=== PATIENT | male | born 1980 | race Caucasian/White ===

== ENCOUNTER 2018-08-29 16:49 | Emergency (ER) | payer MEDICAID, SELFPAY ==
[2018-08-29 16:57] VITALS: BP 154/87; PULSE 94; RESP 16; TEMP 37.3; O2SAT 94
--- NOTE | 2018-08-29 17:08 | ED.GENADUL_ITS ---
Discharge Plan Disposition Patient Disposition: HOME Condition: Fair Discharge Details Chief Complaint: RespSymp Clinical Impression: Sinusitis, Incidental pulmonary nodule Primary Care Provider: Adrien Gayle ED Provider: Tereza Prieto Home Meds and New Rx's Prescriptions: New amoxicillin-pot clavulanate [Augmentin] 875-125 mg tablet 1 tab PO BID Qty: 14 RF: 0 Continued ibuprofen 600 MG tablet 600 mg PO DIRECTED RF: 0 methadone 10 mg/5 mL Solution 130 mg PO DAILY RF: 0 Discharge Instructions Instructions: Amoxicillin/Clavulanate Potassium (By mouth), Sinusitis (ED) Additional Instructions: Continue to encourage hydration. Tylenol and ibuprofen as needed for dis comfort. Please take Augmentin as prescribed for your infection. Even if symptoms improve, please take entire course. You will need follow-up with your primary care within the next week for reevaluation. At that point, please discuss the CT scan findings of the pulmonary nodules as discussed. If you develop fevers/chills, increased pain, shortness of breath, difficulty breathing or other new/worsening symptoms please seek care urgently once again. Stand Alone Forms: Work Release Referrals: Adrien Gayle [Primary Care Provider] - Medical Decision Making Patient is a 37 year old male presenting today with c/c of sinusitis, fever, left sided chest pain and cough. States that sinus pain began 3 weeks ago and have progressively been worsening. States that over the past few days he has noted productive cough. Yesterday he began having severe chest pain with cough. Also began with fevers at that time. Patient is on methadone but was unable to get his dosing for a few days secondary to transportation restrictions. States that he used IV heroin 3 days ago. Has had his methadone for the past 2 days. Initially thought the CP was secondary to the withdrawal he was experiencing. However, he is now concerned that hehas received 2 doses and symptoms have persisted. On exam, he is obese, diaphoretic. He has recent injection sites with no signs of infection. Cardiac exam reveals no murmurs, rubs, gallops. He has 1+ pitting edema bilaterally. Respiratory exam concerning for crackles in the LLL. Exam is otherwise benign. Patient tachycardic at 94, mildly hypoxic at 94%RA. With patients history of CP, tachycardia, fevers and IVDU, I am concerned with possible endocarditis. Patient has no murmur, does not appear septic. Differential also consists of sinusitis, pneumonia, pericarditis, PE, other pulmonary or cardiac source. EKG was reviewed by Dr. Lay. Patient does have T wave inversions noted on lead III and aVF but this is consistent with previous EKG obtained in 2013. Otherwise patient's normal sinus rhythm with a rate of 78. She advised no acute ischemic changes Labs signficant for normal WBC, d-dimer elevated at 1138, ALT slightly elevated at 81. CXR reviewed by radiologist: IMPRESSION: Predominantly linear opacities in the left lung base. Most suggestive of subsegmental atelectasis or scarring. Discussed the findings with the patient. At this point, with a normal lactate, no leukocytosis, the patient appearing nontoxic, I do not feel that endocarditis or pericarditis is unlikely. However, your main concern for possible pulmonary embolism. Discussed CT with the patient, he is in agreement with moving forward with this imaing. BNP WNL. FINDINGS: Pulmonary arteries: No pulmonary emboli. Aorta: No aortic aneurysm. No aortic dissection. Lungs: Multiple new, small pulmonary nodules, predominantly subcentimeter in size, some of which are groundglass in attenuation. Follow-up as per institutional protocol. New mild subsegmental atelectasis in the lower lobes. Small focus of airspace disease in the right middle lobe. Pleural space: No pneumothorax. No pleural effusion. Heart: No cardiomegaly. No pericardial effusion. Lymph nodes: No enlarged lymph nodes. Bones/joints: Old healed rib fractures. No acute fracture or subluxation. Soft tissues: No suspicious lesions. IMPRESSION: 1. Multiple new, small pulmonary nodules, predominantly subcentimeter in size, some of which are groundglass in attenuation. Suggests a new endobronchial disease. 2. New mild subsegmental atelectasis in the lower lobes. 3. Small focus of airspace disease in the right middle lobe. Probably relates to finding #1 above. 4. No pulmonary emboli are seen. Discussed these findings with the patient. No evidence of pneumonia. CP is likely associated with cough, likely from muscular pain or pleuritis. He is feeling improved, hungry and requesting discharge. He will f/u with PCP regarding nodules. He is an active smoker, counseled on cessation. Encouraged hydration. As his sinus pain has been 3 weeks, will treat with Augmentin. He was given strict return precautions. Advised PCP f/u in one week. All quesitons and concerns were addressed. He is in agreement with this plan. HPI General Mode of arrival: ambulatory . Date/Time Provider Initiated Documentation: 08/29/18 17:08 . Limitations to Documentation: no limitations . Information obtained by: patient, family (accompanied by friend) and RN notes reviewed . History of Present Illness 37 year old M presents to the emergency department with the chief complaint of Sinus pain, fevers, cough, described as moderate, with intensity rated at 7. Quality is described as aching, and is localized to the face and chest (pain with cough). Patient reports no radiation. Patient started experiencing this day(s) and it has been constant. No relieving factors improve symptom(s), No exacerbating factors reported . Patient notes chest pain, cough, diaphoresis and fever/chills; denies headaches, loss of appetite, nausea/vomiting, rash, shortness of breath, syncope and weakness. Patient did receive the following treatments prior to arrival, none Related Data Home Medications Medication Instructions Recorded Confirmed ibuprofen 600 mg PO DIRECTED 05/06/12 05/06/12 amoxicillin-pot clavulanate 1 tab PO BID #14 tab 08/29/18 [Augmentin] methadone 130 mg PO DAILY 08/29/18 08/29/18 Previous Rx's Medication Instructions Recorded amoxicillin-pot clavulanate 1 tab PO BID #14 tab 08/29/18 [Augmentin] Allergies Allergy/AdvReac Type Severity Reaction Status Date / Time No Known Allergies Allergy Unverified 08/29/18 17:02 General Stated Complaint: RespSymp ALEJANDRO: 3 Review of Systems Constitutional Reports as per HPI, Reports chills, Reports fatigue, Reports fever(s), Denies headache(s), Denies lethargy, Denies malaise and Denies poor appetite Eyes Reports as per HPI, Denies eye discharge and Denies irritation ENT Reports as per HPI, Denies vertigo, Denies dizziness, Denies otalgia, Denies facial pain, Denies headache(s), Reports nasal congestion, Denies nasal discharge, Reports sinus pain, Reports sinus pressure, Reports sore throat and Denies throat swelling Cardiovascular Reports as per HPI, Reports chest pain (pleuritic), Denies chest pain at rest, Denies chest pain with activity (pain only with cough), Reports diaphoresis, Denies syncope, Denies rapid heart rate, Reports pedal edema (reports chronic BLE edema), Denies lightheadedness, Denies palpitations, Denies dyspnea and Denies dyspnea on exertion Respiratory Reports as per HPI, Reports cough, Denies hemoptysis, Denies dyspnea, Denies dyspnea on exertion, Denies stridor and Denies wheezing Gastrointestinal Reports as per HPI, Denies abdominal pain, Denies change in bowel habits, Denies nausea and Denies vomiting Integumentary/Breasts Reports as per HPI and Denies rash Neurologic Reports as per HPI, Denies vertigo, Denies dizziness, Denies syncope and Denies headache(s) Endocrine Reports fatigue and Denies palpitations Allergic/Immunologic Denies throat swelling and Denies wheezing [facility] Social History Smoking/Tobacco Use Status: Current every day Tobacco Type: cigarettes Drug use: Occasionally Substance use type: marijuana Details: cocaine Exam Const General: cooperative, healthy appearing, comfortable, no acute distress, well developed and well groomed Nutritional Appearance: well nourished and overweight Orientation: alert and awake [facility] Head: normal to inspection, normocephalic and atraumatic Ears: hearing grossly normal bilaterally, external ears normal and TM's normal bilaterally General nose exam: external nose normal and nares normal Face and sinus: face symmetric, no crepitus, no ecchymosis, no erythema, no fluctuance and sinus tenderness frontal and maxillary Mouth: oral mucosae normal, lip normal, tongue normal, oropharynx normal, mucous membranes dry (patient appears dry on exam), no trismus and No restricted motion Teeth and gingiva: poor dentition Throat: posterior oropharynx normal, tonsils normal and uvula midline Eyes General: appearance normal, both eyes and all related structures Neck Neck: normal visual inspection, full ROM, no lymphadenopathy and no meningeal signs Resp Effort & Inspection: normal respiratory effort, able to speak in complete sentences and no respiratory distress Auscultation: clear to auscultation bilaterally, no rales, no rhonchi and no wheezes Cardio Rate: regular rate Rhythm: regular rhythm Heart Sounds: S1 normal and S2 normal GI Inspection: normal to inspection, no edema, non-distended and obesity Palpation: soft, no hepatosplenomegaly, no guarding, not rigid and nontender Percussion: normal to percussion Auscultation: normal bowel sounds Skin General skin exam: no rashes or lesions noted Neuro General: alert and awake Cognition: normal cognition Speech: speech normal Gait: normal gait Extrem General: full ROM, normal capillary refill, no calf tenderness, normal gait and pedal edema bilaterally (has 1+ bilateral pitting edema, patient reports this is typical and unchanged) Psych Appearance: grossly normal and well kempt Mental Status: mental status grossly normal Speech and Movement: speech and movement normal Course Vital Signs Temperature 37.3 C 08/29/18 16:57 Pulse 94 H 08/29/18 16:57 Respiratory Rate 16 08/29/18 16:57 Blood Pressure 154/87 H 08/29/18 16:57 Pulse Oximetry 94 L 08/29/18 16:57 Temperature 37.3 C 08/29/18 16:57 Temperature Source Skin 08/29/18 16:57 Pulse 94 H 08/29/18 16:57 Respiratory Rate 16 08/29/18 16:57 Respiratory Effort Non-Labored 08/29/18 17:03 Respiratory Depth Normal 08/29/18 17:03 Blood Pressure 154/87 H 08/29/18 16:57 Blood Pressure Position Sitting 08/29/18 16:57 Pulse Oximetry 94 L 08/29/18 16:57 Oxygen Delivery Method Room Air 08/29/18 16:57 Oxygen Flow Rate 0 08/29/18 16:57 Pain Level 7 08/29/18 16:57
[2018-08-29] MEDS: Normal Saline 1,000 ML 1000 ML IV (18:30)
[2018-08-29 18:34] LABS: Abs Immature Grans 0.03 k/cumm (0.0-0.09); Absolute Basophil Count 0.01 k/cumm (0.0-0.2); Absolute Eosinophil Count 0.03 k/cumm (0.0-0.7); Absolute Lymphocyte Count 1.98 k/cumm (1.2-3.4); Absolute Monocyte Count 0.62 k/cumm (0.11-0.7); Absolute Neutrophil Count 5.68 k/cumm (1.2-6.7); Basophils % 0.1; Eosinophils % 0.4; HCT 40.9 % (40.0-50.0); HGB 13.3 g/dL (13.5-17.5); Immature Grans % 0.4; Lactate-non-spesis 0.7 mmol/l (0.6-1.4); Lymphocytes % 23.7; Mean Corp. HGB Concentration 32.5 g/dL (32.0-36.0); Mean Corpuscular Hemoglobin 29.3 pg (27.0-33.0); Mean Corpuscular Volume 90.1 fL (80-95); Mean Platelet Volume 9.6 fL (8.0-11.0); Monocytes % 7.4; Platelet Count 129 x1000/uL (130-400); RBC 4.54 m/cumm (4.50-6.00); RBC Distribution Width 15.5 % (11.8-14.1); White Blood Cell Count 8.35 k/cumm (4.4-10.8)
[2018-08-29] MEDS: Albuterol HFA 8 GM 60 PUFF INH IH (18:42)
[2018-08-29] MEDS: predniSONE 20 MG TAB 60 MG PO (18:42)
[2018-08-29 18:54] VITALS: BP 122/53; PULSE 93; RESP 18; TEMP 36.5; O2SAT 93
[2018-08-29 18:56] LABS: ALT 81 U/L (12-78); AST 28 U/L (15-37); Albumin 3.2 g/dL (3.4-5.0); Alkaline Phosphatase 61 U/L (46-116); Anion Gap 9.5 mmol/L (3-11); BUN 12 mg/dL (7-18); Bilirubin, Total 0.4 mg/dL (0.2-1.0); CO2 26.5 mmol/L (21.0-32.0); CREATININE 0.86 mg/dL (0.70-1.30); Calcium 8.9 mg/dL (8.5-10.1); Chloride 99 mmol/L (98-107); Glucose 109 mg/dL (70-100); Magnesium 1.9 mg/dL (1.8-2.4); Potassium 4.1 mmol/L (3.5-5.1); Sodium 135 mmol/L (136-145); Troponin I < 0.05 ng/mL (0.00-0.06)
--- NOTE | 2018-08-29 19:03 | DI.RAD_ITS ---
SYMPTOM/DIAGNOSIS: CP, FEVER, COUGH PA AND LATERAL CHEST: There is some question regarding increased interstitial markings in the left lung base. There is no evidence of air space disease. There is no pleural effusion. The cardiovascular structures are intact. SUMMARY: Small opacities in the left lung base likely representing atelectasis or scarring. No acute abnormality is seen.
[2018-08-29 19:14] LABS: D-Dimer 1138 ng/mlFEU (<500)
--- NOTE | 2018-08-29 19:27 | DI.VRAD_ITS ---
EXAM: XR Chest, 2 Views EXAM DATE/TIME: 08/29/2018 17:56 CLINICAL HISTORY: 37 years old, male; Fever; Chest pain; Type not specified; Additional info: Cough, cp, fever TECHNIQUE: Imaging protocol: XR of the chest, 2 views. COMPARISON: CR CHEST 2 VIEWS PA,LAT 05/06/2012 08:33 FINDINGS: Lungs: Predominantly linear opacities in the left lung base. No airspace consolidation. Pleural space: No pleural effusion. No pneumothorax. Heart/Mediastinum: No cardiomegaly. Bones/joints: No acute fracture. IMPRESSION: Predominantly linear opacities in the left lung base. Most suggestive of subsegmental atelectasis or scarring. Dictated and Authenticated by: Dahlia Falcon MD. Ordering:RONEN Starks MD
--- NOTE | 2018-08-29 19:55 | DI.CT_ITS ---
SYMPTOM/DIAGNOSIS: TACHYCARDIC, HYPOXIC, ELEVATED D-DIMER CHEST CTA: CT angiography was performed with multi slice acquisition and multi planar and 3D reconstruction. The examination was carried out according to the usual protocol with intravenous administration of 150 cc Omnipaque 350. There is no evidence of pulmonary embolic disease. There is no evidence of an aortic aneurysm or aortic dissection. Note is made of multiple small pulmonary nodules which are predominantly subcentimeter in size. Some demonstrating ground glass attenuation. Note is also made of sub-segmental atelectasis in the lower lobes. There is a small region of air space disease in the right middle lobe. There is no evidence of a pneumothorax or pleural effusion. The heart is of normal size. No pericardial effusion is seen. There is no evidence of lymphadenopathy. Note is made of old healed rib fractures. No acute bony abnormality is seen. The soft tissues are unremarkable. SUMMARY: Predominantly subcentimeter in size. Some of these are of ground glass attenuation. These findings suggest new endobronchial disease. There is mild subcentimeter atelectasis in the lower lobes. Note is also made of a small air space density in the right middle lobe.
[2018-08-29 19:56] LABS: NT-proBNP 121 pg/mL
--- NOTE | 2018-08-29 20:28 | DI.VRAD_ITS ---
EXAM: CT Angiography Chest With Contrast EXAM DATE/TIME: 08/29/2018 19:24 CLINICAL HISTORY: 37 years old, male; Type not specified; Patient HX: Chest pain, elevated d-dimer; Additional info: Cough, cp, fever TECHNIQUE: Imaging protocol: Axial computed tomographic angiography images of the chest with intravenous contrast using CT angiography protocol. Coronal and sagittal reformatted images were created and reviewed. 3D rendering: MIP reconstructed images were created and reviewed. Radiation optimization: All CT scans at this facility use at least one of these dose optimization techniques: automated exposure control; mA and/or kV adjustment per patient size (includes targeted exams where dose is matched to clinical indication); or iterative reconstruction. Contrast material: OMNIPAQUE 350; Contrast volume: 150 ml; Contrast route: IV; COMPARISON: CT CHEST WITH CONTRAST 05/05/2012 22:58 FINDINGS: Pulmonary arteries: No pulmonary emboli. Aorta: No aortic aneurysm. No aortic dissection. Lungs: Multiple new, small pulmonary nodules, predominantly subcentimeter in size, some of which are groundglass in attenuation. Follow-up as per institutional protocol. New mild subsegmental atelectasis in the lower lobes. Small focus of airspace disease in the right middle lobe. Pleural space: No pneumothorax. No pleural effusion. Heart: No cardiomegaly. No pericardial effusion. Lymph nodes: No enlarged lymph nodes. Bones/joints: Old healed rib fractures. No acute fracture or subluxation. Soft tissues: No suspicious lesions. IMPRESSION: 1. Multiple new, small pulmonary nodules, predominantly subcentimeter in size, some of which are groundglass in attenuation. Suggests a new endobronchial disease. 2. New mild subsegmental atelectasis in the lower lobes. 3. Small focus of airspace disease in the right middle lobe. Probably relates to finding #1 above. 4. No pulmonary emboli are seen. Dictated and Authenticated by: Dahlia Falcon MD. Ordering:RONEN Starks MD
[2018-08-29 20:56] VITALS: BP 114/56; PULSE 71; RESP 16; TEMP 37.1; O2SAT 94
[2018-08-29] MEDS: Amoxicillin 875/Clav. 125 TAB PO (20:56)
--- NOTE | 2018-08-30 08:55 | PDOC.ERCMPRO ---
Care Management Progress Note CM consult requested by FILOMENA Starks due to Venkatesh demographic information. Tereza attempted to contact Venkatesh to request he return to the Emergency room due to positive blood cultures and re-evaluation. DAVIDE called NOK: Venkatesh's Mom, Ale who provided number: [phone]. DAVIDE called Venkatesh and left a voicemail at [phone] requesting he return to the Emergency Room for re-evaluation. CM provided accurate contact information to [employer].
== END 2018-08-29 21:05 | disposition home or self-care (01) ==
PROVIDERS: Emergency Provider Physician Assistant
DX: J01.90 Acute sinusitis, unspecified (principal); R91.1 Solitary pulmonary nodule; J98.11 Atelectasis
CPT/HCPCS: 36415; 71275; 80053; 87040; 87077; 93005; 96360; 99285; 71046; 83605; 83735; 83880; 84484; 85025; 85379; 93010; J7512

== ENCOUNTER 2018-08-30 13:46 | Inpatient (IN) | payer MEDICAID, SELFPAY ==
[2018-08-30] VITALS (28 sets, daily range): BP systolic 96–172; BP diastolic 49–103; PULSE 57–78; RESP 9–18; TEMP 35.9–36.7; O2SAT 90–99
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
[2018-08-30] MEDS: Normal Saline 1,000 ML 1000 ML IV (14:17)
[2018-08-30 14:20] LABS: Lactate 1.9 mmol/L (0.6-1.4)
[2018-08-30] MEDS: cefTRIAXone 2 GM/50 ML BAG IVPB (14:21)
[2018-08-30 14:24] LABS: Abs Immature Grans 0.04 k/cumm (0.0-0.09); Absolute Basophil Count 0.01 k/cumm (0.0-0.2); Absolute Eosinophil Count 0.06 k/cumm (0.0-0.7); Absolute Lymphocyte Count 2.48 k/cumm (1.2-3.4); Absolute Monocyte Count 0.86 k/cumm (0.11-0.7); Absolute Neutrophil Count 4.77 k/cumm (1.2-6.7); Basophils % 0.1; Eosinophils % 0.7; HCT 38.7 % (40.0-50.0); HGB 12.7 g/dL (13.5-17.5); Immature Grans % 0.5; Lymphocytes % 30.2; Mean Corp. HGB Concentration 32.8 g/dL (32.0-36.0); Mean Corpuscular Hemoglobin 29.5 pg (27.0-33.0); Mean Corpuscular Volume 89.8 fL (80-95); Mean Platelet Volume 9.6 fL (8.0-11.0); Monocytes % 10.5; Platelet Count 137 x1000/uL (130-400); RBC 4.31 m/cumm (4.50-6.00); RBC Distribution Width 15.2 % (11.8-14.1); White Blood Cell Count 8.22 k/cumm (4.4-10.8)
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
[2018-08-30] MEDS: VANCOMYCIN 2,000 MG in Normal Saline 500 ML 250 MG IVPB (14:45)
[2018-08-30 14:47] LABS: ALT 65 U/L (12-78); AST 22 U/L (15-37); Albumin 2.8 g/dL (3.4-5.0); Alkaline Phosphatase 52 U/L (46-116); Anion Gap 7.4 mmol/L (3-11); BUN 15 mg/dL (7-18); Bilirubin, Total 0.2 mg/dL (0.2-1.0); CO2 28.6 mmol/L (21.0-32.0); CREATININE 0.87 mg/dL (0.70-1.30); Calcium 8.4 mg/dL (8.5-10.1); Chloride 101 mmol/L (98-107); Glucose 167 mg/dL (70-100); Potassium 3.3 mmol/L (3.5-5.1); Sodium 137 mmol/L (136-145); Total Protein 7.4 g/dL (6.4-8.2)
[2018-08-30 15:04] LABS: Procalcitonin 0.6 ng/mL
--- NOTE | 2018-08-30 15:19 | MERGE_ITS ---
*[facility]* *[facility]* [address] [place] [address] Date of study: 08/30/2018 Transthoracic Echocardiography M-mode, complete 2D, complete spectral Doppler, and color Doppler *STUDY CONCLUSIONS* Impressions: There are no typical features of vegetative endocarditis. However, this diagnosis cannot be excluded on the basis of this transthoracic study. Consider transesophageal echocardiography, if clinically indicated, for superior assessment of valve anatomy. Summary: 1. Left ventricle: The cavity size was normal. The estimated ejection fraction was 65%. Diastolic parameters were normal. There was no evidence of elevated ventricular filling pressure by Doppler parameters. 2. Atrial septum: No defect or patent foramen ovale was identified. 3. Pulmonary arteries: Systolic pressure could not be accurately estimated. 4. Inferior vena cava: The vessel was normal in size. The respirophasic diameter changes were in the normal range (greater than or equal to 50%), consistent with normal central venous pressure. *PATIENT PRESENTATION* Height: 182.9cm (72in ) S/D Pressure: 116 / 63 Weight: 133.8kg (294.4lb ) BSA: 2.66m^2 Test start time: 03:20 PM. Test stop time: 04:00 PM. PERFORMING Unknown PERFORMING [facility] ELECTRICAL [employer]SEMBLY TECHNICIAN Naa Al[facility] CONSULTING Elle Olmos Yelena A REFERRING Kogan, Yelena A *PROCEDURE DATA* Procedure information: This study was interpreted by [facility]. Pertinent images and digital data are archived for permanent storage and are available for subsequent review. No prior study was available for comparison. Study status: Routine. Transthoracic echocardiography. M-mode, complete 2D, complete spectral Doppler, and color Doppler. A Transthoracic Echocardiogram was performed. Scanning was performed from the parasternal, apical, subcostal, and suprasternal notch acoustic windows. Images were obtained using an [employer] SC 2000 cardiac ultrasound machine. Image quality was good. Study completion: The patient tolerated the procedure well. History: PMH: Bacteremia, Edema. *CARDIAC ANATOMY* Left ventricle: The cavity size was normal. The estimated ejection fraction was 65%. The tissue Doppler parameters were normal. Diastolic parameters were normal. There was no evidence of elevated ventricular filling pressure by Doppler parameters. Aortic valve: Doppler: There was no stenosis. There was no regurgitation. VTI ratio of LVOT to aortic valve: 0.77. Valve area (VTI): 2.5cm^2. Indexed valve area (VTI): 1cm^2/m^2. Peak velocity ratio of LVOT to aortic valve: 0.66. Valve area (Vmax): 2.2cm^2. Indexed valve area (Vmax): 0.8cm^2/m^2. Mean velocity ratio of LVOT to aortic valve: 0.6. Valve area (Vmean): 2cm^2. Indexed valve area (Vmean): 0.7cm^2/m^2. Mean gradient (S): 5.6mm Hg. Peak gradient (S): 8.2mm Hg. Aorta: Aortic root: The aortic root was normal in size. Ascending aorta: The ascending aorta was normal in size. Mitral valve: Doppler: There was no evidence for stenosis. There was no significant regurgitation. Valve area by pressure half-time: 3.7cm^2. Indexed valve area by pressure half-time: 1.4cm^2/m^2. Peak gradient (D): 2.4mm Hg. Left atrium: The atrium was normal in size. Atrial septum: No defect or patent foramen ovale was identified. Right ventricle: Poorly visualized. Pulmonic valve: Doppler: There was no evidence for stenosis. There was no significant regurgitation. Peak gradient (S): 3.8mm Hg. Tricuspid valve: Doppler: There was mild regurgitation. Pulmonary artery: Poorly visualized. Systolic pressure could not be accurately estimated. Right atrium: The atrium was normal in size. Pericardium: There was no pericardial effusion. Systemic veins: Inferior vena cava: The vessel was normal in size. The respirophasic diameter changes were in the normal range (greater than or equal to 50%), consistent with normal central venous pressure. Measurements Left ventricle Value Reference LV ID, ED, PLAX 5.1 cm 3.5 - 6.0 LV ID, ES, PLAX 3.2 cm 2.1 - 4.0 LV PW thickness, ED, PLAX 1.2 cm LV end-diastolic volume, 1-p A2C 180 ml LV ejection fraction, 1-p A2C 53 % LV end-diastolic volume, 1-p A4C 175 ml LV ejection fraction, 1-p A4C 56 % LV e', lateral 0.144 m/sec LV E/e', lateral 5 LV e', medial 0.172 m/sec LV E/e', medial 5 LV e', average 0.158 m/sec LV E/e', average 5 Ventricular septum Value Reference IVS thickness, ED, PLAX 1.2 cm LVOT Value Reference LVOT ID, A-P 2.0 cm LVOT area 3.3 cm^2 LVOT peak velocity, S 0.95 m/sec LVOT mean velocity, S 0.69 m/sec LVOT VTI, S 22.3 cm LVOT peak gradient, S 3.6 mm Hg LVOT mean gradient, S 2.1 mm Hg Stroke volume (SV), LVOT DP 74 ml Stroke index (SV/bsa), LVOT DP 28 ml/m^2 Aortic valve Value Reference Aortic valve peak velocity, S 1.4 m/sec Aortic valve mean velocity, S 1.2 m/sec Aortic valve VTI, S 29.0 cm Aortic mean gradient, S 5.6 mm Hg Aortic peak gradient, S 8.2 mm Hg VTI ratio, LVOT/AV 0.77 Aortic valve area, VTI 2.5 cm^2 Velocity ratio, peak, LVOT/AV 0.66 Aortic valve area, peak velocity 2.2 cm^2 Velocity ratio, mean, LVOT/AV 0.6 Aortic valve area, mean velocity 2 cm^2 Aortic valve area/bsa, mean velocity 0.7 cm^2/m^2 Aorta Value Reference Aortic root ID, ED 3.3 cm Ascending aorta ID, A-P, S 3.0 cm Left atrium Value Reference LA ID, A-P, ES 4.1 cm LA ID/bsa, A-P 1.5 cm/m^2 <=2.2 LA volume, ES, 2-p 70 ml LA volume/bsa, ES, 2-p 26 ml/m^2 LA/aortic root ratio 1.24 Mitral valve Value Reference Mitral E-wave peak velocity 0.78 m/sec Mitral A-wave peak velocity 0.51 m/sec Mitral deceleration time 203 ms 150 - 230 Mitral pressure half-time 59 ms Mitral peak gradient, D 2.4 mm Hg Mitral E/A ratio, peak 1.52 Mitral valve area, PHT, DP 3.7 cm^2 Right atrium Value Reference RA area, ES, A4C 14.2 cm^2 8.3 - 19.5 Pulmonic valve Value Reference Pulmonic peak gradient, S 3.8 mm Hg Legend: (L) and (H) jaylon values outside specified reference range. I have personally reviewed the images and have reviewed and edited the reported findings. Electronically signed by Guanakito Kearney MD 08/30/2018 17:05
[2018-08-30 19:40] LABS: Bilirubin Negative (Negative); Blood Negative (Negative); Clarity Clear (Clear); Glucose Negative (Negative); Ketones Negative (Negative); Leukocyte Esterase Negative (Negative); Nitrite Negative (Negative); Specific Gravity >= 1.030 (1.005-1.025); Urobilinogen 0.2 EU/dL (Up TO 0.2); pH 5.5 (5-8)
[2018-08-30 19:43] LABS: *AMPHETAMINES SCREEN URINE Negative (Negative); *BARBITURATES SCREEN URINE Negative (Negative); *BENZODIAZEPINES SCREEN URINE Negative (Negative); Cannabinoids THC POSITIVE (Negative); Cocaine Screen,Urine POSITIVE (Negative); METHADONE URINE SCREEN POSITIVE (Negative); OPIATES URINE SCREEN Negative (Negative)
[2018-08-30 19:44] LABS: Tricyclic Antidepressants Negative (Negative)
[2018-08-30 20:06] LABS: Bacteria Negative HPF (Negative); C & S Indicated? No; Casts Negative LPF (Negative); Crystals Few Amorphous HPF (Negative); Epithelial Cells Negative HPF (Negative); Mucus Negative (Negative); RBC 0-2 (0-2)
[2018-08-30] MEDS: Clotrimazole 1% 15 GM TUBE TP (20:25)
[2018-08-30] MEDS: Normal Saline Flush 10 ML SYR IVP (22:03)
[2018-08-31] VITALS (9 sets, daily range): BP systolic 124–158; BP diastolic 67–104; PULSE 49–71; RESP 17–20; TEMP 36.6–37.1; O2SAT 96–99
[2018-08-31] MEDS: Ibuprofen 400 MG TAB PO ×2 (03:38→20:54)
[2018-08-31] MEDS: Normal Saline Flush 10 ML SYR IVP (05:56)
[2018-08-31 06:57] LABS: Abs Immature Grans 0.02 k/cumm (0.0-0.09); Absolute Basophil Count 0.01 k/cumm (0.0-0.2); Absolute Eosinophil Count 0.16 k/cumm (0.0-0.7); Absolute Monocyte Count 0.75 k/cumm (0.11-0.7); Absolute Neutrophil Count 3.06 k/cumm (1.2-6.7); Basophils % 0.1; Eosinophils % 2.4; HCT 39.1 % (40.0-50.0); HGB 12.7 g/dL (13.5-17.5); Immature Grans % 0.3; Lactate-non-spesis 0.7 mmol/l (0.6-1.4); Lymphocytes % 41.2; Mean Corp. HGB Concentration 32.5 g/dL (32.0-36.0); Mean Corpuscular Hemoglobin 29.4 pg (27.0-33.0); Mean Corpuscular Volume 90.5 fL (80-95); Mean Platelet Volume 9.5 fL (8.0-11.0); Platelet Count 149 x1000/uL (130-400); RBC 4.32 m/cumm (4.50-6.00); RBC Distribution Width 15.7 % (11.8-14.1)
[2018-08-31 07:39] LABS: Anion Gap 6.2 mmol/L (3-11); BUN 11 mg/dL (7-18); CO2 27.8 mmol/L (21.0-32.0); CREATININE 0.73 mg/dL (0.70-1.30); Calcium 7.9 mg/dL (8.5-10.1); Chloride 105 mmol/L (98-107); Glucose 94 mg/dL (70-100); Magnesium 1.8 mg/dL (1.8-2.4); Potassium 4.4 mmol/L (3.5-5.1); Procalcitonin 0.4 ng/mL; Sodium 139 mmol/L (136-145); TSH (W/Ref FT4) 3.24 uIU/mL (0.358-3.74)
[2018-08-31 07:54] LABS: C-Reactive Protein 5.32 mg/dL (0.0-0.3)
[2018-08-31] MEDS: Methadone Liquid 10 MG/ML 130 MG PO (08:19)
[2018-08-31] MEDS: Clotrimazole 1% 15 GM TUBE TP ×2 (08:22→20:17)
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
[2018-08-31 10:30] LABS: HIV-1/2 Ag & Ab Screen Negative (NEGAT)
--- NOTE | 2018-08-31 11:08 | PHARADMIT ---
Admission Pharmacy Clinical Review GPC, BACTEREMIA, CAP, EDEMA Code Status Full Code Current Weight Wgt-145 kg Renally Cleared and Narrow Therapeutic Index Meds CrCl~ 140 mL/min Meds-OK QTc Value / Action Taken QTc-444 na BP Control, Fever BP- 148/92 Tmax- 36.9C Electrolytes reviewed Na- 139 K+4.4 Mag-1.8 DVT Prophylaxis Lovenox Opiate Usage / Scheduled Bowel Regimen Ordered Yes Yes Plt/SCr for Heparin / Enoxaparin Plts-149 SCr-0.73 INR for Warfarin na H/H stable, WBC/Bands H&H- 12.7/39.1 WBC- 6.80 Antibiotic appropriateness Rocephin, DC'd Vancomycin Cultures and Sensitivities Blood-pending, Sputum-neg Surgical ABX d/c within 24 hr NA DM control / Insulin Dosing BG- 94 Heart Failure (Check EF%) (EDGAR's, B-Block, Diuretics) na IV to PO Switch No Home Meds Reviewed Yes Home Meds Not Ordered Augmentin, Comments On Methadone, Urine screen Cocaine, THC, Methadone) R-CRP- 5.32
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
[2018-08-31] MEDS: cefTRIAXone 2 GM/50 ML BAG IVPB (14:07)
[2018-08-31 15:47] LABS: NT-proBNP 153 pg/mL
[2018-09-01] VITALS (9 sets, daily range): BP systolic 115–146; BP diastolic 75–91; PULSE 52–80; RESP 16–21; TEMP 36.2–36.6; O2SAT 97–98
[2018-09-01] MEDS: Ibuprofen 400 MG TAB PO ×2 (00:58→04:54)
[2018-09-01 08:27] LABS: HCT 41.7 % (40.0-50.0); HGB 13.3 g/dL (13.5-17.5); Mean Corp. HGB Concentration 31.9 g/dL (32.0-36.0); Mean Corpuscular Hemoglobin 28.9 pg (27.0-33.0); Mean Corpuscular Volume 90.7 fL (80-95); Mean Platelet Volume 9.7 fL (8.0-11.0); Platelet Count 169 x1000/uL (130-400); RBC Distribution Width 15.5 % (11.8-14.1); White Blood Cell Count 5.19 k/cumm (4.4-10.8)
[2018-09-01 08:37] LABS: Anion Gap 6.2 mmol/L (3-11); BUN 11 mg/dL (7-18); C-Reactive Protein 3.35 mg/dL (0.0-0.3); CO2 28.8 mmol/L (21.0-32.0); CREATININE 0.76 mg/dL (0.70-1.30); Calcium 8.7 mg/dL (8.5-10.1); Chloride 105 mmol/L (98-107); Glucose 89 mg/dL (70-100); Potassium 4.6 mmol/L (3.5-5.1); Sodium 140 mmol/L (136-145)
[2018-09-01] MEDS: Methadone Liquid 10 MG/ML 130 MG PO (08:54)
[2018-09-01] MEDS: Clotrimazole 1% 15 GM TUBE TP ×2 (08:54→20:55)
[2018-09-01 09:17] LABS: ESR 34 mm/hr (0-15)
[2018-09-01] MEDS: cefTRIAXone 2 GM/50 ML BAG IVPB (13:50)
[2018-09-01] MEDS: Normal Saline Flush 10 ML SYR IVP (13:55)
--- NOTE | 2018-09-01 14:46 | W.PM.PROGNOT ---
Date of Service Date of service: 09/01/18 Time of Service: 14:46 Assessment and Plan (1) Gram-positive bacteremia: Start date: 09/01/18 Start time: 14:50 Current visit: Yes Status: Acute 4/4 bottles positive from 08/29/18 growing Group B Streptococcus repeat blood cultures drawn 08/30/2018 show no growth to date. He had a transthoracic echocardiogram yesterday which showed his LVEF was 65%, there were no typical features of vegetative endocarditis, will hold off on MEME at this time, given no murmur, fever, and improving sx. His CRP improved from 5.32- 3.35 today, his procalcitonin improved from 0.6 to 0.4. He was on vancomycin and high-dose Rocephin, the vancomycin was discontinued with culture results. Continue ceftriaxone. Monitor repeat blood cultures. (2) Edema: Start date: 09/01/18 Start time: 14:56 Current visit: Yes Status: Acute Mild lower extremity edema. BNP 153, likely dependent edema. He believes he has FROY, although he has never had a sleep study, and is not currently interested in having one. Echo did not show evidence of heart failure, his systolic pressure could not be accurately estimated. Continue TEDs. (3) Opioid dependence: Start date: 09/01/18 Start time: 14:57 Current visit: Yes Status: Acute Continue methadone. (4) IV drug abuse: Start date: 09/01/18 Start time: 14:57 Current visit: Yes Status: Acute Continue methadone. Urine drug screen positive for cocaine, THC and methadone. His father recently of drug overdose and is having a hard time coping. Has used IV heroin within the last week. HIV negative, hepatitis studies are pending. Continue to monitor for signs of withdrawal. (5) Obesity: Start date: 09/01/18 Start time: 14:57 Current visit: Yes Status: Acute High risk for FROY. He believes he has sleep apnea. Echo could not accurately measure for pulmonary hypertension. Would benefit from outpatient sleep study, however, he declines further investigation at this time. (6) Hypertension: Start date: 09/01/18 Start time: 14:57 Current visit: Yes Status: Chronic Blood pressure acceptable at present. Continue to monitor. (7) DVT prophylaxis: Start date: 09/01/18 Start time: 14:57 Current visit: Yes Status: Acute Subcutaneous Lovenox. (8) Discharge planning issues: Start date: 09/01/18 Start time: 14:57 Current visit: Yes Status: Acute Full code. Care management will continue to work with him on a safe discharge plan. Subjective Patient reports: feels better Interval history since last seen: Looking well, feeling better. Smiling, and joking today. Afebrile, normal white count, CRP is trending down at 3.35. Second set blood cultures no growth to date at this time. Hold off on MEME as patient does not have a murmur, vegitation was not evident by echo and there is no wbc or fever. Denies CP, SOB and n/v/d. Exam Narrative Exam Narrative: General: Very pleasant obese male, sitting up in a chair, appears comfortable, in no acute distress. Neurological: A&Ox3, speech is clear, no focal neurological deficits. Skin: No evidence of abscess/cellulitis L hand or left AC; erythematous toes on bilateral feet, appears fungal HEENT: Atraumatic, normocephalic, pupils equal and round, EOMI, moist mucous membranes, very poor dentition. Cardiovascular: Heart has regular rate and rhythm, no murmur appreciated. Lungs: Respirations even and unlabored, lung sounds clear to auscultation bilaterally. Gastrointestinal: Normoactive bowel sounds, abdomen is round and soft, nontender on palpation, nondistended Extremities: 1+ edema to bilateral feet, erythematous toes BLEs, no obvious infected wounds Objective Objective Clinical Data: Abnormal lab results 09/01/18 09/01/18 Range/Units 08:05 08:05 Hgb 13.3 L (13.5-17.5) g/dL MCHC 31.9 L (32.0-36.0) g/dL RDW 15.5 H (11.8-14.1) % ESR 34 H (0-15) mm/hr C-Reactive Protein 3.35 H (0.0-0.3) mg/dL Vital Signs Temperature 36.5 C 09/01/18 12:25 Temperature Source Skin 09/01/18 12:25 Pulse 73 09/01/18 12:25 Pulse Rhythm Regular 09/01/18 08:45 Pulse 59 L 08/30/18 15:50 Respiratory Rate 20 09/01/18 12:25 Respiratory Effort Non-Labored 09/01/18 08:45 Respiratory Depth Normal 09/01/18 08:45 Respiratory Pattern Normal 09/01/18 08:45 Blood Pressure 142/91 H 09/01/18 12:25 Blood Pressure Mean 67 08/30/18 15:46 Blood Pressure Position Sitting 08/30/18 13:47 Pulse Oximetry 98 09/01/18 12:25 Oxygen Delivery Method Room Air 09/01/18 12:25 Oxygen Flow Rate 0 09/01/18 12:25 Pain Level 4 09/01/18 12:25 Comment 09/01/18 12:25 Intake & Output 08/31/18 09/01/18 09/01/18 23:59 11:59 23:59 Intake Total 660 / 1230 1000 / 1300 300 / 1300 Balance 660 / 430 1000 / 1300 300 / 1300 Weight 144.8 kg Intake: IV 60 / 330 Oral 600 / 900 1000 / 1300 300 / 1300 Other: Comment Patient voiding independantly Voiding Methods Toilet Laboratory Results WBC 5.19 k/cumm (4.4-10.8) 09/01/18 08:05 RBC 4.60 m/cumm (4.50-6.00) 09/01/18 08:05 Hgb 13.3 g/dL (13.5-17.5) L 09/01/18 08:05 Hct 41.7 % (40.0-50.0) 09/01/18 08:05 MCV 90.7 fL (80-95) 09/01/18 08:05 MCH 28.9 pg (27.0-33.0) 09/01/18 08:05 MCHC 31.9 g/dL (32.0-36.0) L 09/01/18 08:05 RDW 15.5 % (11.8-14.1) H 09/01/18 08:05 Plt Count 169 x1000/uL (130-400) 09/01/18 08:05 MPV 9.7 fL (8.0-11.0) 09/01/18 08:05 Immature Gran % 0.3 08/31/18 06:38 45.0 08/31/18 06:38 41.2 08/31/18 06:38 11.0 08/31/18 06:38 2.4 08/31/18 06:38 0.1 08/31/18 06:38 Absolute Neutrophils 3.06 k/cumm (1.2-6.7) 08/31/18 06:38 Absolute Lymphocytes 2.80 k/cumm (1.2-3.4) 08/31/18 06:38 Absolute Monocytes 0.75 k/cumm (0.11-0.7) H 08/31/18 06:38 Absolute Eosinophils 0.16 k/cumm (0.0-0.7) 08/31/18 06:38 Absolute Basophils 0.01 k/cumm (0.0-0.2) 08/31/18 06:38 ESR 34 mm/hr (0-15) H 09/01/18 08:05 Sodium 140 mmol/L (136-145) 09/01/18 08:05 Potassium 4.6 mmol/L (3.5-5.1) 09/01/18 08:05 Chloride 105 mmol/L (98-107) 09/01/18 08:05 Carbon Dioxide 28.8 mmol/L (21.0-32.0) 09/01/18 08:05 6.2 mmol/L (3-11) 09/01/18 08:05 BUN 11 mg/dL (7-18) 09/01/18 08:05 0.76 mg/dL (0.70-1.30) 09/01/18 08:05 >= 60.00 (mL/min/1.73m2) 09/01/18 08:05 Glucose 89 mg/dL (70-100) 09/01/18 08:05 0.7 mmol/l (0.6-1.4) 08/31/18 06:38 Calcium 8.7 mg/dL (8.5-10.1) 09/01/18 08:05 Magnesium 1.8 mg/dL (1.8-2.4) 08/31/18 06:38 0.2 mg/dL (0.2-1.0) 08/30/18 14:15 AST 22 U/L (15-37) 08/30/18 14:15 ALT 65 U/L (12-78) 08/30/18 14:15 52 U/L (46-116) 08/30/18 14:15 3.35 mg/dL (0.0-0.3) H 09/01/18 08:05 NT-Pro-B Natriuret Pep 153 pg/mL (-299) 08/31/18 06:38 7.4 g/dL (6.4-8.2) 08/30/18 14:15 2.8 g/dL (3.4-5.0) L 08/30/18 14:15 0.4 ng/mL 08/31/18 06:38 TSH 3.24 uIU/mL (0.358-3.74) 08/31/18 06:38 Evelyn (Yellow) 08/30/18 19:10 Clear (Clear) 08/30/18 19:10 5.5 (5-8) 08/30/18 19:10 Ur Specific [place] >= 1.030 (1.005-1.025) H 08/30/18 19:10 30 mg/dL (Negative) H 08/30/18 19:10 Negative mg/dL (Negative) 08/30/18 19:10 Negative (Negative) 08/30/18 19:10 Negative (Negative) 08/30/18 19:10 Negative (Negative) 08/30/18 19:10 0.2 EU/dL (Up TO 0.2) 08/30/18 19:10 Ur Leukocyte Esterase Negative (Negative) 08/30/18 19:10 0-2 (0-2) 08/30/18 19:10 3-5 HPF (0-5) 08/30/18 19:10 Ur Epithelial Cells Negative HPF (Negative) 08/30/18 19:10 Few amorphous HPF (Negative) 08/30/18 19:10 Negative HPF (Negative) 08/30/18 19:10 Negative LPF (Negative) 08/30/18 19:10 Negative (Negative) 08/30/18 19:10 Ur Culture Indicated? No 08/30/18 19:10 Negative mg/dL (Negative) 08/30/18 19:10 Negative (Negative) 08/30/18 19:10 Positive (Negative) 08/30/18 19:10 Ur Barbiturates Screen Negative (Negative) 08/30/18 19:10 Ur Tricyclics Screen Negative (Negative) 08/30/18 19:10 Ur Amphetamines Screen Negative (Negative) 08/30/18 19:10 U Benzodiazepines Scrn Negative (Negative) 08/30/18 19:10 Positive (Negative) 08/30/18 19:10 Ur THC Screen Positive (Negative) 08/30/18 19:10 HIV 1&2 Ag/Ab, 4th Gen Negative (NEGAT) 08/30/18 14:15
--- NOTE | 2018-09-01 17:51 | CMPROGNOTE_ITS ---
Care Management Progress Note S/O: Sittin up on edge of bed visiting with his engineering manager, Annette Menon, and his daughter. Insists he will be going home tomorrow. Currently receiving IV antibiotics. A: 37 y.o. male admitted forGram Positive Bacteremia P: Return home on oral antibiotics and follow up with PCP. Annette will transport.
[2018-09-01] MEDS: Ibuprofen 400 MG TAB 600 MG PO (18:46)
--- NOTE | 2018-09-02 00:07 | NUR.NOTE ---
Nursing Note: Around 0000, patient accidentally rang call [place], rushed out of room and stated it was a mistake. Patient appears slightly nervous and returned to room. Patients eyes appeared red and his room smelled heavily of cologne. About 30 minutes prior patient was asking about the frequency of being checked on and how long it would be before somebody comes in his room again.
[2018-09-02 03:43] VITALS: BP 125/75; PULSE 61; RESP 16; TEMP 36.9; O2SAT 98
[2018-09-02 07:22] VITALS: BP 144/89; PULSE 56; RESP 19; TEMP 36.8; O2SAT 99
[2018-09-02 08:19] LABS: Abs Immature Grans 0.05 k/cumm (0.0-0.09); Absolute Basophil Count 0.02 k/cumm (0.0-0.2); Absolute Eosinophil Count 0.16 k/cumm (0.0-0.7); Absolute Lymphocyte Count 2.54 k/cumm (1.2-3.4); Absolute Neutrophil Count 2.29 k/cumm (1.2-6.7); Basophils % 0.4; Eosinophils % 2.9; HCT 41.7 % (40.0-50.0); HGB 13.5 g/dL (13.5-17.5); Immature Grans % 0.9; Lymphocytes % 45.7; Mean Corp. HGB Concentration 32.4 g/dL (32.0-36.0); Mean Corpuscular Hemoglobin 28.8 pg (27.0-33.0); Mean Corpuscular Volume 88.9 fL (80-95); Mean Platelet Volume 9.3 fL (8.0-11.0); Neutrophils % 41.1; Platelet Count 200 x1000/uL (130-400); RBC 4.69 m/cumm (4.50-6.00); RBC Distribution Width 14.9 % (11.8-14.1); White Blood Cell Count 5.56 k/cumm (4.4-10.8)
[2018-09-02 08:35] LABS: ALT 43 U/L (12-78); AST 17 U/L (15-37); Albumin 2.6 g/dL (3.4-5.0); Alkaline Phosphatase 47 U/L (46-116); Anion Gap 6.1 mmol/L (3-11); BUN 9 mg/dL (7-18); Bilirubin, Total 0.1 mg/dL (0.2-1.0); CO2 29.9 mmol/L (21.0-32.0); CREATININE 0.79 mg/dL (0.70-1.30); Calcium 8.9 mg/dL (8.5-10.1); Chloride 104 mmol/L (98-107); Glucose 96 mg/dL (70-100); Potassium 4.5 mmol/L (3.5-5.1); Sodium 140 mmol/L (136-145); Total Protein 7.1 g/dL (6.4-8.2)
[2018-09-02] MEDS: Methadone Liquid 10 MG/ML 130 MG PO (09:24)
[2018-09-02] MEDS: Omeprazole 20 MG CAPCR PO (09:24)
[2018-09-02 12:30] VITALS: BP 142/84; PULSE 73; RESP 16; TEMP 36.7; O2SAT 97
--- NOTE | 2018-09-02 13:28 | W.PM.PROGNOT ---
Date of Service Date of service: 09/02/18 Time of Service: 13:45 Assessment and Plan (1) Gram-positive bacteremia: Start date: 09/02/18 Start time: 13:37 Current visit: Yes Status: Acute 4/4 bottles positive from 08/29/18 growing Group B Streptococcus repeat blood cultures drawn 08/30/2018 show no growth to date. Spoke with [facility] ID and found to have 5 mm new nodules on lungs by CT. Recommend MEME with carotid u/s and 4-6 weeks of antibiotic therapy. MEME placed for tomorrow, follow up with ID possibly tomorrow for duration and regimen of treatment. Feeling better. Afebrile. CRP down from 3.35 to 2.10 Continue ceftriaxone. (2) Edema: Start date: 09/02/18 Start time: 13:40 Current visit: Yes Status: Acute Mild lower extremity edema improving. BNP 153, likely dependent edema. Continues to wear TEDS (3) Opioid dependence: Start date: 09/02/18 Start time: 13:41 Current visit: Yes Status: Acute Continue methadone. (4) IV drug abuse: Start date: 09/02/18 Start time: 13:41 Current visit: Yes Status: Acute Continue methadone. Urine drug screen positive for cocaine, THC and methadone. His father recently of drug overdose and is having a hard time coping. Has used IV heroin within the last week. HIV negative, hepatitis studies are pending. Continue to monitor for signs of withdrawal. (5) Hypertension: Start date: 09/02/18 Start time: 13:42 Current visit: Yes Status: Chronic Blood pressure acceptable at present. Continue to monitor. (6) DVT prophylaxis: Start date: 09/02/18 Start time: 13:42 Current visit: Yes Status: Acute Subcutaneous Lovenox. (7) Discharge planning issues: Start date: 09/02/18 Start time: 13:42 Current visit: Yes Status: Acute Full code. He may require 4-6 weeks IV antibiotics, he will need to either go on swing bed status or go to a transfusion center. Subjective Patient reports: feels better Interval history since last seen: Feeling better. Review of CT scan revealed multiple new small pulmonary nodules, some of which are groundglass in attenuation. Suspicion for embolic disease. Echo did not reveal vegetation, however MEME and carotid u/s ordered after speaking with [facility] ID. Recommended since previously used IV heroin prior to admission he will require 4-6 weeks antibiotics. I spoke at length with the patient regarding plan of care and well being. He is agreeable to plan at this time. We will call ID with recommendations duration and treatment of choice. He is feeling better, denies CP, SOB, n/v/d. Exam Narrative Exam Narrative: General: Very pleasant obese male, sitting up in a chair, appears comfortable, in no acute distress. Neurological: A&Ox3, speech is clear, no focal neurological deficits. Skin: No evidence of abscess/cellulitis L hand or left AC; erythematous toes on bilateral feet, appears fungal HEENT: Atraumatic, normocephalic, pupils equal and round, EOMI, moist mucous membranes, very poor dentition. Cardiovascular: Heart has regular rate and rhythm, no murmur appreciated. Lungs: Respirations even and unlabored, lung sounds clear to auscultation bilaterally. Gastrointestinal: Normoactive bowel sounds, abdomen is round and soft, nontender on palpation, nondistended Extremities: 1+ edema to bilateral feet, erythematous toes BLEs, no obvious infected wounds Objective Objective Clinical Data: Abnormal lab results 09/02/18 09/02/18 Range/Units 08:00 08:00 RDW 14.9 H (11.8-14.1) % Total Bilirubin 0.1 L (0.2-1.0) mg/dL C-Reactive Protein 2.10 H (0.0-0.3) mg/dL Albumin 2.6 L (3.4-5.0) g/dL Vital Signs Temperature 36.7 C 09/02/18 12:30 Temperature Source Tympanic 09/02/18 12:30 Pulse 73 09/02/18 12:30 Pulse Rhythm Regular 09/01/18 23:40 Pulse 59 L 08/30/18 15:50 Respiratory Rate 16 09/02/18 12:30 Respiratory Effort 09/01/18 23:40 Respiratory Depth Normal 09/01/18 23:40 Respiratory Pattern Normal 09/01/18 23:40 Blood Pressure 142/84 H 09/02/18 12:30 Blood Pressure Mean 67 08/30/18 15:46 Blood Pressure Position Sitting 08/30/18 13:47 Pulse Oximetry 97 09/02/18 12:30 Oxygen Delivery Method Room Air 09/02/18 12:30 Oxygen Flow Rate 0 09/02/18 12:30 Pain Level 2 09/02/18 03:43 Comment 09/01/18 12:25 Intake & Output 09/01/18 09/02/18 09/02/18 23:59 11:59 23:59 Intake Total 1210 / 2210 120 / 120 Balance 1210 / 2210 120 / 120 Intake: IV 70 / 70 Oral 1140 / 2140 120 / 120 Other: Comment Patient voids independantly Voiding Methods Toilet Urinal Laboratory Results WBC 5.56 k/cumm (4.4-10.8) 09/02/18 08:00 RBC 4.69 m/cumm (4.50-6.00) 09/02/18 08:00 Hgb 13.5 g/dL (13.5-17.5) 09/02/18 08:00 Hct 41.7 % (40.0-50.0) 09/02/18 08:00 MCV 88.9 fL (80-95) 09/02/18 08:00 MCH 28.8 pg (27.0-33.0) 09/02/18 08:00 MCHC 32.4 g/dL (32.0-36.0) 09/02/18 08:00 RDW 14.9 % (11.8-14.1) H 09/02/18 08:00 Plt Count 200 x1000/uL (130-400) 09/02/18 08:00 MPV 9.3 fL (8.0-11.0) 09/02/18 08:00 Immature Gran % 0.9 09/02/18 08:00 41.1 09/02/18 08:00 45.7 09/02/18 08:00 9.0 09/02/18 08:00 2.9 09/02/18 08:00 0.4 09/02/18 08:00 Absolute Neutrophils 2.29 k/cumm (1.2-6.7) 09/02/18 08:00 Absolute Lymphocytes 2.54 k/cumm (1.2-3.4) 09/02/18 08:00 Absolute Monocytes 0.50 k/cumm (0.11-0.7) 09/02/18 08:00 Absolute Eosinophils 0.16 k/cumm (0.0-0.7) 09/02/18 08:00 Absolute Basophils 0.02 k/cumm (0.0-0.2) 09/02/18 08:00 ESR 34 mm/hr (0-15) H 09/01/18 08:05 Sodium 140 mmol/L (136-145) 09/02/18 08:00 Potassium 4.5 mmol/L (3.5-5.1) 09/02/18 08:00 Chloride 104 mmol/L (98-107) 09/02/18 08:00 Carbon Dioxide 29.9 mmol/L (21.0-32.0) 09/02/18 08:00 6.1 mmol/L (3-11) 09/02/18 08:00 BUN 9 mg/dL (7-18) 09/02/18 08:00 0.79 mg/dL (0.70-1.30) 09/02/18 08:00 >= 60.00 (mL/min/1.73m2) 09/02/18 08:00 Glucose 96 mg/dL (70-100) 09/02/18 08:00 0.7 mmol/l (0.6-1.4) 08/31/18 06:38 Calcium 8.9 mg/dL (8.5-10.1) 09/02/18 08:00 Magnesium 2.0 mg/dL (1.8-2.4) 09/02/18 08:00 0.1 mg/dL (0.2-1.0) L 09/02/18 08:00 AST 17 U/L (15-37) 09/02/18 08:00 ALT 43 U/L (12-78) 09/02/18 08:00 47 U/L (46-116) 09/02/18 08:00 2.10 mg/dL (0.0-0.3) H 09/02/18 08:00 NT-Pro-B Natriuret Pep 153 pg/mL (-299) 08/31/18 06:38 7.1 g/dL (6.4-8.2) 09/02/18 08:00 2.6 g/dL (3.4-5.0) L 09/02/18 08:00 0.4 ng/mL 08/31/18 06:38 TSH 3.24 uIU/mL (0.358-3.74) 08/31/18 06:38 Evelyn (Yellow) 08/30/18 19:10 Clear (Clear) 08/30/18 19:10 5.5 (5-8) 08/30/18 19:10 Ur Specific [place] >= 1.030 (1.005-1.025) H 08/30/18 19:10 30 mg/dL (Negative) H 08/30/18 19:10 Negative mg/dL (Negative) 08/30/18 19:10 Negative (Negative) 08/30/18 19:10 Negative (Negative) 08/30/18 19:10 Negative (Negative) 08/30/18 19:10 0.2 EU/dL (Up TO 0.2) 08/30/18 19:10 Ur Leukocyte Esterase Negative (Negative) 08/30/18 19:10 0-2 (0-2) 08/30/18 19:10 3-5 HPF (0-5) 08/30/18 19:10 Ur Epithelial Cells Negative HPF (Negative) 08/30/18 19:10 Few amorphous HPF (Negative) 08/30/18 19:10 Negative HPF (Negative) 08/30/18 19:10 Negative LPF (Negative) 08/30/18 19:10 Negative (Negative) 08/30/18 19:10 Ur Culture Indicated? No 08/30/18 19:10 Negative mg/dL (Negative) 08/30/18 19:10 Negative (Negative) 08/30/18 19:10 Positive (Negative) 08/30/18 19:10 Ur Barbiturates Screen Negative (Negative) 08/30/18 19:10 Ur Tricyclics Screen Negative (Negative) 08/30/18 19:10 Ur Amphetamines Screen Negative (Negative) 08/30/18 19:10 U Benzodiazepines Scrn Negative (Negative) 08/30/18 19:10 Positive (Negative) 08/30/18 19:10 Ur THC Screen Positive (Negative) 08/30/18 19:10 HIV 1&2 Ag/Ab, 4th Gen Negative (NEGAT) 08/30/18 14:15
[2018-09-02] MEDS: cefTRIAXone 2 GM/50 ML BAG IVPB (13:54)
[2018-09-02] MEDS: Normal Saline Flush 10 ML SYR IVP (13:54)
[2018-09-02 16:17] VITALS: BP 128/83; PULSE 87; RESP 20; TEMP 36.7; O2SAT 94
--- NOTE | 2018-09-02 17:44 | PDOC.CMPRO ---
Care Management Progress Note S/O: Resting in bed watching TV. No visitors present in the room at this time. Understands that he will need to continue receiving IV antibiotics possibly for an extended period of time. A: 37 y.o. male admitted for Gram Positive Bacteremia P: May require 6-8 weeks of IV antibiotics in Swing bed status or as daily OP Infusion. Annette will transport home when medically cleared for discharge.
[2018-09-02 20:00] VITALS: BP 154/97; PULSE 77; RESP 20; TEMP 36.7; O2SAT 95
[2018-09-02] MEDS: Clotrimazole 1% 15 GM TUBE TP (21:17)
[2018-09-02] MEDS: Ibuprofen 600 MG TAB PO (21:28)
[2018-09-02 23:05] VITALS: BP 128/85; PULSE 78; RESP 16; TEMP 36.7; O2SAT 95
[2018-09-03 03:52] VITALS: BP 128/81; PULSE 81; RESP 18; TEMP 36.2; O2SAT 93
[2018-09-03 07:27] VITALS: BP 119/78; PULSE 67; RESP 19; TEMP 36.1; O2SAT 97
[2018-09-03 07:59] LABS: Abs Immature Grans 0.09 k/cumm (0.0-0.09); Absolute Basophil Count 0.01 k/cumm (0.0-0.2); Absolute Eosinophil Count 0.18 k/cumm (0.0-0.7); Absolute Lymphocyte Count 2.58 k/cumm (1.2-3.4); Absolute Monocyte Count 0.56 k/cumm (0.11-0.7); Absolute Neutrophil Count 2.58 k/cumm (1.2-6.7); Basophils % 0.2; HCT 40.5 % (40.0-50.0); HGB 13.2 g/dL (13.5-17.5); Immature Grans % 1.5; Mean Corp. HGB Concentration 32.6 g/dL (32.0-36.0); Mean Corpuscular Hemoglobin 29.1 pg (27.0-33.0); Mean Corpuscular Volume 89.4 fL (80-95); Mean Platelet Volume 9.3 fL (8.0-11.0); Monocytes % 9.3; Platelet Count 237 x1000/uL (130-400); RBC 4.53 m/cumm (4.50-6.00); RBC Distribution Width 14.7 % (11.8-14.1)
[2018-09-03 08:17] LABS: ALT 39 U/L (12-78); AST 15 U/L (15-37); Albumin 2.7 g/dL (3.4-5.0); Alkaline Phosphatase 51 U/L (46-116); Anion Gap 6.5 mmol/L (3-11); BUN 9 mg/dL (7-18); Bilirubin, Total 0.1 mg/dL (0.2-1.0); CO2 28.5 mmol/L (21.0-32.0); CREATININE 0.78 mg/dL (0.70-1.30); Calcium 9.1 mg/dL (8.5-10.1); Chloride 103 mmol/L (98-107); Glucose 130 mg/dL (70-100); Potassium 4.1 mmol/L (3.5-5.1); Sodium 138 mmol/L (136-145); Total Protein 7.4 g/dL (6.4-8.2)
[2018-09-03] MEDS: Methadone Liquid 10 MG/ML 130 MG PO (08:30)
[2018-09-03] MEDS: Clotrimazole 1% 15 GM TUBE TP ×2 (08:30→20:53)
--- NOTE | 2018-09-03 09:00 | DI.US_ITS ---
SYMPTOM/DIAGNOSIS: R/O SEPTIC THROMBUS CAROTID ULTRASOUND: Routine examination was performed. No calcific plaque is seen on the right. There are no hemodynamically significant velocity elevations seen on the right The right vertebral artery is antegrade. No plaque disease seen on the left. There is no hemodynamically significant velocity elevations seen on the left. The left vertebral artery is antegrade. IMPRESSION: Normal carotid ultrasound.
[2018-09-03 11:15] VITALS: BP 137/86; PULSE 75; RESP 19; TEMP 36.5; O2SAT 96
[2018-09-03 13:38] LABS: HBs Antibody, Qual Positive; HBs Antibody, Quant 331.7 mIU/mL; Hepatitis B Core Antibody Negative (NEGAT); Hepatitis B surface Ag Negative (NEGAT); Hepatitis C Ab w Rflx HCV PCR Reactive (NEGAT)
[2018-09-03] MEDS: cefTRIAXone 2 GM/50 ML BAG IVPB (13:40)
--- NOTE | 2018-09-03 14:00 | ROE_ITS ---
Date: September 03, 2018 Procedure Note: Transesophageal echo. Indication for procedure: Rule out endocarditis. Risks and benefits of procedure explained to patient. Sedation provided by anesthesia. The esophagus was intubated without difficulty. Findings: Please see transesophageal echo report September 03, 2018. No evidence endocarditis. Complications: None. Thank you for allowing me to participate in this patient's care. cc:
--- NOTE | 2018-09-03 15:07 | MERGE_ITS ---
*[facility]* *[facility]* [address] [place] [address] Date of study: 09/03/2018 Transesophageal Echocardiography 2D, spectral Doppler, and color Doppler *STUDY CONCLUSIONS* Impressions: There are no typical features of vegetative endocarditis. Summary: 1. Left ventricle: Systolic function was normal. The estimated ejection fraction was 60-65%. 2. Left atrium: No evidence of thrombus in the atrial cavity or appendage. 3. Right ventricle: The cavity size was normal. Wall thickness was normal. Systolic function was normal. 4. Atrial septum: No defect or patent foramen ovale was identified. Echo contrast study showed no lyfmk-mx-fdde atrial level shunt, following an increase in RA pressure induced by provocative maneuvers. *PATIENT PRESENTATION* Height: 182.9cm (72in ) S/D Pressure: 137 / 86 Weight: 144.7kg (318.3lb ) BSA: 2.78m^2 REFERRING Guanakito Kearney MD PERFORMING Unknown CONSULTING Thomas Feliz ORDERING Thomas Feliz REFERRING Thomas Feliz PERFORMING [facility] [employer] Naa Almonte *PROCEDURE DATA* Procedure information: The patient was identified by two identifiers. This study was interpreted by [facility]. Pertinent images and digital data are archived for permanent storage and are available for subsequent review. Study status: Routine. Diagnostic transesophageal echocardiography. 2D, spectral Doppler, and color Doppler. Consent: The risks, benefits, and alternatives to the procedure were explained to the patient and consent was verbally obtained. Barriers to education: No barriers to education identified. Initial setup. The patient was brought to the laboratory in the fasting state. Surface ECG leads, blood pressure measurements, and pulse oximetric signals were monitored. Sedation. Moderate sedation was administered . A Transesophageal echocardiogram was performed. Topical anesthesia was obtained using viscous lidocaine. Image quality was good. The transesophageal probe was removed. Study completion: The patient tolerated the procedure well. There was no blood loss or specimens removed during the procedure. There were no complications. History: PMH: GBS Bacteremia? *CARDIAC ANATOMY* Left ventricle: Systolic function was normal. The estimated ejection fraction was 60-65%. Aortic valve: Trileaflet. No evidence of vegetation. Doppler: There was no regurgitation. Aorta: Aortic root: The aortic root was normal in size. Ascending aorta: The ascending aorta was normal in size. Mitral valve: No evidence of vegetation. Doppler: There was no significant regurgitation. Left atrium: No evidence of thrombus in the atrial cavity or appendage. Atrial septum: No defect or patent foramen ovale was identified. Echo contrast study showed no vtnas-fo-ualr atrial level shunt, following an increase in RA pressure induced by provocative maneuvers. Right ventricle: The cavity size was normal. Wall thickness was normal. Systolic function was normal. Pulmonic valve: No evidence of vegetation. Doppler: There was no significant regurgitation. Tricuspid valve: No evidence of vegetation. Doppler: There was no significant regurgitation. Pericardium: There was no pericardial effusion. I have personally reviewed the images and have reviewed and edited the reported findings. Electronically signed by Guanakito Kearney MD 09/10/2018 13:12
--- NOTE | 2018-09-03 15:31 | PDOC.CMPRO ---
- If Service Date Differs Date of service: 09/03/18 Time of Service: 15:31 Care Management Progress Note S/O: Venkatesh had just returned from having a MEME when CM came to visit. His mother and daughter were in the room at the time. The DIRECTOR TALENT ACQUISITION who was with Venkatesh during the procedure was explaining to him that his blood pressure had gotten quite high at one point during the procedure but had returned to normal pretty quickly. DAVIDE raised the issue of a discharge plan for the 4-6 week course of IV antibiotics Venkatesh needs. He stated he wants to go home and stay with his mother and receive treatment at the [facility] infusion center. He was told by DAVIDE that he would need a new IV start every day and he expressed displeasure with that plan. He also stated that he would not stay at [facility] in swing bed status for that length of time. Venkatesh' mother followed CM into [facility] and expressed concern about Venkatesh coming to her home . She has plans to go on a mission to [place] for 2 weeks in early September and does not trust him alone for that length of time. Venkatesh is still under the effects of the medication he received during the MEME and is not capable of making a sound decision at this time. Provider updated by DAVIDE. A: 37 y.o. male admitted for Gram Positive Bacteremia P: May require 6-8 weeks of IV antibiotics in Swing bed status or as daily OP Infusion. Annette will transport home when medically cleared for discharge.
[2018-09-03 15:45] VITALS: BP 144/98; PULSE 73; RESP 16; TEMP 36.7; O2SAT 93
--- NOTE | 2018-09-03 16:02 | W.PM.PROGNOT ---
Date of Service Date of service: 09/03/18 Time of Service: 16:02 Assessment and Plan (1) Gram-positive bacteremia: Start date: 09/03/18 Start time: 16:05 Current visit: Yes Status: Acute MEME obtained today, results pending. Will need 4-6 weeks of IV antibiotics in IVDU with very likely septic emboli seen by CT. PICC will need to be placed and he will need to be placed on swing bed (2) Edema: Start date: 09/03/18 Start time: 16:07 Current visit: Yes Status: Acute Improving, continue TEDS (3) Opioid dependence: Start date: 09/03/18 Start time: 16:08 Current visit: Yes Status: Acute Continue methadone. (4) IV drug abuse: Start date: 09/03/18 Start time: 16:08 Current visit: Yes Status: Acute Continue methadone. Urine drug screen positive for cocaine, THC and methadone. No signs of withdrawal, likely septic emboli from IVDU, see above (5) DVT prophylaxis: Start date: 09/03/18 Start time: 16:09 Current visit: Yes Status: Acute Subcutaneous Lovenox. (6) Discharge planning issues: Start date: 09/03/18 Start time: 16:09 Current visit: Yes Status: Acute Full code. Subjective Patient reports: no new complaints Interval history since last seen: Feeling better lung sounds clear. MEME obtained today, awaiting results. Carotid u/s revealing normal arteries. Patient will need 4-6 weeks IV antibiotics from septic emboli seen by CT. Likely will be on swing bed in setting of IVDU requiring PICC and IV antibiotics. Status change for tomorrow. Denies Cp, N/V/D, SOB. Exam Narrative Exam Narrative: General: Very pleasant obese male, sleeping in be arouses easily, appears comfortable, in no acute distress. Neurological: A&Ox3, speech is clear, no focal neurological deficits. Skin: No evidence of abscess/cellulitis L hand or left AC HEENT: Atraumatic, normocephalic, pupils equal and round, EOMI, moist mucous membranes, very poor dentition. Cardiovascular: Heart has regular rate and rhythm, no murmur appreciated. Lungs: Respirations even and unlabored, lung sounds clear to auscultation bilaterally. Gastrointestinal: Normoactive bowel sounds, abdomen is round and soft, nontender on palpation, nondistended Extremities: 1+ edema to bilateral feet, erythematous toes BLEs, no obvious infected wounds Objective Objective Clinical Data: Abnormal lab results 08/31/18 09/03/18 09/03/18 Range/Units 06:38 06:52 06:52 Hgb 13.2 L (13.5-17.5) g/dL RDW 14.7 H (11.8-14.1) % Glucose 130 H (70-100) mg/dL Total Bilirubin 0.1 L (0.2-1.0) mg/dL Albumin 2.7 L (3.4-5.0) g/dL Hepatitis C Antibody Reactive A (NEGAT) Vital Signs Temperature 36.5 C 09/03/18 11:15 Temperature Source Tympanic 09/03/18 11:15 Pulse 75 09/03/18 11:15 Pulse Rhythm Regular 09/03/18 08:45 Pulse 59 L 08/30/18 15:50 Respiratory Rate 19 09/03/18 11:15 Respiratory Effort Non-Labored 09/03/18 08:45 Respiratory Depth Normal 09/03/18 08:45 Respiratory Pattern Normal 09/03/18 08:45 Blood Pressure 137/86 09/03/18 11:15 Blood Pressure Mean 67 08/30/18 15:46 Blood Pressure Position Sitting 08/30/18 13:47 Pulse Oximetry 96 09/03/18 11:15 Oxygen Delivery Method Room Air 09/03/18 11:15 Oxygen Flow Rate 0 09/03/18 11:15 Pain Level 0 09/03/18 11:15 Comment 09/02/18 16:17 Intake & Output 09/02/18 09/03/18 09/03/18 23:59 11:59 23:59 Intake Total 470 / 1010 760 / 760 Balance 470 / 1010 760 / 760 Weight 144.7 kg Intake: IV 50 / 50 10 / 10 Oral 420 / 960 750 / 750 Other: Comment patient uses toilet independently and says hen has been using it frequently Patient voids independently in toilet. Urine not assessed at this time. Voiding Methods Toilet Laboratory Results WBC 6.00 k/cumm (4.4-10.8) 09/03/18 06:52 RBC 4.53 m/cumm (4.50-6.00) 09/03/18 06:52 Hgb 13.2 g/dL (13.5-17.5) L 09/03/18 06:52 Hct 40.5 % (40.0-50.0) 09/03/18 06:52 MCV 89.4 fL (80-95) 09/03/18 06:52 MCH 29.1 pg (27.0-33.0) 09/03/18 06:52 MCHC 32.6 g/dL (32.0-36.0) 09/03/18 06:52 RDW 14.7 % (11.8-14.1) H 09/03/18 06:52 Plt Count 237 x1000/uL (130-400) 09/03/18 06:52 MPV 9.3 fL (8.0-11.0) 09/03/18 06:52 Immature Gran % 1.5 09/03/18 06:52 43.0 09/03/18 06:52 43.0 09/03/18 06:52 9.3 09/03/18 06:52 3.0 09/03/18 06:52 0.2 09/03/18 06:52 Absolute Neutrophils 2.58 k/cumm (1.2-6.7) 09/03/18 06:52 Absolute Lymphocytes 2.58 k/cumm (1.2-3.4) 09/03/18 06:52 Absolute Monocytes 0.56 k/cumm (0.11-0.7) 09/03/18 06:52 Absolute Eosinophils 0.18 k/cumm (0.0-0.7) 09/03/18 06:52 Absolute Basophils 0.01 k/cumm (0.0-0.2) 09/03/18 06:52 ESR 34 mm/hr (0-15) H 09/01/18 08:05 Sodium 138 mmol/L (136-145) 09/03/18 06:52 Potassium 4.1 mmol/L (3.5-5.1) 09/03/18 06:52 Chloride 103 mmol/L (98-107) 09/03/18 06:52 Carbon Dioxide 28.5 mmol/L (21.0-32.0) 09/03/18 06:52 6.5 mmol/L (3-11) 09/03/18 06:52 BUN 9 mg/dL (7-18) 09/03/18 06:52 0.78 mg/dL (0.70-1.30) 09/03/18 06:52 >= 60.00 (mL/min/1.73m2) 09/03/18 06:52 Glucose 130 mg/dL (70-100) H 09/03/18 06:52 0.7 mmol/l (0.6-1.4) 08/31/18 06:38 Calcium 9.1 mg/dL (8.5-10.1) 09/03/18 06:52 Magnesium 2.0 mg/dL (1.8-2.4) 09/03/18 06:52 0.1 mg/dL (0.2-1.0) L 09/03/18 06:52 AST 15 U/L (15-37) 09/03/18 06:52 ALT 39 U/L (12-78) 09/03/18 06:52 51 U/L (46-116) 09/03/18 06:52 2.10 mg/dL (0.0-0.3) H 09/02/18 08:00 NT-Pro-B Natriuret Pep 153 pg/mL (-299) 08/31/18 06:38 7.4 g/dL (6.4-8.2) 09/03/18 06:52 2.7 g/dL (3.4-5.0) L 09/03/18 06:52 0.4 ng/mL 08/31/18 06:38 TSH 3.24 uIU/mL (0.358-3.74) 08/31/18 06:38 Evelyn (Yellow) 08/30/18 19:10 Clear (Clear) 08/30/18 19:10 5.5 (5-8) 08/30/18 19:10 Ur Specific [place] >= 1.030 (1.005-1.025) H 08/30/18 19:10 30 mg/dL (Negative) H 08/30/18 19:10 Negative mg/dL (Negative) 08/30/18 19:10 Negative (Negative) 08/30/18 19:10 Negative (Negative) 08/30/18 19:10 Negative (Negative) 08/30/18 19:10 0.2 EU/dL (Up TO 0.2) 08/30/18 19:10 Ur Leukocyte Esterase Negative (Negative) 08/30/18 19:10 0-2 (0-2) 08/30/18 19:10 3-5 HPF (0-5) 08/30/18 19:10 Ur Epithelial Cells Negative HPF (Negative) 08/30/18 19:10 Few amorphous HPF (Negative) 08/30/18 19:10 Negative HPF (Negative) 08/30/18 19:10 Negative LPF (Negative) 08/30/18 19:10 Negative (Negative) 08/30/18 19:10 Ur Culture Indicated? No 08/30/18 19:10 Negative mg/dL (Negative) 08/30/18 19:10 Negative (Negative) 08/30/18 19:10 Positive (Negative) 08/30/18 19:10 Ur Barbiturates Screen Negative (Negative) 08/30/18 19:10 Ur Tricyclics Screen Negative (Negative) 08/30/18 19:10 Ur Amphetamines Screen Negative (Negative) 08/30/18 19:10 U Benzodiazepines Scrn Negative (Negative) 08/30/18 19:10 Positive (Negative) 08/30/18 19:10 Ur THC Screen Positive (Negative) 08/30/18 19:10 Hep Bs Antigen Negative (NEGAT) 08/31/18 06:38 Hep Bs Antibody Positive 08/31/18 06:38 Hep Bs Antibody, Quant 331.7 mIU/mL 08/31/18 06:38 Hep B Core Total Ab Negative (NEGAT) 08/31/18 06:38 Reactive (NEGAT) A 08/31/18 06:38 HIV 1&2 Ag/Ab, 4th Gen Negative (NEGAT) 08/30/18 14:15
[2018-09-03 22:41] VITALS: BP 131/82; PULSE 84; RESP 18; TEMP 36.7; O2SAT 97
[2018-09-04 02:14] VITALS: BP 117/66; PULSE 76; RESP 12; TEMP 36.4; O2SAT 93
[2018-09-04 07:24] LABS: HCT 43.1 % (40.0-50.0); HGB 13.9 g/dL (13.5-17.5); Mean Corp. HGB Concentration 32.3 g/dL (32.0-36.0); Mean Corpuscular Hemoglobin 28.7 pg (27.0-33.0); Mean Corpuscular Volume 88.9 fL (80-95); Mean Platelet Volume 9.1 fL (8.0-11.0); Platelet Count 266 x1000/uL (130-400); RBC 4.85 m/cumm (4.50-6.00); RBC Distribution Width 14.9 % (11.8-14.1); White Blood Cell Count 6.82 k/cumm (4.4-10.8)
[2018-09-04 07:49] LABS: Absolute Eosinophil Count 0.14 k/cumm (0.0-0.7); Absolute Lymphocyte Count 3.07 k/cumm (1.2-3.4); Absolute Monocyte Count 0.55 k/cumm (0.11-0.7); Absolute Neutrophil Count 3.07 k/cumm (1.2-6.7); Basophilic Stippling Present; Diff Comment Manual Differential
[2018-09-04 07:51] LABS: ALT 43 U/L (12-78); AST 20 U/L (15-37); Albumin 2.9 g/dL (3.4-5.0); Alkaline Phosphatase 51 U/L (46-116); BUN 11 mg/dL (7-18); Bilirubin, Total 0.1 mg/dL (0.2-1.0); CREATININE 0.86 mg/dL (0.70-1.30); Calcium 8.8 mg/dL (8.5-10.1); Chloride 101 mmol/L (98-107); Glucose 102 mg/dL (70-100); Magnesium 1.9 mg/dL (1.8-2.4); Potassium 4.6 mmol/L (3.5-5.1); Sodium 138 mmol/L (136-145); Total Protein 7.8 g/dL (6.4-8.2)
[2018-09-04 09:15] VITALS: BP 121/91; PULSE 74; RESP 16; TEMP 36; O2SAT 96
[2018-09-04] MEDS: Clotrimazole 1% 15 GM TUBE TP (09:26)
[2018-09-04] MEDS: Methadone Liquid 10 MG/ML 130 MG PO (09:27)
[2018-09-04 11:34] VITALS: BP 106/68; PULSE 73; RESP 19; TEMP 36.1; O2SAT 92
[2018-09-04 13:52] LABS: HCV RNA Detection Quantitative Detected (UNDECT)
[2018-09-04] MEDS: Amoxicillin 500 MG CAP PO (14:04)
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
--- NOTE | 2018-09-04 15:57 | PDOC.CMDIS ---
- If Service Date Differs Date of service: 09/04/18 Time of Service: 15:58 LACE Index Scoring Tool - Questions: Length of Stay (in days): 4 - 6 Acuity (Admit via E.D.?): Yes E.D. Visits: 2 - Answers: Total Score: 9 Risk of Readmission: Low Risk Care Management Discharge Reason for Hospitalization: Gram positive bacteremia Discharge Plan: Venkatesh will be discharged home with no additional services. He will receive 4 weeks of oral antibiotics and follow up with his physician and discharge plan of care. Venkatesh will be transported by his mother via private vehicle. Patient/Family Education Needs: Discharge plan, limitations, follow up plan, Ask Me Three
== END 2018-09-04 14:49 | disposition home or self-care (01) | DRG 872 ==
LOC: ER 15:00 → MS 16:19
PROVIDERS: Internal Medicine Interventional Cardiology; Nurse Practitioner; Admitting Provider Internal Medicine; Emergency Provider Physician Assistant; Visit Provider Internal Medicine
PROC: B246ZZ4 Ultrasonography of Right and Left Heart, Transesophageal (ICD-10-PCS; CPT 93312; principal; 2018-09-03 14:00)
DX: R78.81 Bacteremia (principal); F11.20 Opioid dependence, uncomplicated; Z68.41 Body mass index [BMI] 40.0-44.9, adult; R60.0 Localized edema; I10 Essential (primary) hypertension; R91.8 Other nonspecific abnormal finding of lung field; B95.1 Streptococcus, group B, as the cause of diseases classified elsewhere; E66.9 Obesity, unspecified
CPT/HCPCS: 36415; 80048; 80053; 80307; 84145; 85027; 85652; 86704; 86706; 86803; 87040; 87340; 87389; 93005; 93312; 96361; 96365; 96367; 99223; 99232; 99233; 99239; 99285; 81003; 81015; 83605; 83735; 83880; 84443; 85025; 86140; 87070; 87205; 87522; 93010; 93306; 93320; 93325; 93880; J3370

== ENCOUNTER 2018-12-18 11:36 | Emergency (ER) | payer MEDICAID, SELFPAY ==
[2018-12-18] VITALS (15 sets, daily range): BP systolic 134–202; BP diastolic 61–118; PULSE 75–102; RESP 14–20; TEMP 38.5–39; O2SAT 88–99
--- NOTE | 2018-12-18 11:58 | DI.RAD_ITS ---
EXAM: XR CHEST 2V PA LATERAL INDICATION: cough fever, R base rhonchi. COMPARISON: XR CHEST 2V PA LATERAL from 08/29/2018 TECHNIQUE: 2D digital imaging was performed. FINDINGS: The heart size is normal. There is an area of infiltration in the right middle lobe as additional a ghassan infiltration seen on the lateral view near the diaphragm which may be in the right lower lobe. N o effusions are seen. IMPRESSION: Right middle and lower lobe pneumonia.
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
[2018-12-18] MEDS: Normal Saline 1,000 ML 1000 ML IV ×2 (12:00→13:36)
[2018-12-18] MEDS: Acetaminophen 500 MG TAB 1000 MG PO (12:21)
[2018-12-18] MEDS: Ketorolac 30 MG/ML VIAL IVP (12:22)
[2018-12-18 12:40] LABS: HCT 41.7 % (40.0-50.0); HGB 13.4 g/dL (13.5-17.5); Mean Corp. HGB Concentration 32.1 g/dL (32.0-36.0); Mean Corpuscular Hemoglobin 29.5 pg (27.0-33.0); Mean Corpuscular Volume 91.6 fL (80-95); Mean Platelet Volume 8.8 fL (8.0-11.0); Platelet Count 214 x1000/uL (130-400); RBC 4.55 m/cumm (4.50-6.00); RBC Distribution Width 14.3 % (11.8-14.1); White Blood Cell Count 14.27 k/cumm (4.4-10.8)
[2018-12-18 12:51] LABS: ALT 29 U/L (16-63); AST 22 U/L (15-37); Albumin 3.5 g/dL (3.4-5.0); Alkaline Phosphatase 48 U/L (46-116); Anion Gap 10.9 mmol/L (3-11); BUN 13 mg/dL (7-18); Bilirubin, Total 0.8 mg/dL (0.2-1.0); CO2 26.1 mmol/L (21.0-32.0); CREATININE 0.98 mg/dL (0.70-1.30); Calcium 8.6 mg/dL (8.5-10.1); Chloride 99 mmol/L (98-107); Glucose 116 mg/dL (70-100); Potassium 3.8 mmol/L (3.5-5.1); Sodium 136 mmol/L (136-145); Total Protein 8.3 g/dL (6.4-8.2)
[2018-12-18 13:03] LABS: Absolute Lymphocyte Count 1.28 k/cumm (1.2-3.4); Absolute Monocyte Count 1.43 k/cumm (0.11-0.7); Absolute Neutrophil Count 11.56 k/cumm (1.2-6.7); Atypical Lymphocytes % 2
[2018-12-18 13:04] LABS: Diff Comment Manual Differential; Polychromasia Present
[2018-12-18] MEDS: cefTRIAXone 1 GM/50 ML BAG IVPB (13:24)
== END 2018-12-18 14:55 | disposition home or self-care (01) ==
PROVIDERS: Emergency Provider Emergency Medicine
DX: J18.9 Pneumonia, unspecified organism (principal); F17.210 Nicotine dependence, cigarettes, uncomplicated; I10 Essential (primary) hypertension; Z91.14 Patient's other noncompliance with medication regimen
CPT/HCPCS: 36415; 80053; 87449; 96361; 96365; 96375; 99284; 71046; 85025; J0696; J1885

== ENCOUNTER 2021-05-04 01:31 | Emergency (ER) | payer MEDICAID, SELFPAY ==
[2021-05-04 01:14] VITALS: BP 157/99; PULSE 95; RESP 14; TEMP 36.9; O2SAT 86
[2021-05-04 01:23] VITALS: RESP 14
[2021-05-04 01:27] VITALS: O2SAT 93
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
== END 2021-05-04 02:07 | disposition left against medical advice (07) ==
LOC: ER 02:03
PROVIDERS: Emergency Provider Physician Assistant
DX: T40.411A Poisoning by fentanyl or fentanyl analogs, accidental (unintentional), initial encounter (principal); Z53.29 Procedure and treatment not carried out because of patient's decision for other reasons
CPT/HCPCS: 99283

== ENCOUNTER 2021-09-03 20:13 | Inpatient (IN) | payer MEDICAID, SELFPAY ==
[2021-09-03 20:18] VITALS: BP 106/50; PULSE 80; RESP 18; TEMP 36.9; O2SAT 97
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
[2021-09-03] MEDS: Normal Saline 1,000 ML 1000 ML IV ×2 (20:34→22:26)
[2021-09-03 20:42] LABS: Lactate 1.3 mmol/L (0.6-1.4)
[2021-09-03 20:45] LABS: Abs Immature Grans 0.03 10^3/uL (0.0-0.06); Absolute Basophil Count 0.02 10^3/uL (0.0-0.2); Absolute Monocyte Count 0.86 10^3/uL (0.1-0.8); Absolute Neutrophil Count 7.94 10^3/uL (1.2-6.7); Basophils % 0.2; Eosinophils % 0.5; HCT 41.6 % (40.0-50.0); HGB 13.6 g/dL (13.5-17.5); Immature Grans % 0.3; Lymphocytes % 18.9; MCH 27.3 pg (27.0-33.0); MCHC 32.7 % (32.0-36.0); MCV 84 fL (80-95); MPV 9.6 fL (8.0-11.0); Monocytes % 7.8; Neutrophils % 72.3; Platelet Count 244 10^3/uL (130-400); RBC 4.98 10^6/uL (4.36-5.78); RDW 13.2 % (11.8-14.1); RDW-SD 40.6 fL; WBC 10.98 10^3/uL (4.4-10.8)
--- NOTE | 2021-09-03 20:45 | DI.RAD_ITS ---
Exam(s) XR PORTABLE CHEST AP EXAM: XR PORTABLE CHEST AP CLINICAL HISTORY: cough TECHNIQUE: 2D digital imaging was performed of the chest. One image was obtained. An AP view was ob tained. COMPARISON: CR XR CHEST 2V PA LATERAL from 12/18/2018 FINDINGS: MEDIASTINUM: Normal. HEART: Normal. PULMONARY VASCULATURE: Normal. LUNGS: There is a pulmonary nodule in the right lung base overlying the right 8th rib. There are no focal consolidating infiltrates. Linear opacities are seen in the perihilar region. This may be due to hypoinflation. PLEURAL SPACE: No pleural effusion or pneumothorax. BONE:Within normal limits for the patient's age. OTHER FINDINGS:Normal. IMPRESSION: 1. Right lower lobe pulmonary nodule. Please see the CT scan of the abdomen and pelvis for further d etails. 2. Mild linear opacities in the perihilar region. This may be due to hypoinflation. Atelectasis or pneumonitis cannot be excluded. Please correlate clinically. DATA REPOSITORY: RADIATION DOSE DELIVERED:
[2021-09-03 20:47] LABS: Absolute Eosinophil Count 0.05 10^3/uL (0.0-0.7); Absolute Lymphocyte Count 2.08 10^3/uL (1.2-3.4)
[2021-09-03 21:01] LABS: Source Nasal/Nares
[2021-09-03 21:01] LABS: ALT 49 U/L (16-63); AST 37 U/L (15-37); Albumin 3.4 g/dL (3.4-5.0); Alkaline Phosphatase 72 U/L (46-116); Anion Gap 11.7 mmol/L (3-11); BUN 19 mg/dL (7-18); Bilirubin, Total 0.4 mg/dL (0.2-1.0); CO2 23.3 mmol/L (21.0-32.0); CREATININE 1.1 mg/dL (0.70-1.30); Calcium 9.3 mg/dL (8.5-10.1); Chloride 101 mmol/L (98-107); Glucose 109 mg/dL (74-106); Lipase 333 U/L (73-393); Potassium 3.4 mmol/L (3.5-5.1); Sodium 136 mmol/L (136-145); Total Protein 8.3 g/dL (6.4-8.2)
[2021-09-03] MEDS: Ketorolac 30 MG/ML VIAL IVP (21:10)
--- NOTE | 2021-09-03 21:27 | DI.VRAD_ITS ---
PROCEDURE INFORMATION: Exam: XR Chest Exam date and time: 09/03/2021 8:49 PM Age: 40 years old Clinical indication: Cough TECHNIQUE: Imaging protocol: Radiologic exam of the chest. Views: 1 view. COMPARISON: CR XR CHEST 2V PA LATERAL 12/18/2018 1:07 PM FINDINGS: Airway: Patent Lungs: Bilateral perihilar haziness and streaky-like opacities. Mild segmental bronchial wall thickening. Bilateral perihilar and basal predominant patchy airspace opacities. Pleural spaces: Unremarkable. No pleural effusion. No pneumothorax. Heart/Mediastinum: Unremarkable. No cardiomegaly. Bones/joints: No acute skeletal abnormality or aggressive osseous lesion. IMPRESSION: Findings are most concerning for a mild to moderate atypical viral pneumonia. Dictated and Authenticated by: Silvestre Anthony MD. Ordering:MELISSA Hawkins MD
--- NOTE | 2021-09-03 21:30 | DI.CT_ITS ---
Exam(s) CT ABDOMEN PELVIS WO EXAM: CT ABDOMEN PELVIS WO CLINICAL HISTORY: Flank pain, hematuria. TECHNIQUE: Imaging Protocol: Axial computed tomography images with coronal and sagittal reformatted images were created and reviewed. COMPARISON: CT CERVICAL SPINE WITHOUT CONTRA from 05/05/2012 CT CHEST WITH CONTRAST from 05/05/2012 CT ABD PELVIS WITH CONTRAST from 05/05/[address] CHEST PE CTA from 08/29/2018 FINDINGS: The examination is limited due to patient motion artifact. ABDOMEN: Lung Bases: There is a 9.8 mm pleural based pulmonary nodule in the right lower lobe. There is a 6.7 mm noncalcified pleural-based pulmonary nodule in the left lower lobe. Liver: Normal density. No measurable mass. The liver is enlarged measuring 19 cm long. Gallbladder and biliary tract: The gallbladder is mildly contracted. No radiopaque stones are seen. The common duct is at the upper limits of normal at 7 mm. Pancreas: Normal density, no abnormal calcifications or inflammatory process. Spleen: Normal. Note is made of an accessory spleen. Kidneys: Normal size, contour and axis.There is a 2 mm nonobstructing stone in the right kidney. No hydronephrosis. No masses seen. Adrenal glands: No mass is seen. Lymph nodes: Within normal limits. Abdominal Aorta: Abdominal portion non-dilated. PELVIS: Bladder:Symmetric distention, no gross wall thickening. Bowel: No obstruction or bowel wall thickening. Appendix is unremarkable. Peritoneal cavity: No ascites, collection or mesenteric inflammatory response. No free air. Reproductive organs: Unremarkable as visualized. Bones: There is irregularity of the cortices at the inferior endplate of L5 in the superior endplate of S1. The appearance suggests erosions. No acute fractures or subluxations. There is a suggestion of similar but far less impressive findings at the L4-L5 level. Degenerative changes are seen in th e lumbar spine. Soft Tissues: Within normal limits. IMPRESSION: 1. Findings of sclerosis and erosions at the inferior endplate of L5 and superior endplate of S1. Th e findings are suspicious for discitis/osteomyelitis. Please correlate clinically. In noninfectious inflammatory process may also be considered. There are similar but less severe findings seen at L4- L5. 2. Peripheral pulmonary nodules. An infectious or inflammatory process may be considered. For low r isk patients, follow-up CT scan of the chest in 3-6 months, then consider CT scan of the chest at 18- 24 months. Patient is at high risk (history of smoking or other known risk factors), CT scan at 3-6 months is recommended followed by a CT scan of the chest at 18-24 months. (Monty et al, 2017). 3. Nephrolithiasis. No hydronephrosis. 4. Mild hepatomegaly. RADIATION DOSE DELIVERED: 1,302.55mGy.cm Total DLP DATA REPOSITORY: All CT scans at this facility are submitted to the National Radiology Data Registry (NRDR) Dose Index Registry (DIR) with the [employer] (A[employer]). RADIATION OPTIMIZATION: All CT scans at this facility use at least one of these dose optimization te chniques: automated exposure control; mA and/or kV adjustment per patient size (includes targeted exa ms where dose is matched to clinical indication); or iterative reconstruction.
[2021-09-03 22:15] LABS: COVID-19 PCR Negative (Negative)
--- NOTE | 2021-09-03 22:25 | DI.VRAD_ITS ---
Addendum created by Guanakito Joseph MD on 09/03/2021 10:28:24 PM EDT: Findings were discussed with Dr. Lay at 09/03/2021 10:28 PM EDT. Initial report created on 09/03/2021 10:24:58 PM EDT: PROCEDURE INFORMATION: Exam: CT Abdomen And Pelvis Without Contrast Exam date and time: 09/03/2021 9:46 PM Age: 40 years old Clinical indication: Abdominal pain; Flank; Right; Additional info: Right flank pain, hematuria TECHNIQUE: Imaging protocol: Computed tomography of the abdomen and pelvis without contrast. Radiation optimization: All CT scans at this facility use at least one of these dose optimization techniques: automated exposure control; mA and/or kV adjustment per patient size (includes targeted exams where dose is matched to clinical indication); or iterative reconstruction. COMPARISON: CT CHEST PE CTA 08/29/2018 7:42 PM FINDINGS: Lungs: Scattered peripheral pulmonary nodules and ground-glass opacity are new from previous, largest 10 mm diameter right lower lobe. Please see axial image 1. Liver: Unremarkable noncontrast liver imaging. Liver is mildly enlarged at 20 mm. Gallbladder and bile ducts: Collapsed gallbladder. No ductal dilatation. No calcified stones. Pancreas: Normal. No ductal dilation. Spleen: Normal. No splenomegaly. Adrenal glands: Normal. No mass. Kidneys and ureters: Negative for hydronephrosis. Ureters are not dilated. No stones are observed. Stomach and bowel: Unremarkable stomach. Nondilated small bowel. Fat planes around loops of small bowel are indistinct. There are no inflammatory changes observed around the colon. Appendix: Normal retrocecal appendix. Intraperitoneal space: Mild mesenteric fat stranding. No significant free fluid. Negative for free air. Negative for abscess. Vasculature: Unremarkable. No abdominal aortic aneurysm. Lymph nodes: Mesenteric lymph nodes are mildly prominent. Negative for pathologic lymphadenopathy. Urinary bladder: Unremarkable as visualized. Reproductive: Unremarkable as visualized. Bones/joints: Irregular erosions sclerosis are noted at the L5-S1 endplates, greatest on the left. 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 Moderate endplate lucency and sclerosis are noted L4-L5 on the right. Moderate disc space narrowing with well corticated erosions noted at L3-L4, with additional osteophyte formation. Negative for compression fracture. Negative for anterolisthesis or retrolisthesis. Normal sacroiliac joints. Unremarkable hips. Soft tissues: No significant abdominal wall hernia. IMPRESSION: 1. Findings concerning for discitis-osteomyelitis at L5-S1. Similar, less-severe, findings also noted L4-L5. Noninfectious erosive inflammatory process also considered. Follow-up MR lumbar spine with without contrast recommended. 2. Peripheral pulmonary nodules. Infectious or post-infectious etiology favored. Follow-up is advised. For patients at low risk (minimal or absent history of smoking and of other known risk factors), recommend CT Chest at 3-6 months, then consider CT Chest at 18-24 months. For patients at high risk (history of smoking or of other known risk factors), recommend CT Chest at 3-6 months, then CT Chest at 18-24 months. (Reference: Peter) 3. Findings of enteritis with reactive mesenteric inflammation. REFERENCES: Peter Mckoy, et al. Guidelines for Management of Incidental Pulmonary Nodules Detected on CT Images: From the Fleischner Society 2017. Radiology. 2017;284(1):228-243. Dictated and Authenticated by: Guanakito Joseph MD. Ordering:MELISSA Hawkins MD
[2021-09-03 22:32] LABS: Bilirubin Negative (Negative); Blood Trace-intact (Negative); Clarity Clear (Clear); Glucose Negative (Negative); Ketones Negative (Negative); Leukocyte Esterase Negative (Negative); Nitrite Negative (Negative); Specific Gravity >= 1.030 (1.005-1.025); Urobilinogen 0.2 EU/dL (Up TO 0.2); pH 5.5 (5-8)
[2021-09-03 22:40] LABS: Bacteria Few HPF (Negative); C & S Indicated? No; Casts Negative LPF (Negative); Crystals Negative HPF (Negative); Epithelial Cells Negative HPF (Negative); Mucus Trace (Negative); WBC Negative HPF (0-5)
[2021-09-03] MEDS: CEFEPIME 2 GM in Normal Saline 100 ML IVPB (22:43)
[2021-09-03 22:47] LABS: *AMPHETAMINES SCREEN URINE Negative (Negative); *BARBITURATES SCREEN URINE Negative (Negative); *BENZODIAZEPINES SCREEN URINE Negative (Negative); Cannabinoids THC Negative (Negative); Cocaine Screen,Urine Positive (Negative); METHADONE URINE SCREEN Negative (Negative); OPIATES URINE SCREEN Negative (Negative)
[2021-09-03 22:48] LABS: Tricyclic Antidepressants Negative (Negative)
[2021-09-03 22:50] LABS: ESR 78 mm/hr (0-15)
[2021-09-03] MEDS: Nicotine 21 MG/24 HR PATCH TD (22:50)
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
--- NOTE | 2021-09-03 23:45 | RT.EKG_ITS ---
APPROVED REPORT Exam: Resting ECG Reason for Exam: dizzy Patient Location: E HR:69 bpm ECG Measurements Heart Rate 69 AXIS KS 162 P -13 QRSd 112 QRS 80 QT 408 T 1 QTc 436 Conclusion Sinus rhythm...normal P axis, V-rate 60- 99 I have reviewed and interpreted ECG and agree with software generated interpretation. No STEMI
[2021-09-04] VITALS (11 sets, daily range): BP systolic 128–157; BP diastolic 62–97; PULSE 64–87; RESP 16–18; TEMP 36–37.7; O2SAT 98–100
[2021-09-04] MEDS: Acetaminophen 325 MG TAB 650 MG PO ×3 (01:21→20:24)
[2021-09-04] MEDS: Ketorolac 15 MG/ML VIAL IVP ×4 (02:42→22:34)
[2021-09-04] MEDS: Heparin 5,000 UNITS/ML VIAL 5000 UNITS SC ×3 (06:17→21:33)
[2021-09-04] MEDS: Lidocaine 5% Patch 2 PATCH TP (06:27)
[2021-09-04 06:53] LABS: Abs Immature Grans 0.03 10^3/uL (0.0-0.06); Absolute Basophil Count 0.03 10^3/uL (0.0-0.2); Absolute Eosinophil Count 0.08 10^3/uL (0.0-0.7); Absolute Lymphocyte Count 1.01 10^3/uL (1.2-3.4); Absolute Monocyte Count 0.83 10^3/uL (0.1-0.8); Basophils % 0.3; Eosinophils % 0.9; HCT 41.2 % (40.0-50.0); HGB 13.3 g/dL (13.5-17.5); Immature Grans % 0.3; Lymphocytes % 11.5; MCH 27.4 pg (27.0-33.0); MCHC 32.3 % (32.0-36.0); MCV 85 fL (80-95); MPV 9.2 fL (8.0-11.0); Monocytes % 9.5; Neutrophils % 77.5; Platelet Count 203 10^3/uL (130-400); RBC 4.86 10^6/uL (4.36-5.78); RDW 13.2 % (11.8-14.1); RDW-SD 40.7 fL; WBC 8.78 10^3/uL (4.4-10.8)
[2021-09-04 07:22] LABS: ALT 51 U/L (16-63); AST 40 U/L (15-37); Alkaline Phosphatase 70 U/L (46-116); Anion Gap 7.6 mmol/L (3-11); BUN 17 mg/dL (7-18); Bilirubin, Total 0.5 mg/dL (0.2-1.0); CO2 26.4 mmol/L (21.0-32.0); Calcium 8.9 mg/dL (8.5-10.1); Chloride 105 mmol/L (98-107); Glucose 127 mg/dL (74-106); Potassium 3.9 mmol/L (3.5-5.1); Sodium 139 mmol/L (136-145); Total Protein 7.6 g/dL (6.4-8.2)
[2021-09-04] MEDS: Clotrimazole 1% 15 GM TUBE TP ×2 (08:30→19:32)
[2021-09-04] MEDS: Normal Saline Flush 10 ML SYR ×2 (08:40→09:06)
[2021-09-04] MEDS: CEFEPIME 2 GM in Normal Saline 100 ML IVPB ×2 (10:04→15:26)
[2021-09-04] MEDS: Normal Saline 500 ML 10 ML IVPB (10:04)
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
[2021-09-04] MEDS: VANCOMYCIN/WATER (PEG) 1.5 GM/300 ML BAG IV ×2 (11:22→18:20)
[2021-09-04] MEDS: Normal Saline Flush 10 ML SYR IVP ×3 (15:25→22:35)
--- NOTE | 2021-09-04 16:22 | PGE_ITS ---
Date of Service Date of service: 09/04/21 Time of Service: 16: Assessment and Plan Assessment and plan (1) Lumbar discitis: Start date: 09/03/21 Status: Acute Assessment and plan: continue IV vancomycin and cefepime day 2 while blood cultures pending. Consultation with ID if necessary. Patient may require long course of IV antibiotic therapy which could be arranged with his incarceration and at that facility though a central line would be high risk with the patient's drug use even in residential. (2) Pneumonia: Start date: 09/03/21 Status: Acute Assessment and plan: Positive findings CT scan with patient having pleuritic chest pain. No oxygen requirements. This should be covered with IV therapy for discitis. Follow-up imaging if indicated. (3) Opioid dependence: Status: Chronic Assessment and plan: has not been on methadone while incarcerated, no indication to restart at this time. (4) IV drug abuse: Status: Chronic Assessment and plan: Patient has ongoing IV drug use up to admission with high risk for bacteremia as discussed above. Pain management may be an issue with his behavior. no signs of withdrawal at this time. will treat symptoms if needed. continue to monitor discussed with DR العراقي Subjective Subjective Patient reports: no new complaints, tolerating liquids well, tolerating a regular diet and afebrile Exam Const General: cooperative and no acute distress Orientation: alert, awake and oriented x3 HENMT Head: normal to inspection, normocephalic and atraumatic Face and sinus: normal facial exam Mouth: moist mucous membranes Eyes General: appearance normal, both eyes and all related structures Conjunctivae: conjunctivae normal Neck Neck: normal visual inspection, full ROM and nontender Resp Effort & Inspection: normal respiratory effort and able to speak in complete sentences Auscultation: diminished lung sounds bilaterally in the lower lung adan Cardio Rate: regular rate Rhythm: regular rhythm GI Inspection: obesity Palpation: soft and tender (Diffuse, mild) Auscultation: normal bowel sounds Back/Spine/Pelvis Back: no CVA tenderness and back tenderness (Diffuse, mild lumbar. Slightly worse on the left, paravertebral) Skin Rashes: no rashes Other: Bilateral upper extremity track diaz noted Neuro General: patient alert, patient awake, patient oriented x3, moves all extremities and no focal motor deficits Cognition: normal cognition Speech: speech normal Gait: normal gait Motor: muscle tone normal throughout Sensory Exam: no sensory deficits noted Extrem General: normal to inspection, full ROM, capillary refill normal, no pedal edema and no calf tenderness Psych Appearance: grossly normal Mental Status: mental status grossly normal Objective Last Vital Signs Temp 36.0 C L 09/04/21 11:37 Pulse 74 09/04/21 11:59 Resp 16 09/04/21 11:37 BP 136/80 09/04/21 11:37 Pulse Ox 98 09/04/21 11:37 Laboratory Results - last 24 hr 09/03/21 09/03/21 09/03/21 20:32 20:32 20:32 WBC 10.98 H RBC 4.98 Hgb 13.6 Hct 41.6 MCV 84 MCH 27.3 MCHC 32.7 RDW 13.2 Plt Count 244 MPV 9.6 Immature Gran % 0.3 Neutrophils % 72.3 Lymphocytes % 18.9 Monocytes % 7.8 Eosinophils % 0.5 Basophils % 0.2 Nucleated RBC % 0.0 Absolute Neutrophils 7.94 H Absolute Lymphocytes 2.08 Absolute Monocytes 0.86 H Absolute Eosinophils 0.05 Absolute Basophils 0.02 ESR VBG Lactate 1.3 Sodium 136 Potassium 3.4 L Chloride 101 Carbon Dioxide 23.3 Anion Gap 11.7 H BUN 19 H Creatinine 1.1 Estimated GFR/1.73 m2 >= 60.00 Glucose 109 H Calcium 9.3 Total Bilirubin 0.4 AST 37 ALT 49 Alkaline Phosphatase 72 C-Reactive Protein Total Protein 8.3 H Albumin 3.4 Lipase 333 Urine Color Urine Clarity Urine pH Ur Specific [place] Urine Protein Urine Ketones Urine Blood Urine Nitrite Urine Bilirubin Urine Urobilinogen Ur Leukocyte Esterase Urine RBC Urine WBC Ur Epithelial Cells Urine Crystals Urine Bacteria Urine Casts Urine Mucus Ur Culture Indicated? Urine Glucose Urine Opiates Screen Urine Methadone Screen Ur Barbiturates Screen Ur Tricyclics Screen Ur Amphetamines Screen U Benzodiazepines Scrn Urine Cocaine Screen Ur THC Screen COVID-19 Source SARS-CoV-2 (PCR) 09/03/21 09/03/21 09/03/21 20:32 20:32 20:45 WBC RBC Hgb Hct MCV MCH MCHC RDW Plt Count MPV Immature Gran % Neutrophils % Lymphocytes % Monocytes % Eosinophils % Basophils % Nucleated RBC % Absolute Neutrophils Absolute Lymphocytes Absolute Monocytes Absolute Eosinophils Absolute Basophils ESR 78 H VBG Lactate Sodium Potassium Chloride Carbon Dioxide Anion Gap BUN Creatinine Estimated GFR/1.73 m2 Glucose Calcium Total Bilirubin AST ALT Alkaline Phosphatase C-Reactive Protein 11.40 H Total Protein Albumin Lipase Urine Color Urine Clarity Urine pH Ur Specific [place] Urine Protein Urine Ketones Urine Blood Urine Nitrite Urine Bilirubin Urine Urobilinogen Ur Leukocyte Esterase Urine RBC Urine WBC Ur Epithelial Cells Urine Crystals Urine Bacteria Urine Casts Urine Mucus Ur Culture Indicated? Urine Glucose Urine Opiates Screen Urine Methadone Screen Ur Barbiturates Screen Ur Tricyclics Screen Ur Amphetamines Screen U Benzodiazepines Scrn Urine Cocaine Screen Ur THC Screen COVID-19 Source Nasal/Nares SARS-CoV-2 (PCR) Negative 09/03/21 09/03/21 09/04/21 22:25 22:25 06:40 WBC RBC Hgb Hct MCV MCH MCHC RDW Plt Count MPV Immature Gran % Neutrophils % Lymphocytes % Monocytes % Eosinophils % Basophils % Nucleated RBC % Absolute Neutrophils Absolute Lymphocytes Absolute Monocytes Absolute Eosinophils Absolute Basophils ESR VBG Lactate Sodium 139 Potassium 3.9 Chloride 105 Carbon Dioxide 26.4 Anion Gap 7.6 BUN 17 Creatinine 1.0 Estimated GFR/1.73 m2 >= 60.00 Glucose 127 H Calcium 8.9 Total Bilirubin 0.5 AST 40 H ALT 51 Alkaline Phosphatase 70 C-Reactive Protein Total Protein 7.6 Albumin 3.0 L Lipase Urine Color Yellow Urine Clarity Clear Urine pH 5.5 Ur Specific [place] >= 1.030 H Urine Protein 30 H Urine Ketones Negative Urine Blood Trace-intact H Urine Nitrite Negative Urine Bilirubin Negative Urine Urobilinogen 0.2 Ur Leukocyte Esterase Negative Urine RBC 3-5 H Urine WBC Negative Ur Epithelial Cells Negative Urine Crystals Negative Urine Bacteria Few Urine Casts Negative Urine Mucus Trace Ur Culture Indicated? No Urine Glucose Negative Urine Opiates Screen Negative Urine Methadone Screen Negative Ur Barbiturates Screen Negative Ur Tricyclics Screen Negative Ur Amphetamines Screen Negative U Benzodiazepines Scrn Negative Urine Cocaine Screen Positive A Ur THC Screen Negative COVID-19 Source SARS-CoV-2 (PCR) 09/04/21 06:40 WBC 8.78 RBC 4.86 Hgb 13.3 L Hct 41.2 MCV 85 MCH 27.4 MCHC 32.3 RDW 13.2 Plt Count 203 MPV 9.2 Immature Gran % 0.3 Neutrophils % 77.5 Lymphocytes % 11.5 Monocytes % 9.5 Eosinophils % 0.9 Basophils % 0.3 Nucleated RBC % 0.0 Absolute Neutrophils 6.80 H Absolute Lymphocytes 1.01 L Absolute Monocytes 0.83 H Absolute Eosinophils 0.08 Absolute Basophils 0.03 ESR VBG Lactate Sodium Potassium Chloride Carbon Dioxide Anion Gap BUN Creatinine Estimated GFR/1.73 m2 Glucose Calcium Total Bilirubin AST ALT Alkaline Phosphatase C-Reactive Protein Total Protein Albumin Lipase Urine Color Urine Clarity Urine pH Ur Specific [place] Urine Protein Urine Ketones Urine Blood Urine Nitrite Urine Bilirubin Urine Urobilinogen Ur Leukocyte Esterase Urine RBC Urine WBC Ur Epithelial Cells Urine Crystals Urine Bacteria Urine Casts Urine Mucus Ur Culture Indicated? Urine Glucose Urine Opiates Screen Urine Methadone Screen Ur Barbiturates Screen Ur Tricyclics Screen Ur Amphetamines Screen U Benzodiazepines Scrn Urine Cocaine Screen Ur THC Screen COVID-19 Source SARS-CoV-2 (PCR)
[2021-09-04] MEDS: Melatonin 3 MG TAB 9 MG PO (21:33)
[2021-09-05] VITALS (7 sets, daily range): BP systolic 139–178; BP diastolic 87–109; PULSE 63–74; RESP 18–28; TEMP 36.3–37.3; O2SAT 97–100
[2021-09-05] MEDS: CEFEPIME 2 GM in Normal Saline 100 ML IVPB ×2 (00:28→08:16)
--- NOTE | 2021-09-05 00:51 | NUR.NOTE ---
called into a pt room and was informed pt took a dive to the floor from the chair. The CO informed that patient did not get to the ground and he did not hit his head. pt denies any new pain. pt uncomfortable at this time and restless. He seems to be more restless with the R arm shackles. Spoke with the CO if the shackles on the arm can be removed, but he declined.
[2021-09-05] MEDS: VANCOMYCIN/WATER (PEG) 1.5 GM/300 ML BAG IV ×3 (01:17→18:22)
[2021-09-05] MEDS: Celecoxib 200 MG CAP PO ×3 (01:49→19:48)
[2021-09-05] MEDS: HYDROmorphone 2 MG TAB PO ×5 (01:49→21:34)
[2021-09-05] MEDS: Lidocaine 5% Patch 2 PATCH TP (01:50)
[2021-09-05] MEDS: Heparin 5,000 UNITS/ML VIAL 5000 UNITS SC ×2 (06:05→21:34)
[2021-09-05 07:18] LABS: Platelet Count 209 10^3/uL (130-400)
[2021-09-05] MEDS: Ketorolac 15 MG/ML VIAL IVP ×3 (08:16→23:42)
[2021-09-05] MEDS: Normal Saline Flush 10 ML SYR IVP ×4 (08:16→19:49)
[2021-09-05] MEDS: hydrOXYzine HCL 50 MG TAB PO (17:07)
[2021-09-05] MEDS: Patch Removal 2 EACH TP (17:07)
--- NOTE | 2021-09-05 18:54 | PGE_ITS ---
Date of Service Date of service: 09/05/21 Time of Service: 18:54 Assessment and Plan Assessment and plan (1) Lumbar discitis: Start date: 09/03/21 Status: Acute Assessment and plan: Cx growing Staph Aureus. Continue IV vancomycin, day #3. Cefepime day 2 discontinued. Consultation with ID if necessary. Patient may require long course of IV antibiotic therapy which could be arranged with his incarceration. Guards state he will need to transfer to [place] for IV abx. Echo ordered for Monday. (2) Pneumonia: Start date: 09/03/21 Status: Acute Assessment and plan: Positive findings CT scan with patient having pleuritic chest pain. No oxygen requirements. This should be covered with IV therapy for discitis. Follow-up imaging if indicated. (3) Opioid dependence: Status: Chronic Assessment and plan: has not been on methadone while incarcerated, no indication to restart at this time. (4) IV drug abuse: Status: Chronic Assessment and plan: Patient has ongoing IV drug use up to admission, now with blood cultures growing staph aureus. No signs of withdrawal at this time. will treat symptoms if needed. continue to monitor discussed with DR العراقي Subjective Subjective Interval history since last seen: Denies pain, SOB, cough, wheezing, CP/pressure, peripheral edema. . Tolerating diet. Exam Narrative Exam Narrative: General: young man, sitting up in the recliner in his hospital room, he is awake and alert, 2 correctional guards present. HEENT: normocephalic, atraumatic, EOMI, mmm. Neck: supple. Cardiovascular: heart sounds regular, nontachycardic, no murmur appreciated. Respiratory: respirations appear even and unlabored, lung sounds are clear throughout. GI: +BS, abd soft, nontender on palpation, nondistended. Extremities: moves all 4 extremities freely, no edema. Objective Last Vital Signs Temp 37.3 C 09/05/21 15:25 Pulse 67 09/05/21 15:25 Resp 28 H 09/05/21 15:25 BP 166/107 H 09/05/21 16:52 Pulse Ox 100 09/05/21 15:25 Laboratory Results - last 24 hr 09/05/21 09/05/21 06:30 17:10 Plt Count 209 Vancomycin Trough 17.0
[2021-09-05] MEDS: Clotrimazole 1% 15 GM TUBE TP (19:48)
[2021-09-05] MEDS: Melatonin 3 MG TAB 9 MG PO (21:34)
[2021-09-06] MEDS: HYDROmorphone 2 MG TAB PO ×2 (03:01→10:48)
[2021-09-06] MEDS: VANCOMYCIN/WATER (PEG) 1.5 GM/300 ML BAG IV ×2 (03:01→10:48)
[2021-09-06 03:05] VITALS: BP 148/76; PULSE 72; RESP 20; TEMP 36.3; O2SAT 98
[2021-09-06] MEDS: Lidocaine 5% Patch 2 PATCH TP (05:59)
[2021-09-06 07:33] VITALS: BP 153/95; PULSE 64; RESP 18; TEMP 36.8; O2SAT 98
[2021-09-06] MEDS: Normal Saline Flush 10 ML SYR IVP (07:33)
[2021-09-06] MEDS: Celecoxib 200 MG CAP PO (07:33)
[2021-09-06] MEDS: Ketorolac 15 MG/ML VIAL IVP (07:33)
[2021-09-06] MEDS: Clotrimazole 1% 15 GM TUBE TP (07:34)
[2021-09-06 07:35] LABS: HCT 38.4 % (40.0-50.0); HGB 12.8 g/dL (13.5-17.5); MCH 27.3 pg (27.0-33.0); MCHC 33.3 % (32.0-36.0); MCV 82 fL (80-95); MPV 10.1 fL (8.0-11.0); Platelet Count 233 10^3/uL (130-400); RBC 4.69 10^6/uL (4.36-5.78); RDW 13.2 % (11.8-14.1); RDW-SD 39.2 fL; WBC 6.34 10^3/uL (4.4-10.8)
[2021-09-06 07:46] LABS: Anion Gap 11.6 mmol/L (3-11); BUN 12 mg/dL (7-18); CO2 21.4 mmol/L (21.0-32.0); CREATININE 0.8 mg/dL (0.70-1.30); Chloride 107 mmol/L (98-107); Glucose 105 mg/dL (74-106); Sodium 140 mmol/L (136-145)
--- NOTE | 2021-09-06 11:20 | CMPROGNOTE_ITS ---
- If Service Date Differs Date of service: 09/06/21 Time of Service: 11:20 Care Management Progress Note S/O: Venkatesh remains inpatient at this time. FILOMENA Gallagher is coordinating transfer for L/T IV ABX, CM will support as needed. A: 40 year old male admitted to [facility] with lumbar discitis P: Due to need for L/T IV ABX, anticipate Venkatesh will transfer to medical facility inside [facility] via secure transport, provided by the corrections.
--- NOTE | 2021-09-06 12:45 | DI.US_ITS ---
APPROVED REPORT EXAM: Comprehensive 2D, Doppler, and color-flow Echocardiogram Patient Location: In-Patient Room/Bed: [facility] [place] Music Engraver: Naa Almonte RDCS (AE) Indications: Positive blood culture, Staph Aureus, r/o endocarditis Other Information Study Quality: Adequate. Technically limited study due to body habitus, inability to position patient . Conclusion Left ventricular wall thickness and chamber size. Estimated ejection fraction is 60%. Wall motion a ppears normal Right ventricle was not well visualized Both atria are normal in size There is no structural or hemodynamically significant valvular disease Wall motion Left Ventricle The left ventricle is normal size. The left ventricular systolic function is normal. The left ventric ular ejection fraction is within the normal range. There is normal left ventricular wall thickness. T here is normal LV segmental wall motion. There is no ventricular septal defect visualized. LVEF is 60 %. Right Ventricle Right ventricle is not well visualized. Right ventricular systolic function could not be assessed. Atria The left atrium size is normal. The right atrium size is normal. Aortic Valve The aortic valve is normal in structure. Aortic valve is probably trileaflet. There is no aortic arnold vular stenosis. No aortic regurgitation is present. Mitral Valve The mitral valve is normal in structure. No evidence of mitral valve stenosis. Trace mitral regurgita tion. Tricuspid Valve The tricuspid valve is normal in structure. There is no tricuspid valve stenosis. Trace tricuspid reg urgitation. Pulmonic Valve The pulmonary valve is normal in structure. There is no pulmonic valvular stenosis. There is no pulmo nam valvular regurgitation. Great Vessels The aortic root is normal in size. The ascending aorta is normal in size. Aortic arch is normal in ca liber. IVC is normal in size and collapses >50% with inspiration. Pericardium There is no pericardial effusion. 2D Dimensions IVSD d PLAX 0.86 cm M: 0.6-1.2 LV Vol A2C d MOD 152.2 mL LVPW d PLAX 0.86 cm M: 0.6 - 1.2 LV Vol A4C d MOD 183.0 mL LVID d PLAX 5.60 cm M: 4.2 - 5.8 LA vol/ BSA A2C s A-L 13.0 mL/m2 LVDs 3.85 cm M: 2.5 - 4.0 LA vol/ BSA A4C s A-L 21.5 mL/m2 Ao Root d 3.03 cm M: 3.1 - 3.7 LA Vol/ BSA Biplane s A-L 19.6 mL/m2 RA Area A4C 15.35 cm2 LA Area A4C s MOD 19.55 cm2 RA Vol/ BSA A4C s A-L 15.9 mL/m2 LA Area A2C s MOD 12.96 cm2 Ao Asc Diam d 3.12 cm M: 2.6 - 3.4 LV EF A4C MOD 58.9 % LV EF Teichholz 57.5 % LV EF A2C MOD 60.3 % LVEF (Coronel's) 59.00 % M: 52 - 72 LV EF Biplane MOD 59.0 % LV Volume 122.37 mL M: 62 - 150 SV 103.03 mL LV Volume Index 49.14 mL/m2 M: 34 - 74 SV Index 41.37 mL/m2 LV Vol Biplane MOD 174.6 mL FS 30.65 % M-Mode TAPSE 2.40 cm (M/F) >1.7 LV Diastology MV E' medial 0.124 (>0.07 m/s) E/A Ratio 1.3 LV E/e MED 6.30 (<14) MV E Vmax 0.78 (0.4-1.3 m/s) MV E' lateral 0.169 (>0.1 m/s) MV A Vmax 0.60 (0.4-1.3 m/s) LV E/e LAT 4.60 (<14) MV E/A Ratio 1.21 MV E/E' medial 6.32 MV E/E' lateral 4.62 Aortic Valve LVOT Area 3.06 cm2 AoV Area Vmax 2.80 cm2 LVOT Vmax 1.45 m/s AoV Area/ BSA (Vmax) 1.12 cm2/m2 LVOT Mean Ivan. 1.08 m/s ADAN Mean Ivan. 2.86 cm2 LVOT Peak Grad 8.4 mmHg ADAN Mean Ivan. Index 1.15 cm2/m2 LVOT Mean Grad 5.3 mmHg LVOT VTI 0.256 m LVOT Diam s 1.95 cm AoV Vmax 1.59 m/s Velocity Ratio 0.91 AoV Mean Ivan. 1.16 m/s AoV Peak Grad 10.1 mmHg LVOT SV 78.35 mL AoV Mean Grad 5.9 mmHg AoV VTI 0.302 m AoV Area VTI 2.59 cm2 AoV Area/ BSA (VTI) 1.04 cm/m2 Mitral Valve MV DT 196 (160-240 msec) MV PHT 57 msec MV Area PHT 3.87 cm2 MV VTI 0.224 m MV Area VTI 3.49 (4.0-6.0 cm2) Pulmonary Valve PV Vmax 1.53 (0.5-1.5 m/s) RVOT Peak Gr. 4.27 mmHg PV Peak Grad 9.3 mmHg RVOT Mean Gr. 2.65 mmHg PV Mean Grad 5.4 mmHg RVOT VTI 0.185 m PV VTI 0.326 m RVOT Vmax 1.03 m/s
[2021-09-06 12:46] VITALS: BP 146/95; PULSE 84; RESP 18; TEMP 36.8; O2SAT 98
--- NOTE | 2021-09-06 14:59 | W.PM.PROGNOT ---
Date of Service Date of service: 09/06/21 Time of Service: 14:59 Assessment and Plan Assessment and plan (1) Lumbar discitis: Start date: 09/03/21 Status: Acute Assessment and plan: Cx growing Staph Aureus. Continue IV vancomycin, day #4. Consultation with ID if necessary. Patient may require long course of IV antibiotic therapy which could be arranged with his incarceration. Guards state he will need to transfer to [place] for IV abx. Echo ordered for Monday. (2) Pneumonia: Start date: 09/03/21 Status: Acute Assessment and plan: Positive findings CT scan with patient having pleuritic chest pain. No oxygen requirements. This should be covered with IV therapy for discitis. Follow-up imaging if indicated. (3) Opioid dependence: Status: Chronic Assessment and plan: has not been on methadone while incarcerated, no indication to restart at this time. (4) IV drug abuse: Status: Chronic Assessment and plan: Patient has ongoing IV drug use up to admission, now with blood cultures growing staph aureus. No signs of withdrawal at this time. will treat symptoms if needed. continue to monitor discussed with DR Colin Subjective Subjective Patient reports: no new complaints, feels better, tolerating liquids well, tolerating a regular diet and afebrile Exam Const General: cooperative and no acute distress Orientation: alert, awake and oriented x3 HENMT Head: normal to inspection, normocephalic and atraumatic Face and sinus: normal facial exam Mouth: moist mucous membranes Eyes General: appearance normal, both eyes and all related structures Conjunctivae: conjunctivae normal Neck Neck: normal visual inspection, full ROM and nontender Resp Effort & Inspection: normal respiratory effort and able to speak in complete sentences Auscultation: diminished lung sounds bilaterally in the lower lung adan Cardio Rate: regular rate Rhythm: regular rhythm GI Inspection: obesity Palpation: soft and tender (Diffuse, mild) Auscultation: normal bowel sounds Back/Spine/Pelvis Back: no CVA tenderness and back tenderness (Diffuse, mild lumbar. Slightly worse on the left, paravertebral) Skin Rashes: no rashes Other: Bilateral upper extremity track diaz noted Neuro General: patient alert, patient awake, patient oriented x3, moves all extremities and no focal motor deficits Cognition: normal cognition Speech: speech normal Gait: normal gait Motor: muscle tone normal throughout Sensory Exam: no sensory deficits noted Extrem General: normal to inspection, full ROM, capillary refill normal, no pedal edema and no calf tenderness Psych Appearance: grossly normal Mental Status: mental status grossly normal Objective Last Vital Signs Temp 36.8 C 09/06/21 12:46 Pulse 84 09/06/21 12:46 Resp 18 09/06/21 12:46 BP 146/95 H 09/06/21 12:46 Pulse Ox 98 09/06/21 12:46 Laboratory Results - last 24 hr 09/05/21 09/06/21 09/06/21 17:10 06:11 06:11 WBC 6.34 RBC 4.69 Hgb 12.8 L Hct 38.4 L MCV 82 MCH 27.3 MCHC 33.3 RDW 13.2 Plt Count 233 MPV 10.1 Sodium 140 Potassium 4.0 Chloride 107 Carbon Dioxide 21.4 Anion Gap 11.6 H BUN 12 Creatinine 0.8 Estimated GFR/1.73 m2 >= 60.00 Glucose 105 Calcium 9.0 Vancomycin Trough 17.0
[2021-09-06 15:08] VITALS: BP 161/89; PULSE 75; RESP 20; TEMP 36.8; O2SAT 96
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
== END 2021-09-06 16:31 | disposition left against medical advice (07) | DRG 551 ==
LOC: ER 23:24 → MS 09-04 00:40
PROVIDERS: Internal Medicine; Nurse Practitioner; Admitting Provider Family Medicine; Emergency Provider Physician Assistant; Visit Provider Family Medicine
DX: M46.46 Discitis, unspecified, lumbar region (principal); J18.9 Pneumonia, unspecified organism; F11.20 Opioid dependence, uncomplicated; F19.10 Other psychoactive substance abuse, uncomplicated; I10 Essential (primary) hypertension; E66.9 Obesity, unspecified; Z68.37 Body mass index [BMI] 37.0-37.9, adult; F17.210 Nicotine dependence, cigarettes, uncomplicated; B95.61 Methicillin susceptible Staphylococcus aureus infection as the cause of diseases classified elsewhere
CPT/HCPCS: 36415; 80048; 80053; 80307; 83690; 85027; 85652; 87040; 87077; 87635; 93005; 96361; 96365; 96367; 96375; 99285; 71045; 74176; 80202; 81003; 81015; 83605; 85025; 85049; 86140; 87186; 93010; 93306; 99223; 99232; 99233; 99238; J1644; J1885; J3490

== ENCOUNTER 2021-09-06 21:34 | Inpatient (IN) | payer MEDICAID, SELFPAY ==
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
[2021-09-06 21:50] VITALS: BP 140/64; PULSE 71; RESP 25; O2SAT 98
[2021-09-06 22:34] LABS: Lactate 0.9 mmol/L (0.6-1.4)
[2021-09-06 22:35] LABS: Abs Immature Grans 0.02 10^3/uL (0.0-0.06); Absolute Basophil Count 0.02 10^3/uL (0.0-0.2); Absolute Eosinophil Count 0.19 10^3/uL (0.0-0.7); Absolute Lymphocyte Count 2.31 10^3/uL (1.2-3.4); Absolute Monocyte Count 0.66 10^3/uL (0.1-0.8); Absolute Neutrophil Count 4.92 10^3/uL (1.2-6.7); Basophils % 0.2; Eosinophils % 2.3; HCT 40.3 % (40.0-50.0); HGB 13.3 g/dL (13.5-17.5); Immature Grans % 0.2; Lymphocytes % 28.4; MCV 82 fL (80-95); MPV 9.9 fL (8.0-11.0); Monocytes % 8.1; Neutrophils % 60.8; Platelet Count 267 10^3/uL (130-400); RBC 4.93 10^6/uL (4.36-5.78); RDW 13.3 % (11.8-14.1); RDW-SD 39.7 fL; WBC 8.12 10^3/uL (4.4-10.8)
[2021-09-06] MEDS: HYDROmorphone 2 MG/ML VIAL 0.5 MG IVP (22:45)
[2021-09-06 22:55] LABS: Source Nasal/Nares
--- NOTE | 2021-09-06 23:00 | DI.RAD_ITS ---
Exam(s) XR PORTABLE CHEST AP EXAM: XR PORTABLE CHEST AP CLINICAL HISTORY: Productive cough, hx of Pneumonia TECHNIQUE: 2D digital imaging was performed of the chest. One image was obtained. An AP view was ob tained. COMPARISON: CR XR CHEST 2V PA LATERAL from 12/18/2018 CR,XR XR PORTABLE CHEST AP from 09/03/[address] ABDOMEN PELVIS WO from 09/03/2021 FINDINGS: MEDIASTINUM: Normal. HEART: Normal. PULMONARY VASCULATURE: Normal. LUNGS: No focal consolidating infiltrates. There has been no change in appearance of the nodule in t he right lung base. There now appears to be a 1 cm nodule in the lateral aspect of the right upper l obe. PLEURAL SPACE: No pleural effusion or pneumothorax. BONE:Within normal limits for the patient's age. OTHER FINDINGS:Normal. IMPRESSION: 1. No acute pulmonary findings. 2. Stable right lower lobe pulmonary nodule. 3. 1 cm right upper lobe pulmonary nodule. 4. CT scan of the chest is recommended for further evaluation of these pulmonary nodules. DATA REPOSITORY: RADIATION DOSE DELIVERED:
[2021-09-06 23:08] LABS: ALT 103 U/L (16-63); AST 37 U/L (15-37); Albumin 3.1 g/dL (3.4-5.0); Alkaline Phosphatase 82 U/L (46-116); Anion Gap 11.8 mmol/L (3-11); BUN 17 mg/dL (7-18); Bilirubin, Total 0.2 mg/dL (0.2-1.0); CO2 22.2 mmol/L (21.0-32.0); CREATININE 0.8 mg/dL (0.70-1.30); Chloride 107 mmol/L (98-107); Glucose 120 mg/dL (74-106); Magnesium 2.1 mg/dL (1.8-2.4); Sodium 141 mmol/L (136-145); Total Protein 8.1 g/dL (6.4-8.2)
[2021-09-06 23:43] LABS: COVID-19 PCR Negative (Negative)
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
--- NOTE | 2021-09-07 00:54 | DI.VRAD_ITS ---
PROCEDURE INFORMATION: Exam: XR Chest Exam date and time: 09/06/2021 11:41 PM Age: 40 years old Clinical indication: Cough; Additional info: Productive cough, HX pneumonia TECHNIQUE: Imaging protocol: Radiologic exam of the chest. Views: 1 view. COMPARISON: XR PORTABLE CHEST AP 09/03/2021 8:49 PM FINDINGS: Lungs: Grossly stable right-sided pulmonary nodule. No consolidation. Chronic interstitial prominence is grossly stable Pleural spaces: Unremarkable. No pleural effusion. No pneumothorax. Heart/Mediastinum: Unremarkable. No cardiomegaly. Bones/joints: Unremarkable. IMPRESSION: No focal consolidation Grossly stable right lower lobe pulmonary nodule Dictated and Authenticated by: Rodo Ferraro MD. Ordering:ROB Patrick MD
[2021-09-07 01:45] VITALS: BP 162/90; PULSE 70; RESP 18; TEMP 36.6; O2SAT 98
[2021-09-07 02:20] VITALS: BP 147/85
[2021-09-07] MEDS: HYDROmorphone 2 MG/ML SYR 1 MG IVP (04:09)
[2021-09-07] MEDS: Nicotine 21 MG/24 HR PATCH TD ×2 (04:10→21:40)
[2021-09-07] MEDS: Normal Saline 500 ML 100 ML IV (04:11)
[2021-09-07 07:25] VITALS: BP 144/84; PULSE 70; RESP 20; TEMP 36.5; O2SAT 99
[2021-09-07 07:42] LABS: ESR 91 mm/hr (0-15)
[2021-09-07 08:04] LABS: C-Reactive Protein 5.74 mg/dL (0.0-0.3)
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
[2021-09-07] MEDS: Ketorolac 30 MG/ML VIAL IVP (09:25)
[2021-09-07] MEDS: Normal Saline Flush 10 ML SYR IVP ×4 (09:25→16:57)
[2021-09-07] MEDS: Lidocaine 5% Patch 2 PATCH TP (09:26)
--- NOTE | 2021-09-07 10:33 | PGE_ITS ---
Date of Service Date of service: 09/07/21 Time of Service: 10:33 Assessment and Plan Assessment and plan (1) Lumbar discitis: Start date: 09/03/21 Status: Acute Assessment and plan: Cx growing Staph Aureus. was downstepped to cefazolin 2 gm q8h and then discharged on linezolid bid on an AMA plan. Consultation with ID in agreement with cefazolin for 6 weeks and linezolid as oral option if needed. Patient to continue with IV antibiotic therapy as previously planned and changed back to cefazolin. repeat blood cultures from 09/06 negative so far Echo ordered following inflammatory markers which CRP has improved from 11.4 to 5.74 patient is afebrile with normal white count. No narcotic pain medication indicated will treat with apap and nsaids, apply lidocaine patch. 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 (2) Pneumonia: Start date: 09/03/21 Status: Ruled-out Assessment and plan: No oxygen requirements. no evidence of acute pulmonary infection on imaging Follow-up imaging indicated to evaluate pulmonary nodules. (3) Opioid dependence: Status: Chronic Assessment and plan: has not been on methadone while incarcerated, no indication to restart at this time. (4) Hypertension: Status: Chronic Assessment and plan: will schedule clonidine q8h and monitor, adjust as needed. (5) IV drug abuse: Status: Chronic Assessment and plan: Patient has ongoing IV drug use up to admission, now with blood cultures growing staph aureus. No signs of withdrawal at this time. will treat symptoms if needed. continue to monitor discussed with DR Colin Subjective Subjective Patient reports: afebrile Exam Const General: no acute distress Orientation: alert, awake and oriented x3 HENMT Head: normal to inspection, normocephalic and atraumatic Face and sinus: normal facial exam Mouth: moist mucous membranes Eyes General: appearance normal, both eyes and all related structures Conjunctivae: conjunctivae normal Neck Neck: normal visual inspection and full ROM Resp Effort & Inspection: normal respiratory effort and able to speak in complete sentences Auscultation: diminished lung sounds bilaterally in the lower lung adan Cardio Rate: regular rate Rhythm: regular rhythm GI Inspection: obesity Palpation: soft Auscultation: normal bowel sounds Back/Spine/Pelvis Back: back tenderness (Diffuse, mild lumbar. Slightly worse on the left, paravertebral) Skin Rashes: no rashes Other: Bilateral upper extremity track diaz noted Neuro General: patient alert, patient awake, patient oriented x3, moves all ext remities and no focal motor deficits Cognition: normal cognition Speech: speech normal Motor: muscle tone normal throughout Extrem General: normal to inspection, full ROM, no pedal edema and no calf tenderness Psych Mental Status: mental status grossly normal Objective Last Vital Signs Temp 36.5 C 09/07/21 07:25 Pulse 70 09/07/21 07:25 Resp 20 09/07/21 07:25 BP 144/84 H 09/07/21 07:25 Pulse Ox 99 09/07/21 07:25 Laboratory Results - last 24 hr 09/06/21 09/06/21 09/06/21 22:16 22:16 22:16 WBC 8.12 RBC 4.93 Hgb 13.3 L Hct 40.3 MCV 82 MCH 27.0 MCHC 33.0 RDW 13.3 Plt Count 267 MPV 9.9 Immature Gran % 0.2 Neutrophils % 60.8 Lymphocytes % 28.4 Monocytes % 8.1 Eosinophils % 2.3 Basophils % 0.2 Nucleated RBC % 0.0 Absolute Neutrophils 4.92 Absolute Lymphocytes 2.31 Absolute Monocytes 0.66 Absolute Eosinophils 0.19 Absolute Basophils 0.02 ESR VBG Lactate 0.9 Sodium 141 Potassium 4.0 Chloride 107 Carbon Dioxide 22.2 Anion Gap 11.8 H BUN 17 Creatinine 0.8 Estimated GFR/1.73 m2 >= 60.00 Glucose 120 H Calcium 9.0 Magnesium 2.1 Total Bilirubin 0.2 AST 37 ALT 103 H Alkaline Phosphatase 82 C-Reactive Protein Total Protein 8.1 Albumin 3.1 L COVID-19 Source SARS-CoV-2 (PCR) 09/06/21 09/07/21 09/07/21 22:50 07:42 07:42 WBC RBC Hgb Hct MCV MCH MCHC RDW Plt Count MPV Immature Gran % Neutrophils % Lymphocytes % Monocytes % Eosinophils % Basophils % Nucleated RBC % Absolute Neutrophils Absolute Lymphocytes Absolute Monocytes Absolute Eosinophils Absolute Basophils ESR 91 H VBG Lactate Sodium Potassium Chloride Carbon Dioxide Anion Gap BUN Creatinine Estimated GFR/1.73 m2 Glucose Calcium Magnesium Total Bilirubin AST ALT Alkaline Phosphatase C-Reactive Protein 5.74 H Total Protein Albumin COVID-19 Source Nasal/Nares SARS-CoV-2 (PCR) Negative PAWSS Have you Been Recently Intoxicated or Drunk Within the Last 30 days?: Yes Result: 1
[2021-09-07] MEDS: Acetaminophen 325 MG TAB 650 MG PO ×3 (11:05→21:41)
[2021-09-07] MEDS: cloNIDine 0.1 MG TAB PO ×3 (11:05→21:41)
[2021-09-07] MEDS: ceFAZolin 2,000 MG in Normal Saline 100 ML 200 MG IVPB ×2 (14:39→21:41)
[2021-09-07] MEDS: Lidocaine Patch Removal 2 EACH TP ×2 (14:55→21:54)
[2021-09-07 15:21] VITALS: BP 150/98; PULSE 57; RESP 16; TEMP 36.8; O2SAT 100
[2021-09-07] MEDS: Ketorolac 30 MG/ML VIAL 15 MG IVP ×2 (16:56→23:00)
[2021-09-07 23:30] VITALS: BP 149/90; PULSE 69; RESP 22; TEMP 36.6; O2SAT 96
[2021-09-08] MEDS: Ketorolac 30 MG/ML VIAL 15 MG IVP (06:19)
[2021-09-08] MEDS: ceFAZolin 2,000 MG in Normal Saline 100 ML 200 MG IVPB ×2 (06:19→13:08)
[2021-09-08 06:25] VITALS: BP 147/91; PULSE 65; RESP 22; TEMP 36.3; O2SAT 97
[2021-09-08 07:35] VITALS: BP 150/92; PULSE 66; RESP 18; TEMP 36.8; O2SAT 100
[2021-09-08] MEDS: Lidocaine 5% Patch 2 PATCH TP (07:36)
[2021-09-08] MEDS: Acetaminophen 325 MG TAB 650 MG PO ×2 (07:36→12:17)
[2021-09-08] MEDS: cloNIDine 0.1 MG TAB PO ×2 (07:36→13:08)
--- NOTE | 2021-09-08 10:35 | CMPROGNOTE_ITS ---
- If Service Date Differs Date of service: 09/08/21 Time of Service: 10:35 Care Management Progress Note S/O: Venkatesh is continuously accompanied by correctional officers. Per report, he is being treated with IV antibiotic therapy for lumbar discitis. The recommendation from ID is six weeks of IV antibiotics. Once his blood cultures are negative, a PICC line will be placed. The provider has discussed this case with the department of corrections, and has arranged for his transfer to a medical correctional facility once he is medically stable. CM will continue to follow. A: Venkatesh is a 40 year old male admitted to [facility] on 09/07/21 with discitis. P: Venkatesh discharged back to [facility] 09/06/21 after leaving [facility] AMA. Following AMA discharge, Venkatesh presented to the ER later that evening feeling worse and having 10/10 pain. [facility]. Following discharge anticipate, [facility] will transport Venkatesh to a correctional facility of their designation which provides a higher level medical care. Venkatesh will transport via secure transport, provided by the correctional facility.
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
[2021-09-08] MEDS: Normal Saline Flush 10 ML SYR IVP (12:13)
== END 2021-09-08 14:01 | disposition home or self-care (01) | DRG 552 ==
LOC: ER 09-07 01:10 → MS 09-07 01:39
PROVIDERS: Family Medicine; Admitting Provider General Practice; Emergency Provider Registered Nurse Emergency; Visit Provider General Practice
DX: M46.46 Discitis, unspecified, lumbar region (principal); F11.20 Opioid dependence, uncomplicated; I10 Essential (primary) hypertension; E66.9 Obesity, unspecified; Z68.38 Body mass index [BMI] 38.0-38.9, adult; R60.0 Localized edema; M10.9 Gout, unspecified; F17.210 Nicotine dependence, cigarettes, uncomplicated; F19.10 Other psychoactive substance abuse, uncomplicated; B95.61 Methicillin susceptible Staphylococcus aureus infection as the cause of diseases classified elsewhere; R91.8 Other nonspecific abnormal finding of lung field
CPT/HCPCS: 36410; 36415; 80053; 85652; 87040; 87635; 96374; 99284; 99285; 71045; 83605; 83735; 85025; 86140; 99222; 99239; J0690; J1170; J1885; J2700; J3490

== ENCOUNTER 2022-01-25 13:37 | Outpatient (REF) | payer MEDICAID, SELFPAY ==
[2022-01-25 20:53] LABS: HCT 41.5 % (40.0-50.0); HGB 12.8 g/dL (13.5-17.5); MCH 26.7 pg (27.0-33.0); MCHC 30.8 % (32.0-36.0); MCV 87 fL (80-95); MPV 10.2 fL (8.0-11.0); Platelet Count 225 10^3/uL (130-400); RBC 4.79 10^6/uL (4.36-5.78); RDW 15.6 % (11.8-14.1); RDW-SD 48.7 fL; WBC 7.95 10^3/uL (4.4-10.8)
[2022-01-25 21:43] LABS: BUN 13 mg/dL (7-18); CREATININE 1.2 mg/dL (0.70-1.30); Cholesterol 165 mg/dL (<200); Glucose 95 mg/dL (74-106); HDL Cholesterol 39 mg/dL (40-60); Triglyceride 179 mg/dL (<150)
[2022-01-25 21:44] LABS: ALT 28 U/L (16-63); AST 23 U/L (15-37); Albumin 3.8 g/dL (3.4-5.0); Alkaline Phosphatase 59 U/L (46-116); Anion Gap 7.1 mmol/L (3-11); Bilirubin, Total 0.3 mg/dL (0.2-1.0); CO2 29.9 mmol/L (21.0-32.0); Calculated LDL 91 mg/dL (<100); Chloride 102 mmol/L (98-107); Potassium 4.1 mmol/L (3.5-5.1); Sodium 139 mmol/L (136-145); Total Protein 8.5 g/dL (6.4-8.2)
[2022-01-25 21:55] LABS: Hemoglobin A1C 5.8 % (<5.7)
== END 2022-01-25 13:38 | disposition home or self-care (01) ==
LOC: NCHCN 13:37
PROVIDERS: Visit Provider Nurse Practitioner Family
DX: E66.01 Morbid (severe) obesity due to excess calories (principal); M10.9 Gout, unspecified; F19.21 Other psychoactive substance dependence, in remission; Z00.00 Encounter for general adult medical examination without abnormal findings
CPT/HCPCS: 80053; 80061; 85027; 83036

== ENCOUNTER 2022-02-25 12:41 | Inpatient (IN) | payer MEDICAID, SELFPAY ==
[2022-02-25] VITALS (8 sets, daily range): BP systolic 120–159; BP diastolic 69–107; PULSE 76–111; RESP 16–18; TEMP 35.8–36.9; O2SAT 95–97
--- NOTE | 2022-02-25 | DI.RAD_ITS ---
Exam(s) XR PORTABLE CHEST AP EXAM: XR PORTABLE CHEST AP CLINICAL HISTORY: wheezing TECHNIQUE: 2D digital imaging was performed of the chest. Two images were obtained. AP views were obtained. COMPARISON: CR,XR XR PORTABLE CHEST AP from 09/06/2021 FINDINGS: MEDIASTINUM: Normal. HEART: Normal. PULMONARY VASCULATURE: Normal. LUNGS: Clear. PLEURAL SPACE: No pleural effusion or pneumothorax. BONE:Within normal limits for the patient's age. Old healed left rib fracture deformities. OTHER FINDINGS:Normal. IMPRESSION: No acute pulmonary findings. DATA REPOSITORY: RADIATION DOSE DELIVERED:
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
[2022-02-25 13:38] LABS: Abs Immature Grans 0.05 10^3/uL (0.0-0.06); Absolute Basophil Count 0.02 10^3/uL (0.0-0.2); Absolute Lymphocyte Count 2.24 10^3/uL (1.2-3.4); Absolute Monocyte Count 0.68 10^3/uL (0.1-0.8); Absolute Neutrophil Count 8.22 10^3/uL (1.2-6.7); Basophils % 0.2; Eosinophils % 0.9; HGB 14.9 g/dL (13.5-17.5); Immature Grans % 0.4; Lactate 0.8 mmol/L (0.6-1.4); Lymphocytes % 19.8; MCH 25.8 pg (27.0-33.0); MCHC 31.7 % (32.0-36.0); MCV 81 fL (80-95); MPV 9.5 fL (8.0-11.0); Neutrophils % 72.7; Platelet Count 296 10^3/uL (130-400); RBC 5.78 10^6/uL (4.36-5.78); RDW 14.4 % (11.8-14.1); RDW-SD 42.6 fL; WBC 11.31 10^3/uL (4.4-10.8)
[2022-02-25 13:49] LABS: Bilirubin Negative (Negative); Blood Negative (Negative); Clarity Clear (Clear); Glucose Negative (Negative); Ketones Negative (Negative); Leukocyte Esterase Negative (Negative); Nitrite Negative (Negative); Specific Gravity >= 1.030 (1.005-1.025); Urobilinogen 0.2 EU/dL (Up TO 0.2)
[2022-02-25 13:55] LABS: Epithelial Cells Rare HPF (Negative); RBC Negative HPF (0-2); WBC Negative HPF (0-5)
[2022-02-25 13:56] LABS: ALT 28 U/L (16-63); AST 20 U/L (15-37); Albumin 3.8 g/dL (3.4-5.0); Alkaline Phosphatase 67 U/L (46-116); BUN 14 mg/dL (7-18); Bacteria Negative HPF (Negative); Bilirubin, Total 0.3 mg/dL (0.2-1.0); C & S Indicated? No; Calcium 9.8 mg/dL (8.5-10.1); Casts Negative LPF (Negative); Chloride 101 mmol/L (98-107); Crystals Negative HPF (Negative); ETHANOL BLOOD < 3.0 mg/dL (<10); Estimated GFR 97.58 (mL/min/1.73m2); Glucose 116 mg/dL (74-106); Magnesium 2.1 mg/dL (1.8-2.4); Mucus Moderate (Negative); Potassium 3.9 mmol/L (3.5-5.1); Sodium 137 mmol/L (136-145); Total Protein 9.5 g/dL (6.4-8.2)
[2022-02-25 14:09] LABS: *AMPHETAMINES SCREEN URINE Negative (Negative); *BARBITURATES SCREEN URINE Negative (Negative); *BENZODIAZEPINES SCREEN URINE Negative (Negative); Cannabinoids THC Positive (Negative); Cocaine Screen,Urine Positive (Negative); METHADONE URINE SCREEN Negative (Negative); OPIATES URINE SCREEN Negative (Negative)
[2022-02-25 14:16] LABS: Tricyclic Antidepressants Negative (Negative)
--- NOTE | 2022-02-25 14:30 | RT.EKG_ITS ---
APPROVED REPORT Exam: Resting ECG Reason for Exam: Infection, R/O Carditis Patient Location: E HR:80 bpm ECG Measurements Heart Rate 80 AXIS NE 164 P 4 QRSd 100 QRS 75 QT 363 T 12 QTc 420 Conclusion Sinus rhythm...normal P axis, V-rate 60- 99 sinus rhythm, normal axis, normal intervals, non ischemic
[2022-02-25 14:52] LABS: ESR 94 mm/hr (0-15)
[2022-02-25 14:58] LABS: C-Reactive Protein 3.22 mg/dL (0.0-0.3)
[2022-02-25] MEDS: diazePAM 10 MG/2 ML SYR 5 MG IVP (15:28)
[2022-02-25] MEDS: Gadoterate meglumine 20 ML VIAL IVP (15:51)
--- NOTE | 2022-02-25 16:00 | DI.MRI_ITS ---
Exam(s) MR LUMBAR SPINE WO/W EXAM: MR LUMBAR SPINE WO/W CLINICAL HISTORY: R/O Abscess, Hx of Discitis. TECHNIQUE: Multiplanar multisequence MRI of the Lumbar Spine was performed. CONTRAST MATERIAL: IV Contrast: 20 mL of Dotarem contrast administered. COMPARISON: DOC,MR MR LS SPINE WWO CONTRAST from 02/22/2022 FINDINGS: The examination is limited due to patient motion artifact. Bones: The last intervertebral disc space is designated the L5/S1 level for the numbering purpose of this examination. There is loss of the cortex of the inferior endplate of L5 and the superior endpla te of S1. Alignment is satisfactory. Cord: The conus tip ends at the T12 level. It is of normal size and signal intensity. T12-L1: No disc herniations or bulges are present. No central spinal canal or neural foraminal stenos is. L1-2: No disc herniations or bulges are present. No central spinal canal or neural foraminal stenosis . L2-3: No disc herniations or bulges are present. No central spinal canal or neural foraminal stenosis . L3-4: There again seen changes at the endplates which are hyperintense on T2 and hypointense on T1 we ighted images. This is unchanged compared to the prior examination. There is again seen mild enhanc ement following contrast administration. No focal fluid collection is seen. This may still risk lat e to degenerative change. No central spinal canal or neural foraminal stenosis. L4-5: There again seen endplate degenerative signal changes. These are similar to the prior examinat ion. There is mild bilateral neural foraminal narrowing. L5-S1: No disc herniations or bulges are present. There is fluid signal in the disc at L5-S1 with as sociated enhancement. The findings are consistent with discitis. Endplate signal changes of both L5 and S1 are also noted. There is irregularity of the cortex at of the endplates at this level most s uggestive of osteomyelitis. No soft tissue fluid collection is seen to suggest abscess. There is en hancement seen in the epidural soft tissues posterior to the L5-S1 disc space which is unchanged. Th ere is no significant central spinal canal stenosis. There is mild bilateral neural foraminal narrow ing. Soft tissues: The visualized SI joints and sacrum are well maintained. The paraspinal soft tissues ar e unremarkable. IMPRESSION: 1. No significant change in the MRI of the lumbar spine since 02/22/2022. 2. Findings remain consistent with L5-S1 spondylo discitis. No definite abscess is identified at thi s time. 3. Findings were discussed with Juhi Ruiz in the emergency department at 4:44 p.m. on 02/25/2022. DATA REPOSITORY:
[2022-02-25] MEDS: CEFEPIME 2 GM in Normal Saline 100 ML IVPB (16:36)
[2022-02-25] MEDS: VANCOMYCIN/WATER (PEG) 2 GM/400 ML BAG IVPB (17:22)
[2022-02-25 18:01] LABS: Source Nasal/Nares
[2022-02-25 18:32] LABS: COVID-19 PCR Negative (Negative)
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
--- NOTE | 2022-02-25 22:38 | DI.VRAD_ITS ---
PROCEDURE INFORMATION: Exam: XR Chest Exam date and time: 02/25/2022 20:30 Age: 41 years old Clinical indication: Wheezing TECHNIQUE: Imaging protocol: Radiologic exam of the chest. Views: 1 view. COMPARISON: XR PORTABLE CHEST AP 09/06/2021 23:41 FINDINGS: Lungs: No consolidation. Pleural spaces: No pleural effusion. No pneumothorax. Heart/Mediastinum: No cardiomegaly. Bones/joints: Chronic healed left rib deformities. No displaced fracture. IMPRESSION: Negative portable chest. Dictated and Authenticated by: Dahlia Falcon MD. Ordering:VIV Almeida MD
[2022-02-26] MEDS: Methocarbamol 750 MG TAB PO ×3 (00:05→15:46)
[2022-02-26] MEDS: CEFEPIME 2 GM in Normal Saline 100 ML IVPB ×3 (00:05→15:31)
[2022-02-26] MEDS: Acetaminophen 325 MG TAB PO (00:05)
[2022-02-26] MEDS: VANCOMYCIN/WATER (PEG) 1.5 GM/300 ML BAG IV ×3 (01:46→17:57)
[2022-02-26 03:35] VITALS: BP 125/80; PULSE 63; RESP 16; TEMP 36.5; O2SAT 98
[2022-02-26 06:36] LABS: Abs Immature Grans 0.02 10^3/uL (0.0-0.06); Absolute Basophil Count 0.02 10^3/uL (0.0-0.2); Absolute Eosinophil Count 0.18 10^3/uL (0.0-0.7); Absolute Lymphocyte Count 3.45 10^3/uL (1.2-3.4); Absolute Monocyte Count 0.66 10^3/uL (0.1-0.8); Absolute Neutrophil Count 2.87 10^3/uL (1.2-6.7); Basophils % 0.3; Eosinophils % 2.5; HCT 42.7 % (40.0-50.0); HGB 13.6 g/dL (13.5-17.5); Immature Grans % 0.3; Lymphocytes % 47.9; MCHC 31.9 % (32.0-36.0); MCV 82 fL (80-95); MPV 10.1 fL (8.0-11.0); Monocytes % 9.2; Neutrophils % 39.8; Platelet Count 282 10^3/uL (130-400); RBC 5.23 10^6/uL (4.36-5.78); RDW 14.4 % (11.8-14.1); RDW-SD 42.4 fL
[2022-02-26 06:52] LABS: Anion Gap 9.7 mmol/L (3-11); BUN 13 mg/dL (7-18); C-Reactive Protein 2.65 mg/dL (0.0-0.3); CO2 26.3 mmol/L (21.0-32.0); CREATININE 0.9 mg/dL (0.70-1.30); Calcium 8.9 mg/dL (8.5-10.1); Chloride 102 mmol/L (98-107); Estimated GFR 110.73 (mL/min/1.73m2); Glucose 102 mg/dL (74-106); Potassium 4.1 mmol/L (3.5-5.1); Sodium 138 mmol/L (136-145)
[2022-02-26 07:52] VITALS: BP 176/80; PULSE 71; RESP 18; TEMP 36.5; O2SAT 96
[2022-02-26] MEDS: Buprenorphine/Naloxone 8 mg/2 mg FILM 2 EACH SL (08:09)
[2022-02-26] MEDS: Normal Saline Flush 10 ML SYR IVP ×3 (08:12→15:45)
[2022-02-26] MEDS: Ketorolac 15 MG/ML VIAL IVP ×2 (08:28→15:46)
[2022-02-26] MEDS: Normal Saline 500 ML 30 ML IV (09:35)
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
[2022-02-26 10:52] VITALS: BP 118/69; PULSE 64; RESP 20; TEMP 36.3; O2SAT 95
--- NOTE | 2022-02-26 13:58 | PGE_ITS ---
Date of Service Date of service: 02/26/22 Time of Service: 13:58 Assessment and Plan Assessment and plan (1) Septic discitis of lumbosacral region: Status: Acute Assessment and plan: We will continue empiric vancomycin/cefepime initiated in the ED. Per [facility], we will have to call on Monday to discuss w/ the spine team regarding doing IR bx of the disciitis Trend ESR/CRP/procalcitonin. We will follow up on blood culture results from [facility]. (2) Osteomyelitis of vertebra of lumbosacral region: Status: Acute Assessment and plan: As above. (3) Tobacco abuse: Status: Acute Assessment and plan: Provide nicotine replacement. Advised to quit. (4) Hepatitis C antibody positive in blood: Assessment and plan: Check a chronic hepatitis panel. Check HIV. (5) Muscle spasm of back: Status: Acute Assessment and plan: Treat with prn methocarbamol. (6) DVT prophylaxis: Status: Acute Assessment and plan: Sc heparin (7) Discharge planning issues: Status: Acute Assessment and plan: Full code (8) IV drug abuse: Assessment and plan: patient denies current drug use other than marijiuana. His urine drug screen however was positive for cocaine as well as THC. I discussed this with him. He denies use of cocaine but admits to use of marijuana Subjective Subjective Interval history since last seen: Patient reports that he has been dealing w/ this disciitis since last summer and was being treated under the care of [place] [facility] and completed 6 weeks of antibiotics and was told that he was cured. no follow up images were done of his spine, just repeat blood cultures. I explained to him that he will need at least 6 weeks of antibiotics but that we can not get the spine/disc biopsy done until next week. I called [facility] transfer center and they spoke w/ the I.R. fellow and n o procedures will be done on the weekend and they would not even set one up for Monday but rather I have to call them back on Monday to discuss the case w/ the entire spine team. Patient has been asking to go outside to walk. I explained to him that it is against hospital policy to allow patient's to leave the building and furthermore w/ his disciitis he runs the risk of a fall and possible spinal fracture. He mumbled that he should have stayed at [facility] and that he will just leave. When I asked him again to repeat to me what he said, he said never mind, he was just talking to himself. Exam Narrative Exam Narrative: Venkatesh is lying in bed. He has been able to get out of bed on his own. He denies any difficulty w/ ambulating or voiding Back is nontender to palpation, normal ROM. Objective Last Vital Signs Temp 36.3 C L 02/26/22 10:52 Pulse 64 02/26/22 10:52 Resp 20 02/26/22 10:52 BP 118/69 02/26/22 10:52 Pulse Ox 95 02/26/22 10:52 Laboratory Results - last 24 hr 02/25/22 02/25/22 02/25/22 13:30 13:30 13:30 WBC RBC Hgb Hct MCV MCH MCHC RDW Plt Count MPV Immature Gran % Neutrophils % Lymphocytes % Monocytes % Eosinophils % Basophils % Nucleated RBC % Absolute Neutrophils Absolute Lymphocytes Absolute Monocytes Absolute Eosinophils Absolute Basophils ESR 94 H Sodium Potassium Chloride Carbon Dioxide Anion Gap BUN Creatinine Est GFR (CKD-EPI 2020) Glucose Calcium Magnesium C-Reactive Protein 3.22 H Urine Opiates Screen Negative Urine Methadone Screen Negative Ur Barbiturates Screen Negative Ur Tricyclics Screen Negative Ur Amphetamines Screen Negative U Benzodiazepines Scrn Negative Urine Cocaine Screen Positive A Ur THC Screen Positive A COVID-19 Source SARS-CoV-2 (PCR) 02/25/22 02/26/22 02/26/22 17:55 05:37 05:37 WBC 7.20 RBC 5.23 Hgb 13.6 Hct 42.7 MCV 82 MCH 26.0 L MCHC 31.9 L RDW 14.4 H Plt Count 282 MPV 10.1 Immature Gran % 0.3 Neutrophils % 39.8 Lymphocytes % 47.9 Monocytes % 9.2 Eosinophils % 2.5 Basophils % 0.3 Nucleated RBC % 0.0 Absolute Neutrophils 2.87 Absolute Lymphocytes 3.45 H Absolute Monocytes 0.66 Absolute Eosinophils 0.18 Absolute Basophils 0.02 ESR Sodium 138 Potassium 4.1 Chloride 102 Carbon Dioxide 26.3 Anion Gap 9.7 BUN 13 Creatinine 0.9 Est GFR (CKD-EPI 2020) 110.73 Glucose 102 Calcium 8.9 Magnesium 2.0 C-Reactive Protein 2.65 H Urine Opiates Screen Urine Methadone Screen Ur Barbiturates Screen Ur Tricyclics Screen Ur Amphetamines Screen U Benzodiazepines Scrn Urine Cocaine Screen Ur THC Screen COVID-19 Source Nasal/Nares SARS-CoV-2 (PCR) Negative Time Spent with Patient Time Spent with Patient: 25-34 minutes Time was spent: preparing to see the patient(eg.review tests), obtaining and/or reviewing separately otained hiistory, referring, communicating with other health skin care technician, indepentently interpreting results and care coordination
[2022-02-26 14:48] VITALS: BP 174/90; PULSE 65; RESP 18; TEMP 36.5; O2SAT 97
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
[2022-02-26 19:30] VITALS: BP 147/94; PULSE 67; RESP 18; TEMP 36.8; O2SAT 96
[2022-02-26 23:25] VITALS: BP 147/84; PULSE 64; RESP 18; TEMP 36.7; O2SAT 97
[2022-02-27] MEDS: Normal Saline Flush 10 ML SYR IVP ×4 (00:33→16:06)
[2022-02-27] MEDS: CEFEPIME 2 GM in Normal Saline 100 ML IVPB ×3 (00:33→16:07)
[2022-02-27] MEDS: Normal Saline 500 ML 30 ML IV (00:34)
[2022-02-27] MEDS: Mylanta Suspension 30 ML CUP PO (01:15)
[2022-02-27] MEDS: VANCOMYCIN/WATER (PEG) 1.5 GM/300 ML BAG IV ×3 (02:20→18:21)
[2022-02-27 03:15] VITALS: BP 145/85; PULSE 65; RESP 18; TEMP 36.9; O2SAT 96
[2022-02-27] MEDS: Ketorolac 15 MG/ML VIAL IVP ×3 (04:52→16:13)
[2022-02-27 07:37] VITALS: BP 148/86; PULSE 63; RESP 17; TEMP 36; O2SAT 97
[2022-02-27] MEDS: Docusate Sodium 100 MG CAP PO (08:08)
[2022-02-27] MEDS: Buprenorphine/Naloxone 8 mg/2 mg FILM 2 EACH SL (08:08)
[2022-02-27] MEDS: Methocarbamol 750 MG TAB PO (08:21)
[2022-02-27 09:45] LABS: Vancomycin, Trough 17.6 ug/mL (10.0-20.0)
[2022-02-27 11:16] VITALS: BP 126/73; PULSE 70; RESP 17; TEMP 36.1; O2SAT 96
[2022-02-27] MEDS: Nicotine 4 MG GUM CH (14:12)
--- NOTE | 2022-02-27 14:25 | PGE_ITS ---
Date of Service Date of service: 02/27/22 Time of Service: 14:25 Assessment and Plan Assessment and plan (1) Septic discitis of lumbosacral region: Status: Acute Assessment and plan: continue empiric antibiotic treatment w/ cefepime and vancomycin pending lumbar/sacral disc bx. consult anesthesia for midline placement. once bx is back will consult I.D. to discuss optimum treatment but I anticipate the he needs 6 weeks of antibiotics. Professional time spent interviewing and examining patient, discussion of goals of care with hospital team (care management, nursing and consulting professionals) was 15 minutes. (2) Osteomyelitis of vertebra of lumbosacral region: Status: Acute Assessment and plan: As above. Subjective Subjective Interval history since last seen: No new concerns. He and his mom asked about timing of his spine biopsy, and his discharge from the hospital. I explained to her again that I can not set up the spine bx until I talk to [facility] [place] as they would not set this up over the weekend even for a Monday bx. As for dc from the hospital this depends upon getting the bx back, deciding on appropriate antibiotic coverage and placement of a midline/PICC for antibiotic use. I will consult w/ anesthesia to see him tomorrow for midline placement as his blood cultures from 02/25 have had no growth. Once we have the lumbar disc bx back, I will call I.D. and discuss optimum antibiotic treatment. Objective Last Vital Signs Temp 36.1 C L 02/27/22 11:16 Pulse 70 02/27/22 11:16 Resp 17 02/27/22 11:16 BP 126/73 02/27/22 11:16 Pulse Ox 96 02/27/22 11:16 Laboratory Results - last 24 hr 02/27/22 09:25 Vancomycin Trough 17.6 Time Spent with Patient Time Spent with Patient: <25 minutes Time was spent: ordering medications,tests, procedures, counseling the patient and care coordination
[2022-02-27 15:42] VITALS: BP 133/83; PULSE 89; RESP 16; TEMP 36.6; O2SAT 98
[2022-02-27 19:16] VITALS: BP 122/72; PULSE 66; RESP 18; TEMP 36.4; O2SAT 99
[2022-02-27 22:49] VITALS: BP 132/67; PULSE 70; RESP 20; TEMP 35.8; O2SAT 97
[2022-02-28] MEDS: CEFEPIME 2 GM in Normal Saline 100 ML IVPB ×3 (00:15→15:55)
[2022-02-28] MEDS: Normal Saline Flush 10 ML SYR IVP ×2 (01:52→10:50)
[2022-02-28 02:27] VITALS: BP 137/81; PULSE 60; RESP 18; TEMP 35.9; O2SAT 97
[2022-02-28] MEDS: VANCOMYCIN/WATER (PEG) 1.5 GM/300 ML BAG IV ×3 (03:00→17:39)
[2022-02-28 08:17] VITALS: BP 144/97; PULSE 62; RESP 18; TEMP 36.7; O2SAT 99
[2022-02-28] MEDS: Buprenorphine/Naloxone 8 mg/2 mg FILM 2 EACH SL (08:28)
[2022-02-28] MEDS: Methocarbamol 750 MG TAB PO ×2 (10:47→15:35)
[2022-02-28] MEDS: Ketorolac 15 MG/ML VIAL IVP (10:50)
--- NOTE | 2022-02-28 10:55 | W.PM.PROGNOT ---
Date of Service Date of service: 02/28/22 Time of Service: 10:55 Assessment and Plan Assessment and plan (1) Septic discitis of lumbosacral region: Status: Acute Assessment and plan: continue empiric antibiotic treatment w/ cefepime and vancomycin pending lumbar/sacral disc bx. consult anesthesia for midline placement. once bx is back will consult I.D. to discuss optimum treatment but I anticipate the he needs 6 weeks of antibiotics. Professional time spent interviewing and examining patient, discussion of goals of care with hospital team (care management, nursing and consulting professionals) was 15 minutes. (2) Osteomyelitis of vertebra of lumbosacral region: Status: Acute Assessment and plan: As above. Subjective Subjective Interval history since last seen: Venkatesh has no new concerns. I updated him on my conversation with [facility]. I spoke with the interventional radiologist who reviewed the patient's MRI scan and stated that the area of concern is amenable to IR guided biopsy and culture. Transfer center will call us back with a date and time hopefully this will get done in the next 24 to 48 hours. Exam Narrative Exam Narrative: Exam is unchanged he has normal mobility and range of motion with no focal paresis Objective Last Vital Signs Temp 36.7 C 02/28/22 08:17 Pulse 62 02/28/22 08:17 Resp 18 02/28/22 08:17 BP 144/97 H 02/28/22 08:17 Pulse Ox 99 02/28/22 08:17 Time Spent with Patient Time Spent with Patient: <25 minutes Time was spent: referring, communicating with other health inpatient care manager rn, counseling the patient and care coordination
--- NOTE | 2022-02-28 11:26 | PDOC.CMPRO ---
- If Service Date Differs Date of service: 02/28/22 Time of Service: 11:26 Care Management Progress Note S/O: Venkatesh was lying in bed when CM met with him. His mother was in the room visiting. Venkatesh stated that he is having a bad day today, and he really wants to leave. CM reviewed his plan, and he reported that per MD, he will go to [facility] tomorrow for a down and back biopsy procedure with IR. CM emphasized the importance of this procedure, while also discussing his right to leave, if he chooses. CM asked about his frustration, and he reported that he was woken up very early when someone was cleaning his room this morning, and that he didn't get to order his lunch, so he was brought something that he didn't like. CM offered to provide a different meal, which he declined. He stated that he is not sleeping well either. CM discussed this with his RN, who stated that she would discuss his concerns with him as well. CM will continue to follow. A: Venkatesh is a 41 year old male admitted to [facility] on 02/25/22 with septic discitis and osteomyelitis of L5-S1. P: Venkatesh will remain at [facility] awaiting a procedure at [facility], which is scheduled for Monday, leaving at 2pm. Once his IV abx course is determined, he will likely go to outpatient infusion daily, if possible. He will stay locally with his mother, who will help him with transport for the duration of his antibiotic course. He will follow up with his PCP and discharge plan of care. CM will continue to follow.
[2022-02-28 11:45] VITALS: BP 110/88; PULSE 64; RESP 18; TEMP 36.3; O2SAT 97
--- NOTE | 2022-02-28 13:36 | PHA.REVIEW2 ---
Pharmacy Admission Review - Admission Clinical Review (Last Updated 02/25/22 @ 21:02 by Elle Olmos MD) Discharge planning issues (Acute) DVT prophylaxis (Acute) Muscle spasm of back (Acute) Sepsis (Acute) Tobacco abuse (Acute) Osteomyelitis of vertebra of lumbosacral region (Acute) Septic discitis of lumbosacral region (Acute) Discitis of lumbosacral region (Acute) Obesity (Acute) nicotine patch Allergy (Mild, Uncoded 02/25/22 20:52) Skin Rash Resuscitation Status Full Code Height 6 ft Weight 141.2 kg - Renal Dosing Renal Dosing: BUN 13 mg/dL (7-18) 02/26/22 05:37 Creatinine 0.9 mg/dL (0.70-1.30) 02/26/22 05:37 Medications needing adjustments: Reviewed List of meds needing interventions: eCrCl >100 ml/min - Anticoagulation Anticoagulation: Hgb 13.6 g/dL (13.5-17.5) 02/26/22 05:37 Hct 42.7 % (40.0-50.0) 02/26/22 05:37 Plt Count 282 10^3/uL (130-400) 02/26/22 05:37 Creatinine 0.9 mg/dL (0.70-1.30) 02/26/22 05:37 DVT Prophylaxis: Reviewed Medications: Heparin (heparin currently on hold as pt is due to have a spine bx) - Opiate Usage Evaluate Pain Scale/Pains Meds: N/A - Relevant Labs ESR 94 mm/hr (0-15) H 02/25/22 13:30 Sodium 138 mmol/L (136-145) 02/26/22 05:37 Potassium 4.1 mmol/L (3.5-5.1) 02/26/22 05:37 Chloride 102 mmol/L (98-107) 02/26/22 05:37 Magnesium 2.0 mg/dL (1.8-2.4) 02/26/22 05:37 C-Reactive Protein 2.65 mg/dL (0.0-0.3) H 02/26/22 05:37 Electrolytes, C-Reactive P, ESR: Reviewed - DM Control DM Control: Glucose 102 mg/dL (74-106) 02/26/22 05:37 Hemoglobin A1c Cancelled 02/26/22 05:37 DM Control: N/A - Cardiac Review BP, HR, EF%: Reviewed - Qtc Review QTc: Reviewed If Elevated, List meds needing intervention: QTc 420 on admission - IV to PO Switch IV Medications: Reviewed - Home Meds Home Med List reviewed: Reviewed Relevent Home Meds Not ordered & why?: all ordered - Current meds Current Medication Order Review: Reviewed (empiric abx coverage with cefepime + vanco day 4)
--- NOTE | 2022-02-28 15:01 | W.ANESVAS ---
Midline Placement Date Performed: 02/28/22 Procedure Time: 14:52 Requesting Provider: Ross العراقي Procedure Location: Med/Surg Sedation Given (Indicate Dose Given): No Sedation given Patient Mental Status: Awake Sterility: Hand Hygiene, Surgical Cap, Surgical Mask, Sterile Gloves, Sterile Drape/Sheet and Chlorhexidine Laterality: Left Insertion Site: Brachial Midline Device: PowerGlide Pro 18G Catheter Length: 10 cm Midline Procedure Procedure: 1% Lidocaine to skin and subcutaneous tissue with 25g needle and Catheter placed without resistance Dressing: Tegaderm Applied and Statlock Applied Blood Return: Present Flushes: Easily Ultrasound: Sterile probe cover and gel used Ultrasound Image Saved?: Yes Number of Attempts (See previous attempts in note section): 1 Procedure Tolerated: Other Procedure Outcome: Successful Procedure Comment:: median nerve visualized prior to attempt, but approach yielded a transient parasthesia that resolved with needle reposition. Performed By: Adams Timmons
[2022-02-28] MEDS: hydrOXYzine HCL 50 MG TAB PO (15:55)
[2022-02-28] MEDS: Nicotine 4 MG GUM CH (16:03)
[2022-02-28 16:14] VITALS: BP 142/96; PULSE 61; RESP 18; TEMP 36.3; O2SAT 97
[2022-02-28 19:40] VITALS: BP 139/90; PULSE 64; RESP 18; TEMP 36.7; O2SAT 97
[2022-02-28 23:30] VITALS: BP 139/90; PULSE 64; RESP 20; TEMP 36.7; O2SAT 96
[2022-03-01] MEDS: Lactated Ringers 1,000 ML 100 ML IV
[2022-03-01] MEDS: CEFEPIME 2 GM in Normal Saline 100 ML IVPB ×3 (00:13→20:58)
[2022-03-01] MEDS: VANCOMYCIN/WATER (PEG) 1.5 GM/300 ML BAG IV ×3 (01:00→18:56)
[2022-03-01 02:38] VITALS: BP 140/90; PULSE 64; RESP 18; TEMP 36.9; O2SAT 97
[2022-03-01 08:09] VITALS: BP 148/89; PULSE 56; RESP 18; TEMP 36.2; O2SAT 100
[2022-03-01] MEDS: Buprenorphine/Naloxone 8 mg/2 mg FILM 2 EACH SL (08:35)
[2022-03-01] MEDS: Methocarbamol 750 MG TAB PO ×2 (08:41→19:00)
--- NOTE | 2022-03-01 08:52 | CMPROGNOTE_ITS ---
- If Service Date Differs Date of service: 03/01/22 Time of Service: 08:52 Care Management Progress Note S/O: Venkatesh will go [place] [facility] [place] down and back biopsy procedure with IR. Mid- line placed, Dr. العراقي reports goal to reduce IV ABX with outpatient follow up to [facility] Infusion room. CM will continue to follow. A: Venkatesh is a 41 year old male admitted to [facility] on 02/25/22 with septic discitis and osteomyelitis of L5-S1. P: Venkatseh will remain at [facility] awaiting a procedure at [facility], which is scheduled for Monday, leaving at 2pm. Once his IV abx course is determined, he will likely go to outpatient infusion daily, if possible. He will stay locally with his mother, who will help him with transport for the duration of his antibiotic course. He will follow up with his PCP and discharge plan of care. CM will continue to follow.
--- NOTE | 2022-03-01 08:52 | PDOC.CMPRO ---
- If Service Date Differs Date of service: 03/01/22 Time of Service: 08:52 Care Management Progress Note S/O: Venkatesh will go to [facility] for a down and back biopsy procedure with IR. Mid-line placed, Dr. العراقي reports goal to reduce IV ABX with outpatient follow up to [facility] Infusion room. CM will continue to follow. A: Venkatesh is a 41 year old male admitted to [facility] on 02/25/22 with septic discitis and osteomyelitis of L5-S1. P: Venkatesh will remain at [facility] awaiting a procedure at [facility], which is scheduled for Monday, leaving at 2pm. Once his IV abx course is determined, he will likely go to outpatient infusion daily, if possible. He will stay locally with his mother, who will help him with transport for the duration of his antibiotic course. He will follow up with his PCP and discharge plan of care. CM will continue to follow.
[2022-03-01 09:36] LABS: Vancomycin, Trough 18.2 ug/mL (10.0-20.0)
[2022-03-01 10:19] LABS: HIV-1/2 Ag & Ab Screen Negative (Negative)
--- NOTE | 2022-03-01 10:21 | W.PM.PROGNOT ---
Date of Service Date of service: 03/01/22 Time of Service: 10:21 Assessment and Plan Assessment and plan (1) Septic discitis of lumbosacral region: Status: Acute Assessment and plan: continue empiric antibiotic treatment w/ cefepime and vancomycin pending lumbar/sacral disc bx. consult anesthesia for midline placement. once bx is back will consult I.D. to discuss optimum treatment but I anticipate the he needs 6 weeks of antibiotics. Professional time spent interviewing and examining patient, discussion of goals of care with hospital team (care management, nursing and consulting professionals) was 10 minutes. (2) Osteomyelitis of vertebra of lumbosacral region: Status: Acute Assessment and plan: As above. Subjective Subjective Interval history since last seen: Venkatesh states that he is hungry and thirsty. He is NPO for L5/S1 lumbar bx w/ cultures under I.R. guidance later today at [facility]. He is scheduled for 3:20 pm but has to be there by 2 pm. He got his left upper extremity midline placed by anesthesia yesterday. He reports that they hit a nerve but has had no sequelae from this. Exam Narrative Exam Narrative: Venkatesh is lying in bed watching TV. No disdcomfort. Left medial upper arm w/ midline. no induration or redness Objective Last Vital Signs Temp 36.2 C L 03/01/22 08:09 Pulse 56 L 03/01/22 08:09 Resp 18 03/01/22 08:09 BP 148/89 H 03/01/22 08:09 Pulse Ox 100 03/01/22 08:09 Laboratory Results - last 24 hr 02/26/22 03/01/22 05:37 09:10 Hemoglobin A1c Cancelled Vancomycin Trough 18.2 Time Spent with Patient Time Spent with Patient: <25 minutes Time was spent: counseling the patient and care coordination
[2022-03-01 11:09] VITALS: BP 133/74; PULSE 71; RESP 18; TEMP 36.5; O2SAT 96
[2022-03-01 12:28] LABS: Estimated Average Glucose 128 mg/dL; Hemoglobin A1C 6.1 % (<5.7)
--- NOTE | 2022-03-01 12:43 | NUR.NOTE ---
Nursing Note:Patient went to [facility] for biopsy w/ EMS.
[2022-03-01 14:26] LABS: HBs Antibody, Qual Positive (See Note); Hepatitis B Core Antibody Negative (Negative); Hepatitis B surface Ag Negative (Negative); Hepatitis C Ab w Rflx HCV PCR Reactive (Negative)
--- NOTE | 2022-03-01 18:03 | NUR.NOTE ---
Nursing Note: 1745: Per [facility] report: Unable to complete procedure d/t patient's pain. Versed was given with no effect. Patient is coming back to [facility] soon.
[2022-03-01 18:52] VITALS: BP 144/83; PULSE 68; RESP 18; TEMP 36.8; O2SAT 97
[2022-03-01] MEDS: hydrOXYzine HCL 50 MG TAB PO (19:00)
--- NOTE | 2022-03-01 19:02 | NUR.NOTE ---
Nursing Note: Patient is back from [facility]. VSS (see chart). Patient reports back pain and HESTER. Patient thinks HESTER is caffeine related and said it started on the ride down to [facility]. Dressing on back c/d/i. Patient denies chest pain, sob, etc. No s/s of cardiac or respiratory distress. Patient in stable condition.
[2022-03-01] MEDS: Ketorolac 15 MG/ML VIAL IVP (20:58)
[2022-03-01 22:38] VITALS: BP 147/54; PULSE 74; RESP 19; TEMP 36.3; O2SAT 94
[2022-03-02] MEDS: Lactated Ringers 1,000 ML 100 ML IV ×2 (01:17→15:45)
[2022-03-02] MEDS: VANCOMYCIN/WATER (PEG) 1.5 GM/300 ML BAG IV ×3 (01:17→17:18)
[2022-03-02 03:15] VITALS: BP 167/92; PULSE 63; RESP 18; TEMP 36.7; O2SAT 97
[2022-03-02] MEDS: Ketorolac 15 MG/ML VIAL IVP ×2 (03:40→09:53)
[2022-03-02] MEDS: CEFEPIME 2 GM in Normal Saline 100 ML IVPB ×3 (03:40→19:15)
[2022-03-02 08:05] VITALS: BP 130/71; PULSE 69; RESP 18; TEMP 36.2; O2SAT 97
[2022-03-02] MEDS: Buprenorphine/Naloxone 8 mg/2 mg FILM 2 EACH SL (09:07)
[2022-03-02] MEDS: Normal Saline Flush 10 ML SYR IVP ×2 (09:54→13:25)
[2022-03-02] MEDS: Methocarbamol 750 MG TAB PO ×3 (09:54→19:15)
--- NOTE | 2022-03-02 10:24 | PGE_ITS ---
Date of Service Date of service: 03/02/22 Time of Service: 10:24 Assessment and Plan Assessment and plan (1) Septic discitis of lumbosacral region: Status: Acute Assessment and plan: cont. cefepime and vancomycin for now. I will discuss w/ [facility] interventional radiology (I.R.) and w/ infectious disease regarding appropriate treatment and obtaining appropriate cultures. He understands that he needs total 6 weeks of appropriate antibiotics. I am hoping to put him on a once a day antibiotic possibly daptomycin which he could get through outpatient infusion center. He had his midline placed in his left arm Addendum: I spoke w/ Dr. Gal Menon, neuroradiology at [facility]. He reviewed the images and I discussed the patient's clinical course and patient's trip to [facility] for vertebral bx yesterday. Dr. Menon indicated that they could get tissue sample and will arrange for tomorrow. Transfer center will call w/ time he needs to be there tomorrow. I am awaiting I.D. to return my call. Professional time spent interviewing and examining patient, discussion of goals of care with hospital team (care management, nursing and consulting professionals) was 30 minutes. (2) Osteomyelitis of vertebra of lumbosacral region: Status: Acute Assessment and plan: As above. Subjective Subjective Interval history since last seen: Patient states that they did not get the LS bx yesterday at [facility] IR d/t he was in too much pain for the procedure. He indicated that they wanted to drill into the bone and he says that they never discussed this with him and he refused that. He was under the understanding that they were just going to insert a needle into the bone and draw a sample. I apologized that he experienced this but also explained to him that we still need to get bone cultures so we can put him on appropriate antibiotics for outpatient treatment. I told him that I would call [facility] in [place] and discuss his case w/ I.R. at [facility] and also w/ infectious disease. He was agreeable to this. I have asked our radiology to send his MRI images and I have called the transfer center at [facility] and they will have IR contact me. He rates his lower back pain at a 7 right now. Exam Narrative Exam Narrative: Back has bandage over the left lower lumbo-sacral area, there is some redness around the bandage but induration, he has slight tanderness w/ palpation. Normal ROM of his back, normal ROM of his legs, no weakness Objective Last Vital Signs Temp 36.2 C L 03/02/22 08:05 Pulse 69 03/02/22 08:05 Resp 18 03/02/22 08:05 BP 130/71 03/02/22 08:05 Pulse Ox 97 03/02/22 08:05 Laboratory Results - last 24 hr 02/26/22 02/26/22 02/26/22 05:37 05:37 05:[address] Glu mg/dL 128 Hemoglobin A1c 6.1 H Hep Bs Antigen Negative Hep Bs Antibody Positive Hep Bs Antibody, Quant 133.0 Hep B Core Total Ab Negative Hepatitis C Antibody Reactive A HIV 1&2 Ag/Ab, 4th Gen Negative Time Spent with Patient Time Spent with Patient: 25-34 minutes Time was spent: referring, communicating with other health post acute care registered nurse, counseling the patient and care coordination
[2022-03-02 12:06] VITALS: BP 122/67; PULSE 65; RESP 19; TEMP 35.6; O2SAT 96
[2022-03-02 13:21] LABS: HCV RNA Qualitative Undetected (Undetected)
[2022-03-02] MEDS: fentaNYL 100 MCG/2 ML VIAL 50 MCG IVP (13:25)
--- NOTE | 2022-03-02 14:01 | NUR.NOTE ---
Nursing Note: At approximately 1350 on 03/02/22, this RN answered a call from Meche, a nurse at Interventional Radiology at [facility]. RN provided Meche with a brief nurse to nurse report on the pt. and provided answers to questions that she was asking about the patient in preparation for the L5 biopsy to be performed tomorrow (03/03/22). Per [facility] nurse, pt.'s procedure will be happening at 0830 tomorrow (03/03/22). Per [facility] nurse, ketorolac (Toradol) and ibuprofen (Motrin) to be held from this point forward, and pt. must be NPO of food from 0000 on 03/03/22 forward and must be NPO of fluids (clear liquids only) from 0500 on 03/03/22 forward. [facility] nurse also requesting that the pt. have an INR drawn, that it be resulted prior to transfer, and that the result be in the transfer packet, as well as an updated medication list with the last given dates and times, and the history and physical. [facility] nurse also requesting that a nurse to nurse report be called to the following number once pt. has left [facility]: # . [facility] nurse also requesting that if anything changes with the pt. that someone call Interventional Radiology at the following number: # .
[2022-03-02 15:20] VITALS: BP 167/82; PULSE 73; RESP 16; TEMP 36.8; O2SAT 96
[2022-03-02 15:31] LABS: INR 0.9 (0.9-1.1); Prothrombin Time 9.1 sec (9.3-11.0)
[2022-03-02 15:53] LABS: Procalcitonin < 0.1 ng/mL
--- NOTE | 2022-03-02 17:21 | CMPROGNOTE_ITS ---
- If Service Date Differs Date of service: 03/02/22 Time of Service: 17:21 Care Management Progress Note S/O: Venkatesh was sleeping when CM attempted to meet with him today. His mother was in the room visiting, and asked that he not be disturbed. He reported previously that he is not sleeping well while here. Per report, the biopsy was not completed [place] [facility] [place]. MD will be reaching out to [facility] today to inquire about scheduling a biopsy at their facility, as Venkatesh is not willing to return t o [facility]. CM will continue to follow. A: Venkatesh is a 41 year old male admitted to [facility] on 02/25/22 with septic discitis and osteomyelitis of L5-S1. P: Venkatesh will remain at [facility] awaiting a procedure at [facility], which is scheduled for Monday, leaving at 2pm. Once his IV abx course is determined, he will likely go to outpatient infusion daily, if possible. He will stay locally with his mother, who will help him with transport for the duration of his antibiotic course. He will follow up with his PCP and discharge plan of care. CM will continue to follow.
--- NOTE | 2022-03-02 17:21 | PDOC.CMPRO ---
- If Service Date Differs Date of service: 03/02/22 Time of Service: 17:21 Care Management Progress Note S/O: Venkatesh was sleeping when CM attempted to meet with him today. His mother was in the room visiting, and asked that he not be disturbed. He reported previously that he is not sleeping well while here. Per report, the biopsy was not completed at [facility] [place]. MD will be reaching out to [facility] today to inquire about scheduling a biopsy at their facility, as Venkatesh is not willing to return to [facility]. CM will continue to follow. A: Venkatesh is a 41 year old male admitted to [facility] on 02/25/22 with septic discitis and osteomyelitis of L5-S1. P: Venkatesh will remain at [facility] awaiting a procedure at [facility], which is scheduled for Monday, leaving at 2pm. Once his IV abx course is determined, he will likely go to outpatient infusion daily, if possible. He will stay locally with his mother, who will help him with transport for the duration of his antibiotic course. He will follow up with his PCP and discharge plan of care. CM will continue to follow.
[2022-03-02] MEDS: Nicotine 4 MG GUM CH (17:50)
[2022-03-02 19:00] VITALS: BP 137/99; PULSE 89; RESP 16; TEMP 36.8; O2SAT 97
[2022-03-02] MEDS: hydrOXYzine HCL 50 MG TAB PO (19:14)
[2022-03-03 00:27] VITALS: BP 110/68; PULSE 89; RESP 19; TEMP 36.2; O2SAT 96
[2022-03-03] MEDS: VANCOMYCIN/WATER (PEG) 1.5 GM/300 ML BAG IV ×3 (01:42→22:01)
[2022-03-03 03:01] VITALS: BP 144/90; PULSE 70; RESP 18; TEMP 36.7; O2SAT 97
[2022-03-03] MEDS: CEFEPIME 2 GM in Normal Saline 100 ML IVPB ×2 (04:09→15:27)
[2022-03-03] MEDS: Lactated Ringers 1,000 ML 100 ML IV (04:09)
[2022-03-03 07:27] VITALS: BP 164/100; PULSE 66; RESP 16; TEMP 36.5; O2SAT 97
[2022-03-03] MEDS: Buprenorphine/Naloxone 8 mg/2 mg FILM 2 EACH SL (07:28)
[2022-03-03] MEDS: fentaNYL 100 MCG/2 ML VIAL 50 MCG IVP (07:29)
[2022-03-03] MEDS: Normal Saline Flush 10 ML SYR IVP ×2 (07:29→22:02)
--- NOTE | 2022-03-03 07:43 | NUR.NOTE ---
Nursing Note: Pt left @ 0740 vis EMS to go to [facility] for procedure. Pt given 50 mcg of fentanyl and ordered suboxone prior to leaving.
--- NOTE | 2022-03-03 12:50 | CMPROGNOTE_ITS ---
- If Service Date Differs Date of service: 03/03/22 Time of Service: 12:50 Care Management Progress Note S/O: Venkatesh went to [facility] today for a procedure with IR. Once MD has the results, an antibiotic course will be determined. CM reviewed the options for IV antibiotics, and Venkatesh would prefer to return to his mother's home, which is in [facility], and go to the infusion room daily for the duration of his antibiotic course. CM will continue to follow. A: Venkatesh is a 41 year old male admitted to [facility] on 02/25/22 with septic discitis and osteomyelitis of L5-S1. P: Venkatesh is being closely monitored while awaiting a biopsy with IR. Once his IV abx course is determined, he will likely go to outpatient infusion daily, if possible. He will stay locally with his mother, who will help him with transport for the duration of his antibiotic course. He will follow up with his PCP and discharge plan of care. CM will continue to follow.
[2022-03-03 13:38] VITALS: BP 138/86; PULSE 67; RESP 16; TEMP 35.9; O2SAT 97
[2022-03-03] MEDS: Methocarbamol 750 MG TAB PO ×3 (13:39→20:02)
--- NOTE | 2022-03-03 14:51 | NUR.NOTE ---
Nursing Note:Pt returned from [facility] @ 4010. Awake and alert. reporty from [facility] RN stated he got 50mg of benedryl, 10mg of versed and 500mcg of fentanyl for procedure. they were able to get bone biopsy completed. Instructed to assess biopsy site and replace gauze and tegaderm PRN for stike through. If bleeding profusely call [facility] IR team.
--- NOTE | 2022-03-03 14:56 | W.PM.PROGNOT ---
Date of Service Date of service: 03/03/22 Time of Service: 14:56 Assessment and Plan Assessment and plan (1) Septic discitis of lumbosacral region: Status: Acute Assessment and plan: Status post biopsy and culture of L5-S1 discitis and L5 vertebral osteomyelitis. Await culture results however I think we can plan for outpatient infusion therapy with combination of daptomycin and Rocephin. I will plan for daptomycin 10 mg/kg IV every 24 hours along with Rocephin 2 g IV every 24 hours. When I get the culture results I will try to narrow down his antibiotic focus. Given his previous bloodstream infection last year which was MSSA he should be fairly responsive to once daily dosing of Rocephin. However if it turns out that he has an MRSA infection then he will remain on daptomycin. Professional time spent interviewing and examining patient, discussion of goals of care with hospital team (care management, nursing and consulting professionals) was 15 minutes. Case discussed with nursing, case management, patient and the patient's mother who is at the room when I examined him. (2) Osteomyelitis of vertebra of lumbosacral region: Status: Acute Assessment and plan: As above. Subjective Subjective Interval history since last seen: Venkatesh returns from [facility] where he underwent lumbosacral biopsy and culture of an L5-S1 discitis and L5 vertebral osteomyelitis. He tolerated the procedure well. He remains on broad-spectrum antibiotics including vancomycin and cefepime. I told him that tomorrow we will change him over to once daily dosing of ceftriaxone and daptomycin and we will set him up for outpatient infusion. I talked with the infusion nurse, Meceh, and made her aware of Mr. He's needs. I explained to her that he has a midline in his left arm and as the patient will be on antibiotics for 6 weeks the midline will have to be changed sometime during that treatment course. Hopefully by the time the midline needs to be replaced we will have PICC line certified nurses available. Exam Narrative Exam Narrative: Venkatesh is awake and oriented although he seems somewhat groggy probably combination of the analgesia he was given for his procedure. Examination of his spine reveals no induration or erythema around the site of the lumbar biopsy. Objective Last Vital Signs Temp 35.9 C L 03/03/22 13:38 Pulse 67 03/03/22 13:38 Resp 16 03/03/22 13:38 BP 138/86 03/03/22 13:38 Pulse Ox 97 03/03/22 13:38 Laboratory Results - last 24 hr 03/02/22 03/02/22 03/02/22 15:14 15:14 Unknown PT 9.1 L INR 0.9 Procalcitonin < 0.1 Add-On Test Request Cancelled Time Spent with Patient Time Spent with Patient: <25 minutes Time was spent: preparing to see the patient(eg.review tests), ordering medications,tests, procedures, referring, communicating with other health adult live in caregiver, counseling the patient and care coordination
[2022-03-03] MEDS: hydrOXYzine HCL 50 MG TAB PO (16:26)
[2022-03-03] MEDS: Nicotine 4 MG GUM CH (16:26)
[2022-03-03 20:21] VITALS: BP 129/74; PULSE 81; RESP 16; TEMP 37; O2SAT 96
[2022-03-03 23:00] VITALS: BP 142/82; PULSE 80; RESP 19; TEMP 36.6; O2SAT 96
[2022-03-04] MEDS: CEFEPIME 2 GM in Normal Saline 100 ML IVPB (00:01)
[2022-03-04] MEDS: hydrOXYzine HCL 50 MG TAB PO (01:42)
[2022-03-04] MEDS: Ibuprofen 600 MG TAB PO ×3 (02:17→13:39)
[2022-03-04] MEDS: Normal Saline Flush 10 ML SYR IVP ×2 (05:44→09:03)
[2022-03-04 07:28] VITALS: BP 138/89; PULSE 67; RESP 18; TEMP 36.5; O2SAT 97
[2022-03-04 07:34] LABS: Absolute Basophil Count 0.03 10^3/uL (0.0-0.2); Absolute Eosinophil Count 0.22 10^3/uL (0.0-0.7); Absolute Lymphocyte Count 2.89 10^3/uL (1.2-3.4); Absolute Monocyte Count 0.48 10^3/uL (0.1-0.8); Absolute Neutrophil Count 2.29 10^3/uL (1.2-6.7); Basophils % 0.5; Eosinophils % 3.7; HCT 41.2 % (40.0-50.0); HGB 13.4 g/dL (13.5-17.5); Lymphocytes % 48.9; MCH 26.2 pg (27.0-33.0); MCHC 32.5 % (32.0-36.0); MCV 81 fL (80-95); MPV 9.4 fL (8.0-11.0); Monocytes % 8.1; Neutrophils % 38.8; Platelet Count 225 10^3/uL (130-400); RBC 5.12 10^6/uL (4.36-5.78); RDW 14.1 % (11.8-14.1); RDW-SD 41.4 fL; WBC 5.91 10^3/uL (4.4-10.8)
[2022-03-04 08:10] LABS: ALT 50 U/L (16-63); AST 24 U/L (15-37); Albumin 3.3 g/dL (3.4-5.0); Alkaline Phosphatase 57 U/L (46-116); Anion Gap 8.5 mmol/L (3-11); BUN 12 mg/dL (7-18); Bilirubin, Total 0.2 mg/dL (0.2-1.0); C-Reactive Protein 1.43 mg/dL (0.0-0.3); CO2 26.5 mmol/L (21.0-32.0); CREATININE 0.9 mg/dL (0.70-1.30); Calcium 9.2 mg/dL (8.5-10.1); Chloride 104 mmol/L (98-107); Creatine Kinase 58 U/L (39-308); Estimated GFR 110.73 (mL/min/1.73m2); Glucose 118 mg/dL (74-106); Potassium 4.3 mmol/L (3.5-5.1); Sodium 139 mmol/L (136-145); Total Protein 7.9 g/dL (6.4-8.2)
[2022-03-04] MEDS: Methocarbamol 750 MG TAB PO ×2 (09:01→12:40)
[2022-03-04] MEDS: cefTRIAXone 2 GM/50 ML BAG IVPB (09:02)
[2022-03-04] MEDS: Buprenorphine/Naloxone 8 mg/2 mg FILM 2 EACH SL (09:03)
[2022-03-04] MEDS: DAPTOmycin 1,000 MG in Normal Saline 50 ML 100 MG IVPB (09:55)
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
--- NOTE | 2022-03-04 15:20 | PDOC.CMDIS ---
- If Service Date Differs Date of service: 03/04/22 Time of Service: 15:20 LACE Index Scoring Tool - Questions: Length of Stay (in days): 7 - 13 Acuity (Admit via E.D.?): Yes E.D. Visits: 4 - Answers: Total Score: 12 Risk of Readmission: High Risk Care Management Discharge Reason for Hospitalization: Septic discitis and osteomyelitis of L5-S1 Discharge Plan: Venkatesh returned home today with a plan to go to the [facility] infusion room daily for his two IV antibiotics. He will be staying at his mother's house in [facility] for the duration of his abx course. His mother will drive him home via private vehicle. He will follow up with his PCP and discharge plan of care. He is happy to be going home. Patient/Family Education Needs: Review discharge instructions and limitations, discussion of self care needs including ask me three. Services Needed at Discharge: Infusion Therapy (O/P infusion daily)
== END 2022-03-04 14:29 | disposition home or self-care (01) | DRG 540 ==
LOC: ER 17:23 → MS 18:14
PROVIDERS: Internal Medicine; Registered Nurse Emergency; Admitting Provider Internal Medicine; Emergency Provider Physician Assistant; PCP Internal Medicine; Visit Provider Internal Medicine
DX: M46.37 Infection of intervertebral disc (pyogenic), lumbosacral region (principal); F11.20 Opioid dependence, uncomplicated; Z68.42 Body mass index [BMI] 45.0-49.9, adult; M46.27 Osteomyelitis of vertebra, lumbosacral region; F17.210 Nicotine dependence, cigarettes, uncomplicated; M62.830 Muscle spasm of back; E66.9 Obesity, unspecified; M10.9 Gout, unspecified; I10 Essential (primary) hypertension; R73.03 Prediabetes; B19.20 Unspecified viral hepatitis C without hepatic coma; F12.90 Cannabis use, unspecified, uncomplicated
CPT/HCPCS: 36415; 62267; 72158; 76942; 80048; 80053; 80307; 82550; 84145; 85652; 86704; 86706; 86803; 87040; 87340; 87389; 87522; 87635; 93005; 96365; 96367; 96375; 97161; 99285; 71045; 80202; 80320; 81003; 81015; 83036; 83605; 83735; 85025; 85610; 86140; 93010; 99223; 99231; 99232; 99238; A0425; A0428; J0878; J1644; J1885; J3010; J3360; J3490

== ENCOUNTER 2022-03-15 02:34 | Outpatient (RCR) | payer MEDICAID, SELFPAY ==
--- OUTSIDE RECORDS SUMMARY | 2022-03-05 00:08 | XMS_ITS | CCD ---
:1980 Author Care Team Providers Name Role Phone CLARIBEL MCGEE Attending Physician Unavailable JAYCOB RAMSAY Er Physician 1 Unavailable JASON Flowers Registered Nurse Unavailable JAGUAR Noyola Registered Nurse Unavailable Vital Signs Vital Sign Value Unit Date/Time Recent/Initial? BMI (Body Mass Index) 40.69 kg/m^2 02/22/2022 11:34 In itial VS Weight Measured 300 lbs 02/22/2022 11:34 Initial VS Height 72 in 02/22/2022 11:34 Initial VS BSA (Body Surface Area) 2.63 m^2 02/22/2022 11:34 Initial VS BP Systolic 136 mmHg 02/22/2022 11:34 Initial VS BP Diastolic 94 mmHg 02/22/2022 11:34 Initial VS Respiratory Rate 22 bpm 02/22/2022 11:34 Initial VS Heart Rate 93 bpm 02/22/2022 11:34 Initial VS O2 % BldC Oximetry 94 % 02/22/2022 11:34 Initi al VS Body Temperature 35.4 degrees 02/22/2022 11:53 Initial VS BP Systolic 138 mmHg 02/22/2022 14:29 Most Recent VS BP Diastolic 80 mmHg 02/22/2022 14:29 Most Recent VS Respiratory Rate 81 bpm 02/22/2022 14:29 Most Re cent VS Heart Rate 79 bpm 02/22/2022 14:29 Most Recent VS O2 % BldC Oximetry 94 % 02/22/2022 14:29 Most Recent VS Body Temperature 35.9 degrees 02/22/2022 14:29 Most Re cent VS Allergies Allergy Code Allergy Type Reaction Status No Known Allergies {Clinical monitoring 0 Drug allergy Active unavailable} Procedures Unknown or Not Available. History of Immunizations Unknown or Not Available. Problems Problem Code Start Date Resolved Date Status Discitis, unspecified, 0355455 Activ e lumbosacral region Bacteremia caused by 710925267448 Active Gram-positive bacteria HTN 38248429 Active History of IV (intravenous) [id number] Active drug abuse Gout 79884425 Active Results C REACTIVE PROTEIN HIGH SENSITIVITY* - C ollect Date/Time: 02/22/2022 14:35 Test Name Code Test Result Test Units Test Ref Range CRP-HIGH SENS. 21012-2 39.28 mg/L L=0.00 H=3.00 CRP-HIGH SENS 44141-3 3.93 mg/dL L=0.00 H=0.30 COMPREHENSIVE METABOLIC PANEL (CMP) - Co llect Date/Time: 02/22/2022 14:35 Test Name Code Test Result Test Units Test Ref Range GLUCOSE 2345-7 97 mg/dL L=70 H=116 BUN 3094-0 13 mg/dL L=6 H=25 CREATININE 2160-0 0.90 mg/dL L=0.67 H=1.17 SODIUM SERUM 2951-2 136 mmol/L L=136 H=145 POTASSIUM SERUM 2823-3 4.3 mmol/L L=3.4 H=5.2 CHLORIDE SERUM 2075-0 101 mmol/L L=96 H=110 CARBON DIOXIDE (CO2) 2028-9 25 mmol/L L=22 H= 34 ANION GAP 21205-0 9.9 mmol/L CALCIUM SERUM 02516-3 9.3 mg/dL L=8.2 H=10.2 BILIRUBIN TOTAL 1975-2 0.3 mg/dL L=0.0 H=1.3 ALK. PHOS. 6768-6 58 U/L L=46 H=116 SGOT (AST) 1920-8 17 U/L L=15 H=37 SGPT (ALT) 1742-6 21 U/L L=12 H=78 TOTAL PROTEIN 2885-2 9.4 gm/dL L=6.0 H=8.0 ALBUMIN 1751-7 3.7 gm/dL L=3.4 H=5.0 AGE 41 years eGFR (non-Afr.Amer.) 24838-8 93 mL/min eGFR (Afr-Surinamese) 16688-6 113 mL/min LIPASE* NEW - Collect Date/Time: 023 14:35 Test Name Code Test Result Test Units Test Ref Range LIPASE. 37 U/L L=16 H=77 CBC W/ DIFFERENTIAL* - Collect Date/Time : 02/22/2022 11:21 Test Name Code Test Result Test Units Test Ref Range WBC 6690-2 7.62 th/cmm L=5.00 H=10.00 NEUT % 60.4 % L=40.0 H=80.0 LYMPH % 32.8 % L=10.0 H=50.0 MONO % 23084-4 5.6 % L=2.0 H=12.0 EOS % 0.8 % L=0.0 H=8.0 BASO % 0.3 % L=0.0 H=3.0 IG % 2514-8 0.1 % L=0.0 H=1.1 NRBC % 17089-4 0.0 % L=0.0 H=0.0 NEUT abs count 751-8 4.6 th/cmm L=1.6 H=8.4 LYMPH abs count 731-0 2.5 th/cmm L=1.5 H=4.0 MONO abs count 742-7 0.4 th/cmm L=0.2 H=1.0 EOS abs count 711-2 0.1 th/cmm L=0.0 H=0.5 BASO abs count 704-7 0.0 th/cmm L=0.0 H=0.2 IG abs count 52218-6 0.0 th/cmm L=0.0 H=0.1 NRBC abs count 37667-8 0.0 mil/cmm L=0.0 H=0.0 RBC 789-8 5.74 mil/cmm L=4.30 H=6.20 HEMOGLOBIN 718-7 14.7 gm/dL L=13.0 H=17.0 HEMATOCRIT 4544-3 47 % L=45 H=52 MCV 787-2 82 fL L=82 H=92 MCH 785-6 25.6 pg L=27.0 H=31.0 MCHC 786-4 31.4 % L=32.0 H=36.0 RDW-SD 788-0 43.8 fL L=39.0 H=49.0 PLATELET COUNT 777-3 251 th/cmm L=150 H=450 SED RATE* - Collect Date/Time: 3 11:21 Test Name Code Test Result Test Units Test Ref Range SED. RATE 4537-7 109 mm/hr L=0 H=15 Active Medications Unknown or Not Available. Medications Administered During Visit Medication Dose Units Frequency Route Date/Time of L ast Dose ACETAMINOPHEN INJ IVPB: 1000 MG X1 IVPB 0 02/22/2022 14:43 1000MG/100ML Encounters Encounter Diagnosis Diagnosis Code Start Date Low back pain, unspecified [id number] 02/22/2022 Social History Smoking Status Code Start Date End Date Current every day smoker [id number] Patient Decision Aids Unknown or Not Available. Discharge Instructions You were admitted to [facility] on 02/22/2022 11:31 with a principal diagnosis of Low back pain, unspecified You had the following tests done: C EDDIE CTIVE PROTEIN HIGH SENSITIVITY* COMPREHENSIVE METABOLIC PANEL (CMP) LIPASE* NEW CBC W/ DIFFERENTIAL* SED RATE* You were discharged from [facility] on 02/22/2022 16:10 Should you have any questions prior to d ischarge, please contact a member of your healthcare team. If you have left the ho spital and have any questions, please contact your primary care physician. Chief Complaint and Reason For Visit Chief Complaint Date of Onset SEVERE BACK PAIN 02/22/2022 Function Status Unknown or Not Available. Plan of Care Unknown or Not Available. Referral/Transition of Care Unknown or Not Available.
[2022-03-05] MEDS: DAPTOmycin 1,000 MG in Normal Saline 50 ML 100 MG IVPB (12:59)
[2022-03-05] MEDS: Normal Saline Flush 10 ML SYR IVP (13:02)
[2022-03-05] MEDS: cefTRIAXone 2 GM/50 ML BAG IVPB (13:36)
[2022-03-06] MEDS: DAPTOmycin 1,000 MG in Normal Saline 50 ML 100 MG IVPB (12:58)
[2022-03-06] MEDS: Normal Saline Flush 10 ML SYR IVP (12:58)
[2022-03-06] MEDS: cefTRIAXone 2 GM/50 ML BAG IVPB (13:30)
[2022-03-07] MEDS: Normal Saline Flush 10 ML SYR IVP (12:26)
[2022-03-07] MEDS: cefTRIAXone 2 GM/50 ML BAG IVPB (12:26)
[2022-03-07] MEDS: DAPTOmycin 1,000 MG in Normal Saline 50 ML 100 MG IVPB (13:22)
[2022-03-08] MEDS: Normal Saline Flush 10 ML SYR IVP (12:36)
[2022-03-08] MEDS: cefTRIAXone 2 GM/50 ML BAG IVPB (12:36)
[2022-03-08] MEDS: DAPTOmycin 1,000 MG in Normal Saline 50 ML 100 MG IVPB (13:12)
[2022-03-09] MEDS: Normal Saline Flush 10 ML SYR IVP (12:36)
[2022-03-09] MEDS: cefTRIAXone 2 GM/50 ML BAG IVPB (12:36)
[2022-03-09] MEDS: DAPTOmycin 1,000 MG in Normal Saline 50 ML 100 MG IVPB (13:10)
[2022-03-10] MEDS: Normal Saline Flush 10 ML SYR IVP (13:04)
[2022-03-10] MEDS: DAPTOmycin 1,000 MG in Normal Saline 50 ML 100 MG IVPB (13:40)
--- NOTE | 2022-03-10 14:57 | W.ANESVAS ---
Midline Placement Date Performed: 03/10/22 Procedure Time: 13:56 Requesting Provider: Ross العراقي Procedure Location: Other (Infusion) Sedation Given (Indicate Dose Given): No Sedation given Patient Mental Status: Awake Sterility: Hand Hygiene, Surgical Cap, Surgical Mask, Sterile Gloves, Sterile Drape/Sheet and Chlorhexidine Laterality: Left Insertion Site: Brachial Midline Device: PowerGlide Pro 20G Catheter Length: 10 cm Midline Procedure Procedure: 1% Lidocaine to skin and subcutaneous tissue with 25g needle, Vessel accessed with catheter over needle, Guidewire placed with ease, Catheter placed without resistance and Guidewire removed Dressing: Tegaderm Applied and Statlock Applied Blood Return: Present Flushes: Easily Ultrasound: Sterile probe cover and gel used Ultrasound Image Saved?: Yes Number of Attempts (See previous attempts in note section): 2 Procedure Tolerated: No Complications and Patient tolerated well Procedure Outcome: Successful Performed By: Gal Ortiz
[2022-03-10] MEDS: cefTRIAXone 2 GM/50 ML BAG IVPB (15:07)
[2022-03-11] MEDS: cefTRIAXone 2 GM/50 ML BAG IVPB (12:41)
[2022-03-11] MEDS: Normal Saline Flush 10 ML SYR IVP (12:42)
[2022-03-11 13:03] LABS: HCT 42.5 % (40.0-50.0); HGB 13.4 g/dL (13.5-17.5); MCH 25.9 pg (27.0-33.0); MCHC 31.5 % (32.0-36.0); MCV 82 fL (80-95); MPV 9.2 fL (8.0-11.0); Platelet Count 238 10^3/uL (130-400); RBC 5.17 10^6/uL (4.36-5.78); RDW 14.8 % (11.8-14.1); RDW-SD 43.8 fL; WBC 5.78 10^3/uL (4.4-10.8)
[2022-03-11] MEDS: DAPTOmycin 1,000 MG in Normal Saline 50 ML 100 MG IVPB (13:11)
[2022-03-11 13:31] LABS: ALT 51 U/L (16-63); AST 24 U/L (15-37); Albumin 3.8 g/dL (3.4-5.0); Alkaline Phosphatase 62 U/L (46-116); Anion Gap 8.3 mmol/L (3-11); BUN 12 mg/dL (7-18); Bilirubin, Total 0.4 mg/dL (0.2-1.0); C-Reactive Protein 2.46 mg/dL (0.0-0.3); CO2 29.7 mmol/L (21.0-32.0); CREATININE 0.9 mg/dL (0.70-1.30); Calcium 9.3 mg/dL (8.5-10.1); Chloride 103 mmol/L (98-107); Creatine Kinase 107 U/L (39-308); Estimated GFR 110.73 (mL/min/1.73m2); Glucose 88 mg/dL (74-106); Potassium 3.8 mmol/L (3.5-5.1); Sodium 141 mmol/L (136-145); Total Protein 8.5 g/dL (6.4-8.2)
[2022-03-13] MEDS: cefTRIAXone 2 GM/50 ML BAG IVPB (12:45)
[2022-03-13] MEDS: DAPTOmycin 1,000 MG in Normal Saline 50 ML 100 MG IVPB (13:18)
[2022-03-13] MEDS: Normal Saline Flush 10 ML SYR IVP (13:19)
[2022-03-14] MEDS: cefTRIAXone 2 GM/50 ML BAG IVPB (12:24)
[2022-03-14] MEDS: Normal Saline Flush 10 ML SYR IVP (12:27)
[2022-03-14] MEDS: DAPTOmycin 1,000 MG in Normal Saline 50 ML 100 MG IVPB (12:58)
== END 2022-03-15 23:59 | disposition home or self-care (01) ==
LOC: INF 02:34
PROVIDERS: PCP Internal Medicine; Visit Provider Internal Medicine
DX: M46.27 Osteomyelitis of vertebra, lumbosacral region
CPT/HCPCS: 36415; 36592; 76942; 80053; 82550; 85027; 96365; 86140; J0878

== ENCOUNTER 2023-02-17 10:57 | Emergency (ER) | payer MEDICAID, SELFPAY ==
[2023-02-17 11:03] VITALS: BP 177/107; PULSE 94; RESP 16; TEMP 37.1; O2SAT 96
--- OUTSIDE RECORDS SUMMARY | 2023-02-17 11:09 | XMS_ITS | CCD ---
Author Name Unknown Address [address] [place] [address] [phone] Organization Unknown Address [address] [place] [address] [phone] Care Team Providers Care Eligibility Supervisor Name Role Phone MAADO STAHL Attending Physician [phone] CLARIBEL MCGEE Er Physician 4 [phone] CLARIBEL MCGEE Rounding (Secondary) Physician 8 [phone] JAGUAR Reyes Registered Nurse [phone] Vital Signs Vital Sign Value Unit Date/Time Recent/Initial ? BMI (Body Mass Index) 37.97 kg/m^2 11/19/2022 10: 47 Initial VS Weight Measured 280 lbs 11/19/2022 10:47 Ini tial VS Height 72 in 11/19/2022 10:47 Initial VS BSA (Body Surface Area) 2.54 m^2 11/19/2022 1 0:47 Initial VS BP Systolic 145 mmHg 11/19/2022 10:47 Initial VS BP Diastolic 85 mmHg 11/19/2022 10:47 Initia l VS Respiratory Rate 18 bpm 11/19/2022 10:47 In itial VS Heart Rate 105 bpm 11/19/2022 10:47 Initial VS O2 % BldC Oximetry 97 % 11/19/2022 10:47 Initial VS Body Temperature 36.2 degrees 11/19/2022 10:47 In itial VS BP Systolic 138 mmHg 11/23/2022 08:35 Most Re cent VS BP Diastolic 78 mmHg 11/23/2022 08:35 Most R ecent VS Respiratory Rate 18 bpm 11/23/2022 08:[address] Recent VS Heart Rate 77 bpm 11/23/2022 08:35 Most Rec ent VS O2 % BldC Oximetry 99 % 11/23/2022 08:35 Most Recent VS Body Temperature 36.2 degrees 11/23/2022 08:[address] Recent VS Allergies Allergy Code Allergy Type Reaction Status No Known Drug Allergies 0 No known drug allergies Active Procedures Unknown or Not Available. History of Immunizations Unknown or Not Available. Problems Problem Code Start Date Resolved Date Status HTN 76649575 Active History of IV (intravenous) drug abuse 63508023254299874 Active Opioid use disorder, severe 29222667 Active Multiple subsegmental pulmon fredy emboli without acute cor pulmonale 19551847 Active Saddle embolus 160171200 Active DVT of left lower extremity 757341203 Active MSSA sepsis 36946788504710 Active Chronic anemia 181816098 Active MRSA colonization 215528267 Active Results BASIC METABOLIC PANEL (BMP) - Collect Date/Time: 11/19/2022 16:10 Test Name Code Test Result Test Units Test Ref Rang e GLUCOSE 2345-7 110 mg/dL L=70 H=116 BUN 3094-0 15 mg/dL L=6 H=25 CREATININE 2160-0 0.97 mg/dL L=0.67 H=1.17 SODIUM SERUM 2951-2 134 mmol/L L=136 H=145 POTASSIUM SERUM 2823-3 3.7 mmol/L L=3.4 H=5 .2 CHLORIDE SERUM 2075-0 99 mmol/L L=96 H=110 CARBON DIOXIDE (CO2) 2028-9 31 mmol/L L=22 H=34 ANION GAP 31782-8 4.1 mmol/L CALCIUM SERUM 15079-4 8.7 mg/dL L=8.2 H=10. 2 AGE 42 years eGFR (non-Afr.Amer.) 91713-6 85 mL/min eGFR (Afr-British) 41767-8 103 mL/min C REACTIVE PROTEIN HIGH SENS ITIVITY* - Collect Date/Time: 11/23/2022 06:50 Test Name Code Test Result Test Units Test Ref Rang e CRP-HIGH SENS. 61783-8 32.95 mg/L L=0.00 H=3 .00 CRP-HIGH SENS 11036-1 3.30 mg/dL L=0.00 H=0. 30 LACTIC ACID - Collect Date/T esteban: 11/19/2022 16:10 Test Name Code Test Result Test Units Test Ref Rang e LACTIC ACID 90747-5 1.4 mmol/L L=0.7 H=2.1 CBC W/ DIFFERENTIAL* - Colle ct Date/Time: 11/19/2022 16:10 Test Name Code Test Result Test Units Test Ref Rang e WBC 6690-2 6.87 th/cmm L=5.00 H=10.00 NEUT % 43.3 % L=40.0 H=80.0 LYMPH % 45.1 % L=10.0 H=50.0 MONO % 51262-2 8.6 % L=2.0 H=12.0 EOS % 2.3 % L=0.0 H=8.0 BASO % 0.4 % L=0.0 H=3.0 IG % 2514-8 0.3 % L=0.0 H=1.1 NRBC % 31802-7 0.0 % L=0.0 H=0.0 NEUT abs count 751-8 3.0 th/cmm L=1.6 H=8. 4 LYMPH abs count 731-0 3.1 th/cmm L=1.5 H=4 .0 MONO abs count 742-7 0.6 th/cmm L=0.2 H=1. 0 EOS abs count 711-2 0.2 th/cmm L=0.0 H=0.5 BASO abs count 704-7 0.0 th/cmm L=0.0 H=0. 2 IG abs count 38081-5 0.0 th/cmm L=0.0 H=0.1 NRBC abs count 22788-2 0.0 mil/cmm L=0.0 H=0. 0 RBC 789-8 3.95 mil/cmm L=4.30 H=6.20 HEMOGLOBIN 718-7 9.0 gm/dL L=13.0 H=17.0 HEMATOCRIT 4544-3 31 % L=45 H=52 MCV 787-2 78 fL L=82 H=92 MCH 785-6 22.8 pg L=27.0 H=31.0 MCHC 786-4 29.3 % L=32.0 H=36.0 RDW-SD 788-0 47.8 fL L=39.0 H=49.0 PLATELET COUNT 777-3 303 th/cmm L=150 H=45 0 Active Medications Medication Code Dose Units Frequency Route Modificatio n Start Date/Time Losartan Potassium 50MG Oral Tablet 815641 1 TABLET DAILY ORAL 11/24/19 10:35 Prescription Detail TAKE 1 TABLET ORAL DAILY Cefuroxime Axetil 500MG Oral Tablet 498852 1 TABLET DAILY ORAL 11/24/19 10:30 Prescription Detail TAKE 1 TABLET ORAL DAILY AFTER YOU FINIS H THE FULL COURSE OF ANTIBIOTIC. TO BE CONTINUED FOR 3 MONTHS Ibuprofen 200MG Oral Tablet 853860 3 TABLET NEEDED THREE TIMES A DAY ORAL 11/23/2022 10:13 Prescription Detail TAKE 3 TABLET ORAL NEEDED THREE TIMES A DAY FOR GOUT, TAKE WITH FOOD Cefuroxime Axetil 500MG Oral Tablet 247526 2 TABLET EVERY 8 HOURS ORAL 11/23/2022 10:12 Prescription Detail TAKE 2 TABLET ORAL EVERY 8 HOURS Colchicine 0.6MG Oral Tablet 856279 0.6 MILLIGRAMS DAILY ORAL 10:11 Prescription Detail TAKE 0.6 MILLIGRAMS ORAL DAILY Eliquis 5MG Oral Tablet 1447354 1 TABLET TWICE A DAY ORAL 11/18/2022 17:29 Prescription Detail TAKE 1 TABLET ORAL TWICE A DAY Suboxone 8MG-2MG Sublingual Film 6655313 3 EACH DAILY SUBLINGUAL 15:04 Prescription Detail DISSOLVE 3 EACH SUBLINGUAL DAILY Acetaminophen 500MG Oral Tablet 365573 2 TABLET NEEDED THREE TIMES A DAY ORAL 07/23/2022 10:05 Prescription Detail TAKE 2 TABLET ORAL NEEDED THREE TIMES A DAY FOR PAIN Medications Administered During Visit Medication Dose Units Frequency Route Date/Time of Last Dose SODIUM CHLORIDE 0.9% 500ML 500 ML X1 IV 11/19/2022 16:33 CeFAZolin IVPB FROZEN PREMIX: 2GM/100ML 2 GM X1 IVPB 11/19/2022 16:32 BUPRENORPHINE/NALOXONE SL TAB: 2MG/0.5MG 12 TAB X1 SL 11/19/2022 12 :53 SODIUM CHLORIDE 0.9% FLUSH 10ML SYRINGE 2 ML Q8H IVP 11/23/2022 06:2 9 ACETAMINOPHEN TABLET: 325MG 650 MG PRN Q4H PO 11/22/2022 09:23 CeFAZolin IVPB FROZEN PREMIX: 2GM/100ML 2 GM Q8H IVPB 11/23/2022 06:30 APIXABAN TAB: 5MG 1 TAB BID PO 09:27 LOSARTAN TABLET: 25MG 25 MG DAILY PO 11/23/2022 09:26 NICOTINE TRANSDERM PATCH: 21MG 21 MG DAILY TRANSDERMAL 11/22/2022 09:2 3 NICOTINE PATCH REMOVAL REMINDER 1 EA BEDTIME TRANSDERMAL 11/22/2022 21:3 2 LACTOBACILLUS TABLET: 1BU 1 TABLET BID PO 11/23/2022 09:26 BUPRENORPHINE/NALOXONE SL TAB: 2MG/0.5MG 12 TAB DAILY SL 11/23/2022 09 :26 APIXABAN TAB: 5MG 5 MG BID PO 09:26 COLCHICINE TABLET: 0.6MG 0.6 MG DAILY PO 11/23/2022 09:26 INDOMETHACIN CAPSULE: 25MG 25 MG TID PO 11/23/2022 09:26 COLCHICINE TABLET: 0.6MG 0.6 MG X1 PO 11/21/2022 18:43 Encounters Encounter Diagnosis Diagnosis Code Start Date Sepsis due to Methicillin susceptible Staphyloco ccus aureus A4101 11/19/2022 Social History Smoking Status Code Start Date End Date Current every day smoker 344490341 Patient Decision Aids Unknown or Not Available. Discharge Instructions You were admitted to [facility] on 11/19/2022 15:00 with a principal diagnosis of Septicemia, Sepsis, Systemic Inflammatory Response Syndrome/Shock You had the following tests done:C REACTIVE PROTEIN HIGH SENSITIVITY*BASIC METABOLIC PANEL (BMP)CBC W/ DIFFERENTIAL*LACTIC ACID You were discharged from [facility] on 11/23/2022 11:15 Should you have any questions prior to discharge, please contact a member of your healthcare team. If you have left the hospital and have any questions, please contact your primary care physician. Chief Complaint and Reason For Visit Chief Complaint Date of Onset SEPTIC PULMONARY EMBOLI 11/19/2022 Function Status Unknown or Not Available. Plan of Care Unknown or Not Available. Referral/Transition of Care Unknown or Not Available.
--- OUTSIDE RECORDS SUMMARY | 2023-02-17 11:09 | XMS_ITS | CCD ---
Author Name Unknown Address [address] [place] [address] [phone] Organization Unknown Address [address] [place] [address] [phone] Care Team Providers Care Pickling Drum Operator Name Role Phone CHEMO PARRA Attending Physician [phone] Vital Signs Unknown or Not Available. Allergies Allergy Code Allergy Type Reaction Status No Known Drug Allergies 0 No known drug allergies Active Procedures Unknown or Not Available. History of Immunizations Unknown or Not Available. Problems Problem Code Start Date Resolved Date Status HTN 26092233 Active History of IV (intravenous) drug abuse 24422094527917620 Active Opioid use disorder, severe 25362438 Active Multiple subsegmental pulmon fredy emboli without acute cor pulmonale 59342753 Active Saddle embolus 377830972 Active DVT of left lower extremity 039416788 Active MSSA sepsis 98011135398475 Active Chronic anemia 280686423 Active MRSA colonization 612446994 Active Septic pulmonary embolism 934137841 2022 Resolved Bacteremia caused by Gram-positive bacteria 687734673157 2022 Resolved MRSA infection 533155989 2022 Resolved Fever 005315346 11/15/2022 Resolved Congestive heart failure 62501893 11/16/2022 Resolved Discitis, unspecified, lumbosacral region 4423245 2022 Resolved Hyponatremia 21769386 11/15/2022 Resolved Hypokalemia 35206645 11/15/2022 Resolved Results Unknown or Not Available. Active Medications Medication Code Dose Units Frequency Route Modificatio n Start Date/Time Losartan Potassium 50MG Oral Tablet 797193 1 TABLET DAILY ORAL 11/24/19 23 10:35 Prescription Detail TAKE 1 TABLET ORAL DAILY Cefuroxime Axetil 500MG Oral Tablet 422626 1 TABLET DAILY ORAL 11/24/19 10:30 Prescription Detail TAKE 1 TABLET ORAL DAILY AFTER YOU FINIS H THE FULL COURSE OF ANTIBIOTIC. TO BE CONTINUED FOR 3 MONTHS Ibuprofen 200MG Oral Tablet 305279 3 TABLET NEEDED THREE TIMES A DAY ORAL 11/23/2022 10:13 Prescription Detail TAKE 3 TABLET ORAL NEEDED THREE TIMES A DAY FOR GOUT, TAKE WITH FOOD Cefuroxime Axetil 500MG Oral Tablet 255484 2 TABLET EVERY 8 HOURS ORAL 11/23/2022 10:12 Prescription Detail TAKE 2 TABLET ORAL EVERY 8 HOURS Colchicine 0.6MG Oral Tablet 123161 0.6 MILLIGRAMS DAILY ORAL 10:11 Prescription Detail TAKE 0.6 MILLIGRAMS ORAL DAILY Eliquis 5MG Oral Tablet 0933334 1 TABLET TWICE A DAY ORAL 11/18/2022 17:29 Prescription Detail TAKE 1 TABLET ORAL TWICE A DAY Suboxone 8MG-2MG Sublingual Film 6347033 3 EACH DAILY SUBLINGUAL 15:04 Prescription Detail DISSOLVE 3 EACH SUBLINGUAL DAILY Acetaminophen 500MG Oral Tablet 022237 2 TABLET NEEDED THREE TIMES A DAY ORAL 07/23/2022 10:05 Prescription Detail TAKE 2 TABLET ORAL NEEDED THREE TIMES A DAY FOR PAIN Medications Administered During Visit Unknown or Not Available. Encounters Encounter Diagnosis Diagnosis Code Start Date Septic pulmonary embolism without acute cor pulm onale I2690 2022 Social History Smoking Status Code Start Date End Date Current every day smoker 756874012 Patient Decision Aids Unknown or Not Available. Discharge Instructions You were admitted to [facility] on 2022 00:21 with a principal diagnosis of Septic pulmonary embolism without acute cor pulmonale You were discharged from [facility] on 11/18/2022 00:21 Should you have any questions prior to discharge, please contact a member of your healthcare team. If you have left the hospital and have any questions, please contact your primary care physician. Chief Complaint and Reason For Visit Unknown or Not Available. Function Status Unknown or Not Available. Plan of Care Unknown or Not Available. Referral/Transition of Care Unknown or Not Available.
--- OUTSIDE RECORDS SUMMARY | 2023-02-17 11:09 | XMS_ITS | CCD ---
Author Name Unknown Address [address] [place] [address] [phone] Organization Unknown Address [address] [place] [address] [phone] Care Team Providers Care Scientific Process Operator Name Role Phone AMADO STAHL Attending Physician [phone] Vital Signs Unknown or Not Available. Allergies Allergy Code Allergy Type Reaction Status No Known Drug Allergies 0 No known drug allergies Active Procedures Unknown or Not Available. History of Immunizations Unknown or Not Available. Problems Problem Code Start Date Resolved Date Status HTN 62061763 Active History of IV (intravenous) drug abuse 30175594901528431 Active Opioid use disorder, severe 36458193 Active Multiple subsegmental pulmon fredy emboli without acute cor pulmonale 60732285 Active Saddle embolus 614346930 Active DVT of left lower extremity 126892145 Active MSSA sepsis 53575350269592 Active Chronic anemia 369868285 Active MRSA colonization 763134647 Active Results Unknown or Not Available. Active Medications Medication Code Dose Units Frequency Route Modificatio n Start Date/Time Losartan Potassium 50MG Oral Tablet 411069 1 TABLET DAILY ORAL 11/24/19 10:35 Prescription Detail TAKE 1 TABLET ORAL DAILY Cefuroxime Axetil 500MG Oral Tablet 998217 1 TABLET DAILY ORAL 11/24/19 10:30 Prescription Detail TAKE 1 TABLET ORAL DAILY AFTER YOU FINIS H THE FULL COURSE OF ANTIBIOTIC. TO BE CONTINUED FOR 3 MONTHS Ibuprofen 200MG Oral Tablet 587358 3 TABLET NEEDED THREE TIMES A DAY ORAL 11/23/2022 10:13 Prescription Detail TAKE 3 TABLET ORAL NEEDED THREE TIMES A DAY FOR GOUT, TAKE WITH FOOD Cefuroxime Axetil 500MG Oral Tablet 660555 2 TABLET EVERY 8 HOURS ORAL 11/23/2022 10:12 Prescription Detail TAKE 2 TABLET ORAL EVERY 8 HOURS Colchicine 0.6MG Oral Tablet 380180 0.6 MILLIGRAMS DAILY ORAL 10:11 Prescription Detail TAKE 0.6 MILLIGRAMS ORAL DAILY Eliquis 5MG Oral Tablet 2158207 1 TABLET TWICE A DAY ORAL 11/18/2022 17:29 Prescription Detail TAKE 1 TABLET ORAL TWICE A DAY Suboxone 8MG-2MG Sublingual Film 5096623 3 EACH DAILY SUBLINGUAL 15:04 Prescription Detail DISSOLVE 3 EACH SUBLINGUAL DAILY Acetaminophen 500MG Oral Tablet 936565 2 TABLET NEEDED THREE TIMES A DAY ORAL 07/23/2022 10:05 Prescription Detail TAKE 2 TABLET ORAL NEEDED THREE TIMES A DAY FOR PAIN Medications Administered During Visit Unknown or Not Available. Encounters Encounter Diagnosis Diagnosis Code Start Date Septic pulmonary embolism without acute cor pulm onale I2690 11/19/2022 Social History Smoking Status Code Start Date End Date Current every day smoker [id number] Patient Decision Aids Unknown or Not Available. Discharge Instructions You were admitted to [facility] on 11/19/2022 00:43 with a principal diagnosis of Septic pulmonary embolism without acute cor pulmonale You were discharged from [facility] on 11/23/2022 00:43 Should you have any questions prior to [...]
--- OUTSIDE RECORDS SUMMARY | 2023-02-17 11:10 | XMS_ITS | CCD ---
Author Name Unknown Address [address] [place] [address] [phone] Organization Unknown Address [address] [place] [address] [phone] Care Team Providers Care Network Security Architect Name Role Phone CHEMO PARRA Attending Physician [phone] LESTER GALLO Er Physician 4 [phone] CLARIBEL MCGEE (Secondary) Physician 8 [phone] ALEJANDRA Neely Registered Nurse [phone] CHAYA Reyes Registered Nurse [phone] ROSHNI Chaney Registered Nurse [phone] Vital Signs Vital Sign Value Unit Date/Time Recent/Initial ? BMI (Body Mass Index) 42.42 kg/m^2 06/14/2022 20: 18 Initial VS Weight Measured 320 lbs 06/14/2022 20:18 Ini tial VS Height 72.83 in 06/14/2022 20:18 Initial VS BSA (Body Surface Area) 2.73 m^2 06/14/2022 2 0:18 Initial VS BP Systolic 130 mmHg 06/14/2022 20:18 Initial VS BP Diastolic 100 mmHg 06/14/2022 20:18 Initia l VS Respiratory Rate 20 bpm 06/14/2022 20:18 In itial VS Heart Rate 100 bpm 06/14/2022 20:18 Initial VS O2 % BldC Oximetry 100 % 06/14/2022 20:18 Initial VS Body Temperature 36.5 degrees 06/14/2022 20:18 In itial VS BMI (Body Mass Index) 44.05 kg/m^2 06/15/2022 12: 45 Most Recent VS Weight Measured 324.8 lbs 06/15/2022 12:45 Mos t Recent VS Height 72 in 06/15/2022 12:45 Most Rec ent VS BSA (Body Surface Area) 2.74 m^2 06/15/2022 1 2:45 Most Recent VS BP Systolic 140 mmHg 06/24/2022 07:52 Most Re cent VS BP Diastolic 92 mmHg 06/24/2022 07:52 Most R ecent VS Respiratory Rate 18 bpm 06/24/2022 07:[address] Recent VS Heart Rate 67 bpm 06/24/2022 07:52 Most Rec ent VS O2 % BldC Oximetry 96 % 06/24/2022 07:52 Most Recent VS Body Temperature 36.2 degrees 06/24/2022 07:[address] Recent VS Allergies Allergy Code Allergy Type Reaction Status No Known Drug Allergies 0 No known drug allergies Active Procedures Unknown or Not Available. History of Immunizations Unknown or Not Available. Problems Problem Code Start Date Resolved Date Status HTN 39450134 Active History of IV (intravenous) drug abuse 15727949158224753 Active Opioid use disorder, severe 80482599 Active Multiple subsegmental pulmon fredy emboli without acute cor pulmonale 62190579 Active Saddle embolus 980925793 Active DVT of left lower extremity 425924780 Active MSSA sepsis 84594537298457 Active Chronic anemia 956135360 Active MRSA colonization 266351679 Active Septic pulmonary embolism 146501061 2022 Resolved Bacteremia caused by Gram-positive bacteria 602725540910 2022 Resolved Gout 77614257 06/15/2022 Resolved MRSA infection 139345397 2022 Resolved Fever 205552386 11/15/2022 Resolved Congestive heart failure 70895946 11/16/2022 Resolved Discitis, unspecified, lumbosacral region 1887885 2022 Resolved Hyponatremia 09812722 11/15/2022 Resolved Hypokalemia 50611698 11/15/2022 Resolved Results BASIC METABOLIC PANEL (BMP) - Collect Date/Time: 06/16/2022 07:15 Test Name Code Test Result Test Units Test Ref Rang e GLUCOSE 2345-7 127 mg/dL L=70 H=116 BUN 3094-0 13 mg/dL L=6 H=25 CREATININE 2160-0 0.86 mg/dL L=0.67 H=1.17 SODIUM SERUM 2951-2 130 mmol/L L=136 H=145 POTASSIUM SERUM 2823-3 4.4 mmol/L L=3.4 H=5 .2 CHLORIDE SERUM 2075-0 97 mmol/L L=96 H=110 CARBON DIOXIDE (CO2) 2028-9 26 mmol/L L=22 H=34 ANION GAP 22518-9 7.0 mmol/L CALCIUM SERUM 01211-8 9.3 mg/dL L=8.2 H=10. 2 AGE 41 years eGFR (non-Afr.Amer.) 93068-7 98 mL/min eGFR (Afr-Citizen Of [place]) 65406-7 119 mL/min BASIC METABOLIC PANEL (BMP) - Collect Date/Time: 06/14/2022 20:13 Test Name Code Test Result Test Units Test Ref Rang e GLUCOSE 2345-7 145 mg/dL L=70 H=116 BUN 3094-0 15 mg/dL L=6 H=25 CREATININE 2160-0 0.80 mg/dL L=0.67 H=1.17 SODIUM SERUM 2951-2 131 mmol/L L=136 H=145 POTASSIUM SERUM 2823-3 4.0 mmol/L L=3.4 H=5 .2 CHLORIDE SERUM 2075-0 96 mmol/L L=96 H=110 CARBON DIOXIDE (CO2) 2028-9 26 mmol/L L=22 H=34 ANION GAP 54952-4 8.8 mmol/L CALCIUM SERUM 85879-7 9.5 mg/dL L=8.2 H=10. 2 AGE 41 years eGFR (non-Afr.Amer.) 64399-4 107 mL/min eGFR (Afr-Citizen Of [place]) 20152-2 >120 mL/min C REACTIVE PROTEIN HIGH SENS ITIVITY* - Collect Date/Time: 06/21/2022 07:00 Test Name Code Test Result Test Units Test Ref Rang e CRP-HIGH SENS. 83371-8 44.93 mg/L L=0.00 H=3 .00 CRP-HIGH SENS 69223-7 4.49 mg/dL L=0.00 H=0. 30 COMPREHENSIVE METABOLIC PANE L (CMP) - Collect Date/Time: 06/21/2022 06:55 Test Name Code Test Result Test Units Test Ref Rang e GLUCOSE 2345-7 114 mg/dL L=70 H=116 BUN 3094-0 18 mg/dL L=6 H=25 CREATININE 2160-0 0.96 mg/dL L=0.67 H=1.17 SODIUM SERUM 2951-2 135 mmol/L L=136 H=145 POTASSIUM SERUM 2823-3 4.4 mmol/L L=3.4 H=5 .2 CHLORIDE SERUM 2075-0 99 mmol/L L=96 H=110 CARBON DIOXIDE (CO2) 2028-9 31 mmol/L L=22 H=34 ANION GAP 14261-9 5.4 mmol/L CALCIUM SERUM 50074-9 9.4 mg/dL L=8.2 H=10. 2 BILIRUBIN TOTAL 1975-2 0.2 mg/dL L=0.0 H=1 .3 ALK. PHOS. 6768-6 123 U/L L=46 H=116 SGOT (AST) 1920-8 55 U/L L=15 H=37 SGPT (ALT) 1742-6 148 U/L L=12 H=78 TOTAL PROTEIN 2885-2 9.1 gm/dL L=6.0 H=8.0 ALBUMIN 1751-7 2.4 gm/dL L=3.4 H=5.0 AGE 41 years eGFR (non-Afr.Amer.) 00279-2 87 mL/min eGFR (Afr-Citizen Of [place]) 06263-9 105 mL/min CBC W/ DIFFERENTIAL* - Colle ct Date/Time: 06/21/2022 07:30 Test Name Code Test Result Test Units Test Ref Rang e WBC 6690-2 6.37 th/cmm L=5.00 H=10.00 NEUT % 53.8 % L=40.0 H=80.0 LYMPH % 34.7 % L=10.0 H=50.0 MONO % 56155-5 7.1 % L=2.0 H=12.0 EOS % 3.0 % L=0.0 H=8.0 BASO % 0.9 % L=0.0 H=3.0 IG % 2514-8 0.5 % L=0.0 H=1.1 NRBC % 98251-1 0.0 % L=0.0 H=0.0 NEUT abs count 751-8 3.4 th/cmm L=1.6 H=8. 4 LYMPH abs count 731-0 2.2 th/cmm L=1.5 H=4 .0 MONO abs count 742-7 0.5 th/cmm L=0.2 H=1. 0 EOS abs count 711-2 0.2 th/cmm L=0.0 H=0.5 BASO abs count 704-7 0.1 th/cmm L=0.0 H=0. 2 IG abs count 74694-4 0.0 th/cmm L=0.0 H=0.1 NRBC abs count 10428-8 0.0 mil/cmm L=0.0 H=0. 0 RBC 789-8 4.67 mil/cmm L=4.30 H=6.20 HEMOGLOBIN 718-7 11.6 gm/dL L=13.0 H=17.0 HEMATOCRIT 4544-3 37 % L=45 H=52 MCV 787-2 80 fL L=82 H=92 MCH 785-6 24.8 pg L=27.0 H=31.0 MCHC 786-4 31.0 % L=32.0 H=36.0 RDW-SD 788-0 44.5 fL L=39.0 H=49.0 PLATELET COUNT 777-3 298 th/cmm L=150 H=45 0 CBC W/ DIFFERENTIAL* - [facility] ct Date/Time: 06/16/2022 07:15 Test Name Code Test Result Test Units Test Ref Rang e WBC 6690-2 11.01 th/cmm L=5.00 H=10.00 NEUT % 69.5 % L=40.0 H=80.0 LYMPH % 22.3 % L=10.0 H=50.0 MONO % 67519-5 5.5 % L=2.0 H=12.0 EOS % 1.4 % L=0.0 H=8.0 BASO % 0.3 % L=0.0 H=3.0 IG % 2514-8 1.0 % L=0.0 H=1.1 NRBC % 19857-1 0.0 % L=0.0 H=0.0 NEUT abs count 751-8 7.7 th/cmm L=1.6 H=8. 4 LYMPH abs count 731-0 2.5 th/cmm L=1.5 H=4 .0 MONO abs count 742-7 0.6 th/cmm L=0.2 H=1. 0 EOS abs count 711-2 0.2 th/cmm L=0.0 H=0.5 BASO abs count 704-7 0.0 th/cmm L=0.0 H=0. 2 IG abs count 22037-5 0.1 th/cmm L=0.0 H=0.1 NRBC abs count 44891-9 0.0 mil/cmm L=0.0 H=0. 0 RBC 789-8 4.72 mil/cmm L=4.30 H=6.20 HEMOGLOBIN 718-7 11.6 gm/dL L=13.0 H=17.0 HEMATOCRIT 4544-3 37 % L=45 H=52 MCV 787-2 79 fL L=82 H=92 MCH 785-6 24.6 pg L=27.0 H=31.0 MCHC 786-4 31.1 % L=32.0 H=36.0 RDW-SD 788-0 45.5 fL L=39.0 H=49.0 PLATELET COUNT 777-3 267 th/cmm L=150 H=45 0 CBC W/ DIFFERENTIAL* - [facility] ct Date/Time: 06/15/2022 06:00 Test Name Code Test Result Test Units Test Ref Rang e WBC 6690-2 10.21 th/cmm L=5.00 H=10.00 NEUT % 69.4 % L=40.0 H=80.0 LYMPH % 20.1 % L=10.0 H=50.0 MONO % 72970-8 7.0 % L=2.0 H=12.0 EOS % 1.9 % L=0.0 H=8.0 BASO % 0.4 % L=0.0 H=3.0 IG % 2514-8 1.2 % L=0.0 H=1.1 NRBC % 80309-7 0.0 % L=0.0 H=0.0 NEUT abs count 751-8 7.1 th/cmm L=1.6 H=8. 4 LYMPH abs count 731-0 2.1 th/cmm L=1.5 H=4 .0 MONO abs count 742-7 0.7 th/cmm L=0.2 H=1. 0 EOS abs count 711-2 0.2 th/cmm L=0.0 H=0.5 BASO abs count 704-7 0.0 th/cmm L=0.0 H=0. 2 IG abs count 72160-2 0.1 th/cmm L=0.0 H=0.1 NRBC abs count 98303-1 0.0 mil/cmm L=0.0 H=0. 0 RBC 789-8 4.57 mil/cmm L=4.30 H=6.20 HEMOGLOBIN 718-7 11.1 gm/dL L=13.0 H=17.0 HEMATOCRIT 4544-3 36 % L=45 H=52 MCV 787-2 79 fL L=82 H=92 MCH 785-6 24.3 pg L=27.0 H=31.0 MCHC 786-4 30.6 % L=32.0 H=36.0 RDW-SD 788-0 47.8 fL L=39.0 H=49.0 PLATELET COUNT 777-3 291 th/cmm L=150 H=45 0 CBC W/ DIFFERENTIAL* - Colle ct Date/Time: 06/14/2022 20:13 Test Name Code Test Result Test Units Test Ref Rang e WBC 6690-2 13.91 th/cmm L=5.00 H=10.00 NEUT % 73.0 % L=40.0 H=80.0 LYMPH % 19.8 % L=10.0 H=50.0 MONO % 36162-6 4.0 % L=2.0 H=12.0 EOS % 1.5 % L=0.0 H=8.0 BASO % 0.4 % L=0.0 H=3.0 IG % 2514-8 1.3 % L=0.0 H=1.1 NRBC % 29104-0 0.0 % L=0.0 H=0.0 NEUT abs count 751-8 10.2 th/cmm L=1.6 H=8. 4 LYMPH abs count 731-0 2.8 th/cmm L=1.5 H=4 .0 MONO abs count 742-7 0.6 th/cmm L=0.2 H=1. 0 EOS abs count 711-2 0.2 th/cmm L=0.0 H=0.5 BASO abs count 704-7 0.1 th/cmm L=0.0 H=0. 2 IG abs count 59524-8 0.2 th/cmm L=0.0 H=0.1 NRBC abs count 75679-1 0.0 mil/cmm L=0.0 H=0. 0 RBC 789-8 4.89 mil/cmm L=4.30 H=6.20 HEMOGLOBIN 718-7 12.1 gm/dL L=13.0 H=17.0 HEMATOCRIT 4544-3 39 % L=45 H=52 MCV 787-2 80 fL L=82 H=92 MCH 785-6 24.7 pg L=27.0 H=31.0 MCHC 786-4 31.0 % L=32.0 H=36.0 RDW-SD 788-0 48.1 fL L=39.0 H=49.0 PLATELET COUNT 777-3 315 th/cmm L=150 H=45 0 SED RATE* - Collect Date/Donny e: 06/21/2022 07:00 Test Name Code Test Result Test Units Test Ref Rang e SED. RATE 4537-7 >130 mm/hr L=0 H=15 GRAM STAIN* - Collect Date/T esteban: 06/15/2022 20:16 Test Name Code Test Result Test Units Test Ref Rang e SOURCE- Blood culture N/A PREDOMINANT [employer]GANISM Gram pos cocci N/A GRAM STAIN* - Collect Date/T esteban: 06/15/2022 20:16 Test Name Code Test Result Test Units Test Ref Rang e SOURCE- Blood culture N/A PR[employer]INANT [employer]ISM Gram pos cocci N/A GRAM STAIN* - Collect Date/T esteban: 06/15/2022 18:45 Test Name Code Test Result Test Units Test Ref Rang e SOURCE- Blood culture N/A PREDOMINANT [employer]ISM Gram pos cocci N/A GRAM STAIN* - Collect Date/T esteban: 06/15/2022 18:45 Test Name Code Test Result Test Units Test Ref Rang e SOURCE- Blood culture N/A PREDOMINANT [employer]GANISM Gram pos cocci N/A DRUG SCN 13 PANEL (MEDTOX)* - Collect Date/Time: 06/15/2022 13:02 Test Name Code Test Result Test Units Test Ref Rang e CANNABINOIDS 04141-3 NEGATIVE N/A Cutoff = 50 ng/mL PHENCYCLIDINE 68225-3 NEGATIVE N/A Cutoff = 25 ng/mL COCAINE 20746-1 POSITIVE N/A Cutoff = 150 n g/mL METHAMPHETAMINES 52032-4 NEGATIVE N/A Cutoff = 500 ng/mL OPIATES 94053-1 NEGATIVE N/A Cutoff = 100 n g/mL AMPHETAMINES 41335-2 NEGATIVE N/A Cutoff = 500 ng/mL BENZODIAZEPINES 84089-5 POSITIVE N/A Cutoff = 150 ng/mL TRICYCLIC ANTIDEP 3533-7 NEGATIVE N/A Cutoff = 300 ng/mL METHADONE 53178-8 NEGATIVE N/A Cutoff = 200 n g/mL BARBITURATES 31779-4 NEGATIVE N/A Cutoff = 200 ng/mL OXYCODONE 37154-9 NEGATIVE N/A Cutoff = 100 n g/mL PROPOXYPHENE 50538-2 NEGATIVE N/A Cutoff = 300 ng/mL BUPRENORPHINE 3414-0 POSITIVE N/A Cutoff = 10 mg/mL [facility] IDENT + SUSC OF BACTER IAL ORG* - Collect Date/Time: 06/15/2022 20:16 Test Name Code Test Result Test Units Test Ref Rang e Result STAPHYLOCOCCUS A UREUS METHICILLIN (OXACILLIN) RESISTANT N/A Report Status See Below N/A Active Medications Medications Administered During Visit Medication Dose Units Frequency Route Date/Time of Last Dose VANCOMYCIN IVPB PREMIX: 1.75GM/350ML 1.75 GM X1 06/14/2022 20:5 8 APIXABAN TAB: 5MG 10 MG X1 PO 20:58 BUPRENORPHINE/NALOXONE SL TAB: 2MG/0.5MG 8 TAB DAILY SL 06/24/2022 08 :39 APIXABAN TAB: 5MG 5 MG BID PO 08:39 NICOTINE INHALER CARTRIDGE: 10MG 1 CARTRIDGE PRN Q2H INH 06/19/2022 09:1 6 SODIUM CHLORIDE 0.9% FLUSH 10ML SYRINGE 2 ML Q8H IVP 06/24/2022 06:3 3 ACETAMINOPHEN TABLET: 325MG 975 MG PRN Q6H PO 06/20/2022 21:36 DAPTOmycin INJ SDV: 500MG 500 MG Q24H 06/15/2022 09:45 LORazepam INJ SYRINGE: 2MG/ML 2 MG X1 IVP 06/15/2022 16:1 5 CEFTAROLINE FOSAMIL INJ SDV (NF): 600MG 600 MG Q8H 06/20/2022 09:1 1 DAPTOmycin INJ SDV: 500MG 1500 MG Q24H 06/24/2022 10:13 MELATONIN TABLET: 5MG 5 MG PRN BEDTIME PO 06/20/2022 21:36 DiphenhydrAMINE CAP: 25MG 50 MG X1 PO 06/18/2022 00:51 KETOROLAC INJ SDV: 30MG/1ML 15 MG X1 IV P 06/18/2022 00:52 NAPROXEN TABLET: 250MG 500 MG BID WITH FOOD PO 06/24/2022 08:39 DiphenhydrAMINE CAP: 25MG 50 MG BEDTIME PO 06/23/2022 21:07 ALTEPLASE INJ SDV: 2MG 2 MG X1 IVP 06/20/2022 11:23 CEFTAROLINE FOSAMIL INJ SDV (NF): 600MG 600 MG Q8H 06/24/2022 03:2 5 ALTEPLASE INJ SDV: 2MG 2 MG PRN X1 IVP 06/22/2022 11:58 Encounters Encounter Diagnosis Diagnosis Code Start Date Pain in right shoulder [id number] Social History Smoking Status Code Start Date End Date Current every day smoker [id number] Patient Decision Aids Unknown or Not Available. Discharge Instructions You were admitted to [facility] on 06/14/2022 22:21 with a principal diagnosis of Pain in right shoulder You had the following tests done:CBC W/ DIFFERENTIAL*C REACTIVE PROTEIN HIGH SENSITIVITY*SED RATE*COMPREHENSIVE METABOLIC PANEL (CMP)BASIC METABOLIC PANEL (BMP)CBC W/ DIFFERENTIAL*GRAM STAIN*GRAM STAIN*[facility] IDENT + SUSC OF BACTERIAL ORG*GRAM STAIN*GRAM STAIN*DRUG SCN 13 PANEL (MEDTOX)*CBC W/ DIFFERENTIAL*BASIC METABOLIC PANEL (BMP)CBC W/ DIFFERENTIAL* You were discharged from [facility] on 06/24/2022 10:15 Should you have any questions prior to discharge, please contact a member of your healthcare team. If you have left the hospital and have any questions, please contact your primary care physician. Chief Complaint and Reason For Visit Chief Complaint Date of Onset SEPTIC PE MRSA OSTEOMYLITIS 06/16/2022 Function Status Unknown or Not Available. Plan of Care Unknown or Not Available. Referral/Transition of Care Unknown or Not Available.
--- OUTSIDE RECORDS SUMMARY | 2023-02-17 11:10 | XMS_ITS | CCD ---
Author Name Unknown Address [address] [place] [address] [phone] Organization Unknown Address [address] [place] [address] [phone] Care Team Providers Care Housing Liaison Name Role Phone CHEMO PARRA Attending Physician [phone] LEOLA GOODWIN Er Physician [phone] ALICIA MADRID (Secondary) Physician [phone] JAGUAR Noyola Registered Nurse [phone] Vital Signs Vital Sign Value Unit Date/Time Recent/Initial ? BP Systolic 114 mmHg 2022 14:29 Initial VS BP Diastolic 69 mmHg 2022 14:29 Initia l VS Respiratory Rate 38 bpm 2022 14:29 In itial VS Heart Rate 122 bpm 2022 14:29 Initial VS O2 % BldC Oximetry 100 % 2022 14:29 Initial VS Body Temperature 38.6 degrees 2022 15:16 In itial VS BMI (Body Mass Index) 39.25 kg/m^2 2022 18: 52 Initial VS Weight Measured 289.4 lbs 2022 18:52 Ini tial VS Height 72 in 2022 18:52 Initial VS BSA (Body Surface Area) 2.58 m^2 2022 1 8:52 Initial VS BP Systolic 127 mmHg 11/17/2022 08:25 Most Re cent VS BP Diastolic 73 mmHg 11/17/2022 08:25 Most R ecent VS Respiratory Rate 18 bpm 11/17/2022 08:[address] Recent VS Heart Rate 74 bpm 11/17/2022 08:25 Most Rec ent VS O2 % BldC Oximetry 96 % 11/17/2022 08:25 Most Recent VS Body Temperature 36.2 degrees 11/17/2022 08:[address] Recent VS Allergies Allergy Code Allergy Type Reaction Status No Known Drug Allergies 0 No known drug allergies Active Procedures Unknown or Not Available. History of Immunizations Unknown or Not Available. 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 Septic pulmonary embolism 032695150 2022 Resolved Bacteremia caused by Gram-positive bacteria 712130392838 2022 Resolved MRSA infection 702877785 2022 Resolved Fever 711433357 11/15/2022 Resolved Congestive heart failure 42609325 11/16/2022 Resolved Discitis, unspecified, lumbosacral region 8559853 2022 Resolved Hyponatremia 28329279 11/15/2022 Resolved Hypokalemia 03458804 11/15/2022 Resolved Results ALCOHOL (ETHANOL)* - Collect Date/Time: 2022 15:05 Test Name Code Test Result Test Units Test Ref Rang e ALCOHOL (ETHANOL) 54602-6 <3 mg/dL AMMONIA - Collect Date/Time: 10/24/2022 18:20 Test Name Code Test Result Test Units Test Ref Rang e AMMONIA 89308-0 <10 umol/L L=19 H=54 BASIC METABOLIC PANEL (BMP) - Collect Date/Time: 11/11/2022 09:30 Test Name Code Test Result Test Units Test Ref Rang e GLUCOSE 2345-7 140 mg/dL L=70 H=116 BUN 3094-0 16 mg/dL L=6 H=25 CREATININE 2160-0 0.86 mg/dL L=0.67 H=1.17 SODIUM SERUM 2951-2 137 mmol/L L=136 H=145 POTASSIUM SERUM 2823-3 4.1 mmol/L L=3.4 H=5 .2 CHLORIDE SERUM 2075-0 99 mmol/L L=96 H=110 CARBON DIOXIDE (CO2) 2028-9 30 mmol/L L=22 H=34 ANION GAP 83914-2 8.3 mmol/L CALCIUM SERUM 78594-1 9.4 mg/dL L=8.2 H=10. 2 AGE 42 years eGFR (non-Afr.Amer.) 95118-8 98 mL/min eGFR (Afr-Trinidadian) 74881-4 119 mL/min BASIC METABOLIC PANEL (BMP) - Collect Date/Time: 11/08/2022 07:05 Test Name Code Test Result Test Units Test Ref Rang e GLUCOSE 2345-7 103 mg/dL L=70 H=116 BUN 3094-0 20 mg/dL L=6 H=25 CREATININE 2160-0 0.87 mg/dL L=0.67 H=1.17 SODIUM SERUM 2951-2 134 mmol/L L=136 H=145 POTASSIUM SERUM 2823-3 4.5 mmol/L L=3.4 H=5 .2 CHLORIDE SERUM 2075-0 99 mmol/L L=96 H=110 CARBON DIOXIDE (CO2) 2028-9 28 mmol/L L=22 H=34 ANION GAP 54465-2 6.7 mmol/L CALCIUM SERUM 01151-8 8.7 mg/dL L=8.2 H=10. 2 AGE 42 years eGFR (non-Afr.Amer.) 00715-1 97 mL/min eGFR (Afr-Trinidadian) 71533-3 117 mL/min BASIC METABOLIC PANEL (BMP) - Collect Date/Time: 11/05/2022 06:30 Test Name Code Test Result Test Units Test Ref Rang e GLUCOSE 2345-7 109 mg/dL L=70 H=116 BUN 3094-0 22 mg/dL L=6 H=25 CREATININE 2160-0 0.84 mg/dL L=0.67 H=1.17 SODIUM SERUM 2951-2 134 mmol/L L=136 H=145 POTASSIUM SERUM 2823-3 4.6 mmol/L L=3.4 H=5 .2 CHLORIDE SERUM 2075-0 99 mmol/L L=96 H=110 CARBON DIOXIDE (CO2) 2028-9 28 mmol/L L=22 H=34 ANION GAP 38493-5 7.3 mmol/L CALCIUM SERUM 55621-1 9.1 mg/dL L=8.2 H=10. 2 AGE 42 years eGFR (non-Afr.Amer.) 84724-8 101 mL/min eGFR (Afr-Trinidadian) 12022-6 >120 mL/min BASIC METABOLIC PANEL (BMP) - Collect Date/Time: 11/01/2022 06:30 Test Name Code Test Result Test Units Test Ref Rang e GLUCOSE 2345-7 130 mg/dL L=70 H=116 BUN 3094-0 21 mg/dL L=6 H=25 CREATININE 2160-0 0.86 mg/dL L=0.67 H=1.17 SODIUM SERUM 2951-2 129 mmol/L L=136 H=145 POTASSIUM SERUM 2823-3 4.9 mmol/L L=3.4 H=5 .2 CHLORIDE SERUM 2075-0 95 mmol/L L=96 H=110 CARBON DIOXIDE (CO2) 2028-9 27 mmol/L L=22 H=34 ANION GAP 51094-9 6.7 mmol/L CALCIUM SERUM 95134-6 9.2 mg/dL L=8.2 H=10. 2 AGE 42 years eGFR (non-Afr.Amer.) 05161-3 98 mL/min eGFR (Afr-Trinidadian) 91501-3 119 mL/min BASIC METABOLIC PANEL (BMP) - Collect Date/Time: 10/29/2022 06:30 Test Name Code Test Result Test Units Test Ref Rang e GLUCOSE 2345-7 125 mg/dL L=70 H=116 BUN 3094-0 13 mg/dL L=6 H=25 CREATININE 2160-0 0.75 mg/dL L=0.67 H=1.17 SODIUM SERUM 2951-2 129 mmol/L L=136 H=145 POTASSIUM SERUM 2823-3 5.0 mmol/L L=3.4 H=5 .2 CHLORIDE SERUM 2075-0 95 mmol/L L=96 H=110 CARBON DIOXIDE (CO2) 2028-9 28 mmol/L L=22 H=34 ANION GAP 84658-4 6.5 mmol/L CALCIUM SERUM 81839-5 9.0 mg/dL L=8.2 H=10. 2 AGE 42 years eGFR (non-Afr.Amer.) 00215-5 115 mL/min eGFR (Afr-Trinidadian) 47579-0 >120 mL/min BASIC METABOLIC PANEL (BMP) - Collect Date/Time: 10/27/2022 10:00 Test Name Code Test Result Test Units Test Ref Rang e GLUCOSE 2345-7 165 mg/dL L=70 H=116 BUN 3094-0 9 mg/dL L=6 H=25 CREATININE 2160-0 0.79 mg/dL L=0.67 H=1.17 SODIUM SERUM 2951-2 129 mmol/L L=136 H=145 POTASSIUM SERUM 2823-3 5.0 mmol/L L=3.4 H=5 .2 CHLORIDE SERUM 2075-0 97 mmol/L L=96 H=110 CARBON DIOXIDE (CO2) 2028-9 26 mmol/L L=22 H=34 ANION GAP 64204-6 6.3 mmol/L CALCIUM SERUM 23037-7 8.1 mg/dL L=8.2 H=10. 2 AGE 42 years eGFR (non-Afr.Amer.) 66272-6 108 mL/min eGFR (Afr-Trinidadian) 74545-9 >120 mL/min BASIC METABOLIC PANEL (BMP) - Collect Date/Time: 10/25/2022 06:55 Test Name Code Test Result Test Units Test Ref Rang e GLUCOSE 2345-7 146 mg/dL L=70 H=116 BUN 3094-0 10 mg/dL L=6 H=25 CREATININE 2160-0 0.81 mg/dL L=0.67 H=1.17 SODIUM SERUM 2951-2 130 mmol/L L=136 H=145 POTASSIUM SERUM 2823-3 3.5 mmol/L L=3.4 H=5 .2 CHLORIDE SERUM 2075-0 95 mmol/L L=96 H=110 CARBON DIOXIDE (CO2) 2028-9 27 mmol/L L=22 H=34 ANION GAP 05930-4 8.0 mmol/L CALCIUM SERUM 65257-8 8.3 mg/dL L=8.2 H=10. 2 AGE 42 years eGFR (non-Afr.Amer.) 84232-1 105 mL/min eGFR (Afr-Trinidadian) 88655-8 >120 mL/min BASIC METABOLIC PANEL (BMP) - Collect Date/Time: 10/23/2022 07:30 Test Name Code Test Result Test Units Test Ref Rang e GLUCOSE 2345-7 152 mg/dL L=70 H=116 BUN 3094-0 9 mg/dL L=6 H=25 CREATININE 2160-0 0.75 mg/dL L=0.67 H=1.17 SODIUM SERUM 2951-2 131 mmol/L L=136 H=145 POTASSIUM SERUM 2823-3 3.0 mmol/L L=3.4 H=5 .2 CHLORIDE SERUM 2075-0 97 mmol/L L=96 H=110 CARBON DIOXIDE (CO2) 2028-9 24 mmol/L L=22 H=34 ANION GAP 95430-3 9.8 mmol/L CALCIUM SERUM 22408-2 8.4 mg/dL L=8.2 H=10. 2 AGE 42 years eGFR (non-Afr.Amer.) 41741-2 115 mL/min eGFR (Afr-Trinidadian) 55559-0 >120 mL/min BASIC METABOLIC PANEL (BMP) - Collect Date/Time: 10/22/2022 07:40 Test Name Code Test Result Test Units Test Ref Rang e GLUCOSE 2345-7 135 mg/dL L=70 H=116 BUN 3094-0 10 mg/dL L=6 H=25 CREATININE 2160-0 0.85 mg/dL L=0.67 H=1.17 SODIUM SERUM 2951-2 131 mmol/L L=136 H=145 POTASSIUM SERUM 2823-3 3.1 mmol/L L=3.4 H=5 .2 CHLORIDE SERUM 2075-0 95 mmol/L L=96 H=110 CARBON DIOXIDE (CO2) 2028-9 24 mmol/L L=22 H=34 ANION GAP 18348-4 12.5 mmol/L CALCIUM SERUM 63776-4 8.5 mg/dL L=8.2 H=10. 2 AGE 42 years eGFR (non-Afr.Amer.) 02005-1 99 mL/min eGFR (Afr-Trinidadian) 52976-8 120 mL/min BASIC METABOLIC PANEL (BMP) - Collect Date/Time: 10/21/2022 11:49 Test Name Code Test Result Test Units Test Ref Rang e GLUCOSE 2345-7 172 mg/dL L=70 H=116 BUN 3094-0 8 mg/dL L=6 H=25 CREATININE 2160-0 0.78 mg/dL L=0.67 H=1.17 SODIUM SERUM 2951-2 131 mmol/L L=136 H=145 POTASSIUM SERUM 2823-3 2.9 mmol/L L=3.4 H=5 .2 CHLORIDE SERUM 2075-0 96 mmol/L L=96 H=110 CARBON DIOXIDE (CO2) 2028-9 24 mmol/L L=22 H=34 ANION GAP 87590-3 11.2 mmol/L CALCIUM SERUM 22525-3 8.5 mg/dL L=8.2 H=10. 2 AGE 42 years eGFR (non-Afr.Amer.) 69406-9 110 mL/min eGFR (Afr-Trinidadian) 03575-6 >120 mL/min BNP (PRO-B NATRIURETIC PEPTI DE) - Collect Date/Time: 2022 15:05 Test Name Code Test Result Test Units Test Ref Rang e NT-proBNP 45781-0 2518.0 pg/mL L=0.0 H=125 C REACTIVE PROTEIN HIGH SENS ITIVITY* - Collect Date/Time: 11/17/2022 06:40 Test Name Code Test Result Test Units Test Ref Rang e CRP-HIGH SENS. 71871-0 56.98 mg/L L=0.00 H=3 .00 CRP-HIGH SENS 88282-9 5.70 mg/dL L=0.00 H=0. 30 C REACTIVE PROTEIN HIGH SENS ITIVITY* - Collect Date/Time: 11/11/2022 09:30 Test Name Code Test Result Test Units Test Ref Rang e CRP-HIGH SENS. 98857-0 106.16 mg/L L=0.00 H=3 .00 CRP-HIGH SENS 69679-3 10.62 mg/dL L=0.00 H=0. 30 C REACTIVE PROTEIN HIGH SENS ITIVITY* - Collect Date/Time: 11/07/2022 09:25 Test Name Code Test Result Test Units Test Ref Rang e CRP-HIGH SENS. 48485-8 148.20 mg/L L=0.00 H=3 .00 CRP-HIGH SENS 92204-9 14.82 mg/dL L=0.00 H=0. 30 C REACTIVE PROTEIN HIGH SENS ITIVITY* - Collect Date/Time: 11/05/2022 06:30 Test Name Code Test Result Test Units Test Ref Rang e CRP-HIGH SENS. 53227-7 111.22 mg/L L=0.00 H=3 .00 CRP-HIGH SENS 96181-7 11.12 mg/dL L=0.00 H=0. 30 C REACTIVE PROTEIN HIGH SENS ITIVITY* - Collect Date/Time: 11/01/2022 06:30 Test Name Code Test Result Test Units Test Ref Rang e CRP-HIGH SENS. 33199-8 220.17 mg/L L=0.00 H=3 .00 CRP-HIGH SENS 66829-8 22.02 mg/dL L=0.00 H=0. 30 C REACTIVE PROTEIN HIGH SENS ITIVITY* - Collect Date/Time: 10/29/2022 06:30 Test Name Code Test Result Test Units Test Ref Rang e CRP-HIGH SENS. 58142-8 292.71 mg/L L=0.00 H=3 .00 CRP-HIGH SENS 31042-2 29.27 mg/dL L=0.00 H=0. 30 C REACTIVE PROTEIN HIGH SENS ITIVITY* - Collect Date/Time: 10/23/2022 07:30 Test Name Code Test Result Test Units Test Ref Rang e CRP-HIGH SENS. 74486-9 >300.00 mg/L L=0.00 H=3 .00 CRP-HIGH SENS 27077-1 >30.00 mg/dL L=0.00 H=0. 30 COMPREHENSIVE METABOLIC PANE L (CMP) - Collect Date/Time: 11/17/2022 06:40 Test Name Code Test Result Test Units Test Ref Rang e GLUCOSE 2345-7 99 mg/dL L=70 H=116 BUN 3094-0 15 mg/dL L=6 H=25 CREATININE 2160-0 0.87 mg/dL L=0.67 H=1.17 SODIUM SERUM 2951-2 135 mmol/L L=136 H=145 POTASSIUM SERUM 2823-3 3.8 mmol/L L=3.4 H=5 .2 CHLORIDE SERUM 2075-0 100 mmol/L L=96 H=110 CARBON DIOXIDE (CO2) 2028-9 30 mmol/L L=22 H=34 ANION GAP 91230-2 4.7 mmol/L CALCIUM SERUM 60706-7 8.9 mg/dL L=8.2 H=10. 2 BILIRUBIN TOTAL 1975-2 0.2 mg/dL L=0.0 H=1 .3 ALK. PHOS. 6768-6 101 U/L L=46 H=116 SGOT (AST) 1920-8 19 U/L L=15 H=37 SGPT (ALT) 1742-6 19 U/L L=12 H=78 TOTAL PROTEIN 2885-2 9.2 gm/dL L=6.0 H=8.0 ALBUMIN 1751-7 2.2 gm/dL L=3.4 H=5.0 AGE 42 years eGFR (non-Afr.Amer.) 86559-6 97 mL/min eGFR (Afr-Trinidadian) 29141-8 117 mL/min COMPREHENSIVE METABOLIC PANE L (CMP) - Collect Date/Time: 10/24/2022 18:20 Test Name Code Test Result Test Units Test Ref Rang e GLUCOSE 2345-7 193 mg/dL L=70 H=116 BUN 3094-0 12 mg/dL L=6 H=25 CREATININE 2160-0 0.93 mg/dL L=0.67 H=1.17 SODIUM SERUM 2951-2 131 mmol/L L=136 H=145 POTASSIUM SERUM 2823-3 3.2 mmol/L L=3.4 H=5 .2 CHLORIDE SERUM 2075-0 95 mmol/L L=96 H=110 CARBON DIOXIDE (CO2) 2028-9 28 mmol/L L=22 H=34 ANION GAP 83290-3 8.5 mmol/L CALCIUM SERUM 20255-6 8.2 mg/dL L=8.2 H=10. 2 BILIRUBIN TOTAL 1975-2 0.5 mg/dL L=0.0 H=1 .3 ALK. PHOS. 6768-6 147 U/L L=46 H=116 SGOT (AST) 1920-8 76 U/L L=15 H=37 SGPT (ALT) 1742-6 62 U/L L=12 H=78 TOTAL PROTEIN 2885-2 7.3 gm/dL L=6.0 H=8.0 ALBUMIN 1751-7 1.3 gm/dL L=3.4 H=5.0 AGE 42 years eGFR (non-Afr.Amer.) 45597-2 90 mL/min eGFR (Afr-Trinidadian) 73054-2 108 mL/min COMPREHENSIVE METABOLIC PANE L (CMP) - Collect Date/Time: 2022 15:05 Test Name Code Test Result Test Units Test Ref Rang e GLUCOSE 2345-7 149 mg/dL L=70 H=116 BUN 3094-0 14 mg/dL L=6 H=25 CREATININE 2160-0 0.91 mg/dL L=0.67 H=1.17 SODIUM SERUM 2951-2 127 mmol/L L=136 H=145 POTASSIUM SERUM 2823-3 2.8 mmol/L L=3.4 H=5 .2 CHLORIDE SERUM 2075-0 91 mmol/L L=96 H=110 CARBON DIOXIDE (CO2) 2028-9 24 mmol/L L=22 H=34 ANION GAP 91867-1 12.3 mmol/L CALCIUM SERUM 00280-5 8.9 mg/dL L=8.2 H=10. 2 BILIRUBIN TOTAL 1975-2 0.5 mg/dL L=0.0 H=1 .3 ALK. PHOS. 6768-6 77 U/L L=46 H=116 SGOT (AST) 1920-8 117 U/L L=15 H=37 SGPT (ALT) 1742-6 56 U/L L=12 H=78 TOTAL PROTEIN 2885-2 7.9 gm/dL L=6.0 H=8.0 ALBUMIN 1751-7 2.1 gm/dL L=3.4 H=5.0 AGE 42 years eGFR (non-Afr.Amer.) 40635-7 92 mL/min eGFR (Afr-Trinidadian) 51222-1 111 mL/min LACTIC ACID - Collect Date/T esteban: 10/24/2022 18:20 Test Name Code Test Result Test Units Test Ref Rang e LACTIC ACID 43984-7 2.7 mmol/L L=0.7 H=2.1 LACTIC ACID - Collect Date/T esteban: 2022 15:05 Test Name Code Test Result Test Units Test Ref Rang e LACTIC ACID 09950-7 1.8 mmol/L L=0.7 H=2.1 LIPASE* NEW - Collect Date/T esteban: 2022 15:05 Test Name Code Test Result Test Units Test Ref Rang e LIPASE. 35 U/L L=16 H=77 MAGNESIUM SERUM* - Collect D ate/Time: 2022 15:05 Test Name Code Test Result Test Units Test Ref Rang e MAGNESIUM 87332-9 1.9 mg/dL L=1.8 H=2.4 PHOSPHORUS SERUM - Collect D ate/Time: 2022 15:05 Test Name Code Test Result Test Units Test Ref Rang e PHOSPHORUS SERUM 2.8 mg/dL L=2.2 H= 4.2 TROPONIN HIGH SENSITIVITY* - Collect Date/Time: 10/21/2022 11:49 Test Name Code Test Result Test Units Test Ref Rang e TROPONIN HS 79.9 pg/mL L=0.0 H=60.4 Specimen seq. RANDOM N/A TROPONIN HIGH SENSITIVITY* - Collect Date/Time: 2022 15:05 Test Name Code Test Result Test Units Test Ref Rang e TROPONIN HS 162.2 pg/mL L=0.0 H=60.4 Specimen seq. ADM. N/A VANCOMYCIN RANDOM* - Collect Date/Time: 10/22/2022 07:40 Test Name Code Test Result Test Units Test Ref Rang e VANCOMYCIN 18.1 ug/mL VANCOMYCIN RANDOM* - Collect Date/Time: 10/21/2022 11:49 Test Name Code Test Result Test Units Test Ref Rang e VANCOMYCIN 13.6 ug/mL CBC W/ DIFFERENTIAL* - Colle ct Date/Time: 11/17/2022 06:40 Test Name Code Test Result Test Units Test Ref Rang e WBC 6690-2 7.08 th/cmm L=5.00 H=10.00 NEUT % 47.5 % L=40.0 H=80.0 LYMPH % 40.5 % L=10.0 H=50.0 MONO % 32144-0 9.0 % L=2.0 H=12.0 EOS % 2.3 % L=0.0 H=8.0 BASO % 0.3 % L=0.0 H=3.0 IG % 2514-8 0.4 % L=0.0 H=1.1 NRBC % 65637-6 0.0 % L=0.0 H=0.0 NEUT abs count 751-8 3.4 th/cmm L=1.6 H=8. 4 LYMPH abs count 731-0 2.9 th/cmm L=1.5 H=4 .0 MONO abs count 742-7 0.6 th/cmm L=0.2 H=1. 0 EOS abs count 711-2 0.2 th/cmm L=0.0 H=0.5 BASO abs count 704-7 0.0 th/cmm L=0.0 H=0. 2 IG abs count 20099-9 0.0 th/cmm L=0.0 H=0.1 NRBC abs count 74356-7 0.0 mil/cmm L=0.0 H=0. 0 RBC 789-8 4.07 mil/cmm L=4.30 H=6.20 HEMOGLOBIN 718-7 9.3 gm/dL L=13.0 H=17.0 HEMATOCRIT 4544-3 32 % L=45 H=52 MCV 787-2 78 fL L=82 H=92 MCH 785-6 22.9 pg L=27.0 H=31.0 MCHC 786-4 29.4 % L=32.0 H=36.0 RDW-SD 788-0 47.0 fL L=39.0 H=49.0 PLATELET COUNT 777-3 324 th/cmm L=150 H=45 0 CBC W/ DIFFERENTIAL* - [facility] ct Date/Time: 11/11/2022 09:30 Test Name Code Test Result Test Units Test Ref Rang e WBC 6690-2 6.03 th/cmm L=5.00 H=10.00 NEUT % 55.6 % L=40.0 H=80.0 LYMPH % 35.5 % L=10.0 H=50.0 MONO % 20747-0 6.1 % L=2.0 H=12.0 EOS % 1.8 % L=0.0 H=8.0 BASO % 0.5 % L=0.0 H=3.0 IG % 2514-8 0.5 % L=0.0 H=1.1 NRBC % 36994-7 0.0 % L=0.0 H=0.0 NEUT abs count 751-8 3.4 th/cmm L=1.6 H=8. 4 LYMPH abs count 731-0 2.1 th/cmm L=1.5 H=4 .0 MONO abs count 742-7 0.4 th/cmm L=0.2 H=1. 0 EOS abs count 711-2 0.1 th/cmm L=0.0 H=0.5 BASO abs count 704-7 0.0 th/cmm L=0.0 H=0. 2 IG abs count 61384-0 0.0 th/cmm L=0.0 H=0.1 NRBC abs count 38734-5 0.0 mil/cmm L=0.0 H=0. 0 RBC 789-8 4.14 mil/cmm L=4.30 H=6.20 HEMOGLOBIN 718-7 9.4 gm/dL L=13.0 H=17.0 HEMATOCRIT 4544-3 32 % L=45 H=52 MCV 787-2 78 fL L=82 H=92 MCH 785-6 22.7 pg L=27.0 H=31.0 MCHC 786-4 29.3 % L=32.0 H=36.0 RDW-SD 788-0 46.3 fL L=39.0 H=49.0 PLATELET COUNT 777-3 335 th/cmm L=150 H=45 0 CBC W/ DIFFERENTIAL* - Colle ct Date/Time: 11/08/2022 07:05 Test Name Code Test Result Test Units Test Ref Rang e WBC 6690-2 6.62 th/cmm L=5.00 H=10.00 NEUT % 62.7 % L=40.0 H=80.0 LYMPH % 27.9 % L=10.0 H=50.0 MONO % 18874-6 7.3 % L=2.0 H=12.0 EOS % 1.1 % L=0.0 H=8.0 BASO % 0.5 % L=0.0 H=3.0 IG % 2514-8 0.5 % L=0.0 H=1.1 NRBC % 52148-8 0.0 % L=0.0 H=0.0 NEUT abs count 751-8 4.2 th/cmm L=1.6 H=8. 4 LYMPH abs count 731-0 1.9 th/cmm L=1.5 H=4 .0 MONO abs count 742-7 0.5 th/cmm L=0.2 H=1. 0 EOS abs count 711-2 0.1 th/cmm L=0.0 H=0.5 BASO abs count 704-7 0.0 th/cmm L=0.0 H=0. 2 IG abs count 88661-7 0.0 th/cmm L=0.0 H=0.1 NRBC abs count 33137-1 0.0 mil/cmm L=0.0 H=0. 0 RBC 789-8 3.96 mil/cmm L=4.30 H=6.20 HEMOGLOBIN 718-7 8.9 gm/dL L=13.0 H=17.0 HEMATOCRIT 4544-3 31 % L=45 H=52 MCV 787-2 78 fL L=82 H=92 MCH 785-6 22.5 pg L=27.0 H=31.0 MCHC 786-4 28.8 % L=32.0 H=36.0 RDW-SD 788-0 47.2 fL L=39.0 H=49.0 PLATELET COUNT 777-3 372 th/cmm L=150 H=45 0 Hypochromia 1+ N/A CBC W/ DIFFERENTIAL* - [facility] ct Date/Time: 11/04/2022 06:15 Test Name Code Test Result Test Units Test Ref Rang e WBC 6690-2 7.05 th/cmm L=5.00 H=10.00 NEUT % 62.1 % L=40.0 H=80.0 LYMPH % 27.8 % L=10.0 H=50.0 MONO % 54358-4 8.2 % L=2.0 H=12.0 EOS % 1.0 % L=0.0 H=8.0 BASO % 0.3 % L=0.0 H=3.0 IG % 2514-8 0.6 % L=0.0 H=1.1 NRBC % 47466-8 0.0 % L=0.0 H=0.0 NEUT abs count 751-8 4.4 th/cmm L=1.6 H=8. 4 LYMPH abs count 731-0 2.0 th/cmm L=1.5 H=4 .0 MONO abs count 742-7 0.6 th/cmm L=0.2 H=1. 0 EOS abs count 711-2 0.1 th/cmm L=0.0 H=0.5 BASO abs count 704-7 0.0 th/cmm L=0.0 H=0. 2 IG abs count 79752-5 0.0 th/cmm L=0.0 H=0.1 NRBC abs count 70118-9 0.0 mil/cmm L=0.0 H=0. 0 RBC 789-8 3.92 mil/cmm L=4.30 H=6.20 HEMOGLOBIN 718-7 9.1 gm/dL L=13.0 H=17.0 HEMATOCRIT 4544-3 31 % L=45 H=52 MCV 787-2 78 fL L=82 H=92 MCH 785-6 23.2 pg L=27.0 H=31.0 MCHC 786-4 29.6 % L=32.0 H=36.0 RDW-SD 788-0 48.2 fL L=39.0 H=49.0 PLATELET COUNT 777-3 379 th/cmm L=150 H=45 0 CBC W/ DIFFERENTIAL* - [facility] ct Date/Time: 11/01/2022 06:30 Test Name Code Test Result Test Units Test Ref Rang e WBC 6690-2 12.74 th/cmm L=5.00 H=10.00 NEUT % 74.2 % L=40.0 H=80.0 LYMPH % 18.0 % L=10.0 H=50.0 MONO % 36140-4 6.2 % L=2.0 H=12.0 EOS % 0.5 % L=0.0 H=8.0 BASO % 0.2 % L=0.0 H=3.0 IG % 2514-8 0.9 % L=0.0 H=1.1 NRBC % 42919-5 0.0 % L=0.0 H=0.0 NEUT abs count 751-8 9.5 th/cmm L=1.6 H=8. 4 LYMPH abs count 731-0 2.3 th/cmm L=1.5 H=4 .0 MONO abs count 742-7 0.8 th/cmm L=0.2 H=1. 0 EOS abs count 711-2 0.1 th/cmm L=0.0 H=0.5 BASO abs count 704-7 0.0 th/cmm L=0.0 H=0. 2 IG abs count 14238-8 0.1 th/cmm L=0.0 H=0.1 NRBC abs count 36085-1 0.0 mil/cmm L=0.0 H=0. 0 RBC 789-8 4.25 mil/cmm L=4.30 H=6.20 HEMOGLOBIN 718-7 9.7 gm/dL L=13.0 H=17.0 HEMATOCRIT 4544-3 33 % L=45 H=52 MCV 787-2 77 fL L=82 H=92 MCH 785-6 22.8 pg L=27.0 H=31.0 MCHC 786-4 29.8 % L=32.0 H=36.0 RDW-SD 788-0 46.7 fL L=39.0 H=49.0 PLATELET COUNT 777-3 352 th/cmm L=150 H=45 0 CBC W/ DIFFERENTIAL* - [facility] ct Date/Time: 10/29/2022 06:30 Test Name Code Test Result Test Units Test Ref Rang e WBC 6690-2 11.46 th/cmm L=5.00 H=10.00 NEUT % 73.2 % L=40.0 H=80.0 LYMPH % 16.7 % L=10.0 H=50.0 MONO % 72928-3 7.0 % L=2.0 H=12.0 EOS % 1.0 % L=0.0 H=8.0 BASO % 0.3 % L=0.0 H=3.0 IG % 2514-8 1.8 % L=0.0 H=1.1 NRBC % 54082-2 0.0 % L=0.0 H=0.0 NEUT abs count 751-8 8.4 th/cmm L=1.6 H=8. 4 LYMPH abs count 731-0 1.9 th/cmm L=1.5 H=4 .0 MONO abs count 742-7 0.8 th/cmm L=0.2 H=1. 0 EOS abs count 711-2 0.1 th/cmm L=0.0 H=0.5 BASO abs count 704-7 0.0 th/cmm L=0.0 H=0. 2 IG abs count 79538-6 0.2 th/cmm L=0.0 H=0.1 NRBC abs count 73975-8 0.0 mil/cmm L=0.0 H=0. 0 RBC 789-8 4.46 mil/cmm L=4.30 H=6.20 HEMOGLOBIN 718-7 10.3 gm/dL L=13.0 H=17.0 HEMATOCRIT 4544-3 34 % L=45 H=52 MCV 787-2 76 fL L=82 H=92 MCH 785-6 23.1 pg L=27.0 H=31.0 MCHC 786-4 30.3 % L=32.0 H=36.0 RDW-SD 788-0 46.0 fL L=39.0 H=49.0 PLATELET COUNT 777-3 330 th/cmm L=150 H=45 0 CBC W/ DIFFERENTIAL* - [facility] ct Date/Time: 10/27/2022 10:00 Test Name Code Test Result Test Units Test Ref Rang e WBC 6690-2 12.07 th/cmm L=5.00 H=10.00 NEUT % 79.3 % L=40.0 H=80.0 LYMPH % 12.3 % L=10.0 H=50.0 MONO % 11174-2 5.2 % L=2.0 H=12.0 EOS % 1.1 % L=0.0 H=8.0 BASO % 0.3 % L=0.0 H=3.0 IG % 2514-8 1.8 % L=0.0 H=1.1 NRBC % 32214-6 0.0 % L=0.0 H=0.0 NEUT abs count 751-8 9.6 th/cmm L=1.6 H=8. 4 LYMPH abs count 731-0 1.5 th/cmm L=1.5 H=4 .0 MONO abs count 742-7 0.6 th/cmm L=0.2 H=1. 0 EOS abs count 711-2 0.1 th/cmm L=0.0 H=0.5 BASO abs count 704-7 0.0 th/cmm L=0.0 H=0. 2 IG abs count 12738-3 0.2 th/cmm L=0.0 H=0.1 NRBC abs count 18841-8 0.0 mil/cmm L=0.0 H=0. 0 RBC 789-8 4.49 mil/cmm L=4.30 H=6.20 HEMOGLOBIN 718-7 10.5 gm/dL L=13.0 H=17.0 HEMATOCRIT 4544-3 35 % L=45 H=52 MCV 787-2 78 fL L=82 H=92 MCH 785-6 23.4 pg L=27.0 H=31.0 MCHC 786-4 29.8 % L=32.0 H=36.0 RDW-SD 788-0 47.7 fL L=39.0 H=49.0 PLATELET COUNT 777-3 323 th/cmm L=150 H=45 0 CBC W/ DIFFERENTIAL* - [facility] ct Date/Time: 10/24/2022 18:20 Test Name Code Test Result Test Units Test Ref Rang e WBC 6690-2 10.21 th/cmm L=5.00 H=10.00 NEUT % 73.2 % L=40.0 H=80.0 LYMPH % 16.8 % L=10.0 H=50.0 MONO % 93668-1 6.7 % L=2.0 H=12.0 EOS % 1.9 % L=0.0 H=8.0 BASO % 0.2 % L=0.0 H=3.0 IG % 2514-8 1.2 % L=0.0 H=1.1 NRBC % 13973-3 0.0 % L=0.0 H=0.0 NEUT abs count 751-8 7.5 th/cmm L=1.6 H=8. 4 LYMPH abs count 731-0 1.7 th/cmm L=1.5 H=4 .0 MONO abs count 742-7 0.7 th/cmm L=0.2 H=1. 0 EOS abs count 711-2 0.2 th/cmm L=0.0 H=0.5 BASO abs count 704-7 0.0 th/cmm L=0.0 H=0. 2 IG abs count 14958-3 0.1 th/cmm L=0.0 H=0.1 NRBC abs count 63593-3 0.0 mil/cmm L=0.0 H=0. 0 RBC 789-8 4.64 mil/cmm L=4.30 H=6.20 HEMOGLOBIN 718-7 10.9 gm/dL L=13.0 H=17.0 HEMATOCRIT 4544-3 36 % L=45 H=52 MCV 787-2 77 fL L=82 H=92 MCH 785-6 23.5 pg L=27.0 H=31.0 MCHC 786-4 30.5 % L=32.0 H=36.0 RDW-SD 788-0 46.6 fL L=39.0 H=49.0 PLATELET COUNT 777-3 283 th/cmm L=150 H=45 0 CBC W/ DIFFERENTIAL* - [facility] ct Date/Time: 10/21/2022 11:49 Test Name Code Test Result Test Units Test Ref Rang e WBC 6690-2 10.67 th/cmm L=5.00 H=10.00 NEUT % 81.4 % L=40.0 H=80.0 LYMPH % 7.4 % L=10.0 H=50.0 MONO % 02181-9 10.2 % L=2.0 H=12.0 EOS % 0.1 % L=0.0 H=8.0 BASO % 0.1 % L=0.0 H=3.0 IG % 2514-8 0.8 % L=0.0 H=1.1 NRBC % 84557-6 0.0 % L=0.0 H=0.0 NEUT abs count 751-8 8.7 th/cmm L=1.6 H=8. 4 LYMPH abs count 731-0 0.8 th/cmm L=1.5 H=4 .0 MONO abs count 742-7 1.1 th/cmm L=0.2 H=1. 0 EOS abs count 711-2 0.0 th/cmm L=0.0 H=0.5 BASO abs count 704-7 0.0 th/cmm L=0.0 H=0. 2 IG abs count 07532-3 0.1 th/cmm L=0.0 H=0.1 NRBC abs count 84001-2 0.0 mil/cmm L=0.0 H=0. 0 RBC 789-8 5.18 mil/cmm L=4.30 H=6.20 HEMOGLOBIN 718-7 12.4 gm/dL L=13.0 H=17.0 HEMATOCRIT 4544-3 39 % L=45 H=52 MCV 787-2 75 fL L=82 H=92 MCH 785-6 23.9 pg L=27.0 H=31.0 MCHC 786-4 31.8 % L=32.0 H=36.0 RDW-SD 788-0 43.7 fL L=39.0 H=49.0 PLATELET COUNT 777-3 147 th/cmm L=150 H=45 0 CBC W/ DIFFERENTIAL* - [facility] ct Date/Time: 2022 15:05 Test Name Code Test Result Test Units Test Ref Rang e WBC 6690-2 10.96 th/cmm L=5.00 H=10.00 NEUT % 83.1 % L=40.0 H=80.0 LYMPH % 5.9 % L=10.0 H=50.0 MONO % 60263-9 10.3 % L=2.0 H=12.0 EOS % 0.0 % L=0.0 H=8.0 BASO % 0.2 % L=0.0 H=3.0 IG % 2514-8 0.5 % L=0.0 H=1.1 NRBC % 30219-5 0.0 % L=0.0 H=0.0 NEUT abs count 751-8 9.1 th/cmm L=1.6 H=8. 4 LYMPH abs count 731-0 0.7 th/cmm L=1.5 H=4 .0 MONO abs count 742-7 1.1 th/cmm L=0.2 H=1. 0 EOS abs count 711-2 0.0 th/cmm L=0.0 H=0.5 BASO abs count 704-7 0.0 th/cmm L=0.0 H=0. 2 IG abs count 40870-4 0.1 th/cmm L=0.0 H=0.1 NRBC abs count 36148-5 0.0 mil/cmm L=0.0 H=0. 0 RBC 789-8 5.60 mil/cmm L=4.30 H=6.20 HEMOGLOBIN 718-7 13.4 gm/dL L=13.0 H=17.0 HEMATOCRIT 4544-3 42 % L=45 H=52 MCV 787-2 75 fL L=82 H=92 MCH 785-6 23.9 pg L=27.0 H=31.0 MCHC 786-4 32.1 % L=32.0 H=36.0 RDW-SD 788-0 41.9 fL L=39.0 H=49.0 PLATELET COUNT 777-3 131 th/cmm L=150 H=45 0 SED RATE* - Collect Date/Donny e: 10/23/2022 07:30 Test Name Code Test Result Test Units Test Ref Rang e SED. RATE 4537-7 >130 mm/hr L=0 H=15 JESSE COVID GENEXPERT* - Co llect Date/Time: 11/10/2022 11:06 Test Name Code Test Result Test Units Test Ref Rang e COVID 03944-1 NEGATIVE N/A Normal: Negati ve SOURCE= 67066-8 Anterior nasal N/A Tier- 31757-7 EXPOSURE N/A JESSE COVID GENEXPERT* - Co llect Date/Time: 2022 15:26 Test Name Code Test Result Test Units Test Ref Rang e COVID 53895-4 NEGATIVE N/A Normal: Negati ve SOURCE= 77207-8 Nasopharyngeal N/A Tier- 12781-5 SYMPTOMS N/A GRAM STAIN* - Collect Date/T esteban: 10/29/2022 10:30 Test Name Code Test Result Test Units Test Ref Rang e SOURCE- Blood culture N/A [employer] Gram pos cocci N/A GRAM STAIN* - Collect Date/T esteban: 10/25/2022 06:55 Test Name Code Test Result Test Units Test Ref Rang e SOURCE- Blood culture N/A [employer] Gram pos cocci N/A GRAM STAIN* - Collect Date/T esteban: 10/25/2022 06:55 Test Name Code Test Result Test Units Test Ref Rang e SOURCE- Blood culture N/A [employer] Gram pos cocci N/A GRAM STAIN* - Collect Date/T esteban: 10/25/2022 06:55 Test Name Code Test Result Test Units Test Ref Rang e SOURCE- Blood culture N/A [employer] Gram pos cocci N/A GRAM STAIN* - Collect Date/T esteban: 10/25/2022 06:55 Test Name Code Test Result Test Units Test Ref Rang e SOURCE- Blood culture N/A [employer] Gram pos cocci N/A GRAM STAIN* - Collect Date/T esteban: 10/23/2022 02:02 Test Name Code Test Result Test Units Test Ref Rang e SOURCE- Blood culture N/A [employer] Gram pos cocci N/A GRAM STAIN* - Collect Date/T esteban: 10/23/2022 02:02 Test Name Code Test Result Test Units Test Ref Rang e SOURCE- Blood culture N/A [employer] Gram pos cocci N/A GRAM STAIN* - Collect Date/T esteban: 2022 15:05 Test Name Code Test Result Test Units Test Ref Rang e SOURCE- Blood culture N/A [employer] Gram pos cocci N/A GRAM STAIN* - Collect Date/T esteban: 2022 15:05 Test Name Code Test Result Test Units Test Ref Rang e SOURCE- Blood culture N/A [employer] Gram pos cocci N/A GRAM STAIN* - Collect Date/T esteban: 2022 14:20 Test Name Code Test Result Test Units Test Ref Rang e SOURCE- Blood culture N/A [employer] Gram pos cocci N/A GRAM STAIN* - Collect Date/T esteban: 2022 14:20 Test Name Code Test Result Test Units Test Ref Rang e SOURCE- Blood culture N/A [employer] Gram pos cocci N/A MRSA/MSSA NASAL COMPLETE BY PCR* - Collect Date/Time: 11/03/2022 21:00 Test Name Code Test Result Test Units Test Ref Rang e MRSA 50592-2 POSITIVE N/A Normal: Negati ve MSSA DNR N/A Normal: Negati ve ORDER VENOUS BLOOD GAS* - Co llect Date/Time: 2022 15:05 Test Name Code Test Result Test Units Test Ref Rang e pH (venous) 2746-6 7.55 L=7.38 H=7.46 PCO2 (venous) 2703-7 27.5 mm Hg L=41.0 H=51 .0 HCO3 1960-4 24 mmol/L L=22 H=26 TCO2 (venous) 3533-7 25 mmol/L L=22 H=28 BASE EXCESS (venous) 3097-3 2 mmol/L L=-2 H=3 Specimen type: VENOUS N/A Active Medications Medication Code Dose Units Frequency Route Modificatio n Start Date/Time Losartan Potassium 50MG Oral Tablet 723267 1 TABLET DAILY ORAL 11/24/19 10:35 Prescription Detail TAKE 1 TABLET ORAL DAILY Cefuroxime Axetil 500MG Oral Tablet 604662 1 TABLET DAILY ORAL 11/24/19 10:30 Prescription Detail TAKE 1 TABLET ORAL DAILY AFTER YOU FINIS H THE FULL COURSE OF ANTIBIOTIC. TO BE CONTINUED FOR 3 MONTHS Ibuprofen 200MG Oral Tablet 622467 3 TABLET NEEDED THREE TIMES A DAY ORAL 11/23/2022 10:13 Prescription Detail TAKE 3 TABLET ORAL NEEDED THREE TIMES A DAY FOR GOUT, TAKE WITH FOOD Cefuroxime Axetil 500MG Oral Tablet 353850 2 TABLET EVERY 8 HOURS ORAL 11/23/2022 10:12 Prescription Detail TAKE 2 TABLET ORAL EVERY 8 HOURS Colchicine 0.6MG Oral Tablet 135780 0.6 MILLIGRAMS DAILY ORAL 10:11 Prescription Detail TAKE 0.6 MILLIGRAMS ORAL DAILY Eliquis 5MG Oral Tablet 9961452 1 TABLET TWICE A DAY ORAL 11/18/2022 17:29 Prescription Detail TAKE 1 TABLET ORAL TWICE A DAY Suboxone 8MG-2MG Sublingual Film 5824469 3 EACH DAILY SUBLINGUAL 15:04 Prescription Detail DISSOLVE 3 EACH SUBLINGUAL DAILY Acetaminophen 500MG Oral Tablet 198991 2 TABLET NEEDED THREE TIMES A DAY ORAL 07/23/2022 10:05 Prescription Detail TAKE 2 TABLET ORAL NEEDED THREE TIMES A DAY FOR PAIN Medications Administered During Visit Medication Dose Units Frequency Route Date/Time of Last Dose SODIUM CHLORIDE 0.9% 1000ML 1000 ML X1 IV 2022 15:1 3 SODIUM CHLORIDE 0.9% 1000ML 1000 ML X1 IV 2022 16:1 0 ACETAMINOPHEN TABLET: 325MG 975 MG X1 PO 2022 16:0 7 APIXABAN TAB: 5MG 5 MG X1 PO 16:07 POTASSIUM CHL IN NS: 40mEq/1000ML 1000 ML X1 IV 2022 16:0 9 POTASSIUM CHL TABLET: 20mEq 20 MEQ BID WITH FOOD PO 10/21/2022 08: 13 SENNA CONC TABLET: 8.6MG 8.6 MG PRN DAILY PO 10/27/2022 15:15 SODIUM CHLORIDE 0.9% FLUSH 10ML SYRINGE 2 ML Q8H IVP 11/18/2022 13:5 8 ACETAMINOPHEN TABLET: 325MG 650 MG PRN Q4H PO 11/17/2022 09:3 0 POTASSIUM CHL TABLET: 20mEq 20 MEQ X1 PO 2022 19:5 9 POTASSIUM CHL TABLET: 20mEq 20 MEQ X1 PO 2022 21:5 9 NICOTINE TRANSDERM PATCH: 21MG 21 MG DAILY TRANSDERMAL 11/18/2022 08:4 5 NICOTINE PATCH REMOVAL REMINDER 1 EA BEDTIME TRANSDERMAL 11/15/2022 20:5 2 VANCOMYCIN IVPB:2.5GM/600ML 2.5 GM X1 IVPB 2022 21:58 VANCOMYCIN IVPB PREMIX: 1.25GM/250ML 1.25 GM Q8H IVPB 10/21/2022 05:3 1 LOSARTAN TABLET: 50MG 50 MG DAILY PO 10/27/2022 08:19 SACCHAROMYCES CAPSULE: 250MG 1 CAP BID PO 10/24/2022 08:2 5 BUPRENORPHINE/NALOXONE SL TAB: 2MG/0.5MG 8 TAB DAILY SL 10/26/2022 08 :46 VANCOMYCIN LEVEL REMINDER TO NURSING 1 --- X1 --- 10/21/2022 14:0 8 POTASSIUM CHL TABLET: 20mEq 20 MEQ TID WITH FOOD PO 10/27/2022 12: 23 VANCOMYCIN IVPB PREMIX: 1.5GM/300ML 1.5 GM Q12H IVPB 10/23/2022 01:4 6 VANCOMYCIN LEVEL REMINDER TO NURSING 1 --- X1 --- 10/22/2022 13:5 9 LORazepam INJ SYRINGE: 2MG/ML 1 MG X1 IVP 10/21/2022 15:5 2 APIXABAN TAB: 5MG 5 MG BID PO 09:11 CeFAZolin IVPB FROZEN PREMIX: 2GM/100ML 2 GM Q8H IVPB 10/28/2022 18:29 ENOXAPARIN INJ SYRINGE: 30MG/0.3ML 30 MG Q24H SUBQ 10/24/2022 12:1 3 IBUPROFEN TABLET: 400MG 400 MG PRN Q6H PO 11/17/2022 09:30 SACCHAROMYCES CAPSULE: 250MG 250 MG BID PO 11/18/2022 08:4 6 LORazepam INJ SYRINGE: 2MG/ML 2 MG X1 IVP 10/24/2022 15:4 6 APIXABAN TAB: 5MG 5 MG BID PO 20:42 APIXABAN TAB: 5MG 10 MG BID PO 19:34 APIXABAN TAB: 5MG 5 MG X1 PO 21:23 BUPRENORPHINE/NALOXONE SL TAB: 2MG/0.5MG 12 TAB DAILY SL 11/18/2022 08 :46 BUPRENORPHINE/NALOXONE SL TAB: 2MG/0.5MG 4 TAB X1 SL 10/26/2022 15 :41 LOSARTAN TABLET: 50MG 50 MG X1 PO 10/27/2022 15:14 LOSARTAN TABLET: 50MG 100 MG DAILY PO 11/18/2022 08:46 CeFAZolin IVPB: 1GM/50ML 1 GM Q8H IVPB 10/29/2022 05:37 CeFAZolin IVPB FROZEN PREMIX: 2GM/100ML 2 GM Q8H IVPB 11/01/2022 06:41 CeFAZolin IVPB FROZEN PREMIX: 2GM/100ML 2 GM Q8H IVPB 11/17/2022 00:46 APIXABAN TAB: 5MG 5 MG BID PO 08:46 MELATONIN TABLET: 5MG 10 MG BEDTIME PO 11/17/2022 21:03 CeFAZolin IVPB FROZEN PREMIX: 2GM/100ML 2 GM TID IVPB 11/18/2022 13:57 Encounters Encounter Diagnosis Diagnosis Code Start Date Sepsis due to Methicillin susceptible Staphyloco ccus aureus A4101 2022 Social History Smoking Status Code Start Date End Date Current every day smoker [id number] Patient Decision Aids Unknown or Not Available. Discharge Instructions You were admitted to [facility] on 2022 18:15 with a principal diagnosis of Septicemia, Sepsis, Systemic Inflammatory Response Syndrome/Shock You had the following tests done:C REACTIVE PROTEIN HIGH SENSITIVITY*CBC W/ DIFFERENTIAL*COMPREHENSIVE METABOLIC PANEL (CMP)BASIC METABOLIC PANEL (BMP)C REACTIVE PROTEIN HIGH SENSITIVITY*CBC W/ DIFFERENTIAL*JESSE COVID GENEXPERT*BASIC METABOLIC PANEL (BMP)CBC W/ DIFFERENTIAL*C REACTIVE PROTEIN HIGH SENSITIVITY*BASIC METABOLIC PANEL (BMP)C REACTIVE PROTEIN HIGH SENSITIVITY*CBC W/ DIFFERENTIAL*MRSA/MSSA NASAL COMPLETE BY PCR*BASIC METABOLIC PANEL (BMP)C REACTIVE PROTEIN HIGH SENSITIVITY*CBC W/ DIFFERENTIAL*GRAM STAIN*BASIC METABOLIC PANEL (BMP)C REACTIVE PROTEIN HIGH SENSITIVITY*CBC W/ DIFFERENTIAL*BASIC METABOLIC PANEL (BMP)CBC W/ DIFFERENTIAL*BASIC METABOLIC PANEL (BMP)GRAM STAIN*GRAM STAIN*GRAM STAIN*GRAM STAIN*AMMONIACBC W/ DIFFERENTIAL*COMPREHENSIVE METABOLIC PANEL (CMP)LACTIC ACIDBASIC METABOLIC PANEL (BMP)C REACTIVE PROTEIN HIGH SENSITIVITY*SED RATE*GRAM STAIN*GRAM STAIN*BASIC METABOLIC PANEL (BMP)VANCOMYCIN RANDOM*BASIC METABOLIC PANEL (BMP)CBC W/ DIFFERENTIAL*TROPONIN HIGH SENSITIVITY*VANCOMYCIN RANDOM*JESSE COVID GENEXPERT*ALCOHOL (ETHANOL)*BNP (PRO-B NATRIURETIC PEPTIDE)CBC W/ DIFFERENTIAL*COMPREHENSIVE METABOLIC PANEL (CMP)GRAM STAIN*GRAM STAIN*LACTIC ACIDLIPASE* NEWMAGNESIUM SERUM*ORDER VENOUS BLOOD GAS*PHOSPHORUS SERUMTROPONIN HIGH SENSITIVITY*GRAM STAIN*GRAM STAIN* You were discharged from [facility] on 11/18/2022 15:15 Should you have any questions prior to discharge, please contact a member of your healthcare team. If you have left the hospital and have any questions, please contact your primary care physician. Chief Complaint and Reason For Visit Chief Complaint Date of Onset FEVER 2022 Function Status Unknown or Not Available. Plan of Care Unknown or Not Available. Referral/Transition of Care Unknown or Not Available.
--- OUTSIDE RECORDS SUMMARY | 2023-02-17 11:10 | XMS_ITS | CCD ---
Author Name Unknown Address [address] [place] [address] [id number] Organization Unknown Address [address] [place] [address] [phone] Care Team Providers Care Rn Or Lvn Name Role Phone [facility] Attending Physician [phone] Vital Signs Unknown or Not Available. Allergies Unknown or Not Available. Procedures Unknown or Not Available. History of Immunizations Unknown or Not Available. Problems Problem Code Start Date Resolved Date Status HTN 77110240 Active History of IV (intravenous) drug abuse 54388810897069664 Active Opioid use disorder, severe 45322849 Active Multiple subsegmental pulmon fredy emboli without acute cor pulmonale 56348053 Active Saddle embolus 118356964 Active DVT of left lower extremity 760059240 Active MSSA sepsis 06275341582136 Active Chronic anemia 660393592 Active MRSA colonization 333982915 Active Septic pulmonary embolism 896595269 2022 Resolved Bacteremia caused by Gram-positive bacteria 993316484355 2022 Resolved Gout 75335912 06/15/2022 Resolved MRSA infection 295665120 2022 Resolved Fever 979939640 11/15/2022 Resolved Congestive heart failure 46728221 11/16/2022 Resolved Discitis, unspecified, lumbosacral region 7404697 2022 Resolved Hyponatremia 73965290 11/15/2022 Resolved Hypokalemia 28186346 11/15/2022 Resolved Results Unknown or Not Available. Active Medications Medication Code Dose Units Frequency Route Modificatio n Start Date/Time Losartan Potassium 50MG Oral Tablet 796215 1 TABLET DAILY ORAL 11/24/19 23 10:35 Prescription Detail TAKE 1 TABLET ORAL DAILY Cefuroxime Axetil 500MG Oral Tablet 359008 1 TABLET DAILY ORAL 11/24/19 10:30 Prescription Detail TAKE 1 TABLET ORAL DAILY AFTER YOU FINIS H THE FULL COURSE OF ANTIBIOTIC. TO BE CONTINUED FOR 3 MONTHS Ibuprofen 200MG Oral Tablet 856692 3 TABLET NEEDED THREE TIMES A DAY ORAL 11/23/2022 10:13 Prescription Detail TAKE 3 TABLET ORAL NEEDED THREE TIMES A DAY FOR GOUT, TAKE WITH FOOD Cefuroxime Axetil 500MG Oral Tablet 744390 2 TABLET EVERY 8 HOURS ORAL 11/23/2022 10:12 Prescription Detail TAKE 2 TABLET ORAL EVERY 8 HOURS Colchicine 0.6MG Oral Tablet 284845 0.6 MILLIGRAMS DAILY ORAL 10:11 Prescription Detail TAKE 0.6 MILLIGRAMS ORAL DAILY Eliquis 5MG Oral Tablet 2959860 1 TABLET TWICE A DAY ORAL 11/18/2022 17:29 Prescription Detail TAKE 1 TABLET ORAL TWICE A DAY Suboxone 8MG-2MG Sublingual Film 0869539 3 EACH DAILY SUBLINGUAL 15:04 Prescription Detail DISSOLVE 3 EACH SUBLINGUAL DAILY Acetaminophen 500MG Oral Tablet 005961 2 TABLET NEEDED THREE TIMES A DAY ORAL 07/23/2022 10:05 Prescription Detail TAKE 2 TABLET ORAL NEEDED THREE TIMES A DAY FOR PAIN Medications Administered During Visit Unknown or Not Available. Encounters Encounter Diagnosis Diagnosis Code Start Date Encounter for adjustment and management of vascular access device Z452 03/23/2022 Social History Smoking Status Code Start Date End Date Current every day smoker [id number] Patient Decision Aids Unknown or Not Available. Discharge Instructions You were admitted to [facility] on 03/23/2022 09:55 with a principal diagnosis of Encounter for adjustment and management of vascular access device You were discharged from [facility] on 03/23/2022 12:34 Should you have any questions prior to [...]
--- OUTSIDE RECORDS SUMMARY | 2023-02-17 11:10 | XMS_ITS | CCD ---
Author Name Unknown Address [address] [place] [address] [phone] Organization Unknown Address [address] [place] [address] [phone] Care Team Providers Care Transport Tech Name Role Phone CLARIBEL MCGEE Attending Physician [phone] JAYCOB RAMSAY Er Physician 2 [phone] JASON Flowers Registered Nurse [phone] JAGUAR Noyola Registered Nurse [phone] Vital Signs Vital Sign Value Unit Date/Time Recent/Initial ? BMI (Body Mass Index) 40.69 kg/m^2 02/22/2022 11: 34 Initial VS Weight Measured 300 lbs 02/22/2022 11:34 Ini tial VS Height 72 in 02/22/2022 11:34 Initial VS BSA (Body Surface Area) 2.63 m^2 02/22/2022 1 1:34 Initial VS BP Systolic 136 mmHg 02/22/2022 11:34 Initial VS BP Diastolic 94 mmHg 02/22/2022 11:34 Initia l VS Respiratory Rate 22 bpm 02/22/2022 11:34 In itial VS Heart Rate 93 bpm 02/22/2022 11:34 Initial VS O2 % BldC Oximetry 94 % 02/22/2022 11:34 Initial VS Body Temperature 35.4 degrees 02/22/2022 11:53 In itial VS BP Systolic 138 mmHg 02/22/2022 14:29 Most Re cent VS BP Diastolic 80 mmHg 02/22/2022 14:29 Most R ecent VS Respiratory Rate 81 bpm 02/22/2022 14:[address] Recent VS Heart Rate 79 bpm 02/22/2022 14:29 Most Rec ent VS O2 % BldC Oximetry 94 % 02/22/2022 14:29 Most Recent VS Body Temperature 35.9 degrees 02/22/2022 14:[address] Recent VS Allergies Unknown or Not Available. Procedures Unknown or Not Available. History of Immunizations Unknown or Not Available. Problems Problem Code Start Date Resolved Date Status HTN 71147128 Active History of IV (intravenous) drug abuse 31605369844828457 Active Opioid use disorder, severe 43191949 Active Multiple subsegmental pulmon fredy emboli without acute cor pulmonale 57685082 Active Saddle embolus 395521093 Active DVT of left lower extremity 600944860 Active MSSA sepsis 22860060065335 Active Chronic anemia 890008337 Active MRSA colonization 245543432 Active Septic pulmonary embolism 397266910 2022 Resolved Bacteremia caused by Gram-positive bacteria 912132027958 2022 Resolved Gout 10807988 06/15/2022 Resolved MRSA infection 379836687 2022 Resolved Fever 341055620 11/15/2022 Resolved Congestive heart failure 59496024 11/16/2022 Resolved Discitis, unspecified, lumbosacral region 0411469 2022 Resolved Hyponatremia 07219955 11/15/2022 Resolved Hypokalemia 64950709 11/15/2022 Resolved Results C REACTIVE PROTEIN HIGH SENS ITIVITY* - Collect Date/Time: 02/22/2022 14:35 Test Name Code Test Result Test Units Test Ref Rang e CRP-HIGH SENS. 00412-5 39.28 mg/L L=0.00 H=3 .00 CRP-HIGH SENS 48717-6 3.93 mg/dL L=0.00 H=0. 30 COMPREHENSIVE METABOLIC PANE L (CMP) - Collect Date/Time: 02/22/2022 14:35 Test Name Code Test Result Test Units Test Ref Rang e GLUCOSE 2345-7 97 mg/dL L=70 H=116 BUN 3094-0 13 mg/dL L=6 H=25 CREATININE 2160-0 0.90 mg/dL L=0.67 H=1.17 SODIUM SERUM 2951-2 136 mmol/L L=136 H=145 POTASSIUM SERUM 2823-3 4.3 mmol/L L=3.4 H=5 .2 CHLORIDE SERUM 2075-0 101 mmol/L L=96 H=110 CARBON DIOXIDE (CO2) 2028-9 25 mmol/L L=22 H=34 ANION GAP 24719-8 9.9 mmol/L CALCIUM SERUM 48656-3 9.3 mg/dL L=8.2 H=10. 2 BILIRUBIN TOTAL 1975-2 0.3 mg/dL L=0.0 H=1 .3 ALK. PHOS. 6768-6 58 U/L L=46 H=116 SGOT (AST) 1920-8 17 U/L L=15 H=37 SGPT (ALT) 1742-6 21 U/L L=12 H=78 TOTAL PROTEIN 2885-2 9.4 gm/dL L=6.0 H=8.0 ALBUMIN 1751-7 3.7 gm/dL L=3.4 H=5.0 AGE 41 years eGFR (non-Afr.Amer.) 38650-3 93 mL/min eGFR (Afr-Gibraltarian) 82082-5 113 mL/min LIPASE* NEW - Collect Date/T esteban: 02/22/2022 14:35 Test Name Code Test Result Test Units Test Ref Rang e LIPASE. 37 U/L L=16 H=77 CBC W/ DIFFERENTIAL* - Colle ct Date/Time: 02/22/2022 11:21 Test Name Code Test Result Test Units Test Ref Rang e WBC 6690-2 7.62 th/cmm L=5.00 H=10.00 NEUT % 60.4 % L=40.0 H=80.0 LYMPH % 32.8 % L=10.0 H=50.0 MONO % 92797-4 5.6 % L=2.0 H=12.0 EOS % 0.8 % L=0.0 H=8.0 BASO % 0.3 % L=0.0 H=3.0 IG % 2514-8 0.1 % L=0.0 H=1.1 NRBC % 48665-4 0.0 % L=0.0 H=0.0 NEUT abs count 751-8 4.6 th/cmm L=1.6 H=8. 4 LYMPH abs count 731-0 2.5 th/cmm L=1.5 H=4 .0 MONO abs count 742-7 0.4 th/cmm L=0.2 H=1. 0 EOS abs count 711-2 0.1 th/cmm L=0.0 H=0.5 BASO abs count 704-7 0.0 th/cmm L=0.0 H=0. 2 IG abs count 85732-2 0.0 th/cmm L=0.0 H=0.1 NRBC abs count 41792-8 0.0 mil/cmm L=0.0 H=0. 0 RBC 789-8 5.74 mil/cmm L=4.30 H=6.20 HEMOGLOBIN 718-7 14.7 gm/dL L=13.0 H=17.0 HEMATOCRIT 4544-3 47 % L=45 H=52 MCV 787-2 82 fL L=82 H=92 MCH 785-6 25.6 pg L=27.0 H=31.0 MCHC 786-4 31.4 % L=32.0 H=36.0 RDW-SD 788-0 43.8 fL L=39.0 H=49.0 PLATELET COUNT 777-3 251 th/cmm L=150 H=45 0 SED RATE* - Collect Date/Donny e: 02/22/2022 11:21 Test Name Code Test Result Test Units Test Ref Rang e SED. RATE 4537-7 109 mm/hr L=0 H=15 Active Medications Medications Administered During Visit Medication Dose Units Frequency Route Date/Time of Last Dose ACETAMINOPHEN INJ IVPB: 1000MG/100ML 1000 MG X1 02/22/2022 14:4 3 Encounters Encounter Diagnosis Diagnosis Code Start Date Low back pain, unspecified M5450 02/22 Social History Smoking Status Code Start Date End Date Current every day smoker [id number] Patient Decision Aids Unknown or Not Available. Discharge Instructions You were admitted to [facility] on 02/22/2022 11:31 with a principal diagnosis of Low back pain, unspecified You had the following tests done:C REACTIVE PROTEIN HIGH SENSITIVITY*COMPREHENSIVE METABOLIC PANEL (CMP)LIPASE* NEWCBC W/ DIFFERENTIAL*SED RATE* You were discharged from [facility] on 02/22/2022 16:10 Should you have [...]
--- OUTSIDE RECORDS SUMMARY | 2023-02-17 11:10 | XMS_ITS | CCD ---
Author Name Unknown Address [address] [place] [address] [phone] Organization Unknown Address [address] [place] [address] [phone] Care Team Providers Care Internal Salesperson Name Role Phone CHEMO PARRA Attending Physician [phone] Vital Signs Unknown or Not Available. Allergies Allergy Code Allergy Type Reaction Status No Known Drug Allergies 0 No known drug allergies Active Procedures Unknown or Not Available. History of Immunizations Unknown or Not Available. Problems Problem Code Start Date Resolved Date Status HTN 44519200 Active History of IV (intravenous) drug abuse 31491837031265048 Active Opioid use disorder, severe 82692963 Active Multiple subsegmental pulmon fredy emboli without acute cor pulmonale 03480437 Active Saddle embolus 720669372 Active DVT of left lower extremity 023011706 Active MSSA sepsis 95140789471853 Active Chronic anemia 975128186 Active MRSA colonization 496843128 Active Septic pulmonary embolism 998875976 2022 Resolved Bacteremia caused by Gram-positive bacteria 391552452556 2022 Resolved Gout 50672913 06/15/2022 Resolved MRSA infection 120798715 2022 Resolved Fever 845491596 11/15/2022 Resolved Congestive heart failure 67982266 11/16/2022 Resolved Discitis, unspecified, lumbosacral region 5136232 2022 Resolved Hyponatremia 16277520 11/15/2022 Resolved Hypokalemia 07348913 11/15/2022 Resolved Results Unknown or Not Available. Active Medications Medication Code Dose Units Frequency Route Modificatio n Start Date/Time Losartan Potassium 50MG Oral Tablet 822968 1 TABLET DAILY ORAL 11/24/19 10:35 Prescription Detail TAKE 1 TABLET ORAL DAILY Cefuroxime Axetil 500MG Oral Tablet 424932 1 TABLET DAILY ORAL 11/24/19 10:30 Prescription Detail TAKE 1 TABLET ORAL DAILY AFTER YOU FINIS H THE FULL COURSE OF ANTIBIOTIC. TO BE CONTINUED FOR 3 MONTHS Ibuprofen 200MG Oral Tablet 880192 3 TABLET NEEDED THREE TIMES A DAY ORAL 11/23/2022 10:13 Prescription Detail TAKE 3 TABLET ORAL NEEDED THREE TIMES A DAY FOR GOUT, TAKE WITH FOOD Cefuroxime Axetil 500MG Oral Tablet 239442 2 TABLET EVERY 8 HOURS ORAL 11/23/2022 10:12 Prescription Detail TAKE 2 TABLET ORAL EVERY 8 HOURS Colchicine 0.6MG Oral Tablet 429501 0.6 MILLIGRAMS DAILY ORAL 3 10:11 Prescription Detail TAKE 0.6 MILLIGRAMS ORAL DAILY Eliquis 5MG Oral Tablet 3299248 1 TABLET TWICE A DAY ORAL 11/18/2022 17:29 Prescription Detail TAKE 1 TABLET ORAL TWICE A DAY Suboxone 8MG-2MG Sublingual Film 7740806 3 EACH DAILY SUBLINGUAL 15:04 Prescription Detail DISSOLVE 3 EACH SUBLINGUAL DAILY Acetaminophen 500MG Oral Tablet 853342 2 TABLET NEEDED THREE TIMES A DAY ORAL 07/23/2022 10:05 Prescription Detail TAKE 2 TABLET ORAL NEEDED THREE TIMES A DAY FOR PAIN Medications Administered During Visit Unknown or Not Available. Encounters Encounter Diagnosis Diagnosis Code Start Date Osteomyelitis of vertebra, lumbosacral region M4 627 06/14/2022 Social History Smoking Status Code Start Date End Date Current every day smoker 930584101 Patient Decision Aids Unknown or Not Available. Discharge Instructions You were admitted to [facility] on 06/14/2022 11:07 with a principal diagnosis of Osteomyelitis of vertebra, lumbosacral region You were discharged from [facility] on 06/24/2022 00:00 Should you have any questions prior to [...]
--- OUTSIDE RECORDS SUMMARY | 2023-02-17 11:10 | XMS_ITS | CCD ---
Author Name Unknown Address [address] [place] [address] [id number] Organization Unknown Address [address] [place] [address] [id number] Care Team Providers Care Drafting Detailer Name Role Phone BOBBY BOLTON Attending Physician [phone] Vital Signs Unknown or Not Available. Allergies Allergy Code Allergy Type Reaction Status No Known Drug Allergies 0 No known drug allergies Active Procedures Unknown or Not Available. History of Immunizations Unknown or Not Available. Problems Problem Code Start Date Resolved Date Status HTN 68632652 Active History of IV (intravenous) drug abuse 83655179584967987 Active Opioid use disorder, severe 55220584 Active Multiple subsegmental pulmon fredy emboli without acute cor pulmonale 35995491 Active Saddle embolus 466421701 Active DVT of left lower extremity 778899780 Active MSSA sepsis 42786090588299 Active Chronic anemia 793122569 Active MRSA colonization 890493491 Active Septic pulmonary embolism 288416230 2022 Resolved Bacteremia caused by Gram-positive bacteria 659280393527 2022 Resolved MRSA infection 250246466 2022 Resolved Fever 242924069 11/15/2022 Resolved Congestive heart failure 94721776 11/16/2022 Resolved Discitis, unspecified, lumbosacral region 1926684 2022 Resolved Hyponatremia 95815362 11/15/2022 Resolved Hypokalemia 42762160 11/15/2022 Resolved Results Unknown or Not Available. Active Medications Medication Code Dose Units Frequency Route Modificatio n Start Date/Time Losartan Potassium 50MG Oral Tablet 712642 1 TABLET DAILY ORAL 11/24/19 23 10:35 Prescription Detail TAKE 1 TABLET ORAL DAILY Cefuroxime Axetil 500MG Oral Tablet 476747 1 TABLET DAILY ORAL 11/24/19 10:30 Prescription Detail TAKE 1 TABLET ORAL DAILY AFTER YOU FINIS H THE FULL COURSE OF ANTIBIOTIC. TO BE CONTINUED FOR 3 MONTHS Ibuprofen 200MG Oral Tablet 296471 3 TABLET NEEDED THREE TIMES A DAY ORAL 11/23/2022 10:13 Prescription Detail TAKE 3 TABLET ORAL NEEDED THREE TIMES A DAY FOR GOUT, TAKE WITH FOOD Cefuroxime Axetil 500MG Oral Tablet 336585 2 TABLET EVERY 8 HOURS ORAL 11/23/2022 10:12 Prescription Detail TAKE 2 TABLET ORAL EVERY 8 HOURS Colchicine 0.6MG Oral Tablet 448229 0.6 MILLIGRAMS DAILY ORAL 10:11 Prescription Detail TAKE 0.6 MILLIGRAMS ORAL DAILY Eliquis 5MG Oral Tablet 5367904 1 TABLET TWICE A DAY ORAL 11/18/2022 17:29 Prescription Detail TAKE 1 TABLET ORAL TWICE A DAY Suboxone 8MG-2MG Sublingual Film 6039680 3 EACH DAILY SUBLINGUAL 15:04 Prescription Detail DISSOLVE 3 EACH SUBLINGUAL DAILY Acetaminophen 500MG Oral Tablet 014505 2 TABLET NEEDED THREE TIMES A DAY ORAL 07/23/2022 10:05 Prescription Detail TAKE 2 TABLET ORAL NEEDED THREE TIMES A DAY FOR PAIN Medications Administered During Visit Unknown or Not Available. Encounters Encounter Diagnosis Diagnosis Code Start Date Osteomyelitis of vertebra, lumbar region M4626 06/27/2022 Social History Smoking Status Code Start Date End Date Current every day smoker [id number] Patient Decision Aids Unknown or Not Available. Discharge Instructions You were admitted to [facility] on 06/27/2022 03:03 with a principal diagnosis of Osteomyelitis of vertebra, lumbar region You were discharged from [facility] on 07/23/2022 03:03 Should you have any questions prior to [...]
--- OUTSIDE RECORDS SUMMARY | 2023-02-17 11:10 | XMS_ITS | CCD ---
Author Name Unknown Address [address] [place] [address] [id number] Organization Unknown Address [address] [place] [address] [phone] Care Team Providers Care Photograph Enlarger Name Role Phone BOBBY BOLTON Attending Physician [phone] Vital Signs Unknown or Not Available. Allergies Allergy Code Allergy Type Reaction Status No Known Drug Allergies 0 No known drug allergies Active Procedures Unknown or Not Available. History of Immunizations Unknown or Not Available. Problems Problem Code Start Date Resolved Date Status HTN 23459020 Active History of IV (intravenous) drug abuse 45879326074820587 Active Opioid use disorder, severe 11089439 Active Multiple subsegmental pulmon fredy emboli without acute cor pulmonale 14918902 Active Saddle embolus 839550402 Active DVT of left lower extremity 316901812 Active MSSA sepsis 65940609748404 Active Chronic anemia 173414401 Active MRSA colonization 203894652 Active Septic pulmonary embolism 362442153 2022 Resolved Bacteremia caused by Gram-positive bacteria 234065070702 2022 Resolved Gout 74605882 06/15/2022 Resolved MRSA infection 075119655 2022 Resolved Fever 496754740 11/15/2022 Resolved Congestive heart failure 90057807 11/16/2022 Resolved Discitis, unspecified, lumbosacral region 2258603 2022 Resolved Hyponatremia 55520793 11/15/2022 Resolved Hypokalemia 78556267 11/15/2022 Resolved Results Unknown or Not Available. Active Medications Medication Code Dose Units Frequency Route Modificatio n Start Date/Time Losartan Potassium 50MG Oral Tablet 025217 1 TABLET DAILY ORAL 11/24/19 10:35 Prescription Detail TAKE 1 TABLET ORAL DAILY Cefuroxime Axetil 500MG Oral Tablet 427818 1 TABLET DAILY ORAL 11/24/19 10:30 Prescription Detail TAKE 1 TABLET ORAL DAILY AFTER YOU FINIS H THE FULL COURSE OF ANTIBIOTIC. TO BE CONTINUED FOR 3 MONTHS Ibuprofen 200MG Oral Tablet 733612 3 TABLET NEEDED THREE TIMES A DAY ORAL 11/23/2022 10:13 Prescription Detail TAKE 3 TABLET ORAL NEEDED THREE TIMES A DAY FOR GOUT, TAKE WITH FOOD Cefuroxime Axetil 500MG Oral Tablet 354771 2 TABLET EVERY 8 HOURS ORAL 11/23/2022 10:12 Prescription Detail TAKE 2 TABLET ORAL EVERY 8 HOURS Colchicine 0.6MG Oral Tablet 469491 0.6 MILLIGRAMS DAILY ORAL 3 10:11 Prescription Detail TAKE 0.6 MILLIGRAMS ORAL DAILY Eliquis 5MG Oral Tablet 1696930 1 TABLET TWICE A DAY ORAL 11/18/2022 17:29 Prescription Detail TAKE 1 TABLET ORAL TWICE A DAY Suboxone 8MG-2MG Sublingual Film 0695543 3 EACH DAILY SUBLINGUAL 15:04 Prescription Detail DISSOLVE 3 EACH SUBLINGUAL DAILY Acetaminophen 500MG Oral Tablet 650553 2 TABLET NEEDED THREE TIMES A DAY ORAL 07/23/2022 10:05 Prescription Detail TAKE 2 TABLET ORAL NEEDED THREE TIMES A DAY FOR PAIN Medications Administered During Visit Unknown or Not Available. Encounters Encounter Diagnosis Diagnosis Code Start Date Osteomyelitis of vertebra, lumbosacral region M4 627 06/07/2022 Social History Smoking Status Code Start Date End Date Current every day smoker [id number] Patient Decision Aids Unknown or Not Available. Discharge Instructions You were admitted to [facility] on 06/07/2022 00:55 with a principal diagnosis of Osteomyelitis of vertebra, lumbosacral region You were discharged from [facility] on 06/13/2022 00:55 Should you have any questions prior to [...]
--- OUTSIDE RECORDS SUMMARY | 2023-02-17 11:10 | XMS_ITS | CCD ---
Author Name Unknown Address [address] [place] [address] [phone] Organization Unknown Address [address] [place] [address] [id number] Care Team Providers Care Seam Hammerer Name Role Phone BOBBY BOLTON Attending Physician [phone] Vital Signs Vital Sign Value Unit Date/Time Recent/Initial ? BP Systolic 128 mmHg 06/25/2022 08:31 Initial VS BP Diastolic 90 mmHg 06/25/2022 08:31 Initia l VS Respiratory Rate 20 bpm 06/25/2022 08:31 In itial VS Heart Rate 76 bpm 06/25/2022 08:31 Initial VS O2 % BldC Oximetry 99 % 06/25/2022 08:31 Initial VS Body Temperature 35.7 degrees 06/25/2022 08:31 In itial VS BP Systolic 128 mmHg 07/23/2022 07:00 Most Re cent VS BP Diastolic 72 mmHg 07/23/2022 07:00 Most R ecent VS Respiratory Rate 18 bpm 07/23/2022 07:[address] Recent VS Heart Rate 82 bpm 07/23/2022 07:00 Most Rec ent VS O2 % BldC Oximetry 96 % 07/23/2022 07:00 Most Recent VS Body Temperature 36.5 degrees 07/23/2022 07:[address] Recent VS Allergies Allergy Code Allergy Type Reaction Status No Known Drug Allergies 0 No known drug allergies Active Procedures Unknown or Not Available. History of Immunizations Unknown or Not Available. Problems Problem Code Start Date Resolved Date Status HTN 94192707 Active History of IV (intravenous) drug abuse 92779796666527188 Active Opioid use disorder, severe 23882781 Active Multiple subsegmental pulmon fredy emboli without acute cor pulmonale 66725194 Active Saddle embolus 740004198 Active DVT of left lower extremity 336647719 Active MSSA sepsis 91926577850209 Active Chronic anemia 599129103 Active MRSA colonization 931946247 Active Septic pulmonary embolism 779540734 2022 Resolved Bacteremia caused by Gram-positive bacteria 418476777441 2022 Resolved MRSA infection 627307103 2022 Resolved Fever 716549377 11/15/2022 Resolved Congestive heart failure 44896373 11/16/2022 Resolved Discitis, unspecified, lumbosacral region 3381839 2022 Resolved Hyponatremia 34676545 11/15/2022 Resolved Hypokalemia 62091783 11/15/2022 Resolved Results BASIC METABOLIC PANEL (BMP) - Collect Date/Time: 06/28/2022 06:35 Test Name Code Test Result Test Units Test Ref Rang e GLUCOSE 2345-7 103 mg/dL L=70 H=116 BUN 3094-0 14 mg/dL L=6 H=25 CREATININE 2160-0 0.93 mg/dL L=0.67 H=1.17 SODIUM SERUM 2951-2 137 mmol/L L=136 H=145 POTASSIUM SERUM 2823-3 4.3 mmol/L L=3.4 H=5 .2 CHLORIDE SERUM 2075-0 103 mmol/L L=96 H=110 CARBON DIOXIDE (CO2) 2028-9 24 mmol/L L=22 H=34 ANION GAP 94312-0 9.6 mmol/L CALCIUM SERUM 13396-4 9.0 mg/dL L=8.2 H=10. 2 AGE 41 years eGFR (non-Afr.Amer.) 91083-8 90 mL/min eGFR (Afr-Comoran) 65297-4 109 mL/min C REACTIVE PROTEIN HIGH SENS ITIVITY* - Collect Date/Time: 07/19/2022 06:45 Test Name Code Test Result Test Units Test Ref Rang e CRP-HIGH SENS. 07707-4 12.94 mg/L L=0.00 H=3 .00 CRP-HIGH SENS 09064-8 1.29 mg/dL L=0.00 H=0. 30 C REACTIVE PROTEIN HIGH SENS ITIVITY* - Collect Date/Time: 07/13/2022 10:00 Test Name Code Test Result Test Units Test Ref Rang e CRP-HIGH SENS. 62551-5 6.32 mg/L L=0.00 H=3 .00 CRP-HIGH SENS 60739-4 0.63 mg/dL L=0.00 H=0. 30 C REACTIVE PROTEIN HIGH SENS ITIVITY* - Collect Date/Time: 07/05/2022 06:10 Test Name Code Test Result Test Units Test Ref Rang e CRP-HIGH SENS. 97710-9 27.36 mg/L L=0.00 H=3 .00 CRP-HIGH SENS 09785-3 2.74 mg/dL L=0.00 H=0. 30 C REACTIVE PROTEIN HIGH SENS ITIVITY* - Collect Date/Time: 06/28/2022 06:35 Test Name Code Test Result Test Units Test Ref Rang e CRP-HIGH SENS. 31858-9 26.36 mg/L L=0.00 H=3 .00 CRP-HIGH SENS 57468-3 2.64 mg/dL L=0.00 H=0. 30 COMPREHENSIVE METABOLIC PANE L (CMP) - Collect Date/Time: 07/19/2022 06:45 Test Name Code Test Result Test Units Test Ref Rang e GLUCOSE 2345-7 113 mg/dL L=70 H=116 BUN 3094-0 14 mg/dL L=6 H=25 CREATININE 2160-0 1.00 mg/dL L=0.67 H=1.17 SODIUM SERUM 2951-2 138 mmol/L L=136 H=145 POTASSIUM SERUM 2823-3 4.3 mmol/L L=3.4 H=5 .2 CHLORIDE SERUM 2075-0 102 mmol/L L=96 H=110 CARBON DIOXIDE (CO2) 2028-9 27 mmol/L L=22 H=34 ANION GAP 51283-6 9.1 mmol/L CALCIUM SERUM 31619-9 9.0 mg/dL L=8.2 H=10. 2 BILIRUBIN TOTAL 1975-2 0.4 mg/dL L=0.0 H=1 .3 ALK. PHOS. 6768-6 62 U/L L=46 H=116 SGOT (AST) 1920-8 23 U/L L=15 H=37 SGPT (ALT) 1742-6 35 U/L L=12 H=78 TOTAL PROTEIN 2885-2 8.1 gm/dL L=6.0 H=8.0 ALBUMIN 1751-7 3.4 gm/dL L=3.4 H=5.0 AGE 41 years eGFR (non-Afr.Amer.) 54837-1 83 mL/min eGFR (Afr-Comoran) 31619-3 100 mL/min COMPREHENSIVE METABOLIC PANE L (CMP) - Collect Date/Time: 07/13/2022 10:00 Test Name Code Test Result Test Units Test Ref Rang e GLUCOSE 2345-7 117 mg/dL L=70 H=116 BUN 3094-0 14 mg/dL L=6 H=25 CREATININE 2160-0 1.17 mg/dL L=0.67 H=1.17 SODIUM SERUM 2951-2 139 mmol/L L=136 H=145 POTASSIUM SERUM 2823-3 3.8 mmol/L L=3.4 H=5 .2 CHLORIDE SERUM 2075-0 102 mmol/L L=96 H=110 CARBON DIOXIDE (CO2) 2028-9 28 mmol/L L=22 H=34 ANION GAP 53073-1 8.6 mmol/L CALCIUM SERUM 08889-6 8.8 mg/dL L=8.2 H=10. 2 BILIRUBIN TOTAL 1975-2 0.3 mg/dL L=0.0 H=1 .3 ALK. PHOS. 6768-6 67 U/L L=46 H=116 SGOT (AST) 1920-8 21 U/L L=15 H=37 SGPT (ALT) 1742-6 41 U/L L=12 H=78 TOTAL PROTEIN 2885-2 8.6 gm/dL L=6.0 H=8.0 ALBUMIN 1751-7 3.6 gm/dL L=3.4 H=5.0 AGE 41 years eGFR (non-Afr.Amer.) 45181-2 69 mL/min eGFR (Afr-Comoran) 62358-9 84 mL/min COMPREHENSIVE METABOLIC PANE L (CMP) - Collect Date/Time: 07/05/2022 06:10 Test Name Code Test Result Test Units Test Ref Rang e GLUCOSE 2345-7 111 mg/dL L=70 H=116 BUN 3094-0 14 mg/dL L=6 H=25 CREATININE 2160-0 0.99 mg/dL L=0.67 H=1.17 SODIUM SERUM 2951-2 139 mmol/L L=136 H=145 POTASSIUM SERUM 2823-3 4.3 mmol/L L=3.4 H=5 .2 CHLORIDE SERUM 2075-0 105 mmol/L L=96 H=110 CARBON DIOXIDE (CO2) 2028-9 27 mmol/L L=22 H=34 ANION GAP 25744-0 7.3 mmol/L CALCIUM SERUM 46075-3 8.7 mg/dL L=8.2 H=10. 2 BILIRUBIN TOTAL 1975-2 0.3 mg/dL L=0.0 H=1 .3 ALK. PHOS. 6768-6 71 U/L L=46 H=116 SGOT (AST) 1920-8 29 U/L L=15 H=37 SGPT (ALT) 1742-6 41 U/L L=12 H=78 TOTAL PROTEIN 2885-2 8.1 gm/dL L=6.0 H=8.0 ALBUMIN 1751-7 2.7 gm/dL L=3.4 H=5.0 AGE 41 years eGFR (non-Afr.Amer.) 08237-6 84 mL/min eGFR (Afr-Comoran) 47846-2 101 mL/min CPK SERUM TOTAL* - Collect D ate/Time: 07/19/2022 06:45 Test Name Code Test Result Test Units Test Ref Rang e CPK 2157-6 110 U/L L=0 H=150 Specimen seq. RANDOM N/A CPK SERUM TOTAL* - Collect D ate/Time: 07/13/2022 10:00 Test Name Code Test Result Test Units Test Ref Rang e CPK 2157-6 104 U/L L=0 H=150 Specimen seq. RANDOM N/A CPK SERUM TOTAL* - Collect D ate/Time: 07/05/2022 06:10 Test Name Code Test Result Test Units Test Ref Rang e CPK 2157-6 73 U/L L=0 H=150 Specimen seq. RANDOM N/A CPK SERUM TOTAL* - Collect D ate/Time: 06/28/2022 06:35 Test Name Code Test Result Test Units Test Ref Rang e CPK 2157-6 44 U/L L=0 H=150 Specimen seq. RANDOM N/A CBC W/ DIFFERENTIAL* - Colle ct Date/Time: 07/19/2022 06:45 Test Name Code Test Result Test Units Test Ref Rang e WBC 6690-2 5.78 th/cmm L=5.00 H=10.00 NEUT % 43.8 % L=40.0 H=80.0 LYMPH % 40.3 % L=10.0 H=50.0 MONO % 99044-2 9.7 % L=2.0 H=12.0 EOS % 5.2 % L=0.0 H=8.0 BASO % 0.7 % L=0.0 H=3.0 IG % 2514-8 0.3 % L=0.0 H=1.1 NRBC % 66920-7 0.0 % L=0.0 H=0.0 NEUT abs count 751-8 2.5 th/cmm L=1.6 H=8. 4 LYMPH abs count 731-0 2.3 th/cmm L=1.5 H=4 .0 MONO abs count 742-7 0.6 th/cmm L=0.2 H=1. 0 EOS abs count 711-2 0.3 th/cmm L=0.0 H=0.5 BASO abs count 704-7 0.0 th/cmm L=0.0 H=0. 2 IG abs count 10267-4 0.0 th/cmm L=0.0 H=0.1 NRBC abs count 74812-0 0.0 mil/cmm L=0.0 H=0. 0 RBC 789-8 4.83 mil/cmm L=4.30 H=6.20 HEMOGLOBIN 718-7 12.1 gm/dL L=13.0 H=17.0 HEMATOCRIT 4544-3 39 % L=45 H=52 MCV 787-2 80 fL L=82 H=92 MCH 785-6 25.1 pg L=27.0 H=31.0 MCHC 786-4 31.3 % L=32.0 H=36.0 RDW-SD 788-0 51.9 fL L=39.0 H=49.0 PLATELET COUNT 777-3 190 th/cmm L=150 H=45 0 CBC W/ DIFFERENTIAL* - Colle ct Date/Time: 07/13/2022 10:00 Test Name Code Test Result Test Units Test Ref Rang e WBC 6690-2 7.15 th/cmm L=5.00 H=10.00 NEUT % 61.2 % L=40.0 H=80.0 LYMPH % 30.5 % L=10.0 H=50.0 MONO % 13463-8 5.2 % L=2.0 H=12.0 EOS % 2.4 % L=0.0 H=8.0 BASO % 0.4 % L=0.0 H=3.0 IG % 2514-8 0.3 % L=0.0 H=1.1 NRBC % 48005-5 0.0 % L=0.0 H=0.0 NEUT abs count 751-8 4.4 th/cmm L=1.6 H=8. 4 LYMPH abs count 731-0 2.2 th/cmm L=1.5 H=4 .0 MONO abs count 742-7 0.4 th/cmm L=0.2 H=1. 0 EOS abs count 711-2 0.2 th/cmm L=0.0 H=0.5 BASO abs count 704-7 0.0 th/cmm L=0.0 H=0. 2 IG abs count 27054-3 0.0 th/cmm L=0.0 H=0.1 NRBC abs count 60639-8 0.0 mil/cmm L=0.0 H=0. 0 RBC 789-8 4.90 mil/cmm L=4.30 H=6.20 HEMOGLOBIN 718-7 12.1 gm/dL L=13.0 H=17.0 HEMATOCRIT 4544-3 40 % L=45 H=52 MCV 787-2 81 fL L=82 H=92 MCH 785-6 24.7 pg L=27.0 H=31.0 MCHC 786-4 30.6 % L=32.0 H=36.0 RDW-SD 788-0 49.1 fL L=39.0 H=49.0 PLATELET COUNT 777-3 238 th/cmm L=150 H=45 0 CBC W/ DIFFERENTIAL* - Colle ct Date/Time: 07/05/2022 06:10 Test Name Code Test Result Test Units Test Ref Rang e WBC 6690-2 7.95 th/cmm L=5.00 H=10.00 NEUT % 46.9 % L=40.0 H=80.0 LYMPH % 37.6 % L=10.0 H=50.0 MONO % 05717-2 8.1 % L=2.0 H=12.0 EOS % 6.2 % L=0.0 H=8.0 BASO % 0.8 % L=0.0 H=3.0 IG % 2514-8 0.4 % L=0.0 H=1.1 NRBC % 13645-1 0.0 % L=0.0 H=0.0 NEUT abs count 751-8 3.7 th/cmm L=1.6 H=8. 4 LYMPH abs count 731-0 3.0 th/cmm L=1.5 H=4 .0 MONO abs count 742-7 0.6 th/cmm L=0.2 H=1. 0 EOS abs count 711-2 0.5 th/cmm L=0.0 H=0.5 BASO abs count 704-7 0.1 th/cmm L=0.0 H=0. 2 IG abs count 63714-0 0.0 th/cmm L=0.0 H=0.1 NRBC abs count 86630-4 0.0 mil/cmm L=0.0 H=0. 0 RBC 789-8 4.66 mil/cmm L=4.30 H=6.20 HEMOGLOBIN 718-7 11.6 gm/dL L=13.0 H=17.0 HEMATOCRIT 4544-3 37 % L=45 H=52 MCV 787-2 80 fL L=82 H=92 MCH 785-6 24.9 pg L=27.0 H=31.0 MCHC 786-4 31.0 % L=32.0 H=36.0 RDW-SD 788-0 44.9 fL L=39.0 H=49.0 PLATELET COUNT 777-3 210 th/cmm L=150 H=45 0 CBC W/ DIFFERENTIAL* - [facility]– [place] Date/Time: 06/28/2022 06:35 Test Name Code Test Result Test Units Test Ref Rang e WBC 6690-2 5.26 th/cmm L=5.00 H=10.00 NEUT % 41.9 % L=40.0 H=80.0 LYMPH % 39.5 % L=10.0 H=50.0 MONO % 98287-6 10.5 % L=2.0 H=12.0 EOS % 6.8 % L=0.0 H=8.0 BASO % 1.1 % L=0.0 H=3.0 IG % 2514-8 0.2 % L=0.0 H=1.1 NRBC % 35821-8 0.0 % L=0.0 H=0.0 NEUT abs count 751-8 2.2 th/cmm L=1.6 H=8. 4 LYMPH abs count 731-0 2.1 th/cmm L=1.5 H=4 .0 MONO abs count 742-7 0.6 th/cmm L=0.2 H=1. 0 EOS abs count 711-2 0.4 th/cmm L=0.0 H=0.5 BASO abs count 704-7 0.1 th/cmm L=0.0 H=0. 2 IG abs count 38912-4 0.0 th/cmm L=0.0 H=0.1 NRBC abs count 25628-9 0.0 mil/cmm L=0.0 H=0. 0 RBC 789-8 4.52 mil/cmm L=4.30 H=6.20 HEMOGLOBIN 718-7 11.0 gm/dL L=13.0 H=17.0 HEMATOCRIT 4544-3 36 % L=45 H=52 MCV 787-2 79 fL L=82 H=92 MCH 785-6 24.3 pg L=27.0 H=31.0 MCHC 786-4 30.7 % L=32.0 H=36.0 RDW-SD 788-0 43.5 fL L=39.0 H=49.0 PLATELET COUNT 777-3 275 th/cmm L=150 H=45 0 SED RATE* - Collect Date/Donny e: 07/13/2022 10:00 Test Name Code Test Result Test Units Test Ref Rang e SED. RATE 4537-7 91 mm/hr L=0 H=15 Active Medications Medications Administered During Visit Medication Dose Units Frequency Route Date/Time of Last Dose BUPRENORPHINE/NALOXONE SL TAB: 2MG/0.5MG 8 TAB DAILY SL 07/23/2022 09 :02 APIXABAN TAB: 5MG 5 MG BID PO 09:02 SODIUM CHLORIDE 0.9% FLUSH 10ML SYRINGE 2 ML Q8H IVP 07/23/2022 04:1 5 ACETAMINOPHEN TABLET: 325MG 975 MG PRN Q6H PO 07/16/2022 13:57 DAPTOmycin INJ SDV: 500MG Q24H 07/23/2022 09:41 MELATONIN TABLET: 5MG 5 MG PRN BEDTIME PO 06/30/2022 20:17 NAPROXEN TABLET: 250MG 500 MG BID WITH FOOD PO 07/23/2022 09:03 DiphenhydrAMINE CAP: 25MG 50 MG BEDTIME PO 07/22/2022 20:32 CEFTAROLINE FOSAMIL INJ SDV (NF): 600MG Q8H 07/22/2022 12:3 3 ALTEPLASE INJ SDV: 2MG 2 MG PRN X1 IVP 07/17/2022 09:01 LOSARTAN TABLET: 50MG 50 MG DAILY PO 07/23/2022 09:03 LOSARTAN TABLET: 50MG 50 MG X1 PO 07/09/2022 17:51 PredniSONE TABLET: 20MG 20 MG X1 PO 07/09/2022 17:51 PredniSONE TABLET: 20MG 20 MG DAILY WITH FOOD PO 07/13/2022 08:08 SACCHAROMYCES CAPSULE: 250MG 250 MG X1 P O 07/20/2022 13:39 SACCHAROMYCES CAPSULE: 250MG 250 MG BID P O 07/23/2022 09:03 CEFTAROLINE FOSAMIL INJ SDV (NF): 600MG Q8H 07/23/2022 04:1 4 Encounters Encounter Diagnosis Diagnosis Code Start Date Osteomyelitis of vertebra, lumbar region M4626 06/24/2022 Social History Smoking Status Code Start Date End Date Current every day smoker [id number] Patient Decision Aids Unknown or Not Available. Discharge Instructions You were admitted to [facility] on 06/24/2022 10:15 with a principal diagnosis of Osteomyelitis of vertebra, lumbar region You had the following tests done:C REACTIVE PROTEIN HIGH SENSITIVITY*CBC W/ DIFFERENTIAL*COMPREHENSIVE METABOLIC PANEL (CMP)CPK SERUM TOTAL*C REACTIVE PROTEIN HIGH SENSITIVITY*CBC W/ DIFFERENTIAL*COMPREHENSIVE METABOLIC PANEL (CMP)CPK SERUM TOTAL*SED RATE*C REACTIVE PROTEIN HIGH SENSITIVITY*CBC W/ DIFFERENTIAL*COMPREHENSIVE METABOLIC PANEL (CMP)CPK SERUM TOTAL*BASIC METABOLIC PANEL (BMP)C REACTIVE PROTEIN HIGH SENSITIVITY*CBC W/ DIFFERENTIAL*CPK SERUM TOTAL* You were discharged from [facility] on 07/23/2022 10:50 Should you have any questions prior to discharge, please contact a member of your healthcare team. If you have left the hospital and have any questions, please contact your primary care physician. Chief Complaint and Reason For Visit Chief Complaint Date of Onset OSTEOMYEITIS DISKITIS LUMBER SPINE WITH MRSA BACTEREMIA Function Status Unknown or Not Available. Plan of Care Unknown or Not Available. Referral/Transition of Care Unknown or Not Available.
--- OUTSIDE RECORDS SUMMARY | 2023-02-17 11:10 | XMS_ITS | CCD ---
Author Name Unknown Address [address] [place] [address] [phone] Organization Unknown Address [address] [place] [address] [id number] Care Team Providers Care Branch Operation Evaluation Manager Name Role Phone BOBBY BOLTON Attending Physician [phone] LISY OGDEN Er Physician 9 [phone] LISY OGDENing (Secondary) Physician 8 [phone] OG Hogan Registered Nurse [phone] ANGELES Noyola Registered Nurse [phone] Vital Signs Vital Sign Value Unit Date/Time Recent/Initial ? BMI (Body Mass Index) 37.03 kg/m^2 06/07/2022 18: 02 Initial VS Weight Measured 264.55 lbs 06/07/2022 18:02 Ini tial VS Height 70.87 in 06/07/2022 18:02 Initial VS BSA (Body Surface Area) 2.45 m^2 06/07/2022 1 8:02 Initial VS BP Systolic 185 mmHg 06/07/2022 18:02 Initial VS BP Diastolic 117 mmHg 06/07/2022 18:02 Initia l VS Respiratory Rate 30 bpm 06/07/2022 18:02 In itial VS Heart Rate 110 bpm 06/07/2022 18:02 Initial VS O2 % BldC Oximetry 97 % 06/07/2022 18:02 Initial VS Body Temperature 37.8 degrees 06/07/2022 18:54 In itial VS BMI (Body Mass Index) 43.3 kg/m^2 06/07/2022 22: 23 Most Recent VS Weight Measured 319.3 lbs 06/07/2022 22:23 Mos t Recent VS Height 72 in 06/07/2022 22:23 Most Rec ent VS BSA (Body Surface Area) 2.71 m^2 06/07/2022 2 2:23 Most Recent VS BP Systolic 174 mmHg 06/13/2022 08:58 Most Re cent VS BP Diastolic 84 mmHg 06/13/2022 08:58 Most R ecent VS Respiratory Rate 20 bpm 06/13/2022 08:[address] Recent VS Heart Rate 86 bpm 06/13/2022 08:58 Most Rec ent VS O2 % BldC Oximetry 95 % 06/13/2022 08:58 Most Recent VS Body Temperature 36.8 degrees 06/13/2022 08:[address] Recent VS Allergies Allergy Code Allergy Type Reaction Status No Known Drug Allergies 0 No known drug allergies Active Procedures Unknown or Not Available. History of Immunizations Unknown or Not Available. 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 Septic pulmonary embolism 416374920 2022 Resolved Bacteremia caused by Gram-positive bacteria 303197955385 2022 Resolved Gout 28670899 06/15/2022 Resolved MRSA infection 237294208 2022 Resolved Fever 191852903 11/15/2022 Resolved Congestive heart failure 58283895 11/16/2022 Resolved Discitis, unspecified, lumbosacral region 4070503 2022 Resolved Hyponatremia 14519844 11/15/2022 Resolved Hypokalemia 22728355 11/15/2022 Resolved Results BASIC METABOLIC PANEL (BMP) - Collect Date/Time: 06/09/2022 08:40 Test Name Code Test Result Test Units Test Ref Rang e GLUCOSE 2345-7 138 mg/dL L=70 H=116 BUN 3094-0 9 mg/dL L=6 H=25 CREATININE 2160-0 0.83 mg/dL L=0.67 H=1.17 SODIUM SERUM 2951-2 135 mmol/L L=136 H=145 POTASSIUM SERUM 2823-3 3.3 mmol/L L=3.4 H=5 .2 CHLORIDE SERUM 2075-0 97 mmol/L L=96 H=110 CARBON DIOXIDE (CO2) 2028-9 27 mmol/L L=22 H=34 ANION GAP 73188-8 10.6 mmol/L CALCIUM SERUM 79884-5 8.4 mg/dL L=8.2 H=10. 2 AGE 41 years eGFR (non-Afr.Amer.) 65067-3 103 mL/min eGFR (Afr-Kyrgyz) 29541-3 >120 mL/min BNP (PRO-B NATRIURETIC PEPTI DE) - Collect Date/Time: 06/07/2022 18:25 Test Name Code Test Result Test Units Test Ref Rang e NT-proBNP 29749-4 161.0 pg/mL L=0.0 H=125 C REACTIVE PROTEIN HIGH SENS ITIVITY* - Collect Date/Time: 06/11/2022 09:35 Test Name Code Test Result Test Units Test Ref Rang e CRP-HIGH SENS. 47905-9 278.28 mg/L L=0.00 H=3 .00 CRP-HIGH SENS 66500-8 27.83 mg/dL L=0.00 H=0. 30 C REACTIVE PROTEIN HIGH SENS ITIVITY* - Collect Date/Time: 06/07/2022 18:25 Test Name Code Test Result Test Units Test Ref Rang e CRP-HIGH SENS. 26390-5 >300.00 mg/L L=0.00 H=3 .00 CRP-HIGH SENS 23339-1 >30.00 mg/dL L=0.00 H=0. 30 COMPREHENSIVE METABOLIC PANE L (CMP) - Collect Date/Time: 06/11/2022 09:35 Test Name Code Test Result Test Units Test Ref Rang e GLUCOSE 2345-7 139 mg/dL L=70 H=116 BUN 3094-0 10 mg/dL L=6 H=25 CREATININE 2160-0 0.88 mg/dL L=0.67 H=1.17 SODIUM SERUM 2951-2 134 mmol/L L=136 H=145 POTASSIUM SERUM 2823-3 3.7 mmol/L L=3.4 H=5 .2 CHLORIDE SERUM 2075-0 99 mmol/L L=96 H=110 CARBON DIOXIDE (CO2) 8-9 28 mmol/L L=22 H=34 ANION GAP 16747-9 6.9 mmol/L CALCIUM SERUM 98643-9 8.7 mg/dL L=8.2 H=10. 2 BILIRUBIN TOTAL 1974-2 0.3 mg/dL L=0.0 H=1 .3 ALK. PHOS. 6768-6 109 U/L L=46 H=116 SGOT (AST) 1920-8 68 U/L L=15 H=37 SGPT (ALT) 1742-6 57 U/L L=12 H=78 TOTAL PROTEIN 2885-2 7.8 gm/dL L=6.0 H=8.0 ALBUMIN 1751-7 1.7 gm/dL L=3.4 H=5.0 AGE 41 years eGFR (non-Afr.Amer.) 04449-8 96 mL/min eGFR (Afr-Kyrgyz) 55330-9 116 mL/min COMPREHENSIVE METABOLIC PANE L ([facility]) - Collect Date/Time: 06/08/2022 10:50 Test Name Code Test Result Test Units Test Ref Rang e GLUCOSE 2345-7 165 mg/dL L=70 H=116 BUN 3094-0 9 mg/dL L=6 H=25 CREATININE 2160-0 0.96 mg/dL L=0.67 H=1.17 SODIUM SERUM 2951-2 133 mmol/L L=136 H=145 POTASSIUM SERUM 2823-3 3.4 mmol/L L=3.4 H=5 .2 CHLORIDE SERUM 2075-0 96 mmol/L L=96 H=110 CARBON DIOXIDE (CO2) 2028-9 26 mmol/L L=22 H=34 ANION GAP 99825-3 10.6 mmol/L CALCIUM SERUM 91984-6 8.9 mg/dL L=8.2 H=10. 2 BILIRUBIN TOTAL 1974-2 0.7 mg/dL L=0.0 H=1 .3 ALK. PHOS. 6768-6 112 U/L L=46 H=116 SGOT (AST) 1920-8 47 U/L L=15 H=37 SGPT (ALT) 1742-6 55 U/L L=12 H=78 TOTAL PROTEIN 2885-2 7.2 gm/dL L=6.0 H=8.0 ALBUMIN 1751-7 1.8 gm/dL L=3.4 H=5.0 AGE 41 years eGFR (non-Afr.Amer.) 16176-1 87 mL/min eGFR (Afr-Kyrgyz) 14714-5 105 mL/min COMPREHENSIVE METABOLIC PANE L (CMP) - Collect Date/Time: 06/07/2022 18:25 Test Name Code Test Result Test Units Test Ref Rang e GLUCOSE 2345-7 125 mg/dL L=70 H=116 BUN 3094-0 19 mg/dL L=6 H=25 CREATININE 2160-0 1.11 mg/dL L=0.67 H=1.17 SODIUM SERUM 2951-2 131 mmol/L L=136 H=145 POTASSIUM SERUM 2823-3 3.8 mmol/L L=3.4 H=5 .2 CHLORIDE SERUM 2075-0 93 mmol/L L=96 H=110 CARBON DIOXIDE (CO2) 2028-9 28 mmol/L L=22 H=34 ANION GAP 10228-3 10.0 mmol/L CALCIUM SERUM 11466-0 9.2 mg/dL L=8.2 H=10. 2 BILIRUBIN TOTAL 1975-2 0.7 mg/dL L=0.0 H=1 .3 ALK. PHOS. 6768-6 116 U/L L=46 H=116 SGOT (AST) 1920-8 52 U/L L=15 H=37 SGPT (ALT) 1742-6 74 U/L L=12 H=78 TOTAL PROTEIN 2885-2 8.3 gm/dL L=6.0 H=8.0 ALBUMIN 1751-7 2.4 gm/dL L=3.4 H=5.0 AGE 41 years eGFR (non-Afr.Amer.) 22276-7 73 mL/min eGFR (Afr-Kyrgyz) 46839-7 89 mL/min LACTIC ACID - Collect Date/T esteban: 06/09/2022 08:40 Test Name Code Test Result Test Units Test Ref Rang e LACTIC ACID 14184-1 1.2 mmol/L L=0.7 H=2.1 LACTIC ACID - Collect Date/T esteban: 06/08/2022 10:50 Test Name Code Test Result Test Units Test Ref Rang e LACTIC ACID 07728-7 2.5 mmol/L L=0.7 H=2.1 LACTIC ACID - Collect Date/T esteban: 06/07/2022 19:20 Test Name Code Test Result Test Units Test Ref Rang e LACTIC ACID 48468-9 0.9 mmol/L L=0.7 H=2.1 LIPASE* NEW - Collect Date/T esteban: 06/07/2022 18:25 Test Name Code Test Result Test Units Test Ref Rang e LIPASE. 21 U/L L=16 H=77 MAGNESIUM SERUM* - Collect D ate/Time: 06/08/2022 10:50 Test Name Code Test Result Test Units Test Ref Rang e MAGNESIUM 42258-4 2.2 mg/dL L=1.8 H=2.4 TROPONIN HIGH SENSITIVITY* - Collect Date/Time: 06/07/2022 18:25 Test Name Code Test Result Test Units Test Ref Rang e TROPONIN HS 10.8 pg/mL L=0.0 H=60.4 Specimen seq. RANDOM N/A VANCOMYCIN PEAK* - Collect D ate/Time: 06/09/2022 08:40 Test Name Code Test Result Test Units Test Ref Rang e VANCOMYCIN, PEAK 17.4 ug/mL VANCOMYCIN TROUGH* - Collect Date/Time: 06/08/2022 10:50 Test Name Code Test Result Test Units Test Ref Rang e VANCOMYCIN, TROUGH 7.8 ug/mL L=15.0 H=20.0 CBC W/ DIFFERENTIAL* - Colle ct Date/Time: 06/11/2022 09:35 Test Name Code Test Result Test Units Test Ref Rang e WBC 6690-2 12.15 th/cmm L=5.00 H=10.00 NEUT % 73.1 % L=40.0 H=80.0 LYMPH % 14.9 % L=10.0 H=50.0 MONO % 49801-1 7.2 % L=2.0 H=12.0 EOS % 2.1 % L=0.0 H=8.0 BASO % 0.5 % L=0.0 H=3.0 IG % 2514-8 2.2 % L=0.0 H=1.1 NRBC % 72924-4 0.0 % L=0.0 H=0.0 NEUT abs count 751-8 8.9 th/cmm L=1.6 H=8. 4 LYMPH abs count 731-0 1.8 th/cmm L=1.5 H=4 .0 MONO abs count 742-7 0.9 th/cmm L=0.2 H=1. 0 EOS abs count 711-2 0.3 th/cmm L=0.0 H=0.5 BASO abs count 704-7 0.1 th/cmm L=0.0 H=0. 2 IG abs count 60706-4 0.3 th/cmm L=0.0 H=0.1 NRBC abs count 85272-7 0.0 mil/cmm L=0.0 H=0. 0 RBC 789-8 4.49 mil/cmm L=4.30 H=6.20 HEMOGLOBIN 718-7 11.1 gm/dL L=13.0 H=17.0 HEMATOCRIT 4544-3 36 % L=45 H=52 MCV 787-2 79 fL L=82 H=92 MCH 785-6 24.7 pg L=27.0 H=31.0 MCHC 786-4 31.2 % L=32.0 H=36.0 RDW-SD 788-0 46.7 fL L=39.0 H=49.0 PLATELET COUNT 777-3 315 th/cmm L=150 H=45 0 CBC W/ DIFFERENTIAL* - [facility] ct Date/Time: 06/09/2022 08:40 Test Name Code Test Result Test Units Test Ref Rang e WBC 6690-2 16.33 th/cmm L=5.00 H=10.00 NEUT % 81.8 % L=40.0 H=80.0 LYMPH % 7.2 % L=10.0 H=50.0 MONO % 15160-6 8.8 % L=2.0 H=12.0 EOS % 0.6 % L=0.0 H=8.0 BASO % 0.3 % L=0.0 H=3.0 IG % 2514-8 1.3 % L=0.0 H=1.1 NRBC % 90469-0 0.0 % L=0.0 H=0.0 NEUT abs count 751-8 13.4 th/cmm L=1.6 H=8. 4 LYMPH abs count 731-0 1.2 th/cmm L=1.5 H=4 .0 MONO abs count 742-7 1.4 th/cmm L=0.2 H=1. 0 EOS abs count 711-2 0.1 th/cmm L=0.0 H=0.5 BASO abs count 704-7 0.1 th/cmm L=0.0 H=0. 2 IG abs count 01563-9 0.2 th/cmm L=0.0 H=0.1 NRBC abs count 52747-4 0.0 mil/cmm L=0.0 H=0. 0 RBC 789-8 4.66 mil/cmm L=4.30 H=6.20 HEMOGLOBIN 718-7 11.8 gm/dL L=13.0 H=17.0 HEMATOCRIT 4544-3 37 % L=45 H=52 MCV 787-2 79 fL L=82 H=92 MCH 785-6 25.3 pg L=27.0 H=31.0 MCHC 786-4 32.0 % L=32.0 H=36.0 RDW-SD 788-0 46.3 fL L=39.0 H=49.0 PLATELET COUNT 777-3 232 th/cmm L=150 H=45 0 CBC W/ DIFFERENTIAL* - [facility] ct Date/Time: 06/08/2022 10:50 Test Name Code Test Result Test Units Test Ref Rang e WBC 6690-2 14.40 th/cmm L=5.00 H=10.00 NEUT % 82.7 % L=40.0 H=80.0 LYMPH % 8.1 % L=10.0 H=50.0 MONO % 27336-7 7.8 % L=2.0 H=12.0 EOS % 0.3 % L=0.0 H=8.0 BASO % 0.3 % L=0.0 H=3.0 IG % 2514-8 0.8 % L=0.0 H=1.1 NRBC % 06066-1 0.0 % L=0.0 H=0.0 NEUT abs count 751-8 11.9 th/cmm L=1.6 H=8. 4 LYMPH abs count 731-0 1.2 th/cmm L=1.5 H=4 .0 MONO abs count 742-7 1.1 th/cmm L=0.2 H=1. 0 EOS abs count 711-2 0.0 th/cmm L=0.0 H=0.5 BASO abs count 704-7 0.0 th/cmm L=0.0 H=0. 2 IG abs count 38552-8 0.1 th/cmm L=0.0 H=0.1 NRBC abs count 18959-6 0.0 mil/cmm L=0.0 H=0. 0 RBC 789-8 4.76 mil/cmm L=4.30 H=6.20 HEMOGLOBIN 718-7 12.0 gm/dL L=13.0 H=17.0 HEMATOCRIT 4544-3 38 % L=45 H=52 MCV 787-2 80 fL L=82 H=92 MCH 785-6 25.2 pg L=27.0 H=31.0 MCHC 786-4 31.7 % L=32.0 H=36.0 RDW-SD 788-0 46.6 fL L=39.0 H=49.0 PLATELET COUNT 777-3 218 th/cmm L=150 H=45 0 CBC W/ DIFFERENTIAL* - Colle ct Date/Time: 06/07/2022 18:25 Test Name Code Test Result Test Units Test Ref Rang e WBC 6690-2 14.28 th/cmm L=5.00 H=10.00 NEUT % 78.4 % L=40.0 H=80.0 LYMPH % 9.2 % L=10.0 H=50.0 MONO % 59505-1 11.0 % L=2.0 H=12.0 EOS % 0.3 % L=0.0 H=8.0 BASO % 0.3 % L=0.0 H=3.0 IG % 2514-8 0.8 % L=0.0 H=1.1 NRBC % 42417-1 0.0 % L=0.0 H=0.0 NEUT abs count 751-8 11.2 th/cmm L=1.6 H=8. 4 LYMPH abs count 731-0 1.3 th/cmm L=1.5 H=4 .0 MONO abs count 742-7 1.6 th/cmm L=0.2 H=1. 0 EOS abs count 711-2 0.0 th/cmm L=0.0 H=0.5 BASO abs count 704-7 0.0 th/cmm L=0.0 H=0. 2 IG abs count 61305-2 0.1 th/cmm L=0.0 H=0.1 NRBC abs count 73187-3 0.0 mil/cmm L=0.0 H=0. 0 RBC 789-8 4.96 mil/cmm L=4.30 H=6.20 HEMOGLOBIN 718-7 12.5 gm/dL L=13.0 H=17.0 HEMATOCRIT 4544-3 40 % L=45 H=52 MCV 787-2 80 fL L=82 H=92 MCH 785-6 25.2 pg L=27.0 H=31.0 MCHC 786-4 31.6 % L=32.0 H=36.0 RDW-SD 788-0 46.4 fL L=39.0 H=49.0 PLATELET COUNT 777-3 283 th/cmm L=150 H=45 0 Toxic gran 1+ N/A Giant plts present N/A Polychromia 1+ N/A Macrocytes 1+ N/A Microcytes 1+ N/A SED RATE* - Collect Date/Donny e: 06/07/2022 18:25 Test Name Code Test Result Test Units Test Ref Rang e SED. RATE 4537-7 >130 mm/hr L=0 H=15 PT PROTHROMBIN TIME* - Colle ct Date/Time: 06/07/2022 18:25 Test Name Code Test Result Test Units Test Ref Rang e PROTIME 5902-2 11.6 seconds L=9.3 H=11.4 INR 49242-2 1.17 L=2.00 H=3.00 PTT PARTIAL THROMBOPLASTIN T ESTEBAN* - Collect Date/Time: 06/07/2022 18:25 Test Name Code Test Result Test Units Test Ref Rang e PTT 47217-1 27.4 seconds L=24.5 H=32.8 JESSE COVID FLU RSV GENEXPE RT - Collect Date/Time: 06/07/2022 19:55 Test Name Code Test Result Test Units Test Ref Rang e COVID 01166-7 NEGATIVE N/A Normal: Negati ve INFLUENZA A DNA 50839-9 NEGATIVE N/A Normal: N egative INFLUENZA B DNA 28574-7 NEGATIVE N/A Normal: N egative RSV DNA 02643-9 NEGATIVE N/A Normal: Negati ve GRAM STAIN* - Collect Date/T esteban: 06/13/2022 06:45 Test Name Code Test Result Test Units Test Ref Rang e SOURCE- Blood culture N/A PREDOMINANT ORGANISM Gram pos cocci N/A GRAM STAIN* - Collect Date/T esteban: 06/13/2022 06:35 Test Name Code Test Result Test Units Test Ref Rang e SOURCE- Blood culture N/A PREDOMINANT ORGANISM Gram pos cocci N/A GRAM STAIN* - Collect Date/T esteban: 06/11/2022 09:44 Test Name Code Test Result Test Units Test Ref Rang e SOURCE- Blood culture N/A PREDOMINANT ORGANISM Gram pos cocci N/A GRAM STAIN* - Collect Date/T esteban: 06/11/2022 09:35 Test Name Code Test Result Test Units Test Ref Rang e SOURCE- Blood culture N/A PREDOMINANT ORGANISM Gram pos cocci N/A GRAM STAIN* - Collect Date/T esteban: 06/11/2022 09:35 Test Name Code Test Result Test Units Test Ref Rang e SOURCE- Blood culture N/A PREDOMINANT ORGANISM Gram pos cocci N/A GRAM STAIN* - Collect Date/T esteban: 06/09/2022 08:40 Test Name Code Test Result Test Units Test Ref Rang e SOURCE- Blood culture N/A PREDOMINANT ORGANISM Gram pos cocci N/A GRAM STAIN* - Collect Date/T esteban: 06/09/2022 08:40 Test Name Code Test Result Test Units Test Ref Rang e SOURCE- Blood culture N/A PREDOMINANT ORGANISM Gram pos cocci N/A GRAM STAIN* - Collect Date/T esteban: 06/09/2022 08:40 Test Name Code Test Result Test Units Test Ref Rang e SOURCE- Blood culture N/A PREDOMINANT ORGANISM Gram pos cocci N/A GRAM STAIN* - Collect Date/T esteban: 06/09/2022 08:40 Test Name Code Test Result Test Units Test Ref Rang e SOURCE- Blood culture N/A PREDOMINANT ORGANISM Gram pos cocci N/A GRAM STAIN* - Collect Date/T esteban: 06/09/2022 08:40 Test Name Code Test Result Test Units Test Ref Rang e SOURCE- Blood culture N/A PREDOMINANT ORGANISM Gram pos cocci N/A GRAM STAIN* - Collect Date/T esteban: 06/08/2022 11:52 Test Name Code Test Result Test Units Test Ref Rang e SOURCE- Blood culture N/A PREDOMINANT ORGANISM Gram pos cocci N/A GRAM STAIN* - Collect Date/T esteban: 06/08/2022 10:44 Test Name Code Test Result Test Units Test Ref Rang e SOURCE- Blood culture N/A PREDOMINANT ORGANISM Gram pos cocci N/A GRAM STAIN* - Collect Date/T esteban: 06/08/2022 10:42 Test Name Code Test Result Test Units Test Ref Rang e SOURCE- Blood culture N/A PREDOMINANT ORGANISM Gram pos cocci N/A GRAM STAIN* - Collect Date/T esteban: 06/08/2022 10:42 Test Name Code Test Result Test Units Test Ref Rang e SOURCE- Blood culture N/A PREDOMINANT ORGANISM Gram pos cocci N/A MRSA SCREEN BY PCR - Collect Date/Time: 06/07/2022 23:06 Test Name Code Test Result Test Units Test Ref Rang e MRSA 78324-6 POSITIVE N/A Normal: Negati ve ORDER VENOUS BLOOD GAS* - Co llect Date/Time: 06/07/2022 19:20 Test Name Code Test Result Test Units Test Ref Rang e pH (venous) 2746-6 7.43 L=7.38 H=7.46 PCO2 (venous) 2703-7 45.0 mm Hg L=41.0 H=51 .0 HCO3 1960-4 29 mmol/L L=22 H=26 TCO2 (venous) 3533-7 31 mmol/L L=22 H=28 BASE EXCESS (venous) 3097-3 5 mmol/L L=-2 H=3 Specimen type: VENOUS N/A Active Medications Medications Administered During Visit Medication Dose Units Frequency Route Date/Time of Last Dose ACETAMINOPHEN INJ IVPB: 1000MG/100ML 1000 MG X1 06/07/2022 18:4 5 HYDROmorphone INJ SYRINGE: 0.5MG/0.5ML 0.5 MG X1 IVP 06/07/2022 18:5 0 VANCOMYCIN IVPB PREMIX: 2GM/400ML 2 GM X1 06/07/2022 21:0 7 CEFEPIME INJ SDV: 2GM 2 GM X1 06/07/2022 20:36 SODIUM CHLORIDE 0.9% 1000ML 1000 ML X1 06/07/2022 20:36 APIXABAN TAB: 5MG 10 MG BID PO 20:47 OxyCODONE/ACETAMINOPHEN TAB: 5MG/325MG 1 TAB PRN Q4H PO 06/07/2022 23:0 3 PANTOPRAZOLE TABLET: 40MG 40 MG Q7AM PO 06/13/2022 05:59 ACETAMINOPHEN TABLET: 325MG 975 MG PRN Q6H PO 06/08/2022 04:41 SODIUM CHLORIDE 0.9% 1000ML 1000 ML X1 06/07/2022 21:50 CEFEPIME INJ SDV: 2GM 2 GM Q8H 06/09/2022 12:49 OxyCODONE TABLET no apap add ed: 5mg 5 MG PRN Q3H PO 06/08/2022 18:5 4 VANCOMYCIN IVPB:1GM/250ML 1 GM X1 06/08/2022 01:02 BUPRENORPHINE/NALOXONE SL TA B: 2MG/0.5MG 4 TAB BID SL 06/08/2022 20:4 7 BUPRENORPHINE/NALOXONE SL TA B: 2MG/0.5MG 4 TAB X1 SL 06/08/2022 10:5 0 NAPROXEN TABLET: 250MG 500 MG X1 PO 06/08/2022 10:48 NAPROXEN TABLET: 250MG 500 MG BID WITH FOOD PO 06/13/2022 08:15 ACETAMINOPHEN TABLET: 325MG 975 MG X1 PO 06/08/2022 15:03 LORazepam TABLET: 0.5MG 1 MG PRN Q4H PO 06/08/2022 18:54 ACETAMINOPHEN TABLET: 325MG 975 MG TID PO 06/13/2022 14:00 VANCOMYCIN IVPB PREMIX: 1.75GM/350ML 1.75 GM Q12H 06/13/2022 03:3 8 LORazepam TABLET: 2MG 2 MG PRN Q4H PO 06/13/2022 08:15 POTASSIUM CHL TABLET: 20mEq 20 MEQ X1 PO 06/08/2022 21:37 OxyCODONE TABLET no apap add ed: 5mg 10 MG PRN Q4H PO 06/10/2022 19:5 9 HALOPERIDOL LACTATE INJ: 5MG/1ML 5 MG X1 IM 06/09/2022 03:5 3 LORazepam INJ SYRINGE: 2MG/ML 2 MG PRN Q30MIN IVP 06/10/2022 03:43 HYDROmorphone INJ SYRINGE: 2MG/ML 2 MG PRN Q2H IVP 06/09/2022 05:5 9 HALOPERIDOL LACTATE INJ: 5MG/1ML 5 MG X1 IM 06/09/2022 05:3 3 HYDROmorphone INJ SYRINGE: 2MG/ML 2 MG X1 IVP 06/09/2022 05:3 3 ENOXAPARIN INJ SYRINGE: 120MG/0.8ML 120 MG Q12H SUBQ 06/11/2022 10:0 0 OxyCODONE TABLET no apap add ed: 5mg 10 MG Q6H PO 06/11/2022 05:5 0 LORazepam INJ SYRINGE: 2MG/ML 1 MG X1 IVP 06/09/2022 15:09 SODIUM CHLORIDE 0.9% FLUSH 1 0ML SYRINGE 5 ML Q8H IVP 06/13/2022 14:2 5 SODIUM CHLORIDE 0.9% FLUSH 1 0ML SYRINGE 5 ML Q8H IVP 06/13/2022 03:4 4 SODIUM CHLORIDE 0.9% FLUSH 1 0ML SYRINGE 5 ML Q8H IVP 06/10/2022 15:0 0 BUPRENORPHINE/NALOXONE SL TA B: 2MG/0.5MG 4 TAB X1 SL 06/11/2022 11:3 7 BUPRENORPHINE/NALOXONE SL TA B: 2MG/0.5MG 4 TAB BID SL 06/13/2022 08:1 5 APIXABAN TAB: 5MG 10 MG BID PO 08:15 Encounters Encounter Diagnosis Diagnosis Code Start Date Osteomyelitis of vertebra, lumbosacral region M4 627 06/07/2022 Social History Smoking Status Code Start Date End Date Current every day smoker [id number] Patient Decision Aids Unknown or Not Available. Discharge Instructions You were admitted to [facility] on 06/07/2022 21:41 with a principal diagnosis of Osteomyelitis of vertebra, lumbosacral region You had the following tests done:GRAM STAIN*GRAM STAIN*GRAM STAIN*C REACTIVE PROTEIN HIGH SENSITIVITY*CBC W/ DIFFERENTIAL*COMPREHENSIVE METABOLIC PANEL (CMP)GRAM STAIN*GRAM STAIN*BASIC METABOLIC PANEL (BMP)CBC W/ DIFFERENTIAL*GRAM STAIN*GRAM STAIN*GRAM STAIN*GRAM STAIN*LACTIC ACIDVANCOMYCIN PEAK*GRAM STAIN*CBC W/ DIFFERENTIAL*COMPREHENSIVE METABOLIC PANEL (CMP)LACTIC ACIDMAGNESIUM SERUM*VANCOMYCIN TROUGH*GRAM STAIN*GRAM STAIN*GRAM STAIN*[facility] COVID FLU RSV GENEXPERTLACTIC ACIDORDER VENOUS BLOOD GAS*BNP (PRO-B NATRIURETIC PEPTIDE)C REACTIVE PROTEIN HIGH SENSITIVITY*CBC W/ DIFFERENTIAL*COMPREHENSIVE METABOLIC PANEL (CMP)LIPASE* NEWPT PROTHROMBIN TIME*PTT PARTIAL THROMBOPLASTIN TIME*SED RATE*TROPONIN HIGH SENSITIVITY* You were discharged from [facility] on 06/13/2022 14:20 Should you have any questions prior to discharge, please contact a member of your healthcare team. If you have left the hospital and have any questions, please contact your primary care physician. Chief Complaint and Reason For Visit Chief Complaint Date of Onset BILATERAL PE W HYPOXIA CONCERNING FOR SE PTIC EMBOLI 06/08/2022 Function Status Unknown or Not Available. Plan of Care Unknown or Not Available. Referral/Transition of Care Unknown or Not Available.
[2023-02-17 11:17] VITALS: RESP 16
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
[2023-02-17 11:33] LABS: Abs Immature Grans 0.01 10^3/uL (0.0-0.06); Absolute Basophil Count 0.02 10^3/uL (0.0-0.2); Absolute Eosinophil Count 0.04 10^3/uL (0.0-0.7); Absolute Lymphocyte Count 1.49 10^3/uL (1.2-3.4); Absolute Monocyte Count 0.35 10^3/uL (0.1-0.8); Absolute Neutrophil Count 5.18 10^3/uL (1.2-6.7); Basophils % 0.3; Eosinophils % 0.6; HCT 39.2 % (40.0-50.0); Immature Grans % 0.1; Lactate 0.7 mmol/L (0.6-1.4); MCH 24.3 pg (27.0-33.0); MCHC 30.6 % (32.0-36.0); MCV 79 fL (80-95); MPV 8.3 fL (8.0-11.0); Monocytes % 4.9; Neutrophils % 73.1; Platelet Count 411 10^3/uL (130-400); RBC 4.94 10^6/uL (4.36-5.78); RDW 15.4 % (11.8-14.1); RDW-SD 44.5 fL; WBC 7.09 10^3/uL (4.4-10.8)
[2023-02-17] MEDS: Lactated Ringers 500 ML 1000 ML IV (11:33)
--- NOTE | 2023-02-17 11:45 | DI.US_ITS ---
Exam(s) US EXTREMITY VENOUS BI EXAM: US EXTREMITY VENOUS BI CLINICAL HISTORY: BLE edema, pain, hx DVT. TECHNIQUE: Bilateral lower extremity venous ultrasound performed using grayscale, color-flow, and sp ectral Doppler analysis. COMPARISON: No exams were available for comparison FINDINGS: Right lower extremity: The bilateral common femoral, femoral and popliteal veins demonstrate normal c ompressibility, augmentation, and color Doppler. The posterior tibial veins are patent. Left lower extremity: Thrombus visualized from the proximal femoral vein through popliteal vein. Thr ombus is also noted in the lesser saphenous vein. IMPRESSION: Right: Negative for DVT Left: Venous thrombosis from the proximal femoral vein through popliteal vein as well as lesser saphe nous vein. DATA REPOSITORY:
[2023-02-17 11:51] LABS: ALT 17 U/L (16-63); AST 14 U/L (15-37); Albumin 2.7 g/dL (3.4-5.0); Alkaline Phosphatase 63 U/L (46-116); Anion Gap 7.6 mmol/L (3-11); BUN 12 mg/dL (7-18); Bilirubin, Total 0.2 mg/dL (0.2-1.0); CO2 28.4 mmol/L (21.0-32.0); CREATININE 0.9 mg/dL (0.70-1.30); Calcium 9.6 mg/dL (8.5-10.1); Chloride 99 mmol/L (98-107); Estimated GFR 110.04 (mL/min/1.73m2); Glucose 125 mg/dL (74-106); Sodium 135 mmol/L (136-145); Total Protein 9.7 g/dL (6.4-8.2)
[2023-02-17 12:06] LABS: Procalcitonin 0.1 ng/mL
[2023-02-17] MEDS: Gadoterate meglumine 20 ML SYRINGE IVP (12:45)
--- NOTE | 2023-02-17 13:20 | DI.MRI_ITS ---
Exam(s) MR LUMBAR SPINE WO/W EXAM: MR LUMBAR SPINE WO/W CLINICAL HISTORY: low back pain, hx discitis. TECHNIQUE: Multiplanar multisequence MRI of the Lumbar Spine was performed. Additional pre and post gadolinium fat suppressed T1 sagittal and axial sequences were performed. CONTRAST MATERIAL: IV Contrast: 20 mL of Dotarem contrast administered. COMPARISON: DOC,MR MR LS SPINE WWO CONTRAST from 02/22/2022 MR MR LUMBAR SPINE WO/W from 02/25/2022 CR,XR XR PORTABLE CHEST AP from 02/25/2022 FINDINGS: Exam is extremely limited by patient motion. All of the axial sequences and few of the sagittal seq uences are uninterpretable. Stir images show no abnormal high signal in the marrow. There is no longer contrast enhancement in th e endplates at the L4-5 and L5-S1 levels. No abnormal enhancement is seen within the canal of althoug h this could be underestimated due to motion and lack of axial sequences. The T12-L1 through L2 3 discs again appear normal. Disc degeneration is again seen with mild loss of disc height, endplate osteophytes and concentric disc bulging at L3-4 through L5-S1. No gross evidenc e of a large disc herniation. IMPRESSION: Extremely limited exam due to patient motion. Improvement in appearance of enhancement at the L5-S1 disc and surrounding the vertebral body. No vivi ss evidence of osteomyelitis or discitis. DATA REPOSITORY:
[2023-02-17] MEDS: LORazepam 2 MG/ML VIAL 1 MG IVP ×2 (14:30→15:47)
[2023-02-17 14:35] VITALS: PULSE 85; RESP 9
[2023-02-17 14:40] VITALS: PULSE 97; RESP 16
[2023-02-17 14:50] VITALS: PULSE 86; RESP 17
[2023-02-17] MEDS: Apixaban 5 MG TAB 10 MG PO (15:19)
--- NOTE | 2023-02-17 15:39 | PDOC.CMPRO ---
Date of service: 02/17/23 Time of Service: 15:39 Care Management Progress Note Progress Note Text Progress Note Text: CM asked to see patient by ED provider. Venkatesh is a 42 year old man with a history of Hepatitis C, IVDU, osteomyelitis, discitis, endocarditis, and DVT. He is currently homeless and has stopped taking his suboxone due to transportation issues. He was attending an online clinic [facility] weekly after which his medication would be called into a local pharmacy. He has resumed using heroin and cocaine and is now showing symptoms of withdrawal. CM met with Venkatesh and his mother Ale. Venkatesh was not focused and interacted very little, stating he is too sick to participate. CM provided information about transportation along with an RCT bus schedule. They were also given a [employer] brochure for assistance with food insecurity and completing applications. CM encouraged Venkatseh and Ale to go to [employer] today to try to secure housing in a hotel for the short term. Ale explained that both she and Venkatesh thought he had another infection and would be admitted to the hospital for several weeks for IV antibiotics. That would have provided him with food and a place to stay and the medication he needs. Ultimately infection was ruled out and his symptoms were attributed to a DVT and opiate withdrawal, not requiring hospital admission. Ale stated that she would drive Venkatesh to [employer] and, if he does not get a room, she might allow him to sleep at her house tonight.
--- NOTE | 2023-02-19 06:58 | ED.FU.B_ITS ---
Date of service: 02/19/23 Time of Service: 06:58 Follow Up Plan: Notified overnight of positive blood cultures, gram + cocci. Attempted to reach patient on listed cell phone # [phone] without success. PCP listed as Maria Luz Dueñas. Day statistical secretary will continue to attempt to contact patient for callback, as well as primary care office.
--- NOTE | 2023-02-19 06:58 | W.ED.FU ---
Date of service: 02/19/23 Time of Service: 06:58 Follow Up Plan: Notified overnight of positive blood cultures, gram + cocci. Attempted to reach patient on listed cell phone # [phone] without success. PCP listed as Maria Luz Dueñas. Day still operator will continue to attempt to contact patient for callback, as well as primary care office.
--- NOTE | 2023-02-19 15:37 | NUR.NOTE ---
Dr. Braga asked to have patient called to come back. She was unable to get in touch with the patient. Patient's mother Ale Reyna is on his HIPPA form, I called here stated pt was seen here and needed to talk to him about lab results. She stated she would call him. Dr. Braga is aware of this. 1599 patient called back. I told him of his infection in his blood and that he needed to return to be evaluated. He stated he understood and that he would. [id number] called pt back and Clifford Padilla spoke with patient. Nursing Note:
--- NOTE | 2023-02-19 15:38 | W.ED.FU ---
Follow Up Plan: 1530-finally was able to speak to patient on the phone in regards to positive blood culture results. He was informed that given his history of endocarditis and concern for possible infection that he should return immediately to the emergency department for evaluation. Initially he stated that he would come in tomorrow but he was informed of the potential life-threatening/disabling nature of the infection if he truly does have a blood infection. He was informed to come immediately and if he does not have a ride which he initially said he could not to even call 911 to get transportation here as he should not delay reevaluation given these results. He stated understanding of the recommendations but did not state if he was going to come up to the emergency department immediately.
== END 2023-02-17 15:49 | disposition home or self-care (01) ==
PROVIDERS: Emergency Provider Physician Assistant; PCP Internal Medicine
DX: F11.13 Opioid abuse with withdrawal (principal); I82.411 Acute embolism and thrombosis of right femoral vein; I82.431 Acute embolism and thrombosis of right popliteal vein; I10 Essential (primary) hypertension; F17.210 Nicotine dependence, cigarettes, uncomplicated; Z59.00 Homelessness unspecified
CPT/HCPCS: 36415; 72158; 80053; 84145; 87040; 87077; 96374; 96376; 99285; 83605; 85025; 87186; 93970; 99284; J2060

== ENCOUNTER 2023-02-21 07:31 | Emergency (ER) | payer MEDICAID, SELFPAY ==
[2023-02-21 07:36] VITALS: BP 160/90; PULSE 86; RESP 18; TEMP 36.7; O2SAT 98
--- OUTSIDE RECORDS SUMMARY | 2023-02-21 07:41 | XMS_ITS | CCD ---
Author Name Unknown Address [address] [place] [address] [id number] Organization Unknown Address [address] [place] [address] [id number] Care Team Providers [facility] Naturalist Name Role Phone AMADO STAHL Attending Physician [phone] Vital Signs Unknown or Not Available. Allergies Allergy Code Allergy Type Reaction Status No Known Drug Allergies 0 No known drug allergies Active Procedures Unknown or Not Available. History of Immunizations Unknown or Not Available. Problems Problem Code Start Date Resolved Date Status HTN 99865162 Active History of IV (intravenous) drug abuse 12958407417065822 Active Opioid use disorder, severe 17854358 Active Multiple subsegmental pulmon fredy emboli without acute cor pulmonale 30579030 Active Saddle embolus 539431104 Active DVT of left lower extremity 020614462 Active MSSA sepsis 93691681112955 Active Chronic anemia 828258118 Active MRSA colonization 913955238 Active Results Unknown or Not Available. Active Medications Medication Code Dose Units Frequency Route Modificatio n Start Date/Time Losartan Potassium 50MG Oral Tablet 910528 1 TABLET DAILY ORAL 11/24/19 10:35 Prescription Detail TAKE 1 TABLET ORAL DAILY Cefuroxime Axetil 500MG Oral Tablet 465473 1 TABLET DAILY ORAL 11/24/19 10:30 Prescription Detail TAKE 1 TABLET ORAL DAILY AFTER YOU FINIS H THE FULL COURSE OF ANTIBIOTIC. TO BE CONTINUED FOR 3 MONTHS Ibuprofen 200MG Oral Tablet 720442 3 TABLET NEEDED THREE TIMES A DAY ORAL 11/23/2022 10:13 Prescription Detail TAKE 3 TABLET ORAL NEEDED THREE TIMES A DAY FOR GOUT, TAKE WITH FOOD Cefuroxime Axetil 500MG Oral Tablet 153831 2 TABLET EVERY 8 HOURS ORAL 11/23/2022 10:12 Prescription Detail TAKE 2 TABLET ORAL EVERY 8 HOURS Colchicine 0.6MG Oral Tablet 076630 0.6 MILLIGRAMS DAILY ORAL 10:11 Prescription Detail TAKE 0.6 MILLIGRAMS ORAL DAILY Eliquis 5MG Oral Tablet 2985365 1 TABLET TWICE A DAY ORAL 11/18/2022 17:29 Prescription Detail TAKE 1 TABLET ORAL TWICE A DAY Suboxone 8MG-2MG Sublingual Film 8774822 3 EACH DAILY SUBLINGUAL 15:04 Prescription Detail DISSOLVE 3 EACH SUBLINGUAL DAILY Acetaminophen 500MG Oral Tablet 483083 2 TABLET NEEDED THREE TIMES A DAY ORAL 07/23/2022 10:05 Prescription Detail TAKE 2 TABLET ORAL NEEDED THREE TIMES A DAY FOR PAIN Medications Administered During Visit Unknown or Not Available. Encounters Encounter Diagnosis Diagnosis Code Start Date Septic pulmonary embolism without acute cor pulm onale [id number] 11/19/2022 Social History Smoking Status Code Start Date End Date Current every day smoker [id number] Patient Decision Aids Unknown or Not Available. Discharge Instructions You were admitted to [facility] on 11/19/2022 00:43 with a principal diagnosis of Septic pulmonary embolism without acute cor pulmonale You were discharged from [facility] on 11/23/2022 00:43 Should you have [...]
--- OUTSIDE RECORDS SUMMARY | 2023-02-21 07:41 | XMS_ITS | CCD ---
Author Name Unknown Address [address] [place] [address] [phone] Organization Unknown Address [address] [place] [address] [phone] Care Team Providers Care Wheel Filler Name Role Phone CHEMO PARRA Attending Physician [phone] Vital Signs Unknown or Not Available. Allergies Allergy Code Allergy Type Reaction Status No Known Drug Allergies 0 No known drug allergies Active Procedures Unknown or Not Available. History of Immunizations Unknown or Not Available. Problems Problem Code Start Date Resolved Date Status HTN 84633301 Active History of IV (intravenous) drug abuse 39890676733699475 Active Opioid use disorder, severe 91052200 Active Multiple subsegmental pulmon fredy emboli without acute cor pulmonale 54547251 Active Saddle embolus 478243523 Active DVT of left lower extremity 088247805 Active MSSA sepsis 78951771200415 Active Chronic anemia 498323391 Active MRSA colonization 311993067 Active Septic pulmonary embolism 049348975 2022 Resolved Bacteremia caused by Gram-positive bacteria 604730803314 2022 Resolved MRSA infection 152177971 2022 Resolved Fever 542202203 11/15/2022 Resolved Congestive heart failure 73191025 11/16/2022 Resolved Discitis, unspecified, lumbosacral region 5870387 2022 Resolved Hyponatremia 38601206 11/15/2022 Resolved Hypokalemia 99116927 11/15/2022 Resolved Results Unknown or Not Available. Active Medications Medication Code Dose Units Frequency Route Modificatio n Start Date/Time Losartan Potassium 50MG Oral Tablet 264460 1 TABLET DAILY ORAL 11/24/19 23 10:35 Prescription Detail TAKE 1 TABLET ORAL DAILY Cefuroxime Axetil 500MG Oral Tablet 575117 1 TABLET DAILY ORAL 11/24/19 10:30 Prescription Detail TAKE 1 TABLET ORAL DAILY AFTER YOU FINIS H THE FULL COURSE OF ANTIBIOTIC. TO BE CONTINUED FOR 3 MONTHS Ibuprofen 200MG Oral Tablet 908017 3 TABLET NEEDED THREE TIMES A DAY ORAL 11/23/2022 10:13 Prescription Detail TAKE 3 TABLET ORAL NEEDED THREE TIMES A DAY FOR GOUT, TAKE WITH FOOD Cefuroxime Axetil 500MG Oral Tablet 818947 2 TABLET EVERY 8 HOURS ORAL 11/23/2022 10:12 Prescription Detail TAKE 2 TABLET ORAL EVERY 8 HOURS Colchicine 0.6MG Oral Tablet 893339 0.6 MILLIGRAMS DAILY ORAL 10:11 Prescription Detail TAKE 0.6 MILLIGRAMS ORAL DAILY Eliquis 5MG Oral Tablet 8848156 1 TABLET TWICE A DAY ORAL 11/18/2022 17:29 Prescription Detail TAKE 1 TABLET ORAL TWICE A DAY Suboxone 8MG-2MG Sublingual Film [id number] 3 EACH DAILY SUBLINGUAL 15:04 Prescription Detail DISSOLVE 3 EACH SUBLINGUAL DAILY Acetaminophen 500MG Oral Tablet 160907 2 TABLET NEEDED THREE TIMES A DAY ORAL 07/23/2022 10:05 Prescription Detail TAKE 2 TABLET ORAL NEEDED THREE TIMES A DAY FOR PAIN Medications Administered During Visit Unknown or Not Available. Encounters Encounter Diagnosis Diagnosis Code Start Date Septic pulmonary embolism without acute cor pulm onale I2690 2022 Social History Smoking Status Code Start Date End Date Current every day smoker [id number] Patient Decision Aids Unknown or Not Available. Discharge Instructions You were admitted to on 2022 00:21 with a principal diagnosis of Septic pulmonary embolism without acute cor pulmonale You were discharged from on 11/18/2022 00:21 Should you have any [...]
--- OUTSIDE RECORDS SUMMARY | 2023-02-21 07:41 | XMS_ITS | CCD ---
Author Name Unknown Address [address] [place] [address] [phone] Organization Unknown Address [address] [place] [address] [phone] Care Team Providers Care Supervisor [employer] Name Role Phone AMADO STAHL Attending Physician [phone] CLARIBEL MCGEE Er Physician 7 [phone] CLARIBEL MCGEE Rounding (Secondary) Physician 8 [phone] JAGUAR Reyes Registered Nurse [phone] Vital Signs Vital Sign Value Unit Date/Time [...] Code Start Date Resolved Date Status HTN 81658590 Active History of IV (intravenous) drug abuse 91785993897567175 Active Opioid use disorder, severe 40623255 Active Multiple subsegmental pulmon fredy emboli without acute cor pulmonale 66450334 Active Saddle embolus 825254260 Active DVT of left lower extremity 152944012 Active MSSA sepsis 79873576001823 Active Chronic anemia 544889138 Active MRSA colonization 864093004 Active Results BASIC METABOLIC PANEL (BMP) - [...] 2028-9 31 mmol/L L=22 H=34 ANION GAP 96832-8 4.1 mmol/L CALCIUM SERUM 08244-9 8.7 mg/dL L=8.2 H=10. 2 AGE 42 years eGFR (non-Afr.Amer.) 59438-3 85 mL/min eGFR (Afr-Dominican) 73301-9 103 mL/min C REACTIVE PROTEIN HIGH SENS ITIVITY* - Collect Date/Time: 11/23/2022 06:50 Test Name Code Test Result Test Units Test Ref Rang e CRP-HIGH SENS. 53506-9 32.95 mg/L L=0.00 H=3 .00 CRP-HIGH SENS 91427-8 3.30 mg/dL L=0.00 H=0. 30 LACTIC ACID - Collect Date/T esteban: 11/19/2022 16:10 Test Name Code Test Result Test Units Test Ref Rang e LACTIC ACID 61035-3 1.4 mmol/L L=0.7 H=2.1 CBC W/ DIFFERENTIAL* - Colle ct Date/Time: 11/19/2022 16:10 Test Name Code Test Result Test Units Test Ref Rang e WBC 6690-2 6.87 th/cmm L=5.00 H=10.00 NEUT % 43.3 % L=40.0 H=80.0 LYMPH % 45.1 % L=10.0 H=50.0 MONO % 15664-6 8.6 % L=2.0 H=12.0 EOS % 2.3 % L=0.0 H=8.0 BASO % 0.4 % L=0.0 H=3.0 IG % 2514-8 0.3 % L=0.0 H=1.1 NRBC % 03321-7 0.0 % L=0.0 H=0.0 NEUT abs count 751-8 3.0 th/cmm L=1.6 H=8. 4 LYMPH abs count 731-0 3.1 th/cmm L=1.5 H=4 .0 MONO abs count 742-7 0.6 th/cmm L=0.2 H=1. 0 EOS abs count 711-2 0.2 th/cmm L=0.0 H=0.5 BASO abs count 704-7 0.0 th/cmm L=0.0 H=0. 2 IG abs count 83654-0 0.0 th/cmm L=0.0 H=0.1 NRBC abs count 28231-9 0.0 mil/cmm L=0.0 H=0. 0 RBC 789-8 [...] Start Date/Time Losartan Potassium 50MG Oral Tablet 930564 1 TABLET DAILY ORAL 11/24/19 10:35 Prescription Detail TAKE 1 TABLET ORAL DAILY Cefuroxime Axetil 500MG Oral Tablet 110901 1 TABLET DAILY ORAL 11/24/19 10:30 Prescription Detail TAKE 1 TABLET ORAL DAILY AFTER YOU FINIS H THE FULL COURSE OF ANTIBIOTIC. TO BE CONTINUED FOR 3 MONTHS Ibuprofen 200MG Oral Tablet 611513 3 TABLET NEEDED THREE TIMES A DAY ORAL 11/23/2022 10:13 Prescription Detail TAKE 3 TABLET ORAL NEEDED THREE TIMES A DAY FOR GOUT, TAKE WITH FOOD Cefuroxime Axetil 500MG Oral Tablet 917146 2 TABLET EVERY 8 HOURS ORAL 11/23/2022 10:12 Prescription Detail TAKE 2 TABLET ORAL EVERY 8 HOURS Colchicine 0.6MG Oral Tablet 033504 0.6 MILLIGRAMS DAILY ORAL 10:11 Prescription Detail TAKE 0.6 MILLIGRAMS ORAL DAILY Eliquis 5MG Oral Tablet 9572590 1 TABLET TWICE A DAY ORAL 11/18/2022 17:29 Prescription Detail TAKE 1 TABLET ORAL TWICE A DAY Suboxone 8MG-2MG Sublingual Film 7326846 3 EACH DAILY SUBLINGUAL 15:04 Prescription Detail DISSOLVE 3 EACH SUBLINGUAL DAILY Acetaminophen 500MG Oral Tablet 929685 2 TABLET NEEDED THREE TIMES A DAY [...] Date End Date Current every day smoker 282275750 Patient Decision Aids Unknown or Not Available. Discharge Instructions You were admitted to [facility] on 11/19/2022 15:00 with a principal diagnosis of Septicemia, Sepsis, Systemic Inflammatory Response Syndrome/Shock You had the following tests done:C REACTIVE PROTEIN HIGH SENSITIVITY*BASIC METABOLIC PANEL (BMP)CBC W/ DIFFERENTIAL*LACTIC ACID You were discharged from [facility] on 11/23/2022 11:15 Should you have any [...]
--- OUTSIDE RECORDS SUMMARY | 2023-02-21 07:42 | XMS_ITS | CCD ---
Author Name Unknown Address [address] [place] [address] [id number] Organization Unknown Address [address] [place] [address] [phone] Care Team Providers Care Recordist Name Role Phone CHEMO PARRA Attending Physician [phone] Vital Signs Unknown or Not Available. Allergies Allergy Code Allergy Type Reaction Status No Known Drug Allergies 0 No known drug allergies Active Procedures Unknown or Not Available. History of Immunizations Unknown or Not Available. Problems Problem Code Start Date Resolved Date Status HTN 44214015 Active History of IV (intravenous) drug abuse 17336517300608116 Active Opioid use disorder, severe 45541116 Active Multiple subsegmental pulmon fredy emboli without acute cor pulmonale 75474632 Active Saddle embolus 801913189 Active DVT of left lower extremity 986942619 Active MSSA sepsis 09229085273526 Active Chronic anemia 374006552 Active MRSA colonization 139254207 Active Septic pulmonary embolism 653316389 2022 Resolved Bacteremia caused by Gram-positive bacteria 118202124937 2022 Resolved Gout 81157893 06/15/2022 Resolved MRSA infection 836556765 2022 Resolved Fever 075318285 11/15/2022 Resolved Congestive heart failure 18230402 11/16/2022 Resolved Discitis, unspecified, lumbosacral region 9603586 2022 Resolved Hyponatremia 30848675 11/15/2022 Resolved Hypokalemia 44128396 11/15/2022 Resolved Results Unknown or Not Available. Active Medications Medication Code Dose Units Frequency Route Modificatio n Start Date/Time Losartan Potassium 50MG Oral Tablet 268001 1 TABLET DAILY ORAL 11/24/19 10:35 Prescription Detail TAKE 1 TABLET ORAL DAILY Cefuroxime Axetil 500MG Oral Tablet 619017 1 TABLET DAILY ORAL 11/24/19 10:30 Prescription Detail TAKE 1 TABLET ORAL DAILY AFTER YOU FINIS H THE FULL COURSE OF ANTIBIOTIC. TO BE CONTINUED FOR 3 MONTHS Ibuprofen 200MG Oral Tablet 732902 3 TABLET NEEDED THREE TIMES A DAY ORAL 11/23/2022 10:13 Prescription Detail TAKE 3 TABLET ORAL NEEDED THREE TIMES A DAY FOR GOUT, TAKE WITH FOOD Cefuroxime Axetil 500MG Oral Tablet 465825 2 TABLET EVERY 8 HOURS ORAL 11/23/2022 10:12 Prescription Detail TAKE 2 TABLET ORAL EVERY 8 HOURS Colchicine 0.6MG Oral Tablet 431861 0.6 MILLIGRAMS DAILY ORAL 3 10:11 Prescription Detail TAKE 0.6 MILLIGRAMS ORAL DAILY Eliquis 5MG Oral Tablet 3077446 1 TABLET TWICE A DAY ORAL 11/18/2022 17:29 Prescription Detail TAKE 1 TABLET ORAL TWICE A DAY Suboxone 8MG-2MG Sublingual Film 2541092 3 EACH DAILY SUBLINGUAL 15:04 Prescription Detail DISSOLVE 3 EACH SUBLINGUAL DAILY Acetaminophen 500MG Oral Tablet 601215 2 TABLET NEEDED THREE TIMES A DAY ORAL 07/23/2022 10:05 Prescription Detail TAKE 2 TABLET ORAL NEEDED THREE TIMES A DAY FOR PAIN Medications Administered During Visit Unknown or Not Available. Encounters Encounter Diagnosis Diagnosis Code Start Date Osteomyelitis of vertebra, lumbosacral region M4 627 06/14/2022 Social History Smoking Status Code Start Date End Date Current every day smoker 708812098 Patient Decision Aids Unknown or Not Available. Discharge Instructions You were admitted to [facility] on 06/14/2022 11:07 with a principal diagnosis of Osteomyelitis of vertebra, lumbosacral region You were discharged from [facility] on 06/24/2022 00:00 Should you have [...]
--- OUTSIDE RECORDS SUMMARY | 2023-02-21 07:42 | XMS_ITS | CCD ---
Author Name Unknown Address [address] [place] [address] [phone] Organization Unknown Address [address] [place] [address] [phone] Care Team Providers Care Glove Maker Name Role Phone CHEMO PARRA Attending Physician [phone] LESTER GALLO Er Physician 1 [phone] CLARIBEL MCGEE (Secondary) Physician [phone] ALEJANDRA Neely Registered Nurse [phone] CHAYA Reyes Registered Nurse [phone] ROSHNI Chaney Registered Nurse [phone] Vital Signs Vital Sign Value Unit Date/Time [...] Code Start Date Resolved Date Status HTN 96448657 Active History of IV (intravenous) drug abuse 78187417263582223 Active Opioid use disorder, severe 54446938 Active Multiple subsegmental pulmon fredy emboli without acute cor pulmonale 48860826 Active Saddle embolus 730503510 Active DVT of left lower extremity 808163246 Active MSSA sepsis 16113047084876 Active Chronic anemia 448128133 Active MRSA colonization 000929874 Active Septic pulmonary embolism 209871267 2022 Resolved Bacteremia caused by Gram-positive bacteria 569137059700 2022 Resolved Gout 22360097 06/15/2022 Resolved MRSA infection 077979191 2022 Resolved Fever 404380976 11/15/2022 Resolved Congestive heart failure 98480252 11/16/2022 Resolved Discitis, unspecified, lumbosacral region 3578407 2022 Resolved Hyponatremia 12634563 11/15/2022 Resolved Hypokalemia 94280431 11/15/2022 Resolved Results BASIC METABOLIC PANEL (BMP) [...] 2028-9 26 mmol/L L=22 H=34 ANION GAP 74623-7 7.0 mmol/L CALCIUM SERUM 56341-0 9.3 mg/dL L=8.2 H=10. 2 AGE 41 years eGFR (non-Afr.Amer.) 58147-5 98 mL/min eGFR (Afr-Eritrean) 94732-1 119 mL/min BASIC METABOLIC PANEL (BMP) - [...] 2028-9 26 mmol/L L=22 H=34 ANION GAP 38919-2 8.8 mmol/L CALCIUM SERUM 31241-6 9.5 mg/dL L=8.2 H=10. 2 AGE 41 years eGFR (non-Afr.Amer.) 49906-3 107 mL/min eGFR (Afr-Eritrean) 78490-5 >120 mL/min C REACTIVE PROTEIN HIGH SENS ITIVITY* - Collect Date/Time: 06/21/2022 07:00 Test Name Code Test Result Test Units Test Ref Rang e CRP-HIGH SENS. 74589-6 44.93 mg/L L=0.00 H=3 .00 CRP-HIGH SENS 81193-4 4.49 mg/dL L=0.00 H=0. 30 COMPREHENSIVE METABOLIC [...] 2028-9 31 mmol/L L=22 H=34 ANION GAP 40215-6 5.4 mmol/L CALCIUM SERUM 31014-6 9.4 mg/dL L=8.2 H=10. 2 BILIRUBIN TOTAL 1975-2 0.2 mg/dL L=0.0 H=1 .3 ALK. PHOS. 6768-6 123 U/L L=46 H=116 SGOT (AST) 1920-8 55 U/L L=15 H=37 SGPT (ALT) 1742-6 148 U/L L=12 H=78 TOTAL PROTEIN 2885-2 9.1 gm/dL L=6.0 H=8.0 ALBUMIN 1751-7 2.4 gm/dL L=3.4 H=5.0 AGE 41 years eGFR (non-Afr.Amer.) 22758-7 87 mL/min eGFR (Afr-Eritrean) 81161-7 105 mL/min CBC W/ DIFFERENTIAL* - Colle ct Date/Time: 06/21/2022 07:30 Test Name Code Test Result Test Units Test Ref Rang e WBC 6690-2 6.37 th/cmm L=5.00 H=10.00 NEUT % 53.8 % L=40.0 H=80.0 LYMPH % 34.7 % L=10.0 H=50.0 MONO % 17817-0 7.1 % L=2.0 H=12.0 EOS % 3.0 % L=0.0 H=8.0 BASO % 0.9 % L=0.0 H=3.0 IG % 2514-8 0.5 % L=0.0 H=1.1 NRBC % 62691-3 0.0 % L=0.0 H=0.0 NEUT abs count 751-8 3.4 th/cmm L=1.6 H=8. 4 LYMPH abs count 731-0 2.2 th/cmm L=1.5 H=4 .0 MONO abs count 742-7 0.5 th/cmm L=0.2 H=1. 0 EOS abs count 711-2 0.2 th/cmm L=0.0 H=0.5 BASO abs count 704-7 0.1 th/cmm L=0.0 H=0. 2 IG abs count 90099-2 0.0 th/cmm L=0.0 H=0.1 NRBC abs count 32702-2 0.0 mil/cmm L=0.0 H=0. 0 RBC 789-8 4.67 mil/cmm L=4.30 H=6.20 HEMOGLOBIN 718-7 11.6 gm/dL L=13.0 H=17.0 HEMATOCRIT 4544-3 37 % L=45 H=52 MCV 787-2 80 fL L=82 H=92 MCH 785-6 24.8 pg L=27.0 H=31.0 MCHC 786-4 31.0 % L=32.0 H=36.0 RDW-SD 788-0 44.5 fL L=39.0 H=49.0 PLATELET COUNT 777-3 298 th/cmm L=150 H=45 0 CBC W/ DIFFERENTIAL* - [facility] ct Date/Time: 06/16/2022 07:15 Test Name Code Test Result Test Units Test Ref Rang e WBC 6690-2 11.01 th/cmm L=5.00 H=10.00 NEUT % 69.5 % L=40.0 H=80.0 LYMPH % 22.3 % L=10.0 H=50.0 MONO % 05785-4 5.5 % L=2.0 H=12.0 EOS % 1.4 % L=0.0 H=8.0 BASO % 0.3 % L=0.0 H=3.0 IG % 2514-8 1.0 % L=0.0 H=1.1 NRBC % 92269-2 0.0 % L=0.0 H=0.0 NEUT abs count 751-8 7.7 th/cmm L=1.6 H=8. 4 LYMPH abs count 731-0 2.5 th/cmm L=1.5 H=4 .0 MONO abs count 742-7 0.6 th/cmm L=0.2 H=1. 0 EOS abs count 711-2 0.2 th/cmm L=0.0 H=0.5 BASO abs count 704-7 0.0 th/cmm L=0.0 H=0. 2 IG abs count 30997-2 0.1 th/cmm L=0.0 H=0.1 NRBC abs count 60375-5 0.0 mil/cmm L=0.0 H=0. 0 RBC 789-8 4.72 mil/cmm L=4.30 H=6.20 HEMOGLOBIN 718-7 11.6 gm/dL L=13.0 H=17.0 HEMATOCRIT 4544-3 37 % L=45 H=52 MCV 787-2 79 fL L=82 H=92 MCH 785-6 24.6 pg L=27.0 H=31.0 MCHC 786-4 31.1 % L=32.0 H=36.0 RDW-SD 788-0 45.5 fL L=39.0 H=49.0 PLATELET COUNT 777-3 267 th/cmm L=150 H=45 0 CBC W/ DIFFERENTIAL* - [facility] ct Date/Time: 06/15/2022 06:00 Test Name Code Test Result Test Units Test Ref Rang e WBC 6690-2 10.21 th/cmm L=5.00 H=10.00 NEUT % 69.4 % L=40.0 H=80.0 LYMPH % 20.1 % L=10.0 H=50.0 MONO % 21080-1 7.0 % L=2.0 H=12.0 EOS % 1.9 % L=0.0 H=8.0 BASO % 0.4 % L=0.0 H=3.0 IG % 2514-8 1.2 % L=0.0 H=1.1 NRBC % 84737-4 0.0 % L=0.0 H=0.0 NEUT abs count 751-8 7.1 th/cmm L=1.6 H=8. 4 LYMPH abs count 731-0 2.1 th/cmm L=1.5 H=4 .0 MONO abs count 742-7 0.7 th/cmm L=0.2 H=1. 0 EOS abs count 711-2 0.2 th/cmm L=0.0 H=0.5 BASO abs count 704-7 0.0 th/cmm L=0.0 H=0. 2 IG abs count 97674-4 0.1 th/cmm L=0.0 H=0.1 NRBC abs count 91241-3 0.0 mil/cmm L=0.0 H=0. 0 RBC 789-8 [...] % 19.8 % L=10.0 H=50.0 MONO % 64225-4 4.0 % L=2.0 H=12.0 EOS % 1.5 % L=0.0 H=8.0 BASO % 0.4 % L=0.0 H=3.0 IG % 2514-8 1.3 % L=0.0 H=1.1 NRBC % 64201-3 0.0 % L=0.0 H=0.0 NEUT abs count 751-8 10.2 th/cmm L=1.6 H=8. 4 LYMPH abs count 731-0 2.8 th/cmm L=1.5 H=4 .0 MONO abs count 742-7 0.6 th/cmm L=0.2 H=1. 0 EOS abs count 711-2 0.2 th/cmm L=0.0 H=0.5 BASO abs count 704-7 0.1 th/cmm L=0.0 H=0. 2 IG abs count 38835-9 0.2 th/cmm L=0.0 H=0.1 NRBC abs count 01362-1 0.0 mil/cmm L=0.0 H=0. 0 RBC 789-8 [...] Test Units Test Ref Rang e CANNABINOIDS 27573-5 NEGATIVE N/A Cutoff = 50 ng/mL PHENCYCLIDINE 47557-7 NEGATIVE N/A Cutoff = 25 ng/mL COCAINE 08705-4 POSITIVE N/A Cutoff = 150 n g/mL METHAMPHETAMINES 08751-3 NEGATIVE N/A Cutoff = 500 ng/mL OPIATES 00242-4 NEGATIVE N/A Cutoff = 100 n g/mL AMPHETAMINES 30408-1 NEGATIVE N/A Cutoff = 500 ng/mL BENZODIAZEPINES 57268-9 POSITIVE N/A Cutoff = 150 ng/mL TRICYCLIC ANTIDEP 3533-7 NEGATIVE N/A Cutoff = 300 ng/mL METHADONE 99111-3 NEGATIVE N/A Cutoff = 200 n g/mL BARBITURATES 86980-3 NEGATIVE N/A Cutoff = 200 ng/mL OXYCODONE 30730-7 NEGATIVE N/A Cutoff = 100 n g/mL PROPOXYPHENE 44342-8 NEGATIVE N/A Cutoff = 300 ng/mL BUPRENORPHINE [...] Code Start Date Pain in right shoulder B58992 3 Social History Smoking Status Code Start Date End Date Current every day smoker [id number] Patient Decision Aids Unknown or Not Available. [...]
--- OUTSIDE RECORDS SUMMARY | 2023-02-21 07:42 | XMS_ITS | CCD ---
Author Name Unknown Address [address] [place] [address] [phone] Organization Unknown Address [address] [place] [address] [phone] Care Team Providers Care Medical Voucher Clerk Name Role Phone BOBBY BOLTON Attending Physician [phone] Vital Signs Vital Sign Value Unit [...] Code Start Date Resolved Date Status HTN 57493025 Active History of IV (intravenous) drug abuse 59162479193003321 Active Opioid use disorder, severe 31692785 Active Multiple subsegmental pulmon fredy emboli without acute cor pulmonale 39124729 Active Saddle embolus 995081493 Active DVT of left lower extremity 262120650 Active MSSA sepsis 90065621178763 Active Chronic anemia 578463960 Active MRSA colonization 410502459 Active Septic pulmonary embolism 827885997 2022 Resolved Bacteremia caused by Gram-positive bacteria 869926293176 2022 Resolved MRSA infection 385204775 2022 Resolved Fever 154449413 11/15/2022 Resolved Congestive heart failure 00433478 11/16/2022 Resolved Discitis, unspecified, lumbosacral region 4920779 2022 Resolved Hyponatremia 48636126 11/15/2022 Resolved Hypokalemia 65585734 11/15/2022 Resolved Results BASIC METABOLIC PANEL (BMP) [...] 2028-9 24 mmol/L L=22 H=34 ANION GAP 00539-9 9.6 mmol/L CALCIUM SERUM 43967-2 9.0 mg/dL L=8.2 H=10. 2 AGE 41 years eGFR (non-Afr.Amer.) 71705-9 90 mL/min eGFR (Afr-Fijian) 14791-3 109 mL/min C REACTIVE PROTEIN HIGH SENS ITIVITY* - Collect Date/Time: 07/19/2022 06:45 Test Name Code Test Result Test Units Test Ref Rang e CRP-HIGH SENS. 02533-5 12.94 mg/L L=0.00 H=3 .00 CRP-HIGH SENS 79473-9 1.29 mg/dL L=0.00 H=0. 30 C REACTIVE PROTEIN HIGH SENS ITIVITY* - Collect Date/Time: 07/13/2022 10:00 Test Name Code Test Result Test Units Test Ref Rang e CRP-HIGH SENS. 52993-8 6.32 mg/L L=0.00 H=3 .00 CRP-HIGH SENS 58406-5 0.63 mg/dL L=0.00 H=0. 30 C REACTIVE PROTEIN HIGH SENS ITIVITY* - Collect Date/Time: 07/05/2022 06:10 Test Name Code Test Result Test Units Test Ref Rang e CRP-HIGH SENS. 32227-2 27.36 mg/L L=0.00 H=3 .00 CRP-HIGH SENS 11101-2 2.74 mg/dL L=0.00 H=0. 30 C REACTIVE PROTEIN HIGH SENS ITIVITY* - Collect Date/Time: 06/28/2022 06:35 Test Name Code Test Result Test Units Test Ref Rang e CRP-HIGH SENS. 56543-0 26.36 mg/L L=0.00 H=3 .00 CRP-HIGH SENS 08094-7 2.64 mg/dL L=0.00 H=0. 30 COMPREHENSIVE METABOLIC [...] 2028-9 27 mmol/L L=22 H=34 ANION GAP 49653-1 9.1 mmol/L CALCIUM SERUM 17588-9 9.0 mg/dL L=8.2 H=10. 2 BILIRUBIN TOTAL 1975-2 0.4 mg/dL L=0.0 H=1 .3 ALK. PHOS. 6768-6 62 U/L L=46 H=116 SGOT (AST) 1920-8 23 U/L L=15 H=37 SGPT (ALT) 1742-6 35 U/L L=12 H=78 TOTAL PROTEIN 2885-2 8.1 gm/dL L=6.0 H=8.0 ALBUMIN 1751-7 3.4 gm/dL L=3.4 H=5.0 AGE 41 years eGFR (non-Afr.Amer.) 27674-6 83 mL/min eGFR (Afr-Fijian) 73337-9 100 mL/min COMPREHENSIVE METABOLIC PANE L (CMP) [...] 2028-9 28 mmol/L L=22 H=34 ANION GAP 14365-2 8.6 mmol/L CALCIUM SERUM 87216-9 8.8 mg/dL L=8.2 H=10. 2 BILIRUBIN TOTAL 1975-2 0.3 mg/dL L=0.0 H=1 .3 ALK. PHOS. 6768-6 67 U/L L=46 H=116 SGOT (AST) 1920-8 21 U/L L=15 H=37 SGPT (ALT) 1742-6 41 U/L L=12 H=78 TOTAL PROTEIN 2885-2 8.6 gm/dL L=6.0 H=8.0 ALBUMIN 1751-7 3.6 gm/dL L=3.4 H=5.0 AGE 41 years eGFR (non-Afr.Amer.) 15300-8 69 mL/min eGFR (Afr-Fijian) 88121-3 84 mL/min COMPREHENSIVE METABOLIC PANE L (CMP) [...] 2028-9 27 mmol/L L=22 H=34 ANION GAP 52481-4 7.3 mmol/L CALCIUM SERUM 70795-0 8.7 mg/dL L=8.2 H=10. 2 BILIRUBIN TOTAL 1975-2 0.3 mg/dL L=0.0 H=1 .3 ALK. PHOS. 6768-6 71 U/L L=46 H=116 SGOT (AST) 1920-8 29 U/L L=15 H=37 SGPT (ALT) 1742-6 41 U/L L=12 H=78 TOTAL PROTEIN 2885-2 8.1 gm/dL L=6.0 H=8.0 ALBUMIN 1751-7 2.7 gm/dL L=3.4 H=5.0 AGE 41 years eGFR (non-Afr.Amer.) 26884-7 84 mL/min eGFR (Afr-Fijian) 07210-6 101 mL/min CPK SERUM TOTAL* - Collect [...] % 40.3 % L=10.0 H=50.0 MONO % 13700-6 9.7 % L=2.0 H=12.0 EOS % 5.2 % L=0.0 H=8.0 BASO % 0.7 % L=0.0 H=3.0 IG % 2514-8 0.3 % L=0.0 H=1.1 NRBC % 87767-5 0.0 % L=0.0 H=0.0 NEUT abs count 751-8 2.5 th/cmm L=1.6 H=8. 4 LYMPH abs count 731-0 2.3 th/cmm L=1.5 H=4 .0 MONO abs count 742-7 0.6 th/cmm L=0.2 H=1. 0 EOS abs count 711-2 0.3 th/cmm L=0.0 H=0.5 BASO abs count 704-7 0.0 th/cmm L=0.0 H=0. 2 IG abs count 37325-8 0.0 th/cmm L=0.0 H=0.1 NRBC abs count 00820-8 0.0 mil/cmm L=0.0 H=0. 0 RBC 789-8 [...] % 30.5 % L=10.0 H=50.0 MONO % 88892-5 5.2 % L=2.0 H=12.0 EOS % 2.4 % L=0.0 H=8.0 BASO % 0.4 % L=0.0 H=3.0 IG % 2514-8 0.3 % L=0.0 H=1.1 NRBC % 01175-8 0.0 % L=0.0 H=0.0 NEUT abs count 751-8 4.4 th/cmm L=1.6 H=8. 4 LYMPH abs count 731-0 2.2 th/cmm L=1.5 H=4 .0 MONO abs count 742-7 0.4 th/cmm L=0.2 H=1. 0 EOS abs count 711-2 0.2 th/cmm L=0.0 H=0.5 BASO abs count 704-7 0.0 th/cmm L=0.0 H=0. 2 IG abs count 83966-6 0.0 th/cmm L=0.0 H=0.1 NRBC abs count 47808-4 0.0 mil/cmm L=0.0 H=0. 0 RBC 789-8 [...] % 37.6 % L=10.0 H=50.0 MONO % 91705-7 8.1 % L=2.0 H=12.0 EOS % 6.2 % L=0.0 H=8.0 BASO % 0.8 % L=0.0 H=3.0 IG % 2514-8 0.4 % L=0.0 H=1.1 NRBC % 57479-2 0.0 % L=0.0 H=0.0 NEUT abs count 751-8 3.7 th/cmm L=1.6 H=8. 4 LYMPH abs count 731-0 3.0 th/cmm L=1.5 H=4 .0 MONO abs count 742-7 0.6 th/cmm L=0.2 H=1. 0 EOS abs count 711-2 0.5 th/cmm L=0.0 H=0.5 BASO abs count 704-7 0.1 th/cmm L=0.0 H=0. 2 IG abs count 39874-8 0.0 th/cmm L=0.0 H=0.1 NRBC abs count 52224-7 0.0 mil/cmm L=0.0 H=0. 0 RBC 789-8 4.66 mil/cmm L=4.30 H=6.20 HEMOGLOBIN 718-7 11.6 gm/dL L=13.0 H=17.0 HEMATOCRIT 4544-3 37 % L=45 H=52 MCV 787-2 80 fL L=82 H=92 MCH 785-6 24.9 pg L=27.0 H=31.0 MCHC 786-4 31.0 % L=32.0 H=36.0 RDW-SD 788-0 44.9 fL L=39.0 H=49.0 PLATELET COUNT 777-3 210 th/cmm L=150 H=45 0 CBC W/ DIFFERENTIAL* - [facility] ct Date/Time: 06/28/2022 06:35 Test Name Code Test Result Test Units Test Ref Rang e WBC 6690-2 5.26 th/cmm L=5.00 H=10.00 NEUT % 41.9 % L=40.0 H=80.0 LYMPH % 39.5 % L=10.0 H=50.0 MONO % 16694-7 10.5 % L=2.0 H=12.0 EOS % 6.8 % L=0.0 H=8.0 BASO % 1.1 % L=0.0 H=3.0 IG % 2514-8 0.2 % L=0.0 H=1.1 NRBC % 15806-0 0.0 % L=0.0 H=0.0 NEUT abs count 751-8 2.2 th/cmm L=1.6 H=8. 4 LYMPH abs count 731-0 2.1 th/cmm L=1.5 H=4 .0 MONO abs count 742-7 0.6 th/cmm L=0.2 H=1. 0 EOS abs count 711-2 0.4 th/cmm L=0.0 H=0.5 BASO abs count 704-7 0.1 th/cmm L=0.0 H=0. 2 IG abs count 35014-6 0.0 th/cmm L=0.0 H=0.1 NRBC abs count 64536-8 0.0 mil/cmm L=0.0 H=0. 0 RBC 789-8 [...] Date End Date Current every day smoker [id number] Patient Decision Aids Unknown or Not Available. Discharge Instructions You were admitted to [facility] on 06/24/2022 10:15 with a principal diagnosis [...] DIFFERENTIAL*CPK SERUM TOTAL* You were discharged from [facility] on 07/23/2022 10:50 Should you have any [...]
--- OUTSIDE RECORDS SUMMARY | 2023-02-21 07:42 | XMS_ITS | CCD ---
Author Name Unknown Address [address] [place] [address] [phone] Organization Unknown Address [address] [place] [address] [phone] Care Team Providers Care Outreach Coordinator Name Role Phone BOBBY BOLTON Attending Physician [phone] Vital Signs Unknown or Not Available. Allergies Allergy Code Allergy Type Reaction Status No Known Drug Allergies 0 No known drug allergies Active Procedures Unknown or Not Available. History of Immunizations Unknown or Not Available. Problems Problem Code Start Date Resolved Date Status HTN 87526119 Active History of IV (intravenous) drug abuse 34812454792984541 Active Opioid use disorder, severe 80810146 Active Multiple subsegmental pulmon fredy emboli without acute cor pulmonale 06053725 Active Saddle embolus 586067985 Active DVT of left lower extremity 151723953 Active MSSA sepsis 17576950513149 Active Chronic anemia 253772803 Active MRSA colonization 507948230 Active Septic pulmonary embolism 169034079 2022 Resolved Bacteremia caused by Gram-positive bacteria 997115552740 2022 Resolved MRSA infection 645542714 2022 Resolved Fever 570199566 11/15/2022 Resolved Congestive heart failure 06355931 11/16/2022 Resolved Discitis, unspecified, lumbosacral region 4245954 2022 Resolved Hyponatremia 01703168 11/15/2022 Resolved Hypokalemia 13035620 11/15/2022 Resolved Results Unknown or Not Available. Active Medications Medication Code Dose Units Frequency Route Modificatio n Start Date/Time Losartan Potassium 50MG Oral Tablet 780961 1 TABLET DAILY ORAL 11/24/19 23 10:35 Prescription Detail TAKE 1 TABLET ORAL DAILY Cefuroxime Axetil 500MG Oral Tablet 502194 1 TABLET DAILY ORAL 11/24/19 10:30 Prescription Detail TAKE 1 TABLET ORAL DAILY AFTER YOU FINIS H THE FULL COURSE OF ANTIBIOTIC. TO BE CONTINUED FOR 3 MONTHS Ibuprofen 200MG Oral Tablet 025211 3 TABLET NEEDED THREE TIMES A DAY ORAL 11/23/2022 10:13 Prescription Detail TAKE 3 TABLET ORAL NEEDED THREE TIMES A DAY FOR GOUT, TAKE WITH FOOD Cefuroxime Axetil 500MG Oral Tablet 053384 2 TABLET EVERY 8 HOURS ORAL 11/23/2022 10:12 Prescription Detail TAKE 2 TABLET ORAL EVERY 8 HOURS Colchicine 0.6MG Oral Tablet 213221 0.6 MILLIGRAMS DAILY ORAL 10:11 Prescription Detail TAKE 0.6 MILLIGRAMS ORAL DAILY Eliquis 5MG Oral Tablet 0778093 1 TABLET TWICE A DAY ORAL 11/18/2022 17:29 Prescription Detail TAKE 1 TABLET ORAL TWICE A DAY Suboxone 8MG-2MG Sublingual Film 7611518 3 EACH DAILY SUBLINGUAL 15:04 Prescription Detail DISSOLVE 3 EACH SUBLINGUAL DAILY Acetaminophen 500MG Oral Tablet 983659 2 TABLET NEEDED THREE TIMES A DAY ORAL 07/23/2022 10:05 Prescription Detail TAKE 2 TABLET ORAL NEEDED THREE TIMES A DAY FOR PAIN Medications Administered During Visit Unknown or Not Available. Encounters Encounter Diagnosis Diagnosis Code Start Date Osteomyelitis of vertebra, lumbar region M4626 06/27/2022 Social History Smoking Status Code Start Date End Date Current every day smoker [id number] Patient Decision Aids Unknown or Not Available. Discharge Instructions You were admitted to [facility] on 06/27/2022 03:03 with a principal diagnosis of Osteomyelitis of vertebra, lumbar region You were discharged from [facility] on 07/23/2022 03:03 Should you have [...]
--- OUTSIDE RECORDS SUMMARY | 2023-02-21 07:42 | XMS_ITS | CCD ---
Author Name Unknown Address [address] [place] [address] [phone] Organization Unknown Address [address] [place] [address] [phone] Care Team Providers Care Trimmer Sorter Name Role Phone CHEMO PARRA Attending Physician [phone] LEOLA GOODWIN Er Physician 1 [phone] ALICIA MADRID (Secondary) Physician [phone] JAGUAR Noyola Registered Nurse [phone] Vital Signs Vital Sign Value Unit Date/Time [...] Code Start Date Resolved Date Status HTN 00219957 Active History of IV (intravenous) drug abuse 49523715325424741 Active Opioid use disorder, severe 24103301 Active Multiple subsegmental pulmon fredy emboli without acute cor pulmonale 26422698 Active Saddle embolus 882003858 Active DVT of left lower extremity 998658556 Active MSSA sepsis 82040072670130 Active Chronic anemia 588388316 Active MRSA colonization 791990700 Active Septic pulmonary embolism 418097305 2022 Resolved Bacteremia caused by Gram-positive bacteria 495969242485 2022 Resolved MRSA infection 962527788 2022 Resolved Fever 040076125 11/15/2022 Resolved Congestive heart failure 32903905 11/16/2022 Resolved Discitis, unspecified, lumbosacral region 2105201 2022 Resolved Hyponatremia 34502117 11/15/2022 Resolved Hypokalemia 63144559 11/15/2022 Resolved Results ALCOHOL (ETHANOL)* - Collect Date/Time: 2022 15:05 Test Name Code Test Result Test Units Test Ref Rang e ALCOHOL (ETHANOL) 71709-8 <3 mg/dL AMMONIA - Collect Date/Time: 10/24/2022 18:20 Test Name Code Test Result Test Units Test Ref Rang e AMMONIA 30255-8 <10 umol/L L=19 H=54 BASIC METABOLIC PANEL [...] 2028-9 30 mmol/L L=22 H=34 ANION GAP 20697-4 8.3 mmol/L CALCIUM SERUM 78233-6 9.4 mg/dL L=8.2 H=10. 2 AGE 42 years eGFR (non-Afr.Amer.) 15073-2 98 mL/min eGFR (Afr-Singaporean) 34005-4 119 mL/min BASIC METABOLIC PANEL (BMP) - [...] 2028-9 28 mmol/L L=22 H=34 ANION GAP 07161-9 6.7 mmol/L CALCIUM SERUM 39407-0 8.7 mg/dL L=8.2 H=10. 2 AGE 42 years eGFR (non-Afr.Amer.) 50535-0 97 mL/min eGFR (Afr-Singaporean) 32071-2 117 mL/min BASIC METABOLIC PANEL (BMP) - [...] 2028-9 28 mmol/L L=22 H=34 ANION GAP 05189-0 7.3 mmol/L CALCIUM SERUM 49998-6 9.1 mg/dL L=8.2 H=10. 2 AGE 42 years eGFR (non-Afr.Amer.) 82707-2 101 mL/min eGFR (Afr-Singaporean) 04975-9 >120 mL/min BASIC METABOLIC PANEL (BMP) - [...] 2028-9 27 mmol/L L=22 H=34 ANION GAP 14463-8 6.7 mmol/L CALCIUM SERUM 52484-7 9.2 mg/dL L=8.2 H=10. 2 AGE 42 years eGFR (non-Afr.Amer.) 01325-6 98 mL/min eGFR (Afr-Singaporean) 31571-5 119 mL/min BASIC METABOLIC PANEL (BMP) - [...] 2028-9 28 mmol/L L=22 H=34 ANION GAP 85437-1 6.5 mmol/L CALCIUM SERUM 32072-3 9.0 mg/dL L=8.2 H=10. 2 AGE 42 years eGFR (non-Afr.Amer.) 18996-8 115 mL/min eGFR (Afr-Singaporean) 67947-5 >120 mL/min BASIC METABOLIC PANEL (BMP) - [...] 2028-9 26 mmol/L L=22 H=34 ANION GAP 74296-5 6.3 mmol/L CALCIUM SERUM 46399-6 8.1 mg/dL L=8.2 H=10. 2 AGE 42 years eGFR (non-Afr.Amer.) 85678-3 108 mL/min eGFR (Afr-Singaporean) 92702-0 >120 mL/min BASIC METABOLIC PANEL (BMP) - [...] 2028-9 27 mmol/L L=22 H=34 ANION GAP 20396-4 8.0 mmol/L CALCIUM SERUM 33467-0 8.3 mg/dL L=8.2 H=10. 2 AGE 42 years eGFR (non-Afr.Amer.) 78217-2 105 mL/min eGFR (Afr-Singaporean) 55986-1 >120 mL/min BASIC METABOLIC PANEL (BMP) - [...] 2028-9 24 mmol/L L=22 H=34 ANION GAP 93668-4 9.8 mmol/L CALCIUM SERUM 83875-0 8.4 mg/dL L=8.2 H=10. 2 AGE 42 years eGFR (non-Afr.Amer.) 44312-9 115 mL/min eGFR (Afr-Singaporean) 97748-2 >120 mL/min BASIC METABOLIC PANEL (BMP) - [...] 2028-9 24 mmol/L L=22 H=34 ANION GAP 37789-6 12.5 mmol/L CALCIUM SERUM 25419-5 8.5 mg/dL L=8.2 H=10. 2 AGE 42 years eGFR (non-Afr.Amer.) 97888-5 99 mL/min eGFR (Afr-Singaporean) 44254-3 120 mL/min BASIC METABOLIC PANEL (BMP) - [...] 2028-9 24 mmol/L L=22 H=34 ANION GAP 45721-7 11.2 mmol/L CALCIUM SERUM 59856-4 8.5 mg/dL L=8.2 H=10. 2 AGE 42 years eGFR (non-Afr.Amer.) 53795-2 110 mL/min eGFR (Afr-Singaporean) 60497-1 >120 mL/min BNP (PRO-B NATRIURETIC PEPTI DE) - Collect Date/Time: 2022 15:05 Test Name Code Test Result Test Units Test Ref Rang e NT-proBNP 08791-1 2518.0 pg/mL L=0.0 H=125 C REACTIVE PROTEIN HIGH SENS ITIVITY* - Collect Date/Time: 11/17/2022 06:40 Test Name Code Test Result Test Units Test Ref Rang e CRP-HIGH SENS. 82786-7 56.98 mg/L L=0.00 H=3 .00 CRP-HIGH SENS 63789-0 5.70 mg/dL L=0.00 H=0. 30 C REACTIVE PROTEIN HIGH SENS ITIVITY* - Collect Date/Time: 11/11/2022 09:30 Test Name Code Test Result Test Units Test Ref Rang e CRP-HIGH SENS. 95210-6 106.16 mg/L L=0.00 H=3 .00 CRP-HIGH SENS 37161-0 10.62 mg/dL L=0.00 H=0. 30 C REACTIVE PROTEIN HIGH SENS ITIVITY* - Collect Date/Time: 11/07/2022 09:25 Test Name Code Test Result Test Units Test Ref Rang e CRP-HIGH SENS. 73754-5 148.20 mg/L L=0.00 H=3 .00 CRP-HIGH SENS 33628-1 14.82 mg/dL L=0.00 H=0. 30 C REACTIVE PROTEIN HIGH SENS ITIVITY* - Collect Date/Time: 11/05/2022 06:30 Test Name Code Test Result Test Units Test Ref Rang e CRP-HIGH SENS. 87826-5 111.22 mg/L L=0.00 H=3 .00 CRP-HIGH SENS 61686-3 11.12 mg/dL L=0.00 H=0. 30 C REACTIVE PROTEIN HIGH SENS ITIVITY* - Collect Date/Time: 11/01/2022 06:30 Test Name Code Test Result Test Units Test Ref Rang e CRP-HIGH SENS. 21390-6 220.17 mg/L L=0.00 H=3 .00 CRP-HIGH SENS 78590-4 22.02 mg/dL L=0.00 H=0. 30 C REACTIVE PROTEIN HIGH SENS ITIVITY* - Collect Date/Time: 10/29/2022 06:30 Test Name Code Test Result Test Units Test Ref Rang e CRP-HIGH SENS. 24130-1 292.71 mg/L L=0.00 H=3 .00 CRP-HIGH SENS 82249-4 29.27 mg/dL L=0.00 H=0. 30 C REACTIVE PROTEIN HIGH SENS ITIVITY* - Collect Date/Time: 10/23/2022 07:30 Test Name Code Test Result Test Units Test Ref Rang e CRP-HIGH SENS. 27396-1 >300.00 mg/L L=0.00 H=3 .00 CRP-HIGH SENS 47700-6 >30.00 mg/dL L=0.00 H=0. 30 COMPREHENSIVE METABOLIC [...] 2028-9 30 mmol/L L=22 H=34 ANION GAP 09061-2 4.7 mmol/L CALCIUM SERUM 23183-7 8.9 mg/dL L=8.2 H=10. 2 BILIRUBIN TOTAL 1975-2 0.2 mg/dL L=0.0 H=1 .3 ALK. PHOS. 6768-6 101 U/L L=46 H=116 SGOT (AST) 1920-8 19 U/L L=15 H=37 SGPT (ALT) 1742-6 19 U/L L=12 H=78 TOTAL PROTEIN 2885-2 9.2 gm/dL L=6.0 H=8.0 ALBUMIN 1751-7 2.2 gm/dL L=3.4 H=5.0 AGE 42 years eGFR (non-Afr.Amer.) 23838-7 97 mL/min eGFR (Afr-Singaporean) 88339-8 117 mL/min COMPREHENSIVE METABOLIC PANE L (CMP) [...] 2028-9 28 mmol/L L=22 H=34 ANION GAP 57487-0 8.5 mmol/L CALCIUM SERUM 45999-7 8.2 mg/dL L=8.2 H=10. 2 BILIRUBIN TOTAL 1975-2 0.5 mg/dL L=0.0 H=1 .3 ALK. PHOS. 6768-6 147 U/L L=46 H=116 SGOT (AST) 1920-8 76 U/L L=15 H=37 SGPT (ALT) 1742-6 62 U/L L=12 H=78 TOTAL PROTEIN 2885-2 7.3 gm/dL L=6.0 H=8.0 ALBUMIN 1751-7 1.3 gm/dL L=3.4 H=5.0 AGE 42 years eGFR (non-Afr.Amer.) 54847-9 90 mL/min eGFR (Afr-Singaporean) 91430-6 108 mL/min COMPREHENSIVE METABOLIC PANE L (CMP) [...] 2028-9 24 mmol/L L=22 H=34 ANION GAP 84768-7 12.3 mmol/L CALCIUM SERUM 24280-5 8.9 mg/dL L=8.2 H=10. 2 BILIRUBIN TOTAL 1975-2 0.5 mg/dL L=0.0 H=1 .3 ALK. PHOS. 6768-6 77 U/L L=46 H=116 SGOT (AST) 1920-8 117 U/L L=15 H=37 SGPT (ALT) 1742-6 56 U/L L=12 H=78 TOTAL PROTEIN 2885-2 7.9 gm/dL L=6.0 H=8.0 ALBUMIN 1751-7 2.1 gm/dL L=3.4 H=5.0 AGE 42 years eGFR (non-Afr.Amer.) 81182-9 92 mL/min eGFR (Afr-Singaporean) 61383-5 111 mL/min LACTIC ACID - Collect Date/T esteban: 10/24/2022 18:20 Test Name Code Test Result Test Units Test Ref Rang e LACTIC ACID 98595-3 2.7 mmol/L L=0.7 H=2.1 LACTIC ACID - Collect Date/T esteban: 2022 15:05 Test Name Code Test Result Test Units Test Ref Rang e LACTIC ACID 55582-2 1.8 mmol/L L=0.7 H=2.1 LIPASE* NEW - Collect Date/T esteban: 2022 15:05 Test Name Code Test Result Test Units Test Ref Rang e LIPASE. 35 U/L L=16 H=77 MAGNESIUM SERUM* - Collect D ate/Time: 2022 15:05 Test Name Code Test Result Test Units Test Ref Rang e MAGNESIUM 80824-4 1.9 mg/dL L=1.8 H=2.4 PHOSPHORUS SERUM - [...] % 40.5 % L=10.0 H=50.0 MONO % 42924-1 9.0 % L=2.0 H=12.0 EOS % 2.3 % L=0.0 H=8.0 BASO % 0.3 % L=0.0 H=3.0 IG % 2514-8 0.4 % L=0.0 H=1.1 NRBC % 83230-9 0.0 % L=0.0 H=0.0 NEUT abs count 751-8 3.4 th/cmm L=1.6 H=8. 4 LYMPH abs count 731-0 2.9 th/cmm L=1.5 H=4 .0 MONO abs count 742-7 0.6 th/cmm L=0.2 H=1. 0 EOS abs count 711-2 0.2 th/cmm L=0.0 H=0.5 BASO abs count 704-7 0.0 th/cmm L=0.0 H=0. 2 IG abs count 05135-4 0.0 th/cmm L=0.0 H=0.1 NRBC abs count 26226-4 0.0 mil/cmm L=0.0 H=0. 0 RBC 789-8 4.07 mil/cmm L=4.30 H=6.20 HEMOGLOBIN 718-7 9.3 gm/dL L=13.0 H=17.0 HEMATOCRIT 4544-3 32 % L=45 H=52 MCV 787-2 78 fL L=82 H=92 MCH 785-6 22.9 pg L=27.0 H=31.0 MCHC 786-4 29.4 % L=32.0 H=36.0 RDW-SD 788-0 47.0 fL L=39.0 H=49.0 PLATELET COUNT 777-3 324 th/cmm L=150 H=45 0 CBC W/ DIFFERENTIAL* - [facility] ct Date/Time: 11/11/2022 09:30 Test Name Code Test Result Test Units Test Ref Rang e WBC 6690-2 6.03 th/cmm L=5.00 H=10.00 NEUT % 55.6 % L=40.0 H=80.0 LYMPH % 35.5 % L=10.0 H=50.0 MONO % 82605-1 6.1 % L=2.0 H=12.0 EOS % 1.8 % L=0.0 H=8.0 BASO % 0.5 % L=0.0 H=3.0 IG % 2514-8 0.5 % L=0.0 H=1.1 NRBC % 28684-7 0.0 % L=0.0 H=0.0 NEUT abs count 751-8 3.4 th/cmm L=1.6 H=8. 4 LYMPH abs count 731-0 2.1 th/cmm L=1.5 H=4 .0 MONO abs count 742-7 0.4 th/cmm L=0.2 H=1. 0 EOS abs count 711-2 0.1 th/cmm L=0.0 H=0.5 BASO abs count 704-7 0.0 th/cmm L=0.0 H=0. 2 IG abs count 39398-4 0.0 th/cmm L=0.0 H=0.1 NRBC abs count 83253-5 0.0 mil/cmm L=0.0 H=0. 0 RBC 789-8 [...] % 27.9 % L=10.0 H=50.0 MONO % 13744-4 7.3 % L=2.0 H=12.0 EOS % 1.1 % L=0.0 H=8.0 BASO % 0.5 % L=0.0 H=3.0 IG % 2514-8 0.5 % L=0.0 H=1.1 NRBC % 34213-3 0.0 % L=0.0 H=0.0 NEUT abs count 751-8 4.2 th/cmm L=1.6 H=8. 4 LYMPH abs count 731-0 1.9 th/cmm L=1.5 H=4 .0 MONO abs count 742-7 0.5 th/cmm L=0.2 H=1. 0 EOS abs count 711-2 0.1 th/cmm L=0.0 H=0.5 BASO abs count 704-7 0.0 th/cmm L=0.0 H=0. 2 IG abs count 53538-0 0.0 th/cmm L=0.0 H=0.1 NRBC abs count 19992-4 0.0 mil/cmm L=0.0 H=0. 0 RBC 789-8 3.96 mil/cmm L=4.30 H=6.20 HEMOGLOBIN 718-7 8.9 gm/dL L=13.0 H=17.0 HEMATOCRIT 4544-3 31 % L=45 H=52 MCV 787-2 78 fL L=82 H=92 MCH 785-6 22.5 pg L=27.0 H=31.0 MCHC 786-4 28.8 % L=32.0 H=36.0 RDW-SD 788-0 47.2 fL L=39.0 H=49.0 PLATELET COUNT 777-3 372 th/cmm L=150 H=45 0 Hypochromia 1+ N/A CBC W/ DIFFERENTIAL* - [facility] ct Date/Time: 11/04/2022 06:15 Test Name Code Test Result Test Units Test Ref Rang e WBC 6690-2 7.05 th/cmm L=5.00 H=10.00 NEUT % 62.1 % L=40.0 H=80.0 LYMPH % 27.8 % L=10.0 H=50.0 MONO % 71255-3 8.2 % L=2.0 H=12.0 EOS % 1.0 % L=0.0 H=8.0 BASO % 0.3 % L=0.0 H=3.0 IG % 2514-8 0.6 % L=0.0 H=1.1 NRBC % 03819-0 0.0 % L=0.0 H=0.0 NEUT abs count 751-8 4.4 th/cmm L=1.6 H=8. 4 LYMPH abs count 731-0 2.0 th/cmm L=1.5 H=4 .0 MONO abs count 742-7 0.6 th/cmm L=0.2 H=1. 0 EOS abs count 711-2 0.1 th/cmm L=0.0 H=0.5 BASO abs count 704-7 0.0 th/cmm L=0.0 H=0. 2 IG abs count 04255-2 0.0 th/cmm L=0.0 H=0.1 NRBC abs count 36727-1 0.0 mil/cmm L=0.0 H=0. 0 RBC 789-8 3.92 mil/cmm L=4.30 H=6.20 HEMOGLOBIN 718-7 9.1 gm/dL L=13.0 H=17.0 HEMATOCRIT 4544-3 31 % L=45 H=52 MCV 787-2 78 fL L=82 H=92 MCH 785-6 23.2 pg L=27.0 H=31.0 MCHC 786-4 29.6 % L=32.0 H=36.0 RDW-SD 788-0 48.2 fL L=39.0 H=49.0 PLATELET COUNT 777-3 379 th/cmm L=150 H=45 0 CBC W/ DIFFERENTIAL* - [facility] ct Date/Time: 11/01/2022 06:30 Test Name Code Test Result Test Units Test Ref Rang e WBC 6690-2 12.74 th/cmm L=5.00 H=10.00 NEUT % 74.2 % L=40.0 H=80.0 LYMPH % 18.0 % L=10.0 H=50.0 MONO % 59532-6 6.2 % L=2.0 H=12.0 EOS % 0.5 % L=0.0 H=8.0 BASO % 0.2 % L=0.0 H=3.0 IG % 2514-8 0.9 % L=0.0 H=1.1 NRBC % 68228-2 0.0 % L=0.0 H=0.0 NEUT abs count 751-8 9.5 th/cmm L=1.6 H=8. 4 LYMPH abs count 731-0 2.3 th/cmm L=1.5 H=4 .0 MONO abs count 742-7 0.8 th/cmm L=0.2 H=1. 0 EOS abs count 711-2 0.1 th/cmm L=0.0 H=0.5 BASO abs count 704-7 0.0 th/cmm L=0.0 H=0. 2 IG abs count 93448-1 0.1 th/cmm L=0.0 H=0.1 NRBC abs count 97911-8 0.0 mil/cmm L=0.0 H=0. 0 RBC 789-8 [...] % 16.7 % L=10.0 H=50.0 MONO % 45042-5 7.0 % L=2.0 H=12.0 EOS % 1.0 % L=0.0 H=8.0 BASO % 0.3 % L=0.0 H=3.0 IG % 2514-8 1.8 % L=0.0 H=1.1 NRBC % 78719-6 0.0 % L=0.0 H=0.0 NEUT abs count 751-8 8.4 th/cmm L=1.6 H=8. 4 LYMPH abs count 731-0 1.9 th/cmm L=1.5 H=4 .0 MONO abs count 742-7 0.8 th/cmm L=0.2 H=1. 0 EOS abs count 711-2 0.1 th/cmm L=0.0 H=0.5 BASO abs count 704-7 0.0 th/cmm L=0.0 H=0. 2 IG abs count 56134-0 0.2 th/cmm L=0.0 H=0.1 NRBC abs count 77580-9 0.0 mil/cmm L=0.0 H=0. 0 RBC 789-8 [...] % 12.3 % L=10.0 H=50.0 MONO % 63882-1 5.2 % L=2.0 H=12.0 EOS % 1.1 % L=0.0 H=8.0 BASO % 0.3 % L=0.0 H=3.0 IG % 2514-8 1.8 % L=0.0 H=1.1 NRBC % 74636-6 0.0 % L=0.0 H=0.0 NEUT abs count 751-8 9.6 th/cmm L=1.6 H=8. 4 LYMPH abs count 731-0 1.5 th/cmm L=1.5 H=4 .0 MONO abs count 742-7 0.6 th/cmm L=0.2 H=1. 0 EOS abs count 711-2 0.1 th/cmm L=0.0 H=0.5 BASO abs count 704-7 0.0 th/cmm L=0.0 H=0. 2 IG abs count 07807-6 0.2 th/cmm L=0.0 H=0.1 NRBC abs count 27214-7 0.0 mil/cmm L=0.0 H=0. 0 RBC 789-8 4.49 mil/cmm L=4.30 H=6.20 HEMOGLOBIN 718-7 10.5 gm/dL L=13.0 H=17.0 HEMATOCRIT 4544-3 35 % L=45 H=52 MCV 787-2 78 fL L=82 H=92 MCH 785-6 23.4 pg L=27.0 H=31.0 MCHC 786-4 29.8 % L=32.0 H=36.0 RDW-SD 788-0 47.7 fL L=39.0 H=49.0 PLATELET COUNT 777-3 323 th/cmm L=150 H=45 0 CBC W/ DIFFERENTIAL* - [facility] ct Date/Time: 10/24/2022 18:20 Test Name Code Test Result Test Units Test Ref Rang e WBC 6690-2 10.21 th/cmm L=5.00 H=10.00 NEUT % 73.2 % L=40.0 H=80.0 LYMPH % 16.8 % L=10.0 H=50.0 MONO % 06656-3 6.7 % L=2.0 H=12.0 EOS % 1.9 % L=0.0 H=8.0 BASO % 0.2 % L=0.0 H=3.0 IG % 2514-8 1.2 % L=0.0 H=1.1 NRBC % 24543-9 0.0 % L=0.0 H=0.0 NEUT abs count 751-8 7.5 th/cmm L=1.6 H=8. 4 LYMPH abs count 731-0 1.7 th/cmm L=1.5 H=4 .0 MONO abs count 742-7 0.7 th/cmm L=0.2 H=1. 0 EOS abs count 711-2 0.2 th/cmm L=0.0 H=0.5 BASO abs count 704-7 0.0 th/cmm L=0.0 H=0. 2 IG abs count 77749-3 0.1 th/cmm L=0.0 H=0.1 NRBC abs count 55365-8 0.0 mil/cmm L=0.0 H=0. 0 RBC 789-8 4.64 mil/cmm L=4.30 H=6.20 HEMOGLOBIN 718-7 10.9 gm/dL L=13.0 H=17.0 HEMATOCRIT 4544-3 36 % L=45 H=52 MCV 787-2 77 fL L=82 H=92 MCH 785-6 23.5 pg L=27.0 H=31.0 MCHC 786-4 30.5 % L=32.0 H=36.0 RDW-SD 788-0 46.6 fL L=39.0 H=49.0 PLATELET COUNT 777-3 283 th/cmm L=150 H=45 0 CBC W/ DIFFERENTIAL* - [facility] ct Date/Time: 10/21/2022 11:49 Test Name Code Test Result Test Units Test Ref Rang e WBC 6690-2 10.67 th/cmm L=5.00 H=10.00 NEUT % 81.4 % L=40.0 H=80.0 LYMPH % 7.4 % L=10.0 H=50.0 MONO % 03532-7 10.2 % L=2.0 H=12.0 EOS % 0.1 % L=0.0 H=8.0 BASO % 0.1 % L=0.0 H=3.0 IG % 2514-8 0.8 % L=0.0 H=1.1 NRBC % 31126-4 0.0 % L=0.0 H=0.0 NEUT abs count 751-8 8.7 th/cmm L=1.6 H=8. 4 LYMPH abs count 731-0 0.8 th/cmm L=1.5 H=4 .0 MONO abs count 742-7 1.1 th/cmm L=0.2 H=1. 0 EOS abs count 711-2 0.0 th/cmm L=0.0 H=0.5 BASO abs count 704-7 0.0 th/cmm L=0.0 H=0. 2 IG abs count 01829-4 0.1 th/cmm L=0.0 H=0.1 NRBC abs count 18282-0 0.0 mil/cmm L=0.0 H=0. 0 RBC 789-8 5.18 mil/cmm L=4.30 H=6.20 HEMOGLOBIN 718-7 12.4 gm/dL L=13.0 H=17.0 HEMATOCRIT 4544-3 39 % L=45 H=52 MCV 787-2 75 fL L=82 H=92 MCH 785-6 23.9 pg L=27.0 H=31.0 MCHC 786-4 31.8 % L=32.0 H=36.0 RDW-SD 788-0 43.7 fL L=39.0 H=49.0 PLATELET COUNT 777-3 147 th/cmm L=150 H=45 0 CBC W/ DIFFERENTIAL* - [facility] ct Date/Time: 2022 15:05 Test Name Code Test Result Test Units Test Ref Rang e WBC 6690-2 10.96 th/cmm L=5.00 H=10.00 NEUT % 83.1 % L=40.0 H=80.0 LYMPH % 5.9 % L=10.0 H=50.0 MONO % 23205-8 10.3 % L=2.0 H=12.0 EOS % 0.0 % L=0.0 H=8.0 BASO % 0.2 % L=0.0 H=3.0 IG % 2514-8 0.5 % L=0.0 H=1.1 NRBC % 05181-6 0.0 % L=0.0 H=0.0 NEUT abs count 751-8 9.1 th/cmm L=1.6 H=8. 4 LYMPH abs count 731-0 0.7 th/cmm L=1.5 H=4 .0 MONO abs count 742-7 1.1 th/cmm L=0.2 H=1. 0 EOS abs count 711-2 0.0 th/cmm L=0.0 H=0.5 BASO abs count 704-7 0.0 th/cmm L=0.0 H=0. 2 IG abs count 63013-5 0.1 th/cmm L=0.0 H=0.1 NRBC abs count 80154-8 0.0 mil/cmm L=0.0 H=0. 0 RBC 789-8 [...] Test Units Test Ref Rang e COVID 55606-5 NEGATIVE N/A Normal: Negati ve SOURCE= 05413-9 Anterior nasal N/A Tier- 40501-2 EXPOSURE N/A JESSE COVID GENEXPERT* - Co llect Date/Time: 2022 15:26 Test Name Code Test Result Test Units Test Ref Rang e COVID 90894-7 NEGATIVE N/A Normal: Negati ve SOURCE= 42113-6 Nasopharyngeal N/A Tier- 35316-8 SYMPTOMS N/A GRAM STAIN* - Collect Date/T [...] Test Units Test Ref Rang e MRSA 03630-2 POSITIVE N/A Normal: Negati ve MSSA DNR [...] Start Date/Time Losartan Potassium 50MG Oral Tablet 647394 1 TABLET DAILY ORAL 11/24/19 10:35 Prescription Detail TAKE 1 TABLET ORAL DAILY Cefuroxime Axetil 500MG Oral Tablet 525091 1 TABLET DAILY ORAL 11/24/19 10:30 Prescription Detail TAKE 1 TABLET ORAL DAILY AFTER YOU FINIS H THE FULL COURSE OF ANTIBIOTIC. TO BE CONTINUED FOR 3 MONTHS Ibuprofen 200MG Oral Tablet [id number] 3 TABLET NEEDED THREE TIMES A DAY ORAL 11/23/2022 10:13 Prescription Detail TAKE 3 TABLET ORAL NEEDED THREE TIMES A DAY FOR GOUT, TAKE WITH FOOD Cefuroxime Axetil 500MG Oral Tablet 162170 2 TABLET EVERY 8 HOURS ORAL 11/23/2022 10:12 Prescription Detail TAKE 2 TABLET ORAL EVERY 8 HOURS Colchicine 0.6MG Oral Tablet 125212 0.6 MILLIGRAMS DAILY ORAL 10:11 Prescription Detail TAKE 0.6 MILLIGRAMS ORAL DAILY Eliquis 5MG Oral Tablet [id number] 1 TABLET TWICE A DAY ORAL 11/18/2022 17:29 Prescription Detail TAKE 1 TABLET ORAL TWICE A DAY Suboxone 8MG-2MG Sublingual Film [id number] 3 EACH DAILY SUBLINGUAL 15:04 Prescription Detail DISSOLVE 3 EACH SUBLINGUAL DAILY Acetaminophen 500MG Oral Tablet 036378 2 TABLET NEEDED THREE TIMES A DAY [...] Date End Date Current every day smoker [id number] Patient Decision Aids Unknown or Not Available. Discharge Instructions You were admitted to [facility] on 2022 18:15 with a principal diagnosis [...] SENSITIVITY*GRAM STAIN*GRAM STAIN* You were discharged from [facility] on 11/18/2022 15:15 Should you have any [...]
--- OUTSIDE RECORDS SUMMARY | 2023-02-21 07:43 | XMS_ITS | CCD ---
Author Name Unknown Address [address] [place] [address] [id number] Organization Unknown Address [address] [place] [address] [id number] Care Team Providers Care Quiller Operator Name Role Phone BOBBY BOLTON Attending Physician [phone] Vital Signs Unknown or Not Available. Allergies Allergy Code Allergy Type Reaction Status No Known Drug Allergies 0 No known drug allergies Active Procedures Unknown or Not Available. History of Immunizations Unknown or Not Available. 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 Active Medications Medication Code Dose Units Frequency Route Modificatio n Start Date/Time Losartan Potassium 50MG Oral Tablet 922346 1 TABLET DAILY ORAL 11/24/19 10:35 Prescription Detail TAKE 1 TABLET ORAL DAILY Cefuroxime Axetil 500MG Oral Tablet 826119 1 TABLET DAILY ORAL 11/24/19 10:30 Prescription Detail TAKE 1 TABLET ORAL DAILY AFTER YOU FINIS H THE FULL COURSE OF ANTIBIOTIC. TO BE CONTINUED FOR 3 MONTHS Ibuprofen 200MG Oral Tablet 928565 3 TABLET NEEDED THREE TIMES A DAY ORAL 11/23/2022 10:13 Prescription Detail TAKE 3 TABLET ORAL NEEDED THREE TIMES A DAY FOR GOUT, TAKE WITH FOOD Cefuroxime Axetil 500MG Oral Tablet 510081 2 TABLET EVERY 8 HOURS ORAL 11/23/2022 10:12 Prescription Detail TAKE 2 TABLET ORAL EVERY 8 HOURS Colchicine 0.6MG Oral Tablet 733706 0.6 MILLIGRAMS DAILY ORAL 3 10:11 Prescription Detail TAKE 0.6 MILLIGRAMS ORAL DAILY Eliquis 5MG Oral Tablet 3322863 1 TABLET TWICE A DAY ORAL 11/18/2022 17:29 Prescription Detail TAKE 1 TABLET ORAL TWICE A DAY Suboxone 8MG-2MG Sublingual Film 9328549 3 EACH DAILY SUBLINGUAL 15:04 Prescription Detail DISSOLVE 3 EACH SUBLINGUAL DAILY Acetaminophen 500MG Oral Tablet 165940 2 TABLET NEEDED THREE TIMES A DAY ORAL 07/23/2022 10:05 Prescription Detail TAKE 2 TABLET ORAL NEEDED THREE TIMES A DAY FOR PAIN Medications Administered During Visit Unknown or Not Available. Encounters Encounter Diagnosis Diagnosis Code Start Date Osteomyelitis of vertebra, lumbosacral region M4 627 06/07/2022 Social History Smoking Status Code Start Date End Date Current every day smoker [id number] Patient Decision Aids Unknown or Not Available. Discharge Instructions You were admitted to [facility] on 06/07/2022 00:55 with a principal diagnosis of Osteomyelitis of vertebra, lumbosacral region You were discharged from [facility] on 06/13/2022 00:55 Should you have [...]
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
--- NOTE | 2023-02-21 08:00 | DI.RAD_ITS ---
Exam(s) XR CHEST 2V PA LATERAL EXAM: XR CHEST 2V PA LATERAL CLINICAL HISTORY: ?infiltrates. TECHNIQUE: 2D digital imaging was performed. COMPARISON: CR,XR XR PORTABLE CHEST AP from 02/25/2022 FINDINGS: 2 views: Heart size is normal. The mediastinum is not widened. Lungs are clear. No infiltrates nor pleural effusions. IMPRESSION: No acute pulmonary findings. DATA REPOSITORY: RADIATION DOSE DELIVERED:
[2023-02-21 09:04] LABS: Lactate 0.7 mmol/L (0.6-1.4)
[2023-02-21 09:07] LABS: Abs Immature Grans 0.01 10^3/uL (0.0-0.06); Absolute Basophil Count 0.01 10^3/uL (0.0-0.2); Absolute Eosinophil Count 0.06 10^3/uL (0.0-0.7); Absolute Lymphocyte Count 1.73 10^3/uL (1.2-3.4); Absolute Monocyte Count 0.53 10^3/uL (0.1-0.8); Absolute Neutrophil Count 2.81 10^3/uL (1.2-6.7); Basophils % 0.2; Eosinophils % 1.2; HCT 35.1 % (40.0-50.0); HGB 10.8 g/dL (13.5-17.5); Immature Grans % 0.2; Lymphocytes % 33.6; MCH 24.3 pg (27.0-33.0); MCHC 30.8 % (32.0-36.0); MCV 79 fL (80-95); Monocytes % 10.3; Neutrophils % 54.5; Platelet Count 305 10^3/uL (130-400); RBC 4.45 10^6/uL (4.36-5.78); RDW 15.3 % (11.8-14.1); RDW-SD 43.8 fL; WBC 5.15 10^3/uL (4.4-10.8)
[2023-02-21 09:10] LABS: ESR 101 mm/hr (0-15)
[2023-02-21 09:23] LABS: INR 1.1 (0.9-1.1); PTT Activated 31.2 sec (23.6-32.8); Prothrombin Time 10.9 sec (9.1-11.1)
[2023-02-21 09:24] LABS: ALT 21 U/L (16-63); AST 16 U/L (15-37); Albumin 2.3 g/dL (3.4-5.0); Alkaline Phosphatase 55 U/L (46-116); Anion Gap 3.9 mmol/L (3-11); BUN 13 mg/dL (7-18); Bilirubin, Total 0.1 mg/dL (0.2-1.0); C-Reactive Protein 5.54 mg/dL (0.0-0.3); CO2 29.1 mmol/L (21.0-32.0); Chloride 102 mmol/L (98-107); Estimated GFR 96.97 (mL/min/1.73m2); Glucose 106 mg/dL (74-106); Magnesium 1.9 mg/dL (1.8-2.4); Potassium 4.3 mmol/L (3.5-5.1); Sodium 135 mmol/L (136-145); Total Protein 8.4 g/dL (6.4-8.2)
[2023-02-21 09:45] LABS: Procalcitonin 0.4 ng/mL
[2023-02-21 10:43] VITALS: BP 142/80; PULSE 75; RESP 17; TEMP 36.8; O2SAT 98
--- NOTE | 2023-02-22 13:44 | NUR.NOTE ---
Accessed pt chart for previous blood culture result. Nursing Note:
--- NOTE | 2023-02-26 16:13 | NUR.NOTE ---
Accessed Pt chart to see if Pt was given any antibiotics, he was not.
== END 2023-02-21 10:44 | disposition home or self-care (01) ==
PROVIDERS: Emergency Provider Emergency Medicine; PCP Internal Medicine
DX: M79.671 Pain in right foot (principal); F11.20 Opioid dependence, uncomplicated; Z79.01 Long term (current) use of anticoagulants; Z72.0 Tobacco use; R78.81 Bacteremia; I82.412 Acute embolism and thrombosis of left femoral vein
CPT/HCPCS: 36410; 80053; 84145; 85652; 87040; 99284; 71046; 83605; 83735; 85025; 85610; 85730; 86140; 99285

== ENCOUNTER 2023-03-10 18:21 | Inpatient (IN) | payer MEDICAID, SELFPAY ==
[2023-03-10 18:23] VITALS: BP 178/90; PULSE 91; RESP 18; TEMP 37.2; O2SAT 97
--- NOTE | 2023-03-10 18:30 | DI.CT_ITS ---
Exam(s) CT ABDOMEN PELVIS W EXAM: CT ABDOMEN PELVIS W CLINICAL HISTORY: lower abdomen and perineal pain TECHNIQUE: Imaging Protocol: Axial computed tomography images with coronal and sagittal reformatted images were created and reviewed CONTRAST MATERIAL: Intravenous: Omnipaque 350 Contrast volume:100 mL Oral: No COMPARISON: CT CT ABDOMEN PELVIS WO from 09/03/2021 FINDINGS: ABDOMEN: Lung Bases: Mild gynecomastia. Mild scarring or atelectasis in the lung bases. Liver: Normal density. No measurable mass. The liver measures 21.9 cm long. Portal, Superior Mesenteric, and Splenic Veins: Unremarkable. Gallbladder and Biliary Tract: No radiodense calculus or dilation. Pancreas: Normal density, no abnormal calcifications or inflammatory process. Spleen: The spleen measures 13 cm long. Adrenals: No masses seen. Kidneys: Normal size, contour and axis. There is a 3 mm nonobstructing stone in the midpole of the ri ght kidney. No masses seen. Abdominal Aorta: Abdominal portion non-dilated. Bowel: There is diverticulosis of the colon without evidence of acute diverticulitis. There is no ev idence of bowel obstruction or bowel wall thickening. There is no evidence of appendicitis. Peritoneal Cavity: No ascites, collection or mesenteric inflammatory response. No free air. Lymph Nodes: Mildly prominent lymph nodes are seen along the external iliac and inguinal chain, right greater than left. Bones: Within normal limits for the patient's age. Soft Tissues: Mild edema seen in the subcutaneous tissues in the visualized right thigh. PELVIS: Bladder: Symmetric distention, no gross wall thickening. Reproductive Organs: Unremarkable as visualized. Lymph Nodes: Within normal limits. Bones: Within normal limits for the patient's age. IMPRESSION: 1. No acute abdominal or pelvic process. 2. Mildly enlarged inguinal and iliac lymph nodes, right greater than left. These may be reactive. 3. Mild edema seen in the soft tissues of the right upper thigh of indeterminate etiology. 4. Hepatosplenomegaly. RADIATION DOSE DELIVERED: 1,773.28mGy.cm Total DLP DATA REPOSITORY: All CT scans at this facility are submitted to the National Radiology Data Registry (NRDR) Dose Index Registry (DIR) with the [employer] (A[employer]). RADIATION OPTIMIZATION: All CT scans at this facility use at least one of these dose optimization te chniques: automated exposure control; mA and/or kV adjustment per patient size (includes targeted exa ms where dose is matched to clinical indication); or iterative reconstruction.
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
[2023-03-10] MEDS: LORazepam 2 MG/ML VIAL 1 MG IVP (19:05)
[2023-03-10 19:08] LABS: Abs Immature Grans 0.07 10^3/uL (0.0-0.06); Absolute Basophil Count 0.02 10^3/uL (0.0-0.2); Absolute Eosinophil Count 0.05 10^3/uL (0.0-0.7); Absolute Lymphocyte Count 1.74 10^3/uL (1.2-3.4); Absolute Monocyte Count 0.68 10^3/uL (0.1-0.8); Basophils % 0.2; Eosinophils % 0.6; HCT 33.2 % (40.0-50.0); HGB 10.2 g/dL (13.5-17.5); Immature Grans % 0.9; Lymphocytes % 21.6; MCH 23.3 pg (27.0-33.0); MCHC 30.7 % (32.0-36.0); MCV 76 fL (80-95); Monocytes % 8.4; Neutrophils % 68.3; Platelet Count 466 10^3/uL (130-400); RBC 4.38 10^6/uL (4.36-5.78); RDW 16.9 % (11.8-14.1); RDW-SD 46.4 fL; WBC 8.06 10^3/uL (4.4-10.8)
[2023-03-10 19:21] LABS: INR 1.1 (0.9-1.1); Lipase 30 U/L (16-77); PTT Activated 33.4 sec (23.6-32.8); Prothrombin Time 11.1 sec (9.1-11.1)
[2023-03-10 19:24] LABS: ALT 24 U/L (16-63); AST 25 U/L (15-37); Alkaline Phosphatase 117 U/L (46-116); Anion Gap 8.7 mmol/L (3-11); BUN 12 mg/dL (7-18); Bilirubin, Total 0.3 mg/dL (0.2-1.0); CO2 29.3 mmol/L (21.0-32.0); CREATININE 0.8 mg/dL (0.70-1.30); Calcium 9.2 mg/dL (8.5-10.1); Chloride 97 mmol/L (98-107); Estimated GFR 114.02 (mL/min/1.73m2); Glucose 121 mg/dL (74-106); Magnesium 2.2 mg/dL (1.8-2.4); Potassium 3.7 mmol/L (3.5-5.1); Sodium 135 mmol/L (136-145); Total Protein 9.4 g/dL (6.4-8.2)
[2023-03-10 19:37] LABS: Procalcitonin 0.5 ng/mL
[2023-03-10] MEDS: Omnipaque 350 MG/ML 100 ML BTL IJ (19:53)
[2023-03-10] MEDS: Normal Saline - Diluent 50 ML VIAL IJ (19:54)
--- NOTE | 2023-03-10 20:30 | DI.CT_ITS ---
Exam(s) CT LOWER EXTREMITY RT W EXAM: CT LOWER EXTREMITY RT W CLINICAL HISTORY: right leg pain? abscess. TECHNIQUE: Imaging Protocol: Axial computed tomography images with coronal and sagittal reformatted images were created and reviewed. CONTRAST MATERIAL: Intravenous: Omnipaque 350. Contrast Volume: 100 ML COMPARISON: No exams were available for comparison FINDINGS: Bones: Destructive changes seen of the sustentaculum zoë. There are degenerative changes seen in th e knee. No acute fracture or dislocation is present. Soft Tissues: There is a peripherally enhancing fluid collection located within the flexor hallucis l ongus muscle measuring at least 22 cm long by 1.9 cm transverse by 0.5 cm AP (series 3 images 205 thr ough 250). There is also peripherally enhancing fluid collection medial to or in the distal flexor h allucis longus tendon measuring 8.5 x 1.8 cm (series 3, image 271). There is a fluid collection in t he distal flexor hallucis longus tendon measuring 1.4 x 0.9 cm (series 3, image 304). It also shows peripheral enhancement. There are erosive changes seen of the sustentaculum zoë adjacent to the ten don sheath for the flexor hallucis muscle. (Series 3, image 290). There is edema seen in the soft t issues of the right lower extremity consistent with cellulitis. Enhancement: Please see the above section under soft tissues. IMPRESSION: 1. Intramuscular peripherally enhancing fluid collections associated with the flexor hallucis longus muscle and tendon suspicious for abscesses. 2. Destructive changes seen involving the sustentaculum zoë. Osteomyelitis should be considered. M RI may be obtained for further evaluation. 3. Edema and/or cellulitis in the lower extremity. RADIATION DOSE DELIVERED: 787.85mGy.cm Total DLP 787.85mGy.cm Total DLP 787.85mGy.cm Total DLP DATA REPOSITORY: All CT scans at this facility are submitted to the National Radiology Data Registry (NRDR) Dose Index Registry (DIR) with the [employer] ([employer]). RADIATION OPTIMIZATION: All CT scans at this facility use at least one of these dose optimization te chniques: automated exposure control; mA and/or kV adjustment per patient size (includes targeted exa ms where dose is matched to clinical indication); or iterative reconstruction.
--- NOTE | 2023-03-10 20:34 | DI.VRAD_ITS ---
PROCEDURE INFORMATION: Exam: CT Abdomen And Pelvis With Contrast Exam date and time: 03/10/2023 7:54 PM Age: 42 years old Clinical indication: Abdominal pain; Generalized; Patient HX: Lower abdomen and perineal pain TECHNIQUE: Imaging protocol: Computed tomography of the abdomen and pelvis with contrast. Radiation optimization: All CT scans at this facility use at least one of these dose optimization techniques: automated exposure control; mA and/or kV adjustment per patient size (includes targeted exams where dose is matched to clinical indication); or iterative reconstruction. Contrast material: OMNIPAQUE 350; Contrast volume: 100 ml; Contrast route: INTRAVENOUS (IV); COMPARISON: CT ABDOMEN PELVIS WO 09/03/2021 9:46 PM FINDINGS: Liver: No hepatic masses. Gallbladder and bile ducts: The gallbladder is contracted. No significant biliary dilation or radiopaque stones in the biliary tree. Pancreas: No ductal dilation. No masses. Spleen: No splenomegaly or focal lesions. Adrenal glands: No mass. Kidneys and ureters: Punctate nonobstructive right nephrolithiasis. No renal masses or hydronephrosis bilaterally. Stomach and bowel: Colonic diverticulosis without diverticulitis. No focal pathology in the small bowel. Appendix: No evidence of appendicitis. Intraperitoneal space: No free air. No significant fluid collection. Vasculature: No abdominal aortic aneurysm. Lymph nodes: No significantly enlarged lymph nodes. Urinary bladder: Unremarkable as visualized. Reproductive: Unremarkable as visualized. Bones/joints: Presumed chronic degenerative changes to the lumbar spine, could be worked up with MRI if clinically indicated. This could also be the sequela of chronic osteomyelitis discitis. No acute fracture or subluxation. Soft tissues: Gynecomastia. Moderate dependent subcutaneous edema. The right upper thigh musculature appears slightly edematous which would be new since prior. IMPRESSION: 1. No acute visceral pathology. 2. New dependent edema, new edema suspected right upper thigh, uncertain etiology. 3. Additional findings as described. Dictated and Authenticated by: Dahlia Falcon MD. Ordering:KENYA Calabrese MD
[2023-03-10] MEDS: Normal Saline Flush 10 ML SYR IVP (21:04)
[2023-03-10] MEDS: Acetaminophen 500 MG TAB 1000 MG PO (21:05)
[2023-03-10 21:27] VITALS: TEMP 37.5
--- NOTE | 2023-03-10 21:57 | DI.VRAD_ITS ---
PROCEDURE INFORMATION: Exam: CT Right Lower Extremity With Contrast Exam date and time: 03/10/2023 9:05 PM Age: 42 years old Clinical indication: Pain; Thigh; Right; Additional info: RT thigh pain, ? abscess TECHNIQUE: Imaging protocol: CT of the right lower extremity with intravenous contrast was performed. Contrast material: OMNI 350; Contrast volume: 100 ml; Contrast route: INTRAVENOUS (IV); COMPARISON: US EXTREMITY VENOUS BI 02/17/2023 1:17 PM FINDINGS: Bones/joints: Patellar and quadriceps enthesophytes. No acute fracture or subluxation. Soft tissues: Subcutaneous edema is mild in the thigh most pronounced anteriorly, mild in the knee more pronounced anteriorly, moderate in the distal right lower extremity and becoming circumferential about the ankle and foot. 25 x 13 x 11 mm peripherally enhancing abscess, posterior distal calf compartment, this may communicate with a very subtle shallow longitudinal peripheral enhancing collection, 30 x 2 x 5 mm, likely located within the gastrocnemius tendon, cephalad lateral gastrocnemius contains a shallow, broad, 16 x 6 x 60 mm collection likely communicating with the more distal abscesses. Urinary bladder: Contrast in the urinary bladder without significant wall thickening. IMPRESSION: 1. Smaller loculated abscesses, right gastrocnemius musculature and tendon as above. 2. Distal predominant edema and/or cellulitis. 3. Incidental findings as described. Dictated and Authenticated by: Dahlia Falcon MD. Ordering:KENYA Calabrese MD
[2023-03-10 22:13] LABS: Source Nasal/Nares
[2023-03-10 22:21] LABS: C-Reactive Protein > 25.00 mg/dL (0.0-0.3)
[2023-03-10 22:30] LABS: ESR 76 mm/hr (0-15)
[2023-03-10 22:40] VITALS: BP 167/91; PULSE 89; RESP 16; TEMP 37.9; O2SAT 95
[2023-03-10 22:42] LABS: COVID-19 PCR Negative (Negative)
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
[2023-03-11] MEDS: VANCOMYCIN 2,000 MG in Normal Saline 500 ML 250 MG IVPB (00:16)
[2023-03-11] MEDS: Normal Saline Flush 10 ML SYR IVP ×4 (00:17→22:57)
--- NOTE | 2023-03-11 00:34 | NUR.NOTE ---
Nursing Note: Patient has home medications in a pill bottle at bedside. Requested patient to give medications to this nurse to keep in pharmacy, to which patient refused stating he would send them home with his mother in the morning. Patient states he is worried they will not be returned to him on discharge. This nurse explained the process of alerting discharge team with chart stickers that they are locked in pharmacy. Patient continues to refused to lock home medications in pharmacy. Patient instructed not to take any medication that is not given by staff here. Patient verbalized agreement. Dr. Bell notifed that patient has medications at bedside and unwilling to lock in pharmacy.
[2023-03-11] MEDS: Ketorolac 30 MG/ML VIAL IVP ×2 (00:54→22:56)
[2023-03-11] MEDS: Pantoprazole 40 MG TABCR PO (00:54)
[2023-03-11] MEDS: Acetaminophen 325 MG TAB PO ×3 (05:51→19:35)
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
[2023-03-11 06:50] LABS: Abs Immature Grans 0.07 10^3/uL (0.0-0.06); Absolute Basophil Count 0.02 10^3/uL (0.0-0.2); Absolute Eosinophil Count 0.09 10^3/uL (0.0-0.7); Absolute Lymphocyte Count 1.88 10^3/uL (1.2-3.4); Absolute Monocyte Count 0.67 10^3/uL (0.1-0.8); Absolute Neutrophil Count 4.64 10^3/uL (1.2-6.7); Basophils % 0.3; Eosinophils % 1.2; HCT 31.8 % (40.0-50.0); HGB 9.9 g/dL (13.5-17.5); Immature Grans % 0.9; Lymphocytes % 25.5; MCH 23.5 pg (27.0-33.0); MCHC 31.1 % (32.0-36.0); MCV 76 fL (80-95); MPV 9.6 fL (8.0-11.0); Monocytes % 9.1; Platelet Count 426 10^3/uL (130-400); RBC 4.21 10^6/uL (4.36-5.78); RDW-SD 46.4 fL; WBC 7.37 10^3/uL (4.4-10.8)
[2023-03-11 07:15] LABS: Iron 17 ug/dL (65-175); Total Iron Binding Capacity 190 ug/dL (250-450); Transferrin Sat 9 % (20-55)
[2023-03-11 07:29] VITALS: BP 159/97; PULSE 81; RESP 19; TEMP 36.7; O2SAT 94
[2023-03-11 07:30] LABS: ALT 23 U/L (16-63); AST 32 U/L (15-37); Albumin 1.7 g/dL (3.4-5.0); Alkaline Phosphatase 106 U/L (46-116); Anion Gap 11.8 mmol/L (3-11); BUN 10 mg/dL (7-18); Bilirubin, Total 0.4 mg/dL (0.2-1.0); CO2 24.2 mmol/L (21.0-32.0); CREATININE 0.8 mg/dL (0.70-1.30); Calcium 8.2 mg/dL (8.5-10.1); Chloride 97 mmol/L (98-107); Estimated GFR 114.02 (mL/min/1.73m2); Glucose 118 mg/dL (74-106); Potassium 4.4 mmol/L (3.5-5.1); Sodium 133 mmol/L (136-145); Total Protein 7.4 g/dL (6.4-8.2)
[2023-03-11] MEDS: Buprenorphine/Naloxone 8 mg/2 mg FILM 1 EACH SL (08:29)
[2023-03-11] MEDS: Nicotine 21 MG/24 HR PATCH TD (08:30)
[2023-03-11] MEDS: hydrOXYzine HCL 50 MG TAB PO ×2 (08:30→20:41)
[2023-03-11] MEDS: VANCOMYCIN/WATER (PEG) 1.5 GM/300 ML BAG IV ×2 (08:31→20:45)
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
[2023-03-11] MEDS: Apixaban 5 MG TAB PO ×2 (11:05→19:36)
[2023-03-11 11:30] LABS: Lab Add On Test DONE
[2023-03-11 12:03] LABS: Ferritin 474 ng/mL (26-388)
--- NOTE | 2023-03-11 12:19 | PGE_ITS ---
Date of Service Date of service: 03/11/23 Time of Service: 12:20 Assessment and Plan Assessment and plan (1) Abscess of leg, right: Status: Acute Assessment and plan: CT confirms a small abscess. Not c/w necrotizing fasciitis. Dr. Gonzalez saw the patient this morning couple times and he reviewed the CT and discussed this case w/ his colleagues at [facility]. Rare occurrence for flexor hallucis tendon abscess, certainly related to his prior drug injections into his right ankle/foot even though he says that he has not done so for a few months. continue Vancomycin for MSSA bacteremia pending results of repeat blood cultures, if purely MSSA then can switch to either high dose Pcn g or Ancef. Dr. Gonzalez made him NPO for tonight but if no worsening of his condition, then Dr. Gonzalez is reluctant to operate and patient really does not want an operation. (2) Positive blood culture: Status: Acute Assessment and plan: MSSA positive from 02/17, this was one of two cultures from 02/17; repeat cultures from 02/21 showed no growth, blood cultures from admission are pending. continue Vancomycin and modify based on cultures results. Recent MRI of his spine did not show any new disciitis changes. Will get echocardiogram on Monday. (3) Opioid dependence: Status: Chronic Assessment and plan: He is now following with [facility]. Confirm and continue his suboxone. (4) DVT (deep venous thrombosis): Status: Chronic Assessment and plan: held pending decision regarding surgery. If no surgery for tomorrow then will resume his apixaban, otherwise will need bridge heparin until surgery. (5) Tobacco abuse: Status: Acute Assessment and plan: Discussed cessation, NRT patches for now. (6) Discharge planning issues: Status: Acute Assessment and plan: He will need snf antibiotic therapy, we discussed this. Subjective Subjective Interval history since last seen: 42 y old male IVDA w/ prior endocarditis ([facility] Nov 2022) and spinal osteomyelitis/disciitis ([facility] 02/25/22-03/04/22) w/ MSSA bacteremia who presented w/ complaint of right leg pain in the thigh. He was worked up in the ED on 02/17/23 for bilateral leg pain R > L and low back pain. MRI done to r/o discitis, none seen. Patient had been on apixaban for prior DVT but was non compliant w/ therapy so workup was done for DVT. Venous duplex was positive for left proximal femoral vein through poplitaeal vein and lesser daphenous vein. His apixaban was increased to 10 mg bid. At that time there was no evidence for acute infection although he did have blood cultures done d/t his prior hx of MSSA. This came back positive for MSSA in one of two sets of cultures from 02/17/23. ED staff contacted him on 02/19 and advised he come back for recheck immediately but he did not show up until 02/21/23. He still was asymptomatic and he declined admission while repeat cultures were pending from 02/21. They have since returned no growth x two sets. However, he presented to the ED w/ continued complaints of thigh pain and perineal pain. He was noted to have cellulitis of the right groin, perineum but had intact cremasteric reflexes, no decrease senstation. CT abdomen and pelvis and right leg done. CT abdomen and pelvis did not show any pelvic abscess, but enlarged inguinal and iliac nodes R > L and mild edema of right upper thigh and hepatosplenomegaly. Right leg CT demonstrated fluid collection in the right flexor hallucis longus muscle and tendon suspicious for abscess. Destructive changes seen in the sutentaculum zoë adjacent to the sheath. Dr. Gonzalez has been consulted and saw this patient this morning and discussed the case w/ me. The patient apparently has been having some pain in the right leg for a few months since the last time he used the right leg to shoot up heroin. Dr. Gonzalez says that the patient's pain is mostly in the right groin and he says that he can reproduce the pain w/ ROM Exam Narrative Exam Narrative: Venkatesh is lethargic today but awakens easily. He appears to be in pain RLE w/ erythema of the right thigh Calf appears swollen but not tender to palpation Right ankle/foot appears edematous, but I could not elicit pain w/ extension or flexion of the ankle and even w/ dorsiflexion or plantar flexion I really could not elicit pain Pedal pulses strong Objective Last Vital Signs Temp 36.7 C 03/11/23 07:29 Pulse 81 03/11/23 07:29 Resp 19 01/27/24 07:29 BP 159/97 H 03/11/23 07:29 Pulse Ox 94 03/11/23 07:29 Laboratory Results - last 24 hr 03/10/23 03/10/23 03/11/23 19:00 21:55 06:30 WBC 8.06 7.37 RBC 4.38 4.21 L Hgb 10.2 L 9.9 L Hct 33.2 L 31.8 L MCV 76 L 76 L MCH 23.3 L 23.5 L MCHC 30.7 L 31.1 L RDW 16.9 H 17.0 H Plt Count 466 H 426 H MPV 9.0 9.6 Immature Gran % 0.9 0.9 Neutrophils % 68.3 63.0 Lymphocytes % 21.6 25.5 Monocytes % 8.4 9.1 Eosinophils % 0.6 1.2 Basophils % 0.2 0.3 Nucleated RBC % 0.0 0.0 Absolute Neutrophils 5.50 4.64 Absolute Lymphocytes 1.74 1.88 Absolute Monocytes 0.68 0.67 Absolute Eosinophils 0.05 0.09 Absolute Basophils 0.02 0.02 ESR 76 H PT 11.1 INR 1.1 APTT 33.4 H Sodium 135 L 133 L Potassium 3.7 4.4 Chloride 97 L 97 L Carbon Dioxide 29.3 24.2 Anion Gap 8.7 11.8 H BUN 12 10 Creatinine 0.8 0.8 Est GFR (CKD-EPI 2020) 114.02 114.02 Glucose 121 H 118 H Calcium 9.2 8.2 L Magnesium 2.2 Iron 17 L TIBC 190 L Transferrin % Sat 9 L Total Bilirubin 0.3 0.4 AST 25 32 ALT 24 23 Alkaline Phosphatase 117 H 106 C-Reactive Protein > 25.00 H Total Protein 9.4 H 7.4 Albumin 2.0 L 1.7 L Lipase 30 Procalcitonin 0.5 COVID-19 Source Nasal/Nares SARS-CoV-2 (PCR) Negative Add-On Test Request 03/11/23 11:20 WBC RBC Hgb Hct MCV MCH MCHC RDW Plt Count MPV Immature Gran % Neutrophils % Lymphocytes % Monocytes % Eosinophils % Basophils % Nucleated RBC % Absolute Neutrophils Absolute Lymphocytes Absolute Monocytes Absolute Eosinophils Absolute Basophils ESR PT INR APTT Sodium Potassium Chloride Carbon Dioxide Anion Gap BUN Creatinine Est GFR (CKD-EPI 2020) Glucose Calcium Magnesium Iron TIBC Transferrin % Sat Total Bilirubin AST ALT Alkaline Phosphatase C-Reactive Protein Total Protein Albumin Lipase Procalcitonin COVID-19 Source SARS-CoV-2 (PCR) Add-On Test Request DONE Time Spent with Patient Time Spent with Patient: 25-34 minutes Time was spent: preparing to see the patient(eg.review tests), ordering medications,tests, procedures, referring, communicating with other health childcare attendant (Dr. Gonzalez), indepentently interpreting results, counseling the patient and care coordination
[2023-03-11] MEDS: CLINDAMYCIN 900 MG/50 ML BAG 50 MG IVPB (19:30)
[2023-03-11 22:59] VITALS: BP 157/93; PULSE 79; RESP 17; TEMP 37; O2SAT 98
[2023-03-12 07:28] LABS: Abs Immature Grans 0.07 10^3/uL (0.0-0.06); Absolute Basophil Count 0.03 10^3/uL (0.0-0.2); Absolute Lymphocyte Count 2.49 10^3/uL (1.2-3.4); Absolute Monocyte Count 0.68 10^3/uL (0.1-0.8); Absolute Neutrophil Count 4.59 10^3/uL (1.2-6.7); Basophils % 0.4; Eosinophils % 1.3; HCT 29.7 % (40.0-50.0); HGB 9.2 g/dL (13.5-17.5); Immature Grans % 0.9; Lymphocytes % 31.3; MCH 23.1 pg (27.0-33.0); MCV 75 fL (80-95); MPV 8.8 fL (8.0-11.0); Monocytes % 8.5; Neutrophils % 57.6; Platelet Count 501 10^3/uL (130-400); RBC 3.98 10^6/uL (4.36-5.78); RDW 16.9 % (11.8-14.1); RDW-SD 46.2 fL; WBC 7.96 10^3/uL (4.4-10.8)
[2023-03-12 07:40] LABS: ALT 24 U/L (16-63); AST 35 U/L (15-37); Albumin 1.6 g/dL (3.4-5.0); Alkaline Phosphatase 97 U/L (46-116); Anion Gap 9.4 mmol/L (3-11); BUN 12 mg/dL (7-18); Bilirubin, Total 0.3 mg/dL (0.2-1.0); CO2 26.6 mmol/L (21.0-32.0); CREATININE 0.8 mg/dL (0.70-1.30); Calcium 9.2 mg/dL (8.5-10.1); Chloride 101 mmol/L (98-107); Estimated GFR 114.02 (mL/min/1.73m2); Glucose 125 mg/dL (74-106); Potassium 3.9 mmol/L (3.5-5.1); Sodium 137 mmol/L (136-145); Total Protein 8.2 g/dL (6.4-8.2)
[2023-03-12 07:49] LABS: C-Reactive Protein > 25.00 mg/dL (0.0-0.3)
[2023-03-12 08:01] LABS: Vancomycin, Random 11.7 ug/mL
--- NOTE | 2023-03-12 08:12 | W.PM.PROGNOT ---
Date of Service Date of service: 03/12/23 Time of Service: 07:30 Assessment and Plan Assessment and plan (1) Abscess of leg, right: Status: Acute Assessment and plan: Venkatesh is a 42-year-old who continues to show clinical signs of infection. CT scan does show a peripherally enhancing mass within the flexor hallucis longus, this is likely chronic. He does not have significant exam findings to suggest that this is an active component. While it could be a source of infection I would assume that it was actively seeding his body there to be more clinical signs of the. Additionally, the patient is quite adamant that he wants no surgery foot or ankle as he does not have much pain down there. I am unable to really determine much with his hip and proximal leg exam. Rotation and flexion as well as direct palpation does not recreate any significant symptoms. I do not know if there is an intra-abdominal or intrapelvic source of this pain. I also did understand what role his detoxifying from heroin is playing in this. He still has elevated CRP. He continues to have a drop in his hemoglobin. He has significant signs of malnutrition throughout his labs as well. I would encourage at this point to try and get him out of the bed. I think he needs to at least get to a chair and move his body some. Is unclear to me if there is any active infection and needs surgical debridement or treatment but his exam is quite benign. Things appointment he tries to mobilize and try to get him moving some. Getting up Cor[place] would be helpful versus laying in the bed and sleeping. However, this is complicated by his ongoing dry habits. I impressed upon him the importance of not skipping his antibiotics. His vancomycin level is low. He has 1 blood culture gram-positive rods with is somewhat suspect for contamination will need to be followed with the repeat blood cultures drawn yesterday. At this point, I will continue to follow along with his care but I do not think there is any indication for direct orthopedic involvement at this time. Subjective Subjective Interval history since last seen: Venkatesh reports no significant change. He reports to me that he is detoxing from heroin use, used just prior to admission. He denies any increase in his ankle or leg pain. He does continue to report pain about the medial?proximal thigh into the groin and lower abdomen. Denies any other changes. He feels overall better than what he was when he was admitted to the hospital by his report. He refused to be n.p.o. overnight. He also refuses antibiotic overnight although he refutes that client and states that I was probably very tired. He has not gotten out of bed. Denies any other new symptoms. Exam Narrative Exam Narrative: Sleeping on his left side. He is able to awaken to stay with the exam. He is in no acute distress. Alert and oriented x 3. Evaluation of the right leg shows very minimal pain to palpation throughout the lower aspect of the leg. Much like yesterday's examination there is some medial ankle and leg pain with maximal dorsiflexion of the ankle combined with great toe extension. He has no pain with active range of motion of the leg. He has significantly less pain with motion of the right thigh and hip compared to yesterday. Unable to internally and externally rotate the leg over an arc of about 30 to 40 degrees without any significant pain. He is able to actively flex and rotate the leg without any significant objective or subjective signs of pain. There is no crepitus palpation throughout the leg all the way into the perineum. There is no erythema. There is no warmth. There is no area of fluctuance. Objective Last Vital Signs Temp 37.0 C 03/11/23 22:59 Pulse 79 03/11/23 22:59 Resp 17 03/11/23 22:59 BP 157/93 H 03/11/23 22:59 Pulse Ox 98 03/11/23 22:59 Laboratory Results - last 24 hr 03/11/23 03/12/23 11:20 06:50 WBC 7.96 RBC 3.98 L Hgb 9.2 L Hct 29.7 L MCV 75 L MCH 23.1 L MCHC 31.0 L RDW 16.9 H Plt Count 501 H MPV 8.8 Immature Gran % 0.9 Neutrophils % 57.6 Lymphocytes % 31.3 Monocytes % 8.5 Eosinophils % 1.3 Basophils % 0.4 Nucleated RBC % 0.0 Absolute Neutrophils 4.59 Absolute Lymphocytes 2.49 Absolute Monocytes 0.68 Absolute Eosinophils 0.10 Absolute Basophils 0.03 Sodium 137 Potassium 3.9 Chloride 101 Carbon Dioxide 26.6 Anion Gap 9.4 BUN 12 Creatinine 0.8 Est GFR (CKD-EPI 2020) 114.02 Glucose 125 H Calcium 9.2 Ferritin 474 H Total Bilirubin 0.3 AST 35 ALT 24 Alkaline Phosphatase 97 C-Reactive Protein > 25.00 H Total Protein 8.2 Albumin 1.6 L Random Vancomycin 11.7 Add-On Test Request DONE Time Spent with Patient Time Spent with Patient: 35-49 minutes Time was spent: preparing to see the patient(eg.review tests), obtaining and/or reviewing separately otained hiistory, indepentently interpreting results, counseling the patient and care coordination
[2023-03-12] MEDS: Nicotine 21 MG/24 HR PATCH TD (08:31)
[2023-03-12] MEDS: Buprenorphine/Naloxone 8 mg/2 mg FILM 1 EACH SL (08:31)
[2023-03-12] MEDS: Apixaban 5 MG TAB PO (08:31)
[2023-03-12] MEDS: Normal Saline Flush 10 ML SYR IVP (08:32)
[2023-03-12] MEDS: Acetaminophen 325 MG TAB PO (09:44)
[2023-03-12] MEDS: hydrOXYzine HCL 50 MG TAB PO (09:44)
[2023-03-12] MEDS: Hyaluronidase 150 UNITS VIAL 15 UNITS IJ (10:01)
[2023-03-12 10:19] LABS: Lab Add On Test DONE
[2023-03-12 10:26] LABS: Reticulocyte 0.9 % (0.5-2.4)
--- NOTE | 2023-03-12 10:49 | NUR.NOTE ---
Nursing Note:pt refused second attempt to regain IV access
[2023-03-12 11:02] LABS: Vitamin B12 335 pg/mL (193-986)
[2023-03-12] MEDS: LORazepam 1 MG TAB PO (11:37)
--- NOTE | 2023-03-12 12:38 | PGE_ITS ---
Date of Service Date of service: 03/12/23 Time of Service: 12:38 Assessment and Plan Assessment and plan (1) Abscess of leg, right: Status: Acute Assessment and plan: as per CT confirmation. See Dr. Gonzalez note. No surgery planned. continue antibiotic treatment. As patient has no iv access and refuses to have new iv placed, I will place him on Keflex 1 gm po qid, and if his repeat blood cultures from yesterday show no growth and the one from 03/10 is a contaminant then I will opt to dc him home tomorrow on Keflex 1 gm po qid x 4 weeks minimum given his prior endocarditis and disciitis. Hopefully his repeat cultures are no growth and his echo tomorrow does not show any overt valve lesions. (2) Positive blood culture: Status: Acute Assessment and plan: intial culture from 02/17/23 was one of two sets postive for MSSA but repeat from 02/21 was no growth x two sets, and the sets from 03/10 was one culture positive for gram positive rods (probable contaminant); await repeat culture results. (3) Opioid dependence: Status: Chronic Assessment and plan: He is now following with [facility]. Confirm and continue his suboxone. (4) DVT (deep venous thrombosis): Status: Chronic Assessment and plan: held pending decision regarding surgery. If no surgery for tomorrow then will resume his apixaban, otherwise will need bridge heparin until surgery. (5) Tobacco abuse: Status: Acute Assessment and plan: Discussed cessation, NRT patches for now. (6) Discharge planning issues: Status: Acute Assessment and plan: He will need long-term antibiotic therapy, we discussed this. Subjective Subjective Interval history since last seen: Patient is agitated, his iv became infiltratred in his right antecubital. He als o refused his iv vancomycin last night. This moring when the vancomycin was being given it became infiltrated and required hyaluronidase injection. He is refusing to have another iv placed even a midline. His repeat blood cultures from 03/11/23 are pending at this time. The set fro 03/10 showed one culture w/ gram positive rachel, the other one from 03/10 was no growth. Two sets from 02/21 showed no growth. I informed Venkatesh that if he has persistent bacteremia then he will need to complete 6 weeks of antibiotics and this will necessitate placement of a midline. He still refuses to have a new iv placed. he states that the nurses keep missing. However, they had previously successfully placed the iv in the right arm but it has since become infiltrated from the vancomycin. Exam Narrative Exam Narrative: Restless and agitated, patient reports that he was doing heroin prior to his admission. I gave him an oral dose of ativan but this has not really helped Right arm antecubital small area of purplish induration, soft, no drainage, nontender to palpation Left hand is swollen, normal pulses, no redness or increased warmth over the left hand Legs: right thigh does not appear reddened, nontender to palpation Right foot and ankle, slight edema of the ankle and foot but w/out redness nor increased warmth, normal pulses Skin w/ multiple scabs, one of which he picked and was bleeding over the left forearm Objective Last Vital Signs Temp 37.0 C 03/11/23 22:59 Pulse 79 03/11/23 22:59 Resp 17 03/11/23 22:59 BP 157/93 H 03/11/23 22:59 Pulse Ox 98 03/11/23 22:59 Laboratory Results - last 24 hr 03/12/23 06:50 WBC 7.96 RBC 3.98 L Hgb 9.2 L Hct 29.7 L MCV 75 L MCH 23.1 L MCHC 31.0 L RDW 16.9 H Plt Count 501 H MPV 8.8 Reticulocyte % (Auto) 0.9 Immature Gran % 0.9 Neutrophils % 57.6 Lymphocytes % 31.3 Monocytes % 8.5 Eosinophils % 1.3 Basophils % 0.4 Nucleated RBC % 0.0 Absolute Neutrophils 4.59 Absolute Lymphocytes 2.49 Absolute Monocytes 0.68 Absolute Eosinophils 0.10 Absolute Basophils 0.03 Sodium 137 Potassium 3.9 Chloride 101 Carbon Dioxide 26.6 Anion Gap 9.4 BUN 12 Creatinine 0.8 Est GFR (CKD-EPI 2020) 114.02 Glucose 125 H Calcium 9.2 Total Bilirubin 0.3 AST 35 ALT 24 Alkaline Phosphatase 97 C-Reactive Protein > 25.00 H Total Protein 8.2 Albumin 1.6 L Vitamin B12 335 Folate 4.0 L Random Vancomycin 11.7 Add-On Test Request DONE Time Spent with Patient Time Spent with Patient: 35-49 minutes Time was spent: preparing to see the patient(eg.review tests), ordering medications,tests, procedures, referring, communicating with other health post acute care nurse, indepentently interpreting results, counseling the patient and care coordination
[2023-03-12] MEDS: Cephalexin 500 MG CAP PO (13:00)
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
--- NOTE | 2023-03-12 15:20 | PDOC.CMPRO ---
Date of service: 03/12/23 Time of Service: 15:20 Care Management Progress Note Progress Note Text Progress Note Text: Venkatesh left the hospital against medical advice this afternoon. SDOH(Care Management) Screening Will the Patient Participate in the Screening?: Declined to provide
== END 2023-03-12 13:15 | disposition left against medical advice (07) | DRG 603 ==
LOC: ER 22:25 → MS 22:44
PROVIDERS: Internal Medicine; Admitting Provider Family Medicine; Emergency Provider Emergency Medicine; PCP Nurse Practitioner Family; Visit Provider Family Medicine
DX: L03.314 Cellulitis of groin (principal); M60.061 Infective myositis, right lower leg; F11.20 Opioid dependence, uncomplicated; Z59.01 Sheltered homelessness; I82.512 Chronic embolism and thrombosis of left femoral vein; I82.532 Chronic embolism and thrombosis of left popliteal vein; L03.315 Cellulitis of perineum; R73.03 Prediabetes; I10 Essential (primary) hypertension; E66.9 Obesity, unspecified; F17.210 Nicotine dependence, cigarettes, uncomplicated; M10.9 Gout, unspecified; B95.61 Methicillin susceptible Staphylococcus aureus infection as the cause of diseases classified elsewhere; T80.89XA Other complications following infusion, transfusion and therapeutic injection, initial encounter; M79.89 Other specified soft tissue disorders; Z79.01 Long term (current) use of anticoagulants; T45.516A Underdosing of anticoagulants, initial encounter
CPT/HCPCS: 00123; 36410; 36415; 80053; 83690; 84145; 85652; 87040; 87635; 96374; 99285; 73701; 74177; 80202; 82607; 82728; 82746; 83540; 83550; 83735; 85025; 85045; 85610; 85730; 86140; 99232; 99238; J0737; J1885; J2060; J3370; J3372; J3470; J3490